=== PATIENT | female | born 1970 | race Hispanic/Latino ===

== ENCOUNTER 2018-04-15 08:50 | Emergency (ER) | payer OTHER ==
--- OUTSIDE RECORDS SUMMARY | 2018-04-15 08:53 | XMS REPORT | Clinical Summary ---
:1970 Author Organization [facility] Address [address] [place] [address] Care Team Providers Name Role Phone Asked, No Pcp Primary Care Provider Unavailable Allergies Not on File Current Medications Not on file Active Problems Not on file Social History Tobacco Use Types Packs/Day Years Used Date Never Assessed Sex Assigned at Date Recorded Not on file Last Filed Vital Signs Not on file Plan of Treatment Not on file Results Not on fileafter 04/14/2017
[2018-04-15] MEDS ORDERED: FENTANYL CITR 100 MCG/2 ML ONE (09:14)
[2018-04-15] MEDS ORDERED: ONDANSETRON 4 MG/2 ML VIAL ONE (09:14)
[2018-04-15 09:15] LABS: Absolute Lymphocytes (CBC) 1.8 K/uL (0.7-4.9); Absolute Monocytes 0.5 K/uL (0.1-1.3); Absolute Neutrophil 5.6 K/uL (1.8-8.0); Basophils % 0.7 % (0-1.3); Eosinophils % 1.4 % (0-4.4); Hematocrit 43.7 % (36.0-45.0); MCH 30.8 pg (27.0-35.0); MCV 88.7 fL (80-100); MPV 9.4 fL (7.6-11.3); RBC Red Blood Cell Count 4.93 M/uL (3.86-4.86)
[2018-04-15 09:19] LABS: Protime INR 0.97
--- NOTE | 2018-04-15 09:20 | RAD REPORT ---
EXAM DESCRIPTION: Ramiro Single View04/15/2018 9:15 am CLINICAL HISTORY: Chest pain COMPARISON: August 2017 FINDINGS: The lungs appear clear of acute infiltrate. The heart is normal size IMPRESSION: No acute abnormalities displayed
[2018-04-15 09:36] LABS: Bilirubin Direct 0.1 mg/dL (0-0.2); Bilirubin Total 0.4 mg/dL (0.2-1.0); Magnesium 2.2 mg/dL (1.8-2.4); Potassium 3.4 mmol/L (3.5-5.1); Protein, Total 8.8 g/dL (6.4-8.2)
--- NOTE | 2018-04-15 10:44 | EKG ---
Test Date: 2018-04-15 Test Time: 08:55:43 Drop Hammer Setter Up: LEONID MEASUREMENT RESULTS: Intervals: Rate: 89 GA: 142 QRSD: 96 QT: 330 QTc: 401 [place]: P: 41 GA: 142 QRS: 42 T: -7 INTERPRETIVE STATEMENTS: Normal sinus rhythm T wave abnormality, consider inferior ischemia Abnormal ECG Compared to ECG 08/31/2017 08:43:02 No significant changes Electronically Signed On 04-15-18 10:43:44 CDT by Denis Camacho
--- NOTE | 2018-04-15 10:49 | EDPHYS ---
Physician Documentation [facility] Name: Neva Maharaj Age: 48 yrs Sex: Female : 1970 Arrival Date: 04/15/2018 Time: 08:53 Bed 6 Private MD: ED Physician Chun Avila HPI: 04/15 09:10 This 48 yrs old Female presents to ER via EMS with complaints of Chest Pain. jr8 09:10 The patient or guardian reports chest pain that is located primarily in the anterior jr8 chest wall, left. Onset: gradually, 1 week(s) ago, and became worse and became persistent. The pain radiates to the left arm. Associated signs and symptoms: The patient has no apparent associated signs or symptoms. The chest pain is described as sharp. Duration: The patient or guardian reports multiple episodes. Modifying factors: The symptoms are alleviated by nothing. the symptoms are aggravated by breathing, cough. Severity of pain: At its worst the pain was moderate in the emergency department the pain is unchanged. The patient has not experienced similar symptoms in the past. The patient has not recently seen a physician. Historical: - Allergies: 09:03 NKDA; sv - Home Meds: 09:03 vitamins [Active]; sv - PMHx: 09:03 Hypertension; "fluid in lungs"; TIA; sv - PSHx: 09:03 None; sv - Immunization history:: Adult Immunizations up to date. - Social history:: Smoking status: Patient/guardian denies using tobacco. - Ebola Screening: : No symptoms or risks identified at this time. ROS: 09:10 Eyes: Negative for injury, pain, redness, and discharge, ENT: Negative for injury, jr8 pain, and discharge, Neck: Negative for injury, pain, and swelling, Respiratory: Negative for shortness of breath, cough, wheezing, and pleuritic chest pain, Abdomen/GI: Negative for abdominal pain, nausea, vomiting, diarrhea, and constipation, Back: Negative for injury and pain, MS/Extremity: Negative for injury and deformity, Skin: Negative for injury, rash, and discoloration, Neuro: Negative for headache, weakness 09:10 Cardiovascular: Positive for chest pain, Negative for edema, orthopnea, palpitations, paroxysmal nocturnal dyspnea. Exam: 09:10 Eyes: Pupils equal round and reactive to light, extra-ocular motions intact. Lids and jr8 lashes normal. Conjunctiva and sclera are non-icteric and not injected. Cornea within normal limits. Periorbital areas with no swelling, redness, or edema. ENT: Nares patent. No nasal discharge, no septal abnormalities noted. Tympanic membranes are normal and external auditory canals are clear. Oropharynx with no redness, swelling, or masses, exudates, or evidence of obstruction, uvula midline. Mucous membranes moist. Neck: Trachea midline, no thyromegaly or masses palpated, and no cervical lymphadenopathy. Supple, full range of motion without nuchal rigidity, or vertebral point tenderness. No Meningismus. Cardiovascular: Regular rate and rhythm with a normal S1 and S2. No gallops, murmurs, or rubs. Normal PMI, no JVD. No pulse deficits. Respiratory: Lungs have equal breath sounds bilaterally, clear to auscultation and percussion. No rales, rhonchi or wheezes noted. No increased work of breathing, no retractions or nasal flaring. Abdomen/GI: Soft, non-tender, with normal bowel sounds. No distension or tympany. No guarding or rebound. No evidence of tenderness throughout. Back: No spinal tenderness. No costovertebral tenderness. Full range of motion. Skin: Warm, dry with normal turgor. Normal color with no rashes, no lesions, and no evidence of cellulitis. MS/ Extremity: Pulses equal, no cyanosis. Neurovascular intact. Full, normal range of motion. Neuro: Awake and alert, GCS 15, oriented to person, place, time, and situation. Cranial nerves II-XII grossly intact. Motor strength 5/5 in all extremities. Sensory grossly intact. Cerebellar exam normal. Normal gait. 09:10 Chest/axilla: Inspection: normal, Palpation: tenderness, that is moderate, of the anterior aspect of left upper chest, that totally reproduces the patient's complaints. Vital Signs: 09:03 BP 141 / 66; Pulse 95 MON; Resp 18; Temp 97.8(O); Pulse Ox 99% on R/A; Weight 113.4 kg; sv Height 5 ft. 3 in. (160.02 cm); Pain 10; 09:36 BP 125 / 77; Pulse 89; Resp 17; Pulse Ox 97% ; sv 10:46 BP 155 / 70; Pulse 81; Resp 18; Pulse Ox 100% on R/A; sv 09:03 Body Mass Index 44.29 (113.40 kg, 160.02 cm) sv 09:03 Sinus Rhythm sv MDM: 08:59 Patient medically screened. jr8 10:46 Differential diagnosis: acute myocardial infarction, acute pericarditis, anxiety, chest jr8 wall pain, congestive heart failure cholecystitis, Cholelithiasis costochondritis, esophagitis, gastritis, gastroesophageal reflux disease (GERD), pancreatitis, pleurisy, pneumonia, pneumothorax, pulmonary embolus, stable angina, thoracic aortic disection, unstable angina. The patient was not given aspirin in the Emergency Department. Administered by EMS. Data reviewed: vital signs, nurses notes, lab test result(s), EKG, radiologic studies, plain films, and as a result, I will discharge patient. Data interpreted: Pulse oximetry: on room air is 100 %. Interpretation: normal. ED course: No acute findings on ECG, labs, or imaging. Patient hemodynamically stable. Pain completely reproducible on palpation. More then likely musculoskeletal in nature. Will put on medications to help. If not better to come back to ED. Needs to f/u with cardiology and FM. 04/15 08:59 Order name: Basic Metabolic Panel; Complete Time: 09:38 04/15 08:59 Order name: CBC with Diff; Complete Time: 09:35 04/15 08:59 Order name: LFT's; Complete Time: 09:38 04/15 08:59 Order name: Magnesium; Complete Time: 09:38 04/15 08:59 Order name: NT PRO-BNP; Complete Time: 09:38 04/15 08:59 Order name: PT-INR; Complete Time: 09:35 04/15 08:59 Order name: Troponin (emerg Dept Use Only); Complete Time: 09:59 04/15 08:59 Order name: XRAY Chest (1 view); Complete Time: 09:35 04/15 08:59 Order name: EKG; Complete Time: 09:00 04/15 08:59 Order name: Cardiac monitoring; Complete Time: 09:07 04/15 08:59 Order name: EKG - Nurse/Tech; Complete Time: 09:07 04/15 08:59 Order name: IV Saline Lock; Complete Time: 09:04/15 08:59 Order name: Labs collected and sent; Complete Time: :04/15 08:59 Order name: O2 Per Protocol; Complete Time: :04/15 08:59 Order name: O2 Sat Monitoring; Complete Time: : EC:12 Rate is 89 beats/min. Rhythm is regular, Normal Sinus Rhythm. QRS [place] is Normal. ND jr8 interval is normal at 142 msec. QRS interval is normal at 96 msec. QT interval is normal at 401 msec. No Q waves. T waves are Inverted in leads III, aVF. No ST changes noted. Clinical impression: NSR w/ Non-specific ST/T Changes. Interpreted by me. Reviewed by me. Administered Medications: 09:13 Drug: Zofran 4 mg Route: IVP; Site: left antecubital; sv 10:55 Follow up: Response: No adverse reaction ss 09:15 Drug: fentaNYL (PF) 50 mcg Route: IVP; Site: left antecubital; sv 10:55 Follow up: Response: No adverse reaction; Pain is decreased ss Disposition: 14:44 Co-signature as Attending Physician, Chun Avila MD I agree with the assessment and kdr plan of care. Disposition: 04/15/18 10:49 Discharged to Home. Impression: Other chest pain - Chest wall pain. - Condition is Stable. - Discharge Instructions: Form - Return To Work, Chest Wall Pain. - Prescriptions for Ibuprofen 800 mg Oral Tablet - take 1 tablet by ORAL route every 12 hours As needed take with food; 20 tablet. Cyclobenzaprine 10 mg Oral Tablet - take 1 tablet by ORAL route every 8 hours As needed; 30 tablet. - Work release form, Medication Reconciliation Form, Thank You Letter, Antibiotic Education, Prescription Opioid Use form. - Follow up: Private Physician; When: 2 - 3 days; Reason: Recheck today's complaints, Continuance of care, Re-evaluation by your physician. - Problem is new. - Symptoms have improved. Signatures: Dispatcher [employer] Susana Phillips RN RN sv Rittger, Kevin, MD MD [facility] Denita Paulson RN RN ss Roszak, Josh, PA PA jr8 Corrections: (The following items were deleted from the chart) 10:55 08:59 Urine Dipstick-Ancillary ordered. jr8 ss 10:59 10:49 04/15/2018 10:49 Discharged to Home. Impression: Other chest pain - Chest wall ss pain. Condition is Stable. Forms are Medication Reconciliation Form, Thank You Letter, Antibiotic Education, Prescription Opioid Use. Follow up: Private Physician; When: 2 - 3 days; Reason: Recheck today's complaints, Continuance of care, Re-evaluation by your physician. Problem is new. Symptoms have improved. jr8
--- NOTE | 2018-04-15 10:49 | ER ---
Nurse's Notes [facility] Name: Neva Maharaj Age: 48 yrs Sex: Female : 1970 Arrival Date: 04/15/2018 Time: 08:53 Bed 6 Private MD: Diagnosis: Other chest pain-Chest wall pain Presentation: 04/15 08:50 Presenting complaint: EMS states: midsternal sharp/stabbing CP with left arm numbness x sv 1 week. BP 170/87 HR-97 100% RA, pain-8. ASA 324 mg PO given. Transition of care: patient was not received from another setting of care. Onset of symptoms was April 08, 2018. Risk Assessment: Do you want to hurt yourself or someone else? Patient reports no desire to harm self or others. Initial Sepsis Screen: Does the patient meet any 2 criteria? No. Patient's initial sepsis screen is negative. Does the patient have a suspected source of infection? No. Patient's initial sepsis screen is negative. Care prior to arrival: Medication(s) given: ASA, 81 mg, x 4. 08:50 Method Of Arrival: EMS: [facility] sv 08:50 Acuity: MAURICIO 3 sv 08:55 Presenting complaint: Patient states: left sided CP that feels like "fire" and worse sv with breathing started about a week ago and the left arm tingling started today. c/o dizziness and mild SOB that is worse with standing up. Triage Assessment: 08:55 General: Appears in no apparent distress. uncomfortable, obese, Behavior is calm, sv cooperative, appropriate for age. Pain: Complains of pain in anterior aspect of left upper chest and left breast Pain radiates to left arm Pain currently is 10 out of 10 on a pain scale. Quality of pain is described as sharp, "on fire" Pain began "a week ago but got worse today when I breathe." Is intermittent, episodic, Alleviated by nothing. Aggravated by breathing or pressure placed on area Also complains of shortness of breath, Current management - is no interventions. EENT: No signs and/or symptoms were reported regarding the EENT system. Neuro: Level of Consciousness is awake, alert, obeys commands, Oriented to person, place, time, situation, Moves all extremities. Full function Speech is normal. Cardiovascular: Patient's skin is warm and dry. Rhythm is sinus rhythm. Respiratory: Reports shortness of breath on exertion "standing" pain with respiration Respiratory effort is even, unlabored, Respiratory pattern is regular, symmetrical. Derm: Skin temperature is warm. Historical: - Allergies: 09:03 NKDA; sv - Home Meds: 09:03 vitamins [Active]; sv - PMHx: 09:03 Hypertension; "fluid in lungs"; TIA; sv - PSHx: 09:03 None; sv - Immunization history:: Adult Immunizations up to date. - Social history:: Smoking status: Patient/guardian denies using tobacco. - Ebola Screening: : No symptoms or risks identified at this time. Screenin:00 Abuse screen: Denies threats or abuse. Denies injuries from another. Nutritional sv screening: No deficits noted. Tuberculosis screening: No symptoms or risk factors identified. Fall Risk None identified. Assessment: 09:07 Reassessment: No changes from previously documented assessment. See triage assessment. sv 10:58 Reassessment: Patient appears in no apparent distress at this time. No changes from ss previously documented assessment. Patient and/or family updated on plan of care and expected duration. Pain level reassessed. Patient states feeling better. Patient states symptoms have improved. Vital Signs: 09:03 BP 141 / 66; Pulse 95 MON; Resp 18; Temp 97.8(O); Pulse Ox 99% on R/A; Weight 113.4 kg; sv Height 5 ft. 3 in. (160.02 cm); Pain 10/10; 09:36 BP 125 / 77; Pulse 89; Resp 17; Pulse Ox 97% ; sv 10:46 BP 155 / 70; Pulse 81; Resp 18; Pulse Ox 100% on R/A; sv 09:03 Body Mass Index 44.29 (113.40 kg, 160.02 cm) sv 09:03 Sinus Rhythm sv ED Course: 08:53 Patient arrived in ED. ss 08:57 Susana Gifford RN is Primary Nurse. sv 08:59 Abelino Munoz PA is PHCP. jr8 08:59 Chun Avila MD is Attending Physician. jr8 09:00 Patient has correct armband on for positive identification. Placed in gown. Bed in low sv position. Call light in reach. Side rails up X2. gambling monitor on. Pulse ox on. NIBP on. Door closed. Warm blanket given. Head of bed elevated. 09:00 Patient maintains SpO2 saturation greater than 95% on room air. sv 09:02 Triage completed. sv 09:04 Arm band placed on right wrist. sv 09:06 Initial lab(s) drawn, by me, sent to lab. Inserted saline lock: 20 gauge in left dh3 antecubital area, using aseptic technique. Blood collected. 09:08 Awaiting lab results. sv 09:13 X-ray completed. Portable x-ray completed in exam room. Patient tolerated procedure jb2 well. 09:15 XRAY Chest (1 view) In Process Unspecified. EDMS 09:42 EKG done, by traffic technician. reviewed by Abelino REDDY. [facility] 10:58 No provider procedures requiring assistance completed. Patient did not have IV access ss during this emergency room visit. Administered Medications: 09:13 Drug: Zofran 4 mg Route: IVP; Site: left antecubital; sv 10:55 Follow up: Response: No adverse reaction ss 09:15 Drug: fentaNYL (PF) 50 mcg Route: IVP; Site: left antecubital; sv 10:55 Follow up: Response: No adverse reaction; Pain is decreased ss Outcome: 10:49 Discharge ordered by . oscar 10:58 Discharged to home ambulatory, with family. ss 10:58 Condition: improved 10:58 Discharge instructions given to patient, family, Instructed on discharge instructions, follow up and referral plans. medication usage, Demonstrated understanding of instructions, follow-up care, medications, Prescriptions given X 2. 10:59 Patient left the ED. ss Signatures: Dispatcher [employer] Susana Phillips, RN JENNIFER Jose M Perry Shelby, RN RN Abelino Munoz PA PA jr8 June han, cell tuber machine EKG [facility] Corrections: (The following items were deleted from the chart) 10:48 10:46 Pulse 81bpm; Resp 18bpm; Pulse Ox 100% RA; sv sv
[2018-04-15 11:04] VITALS: TEMP 97.8
[2018-04-15 11:07] VITALS: BP 155/70; O2SAT 100
== END 2018-04-15 10:59 | disposition home or self-care (01) ==
LOC: ER 08:50
DX: R07.89 Other chest pain (principal); I10 Essential (primary) hypertension; Z86.73 Personal history of transient ischemic attack (TIA), and cerebral infarction without residual deficits
CPT/HCPCS: 36415; 71045; 80048; 80076; 83735; 83880; 84484; 85025; 85610; 93005; 96374; 96375; 99285; J2405; J3010

== ENCOUNTER 2018-10-05 17:43 | Emergency (ER) | payer OTHER ==
--- OUTSIDE RECORDS SUMMARY | 2018-10-05 17:46 | XMS REPORT | Clinical Summary ---
:1970 Author Organization [facility] Address [address] [place] [address] Care Team Providers Name Role Phone Asked, No Pcp Primary Care Provider Unavailable Allergies Not on File Medications Not on file Active Problems Not on file Social History Tobacco Use Types Packs/Day Years Used Date Never Assessed Sex Assigned at Date Recorded Not on file Job Start Date Occupation Industry Not on file Not on file Not on file Travel History Travel Start Travel End No recent travel history available. Last Filed Vital Signs Not on file Plan of Treatment Not on file Results Not on fileafter 10/04/2017 Advance Directives Patient has advance care planning documents on file. For more information, please contact:[id number] [place] [address]
[2018-10-05 18:57] LABS: Urine Bacteria <20 /HPF (<20); Urine Culture Reflex Order NOT NEEDED; Urine RBC <5 /HPF (NONE SEEN)
--- NOTE | 2018-10-05 20:50 | RAD REPORT ---
EXAM DESCRIPTION: CT - Stone Protocol - 10/05/2018 8:35 pm CLINICAL HISTORY: Abdominal pain. Right flank pain COMPARISON: December 2017 TECHNIQUE: Computed axial tomography of the abdomen pelvis was obtained without oral or IV contrast. Lack of IV and oral contrast limits evaluation of solid organs, bowel, and vessels. Coronal reformat nasrin images were obtained and reviewed. All CT scans are performed using dose optimization technique as appropriate and may include automated exposure control or mA/KV adjustment according to patient size. FINDINGS: A renal calculus is not seen. An ureteral calculus is not noted. A bladder calculus is not present. The liver, spleen, pancreas and left adrenal appear grossly normal. A small right adrenal adenoma is present. There is no evidence of diverticulitis. The appendix appears normal IMPRESSION: Negative for a genitourinary calculus
--- NOTE | 2018-10-05 21:12 | ER ---
Nurse's Notes [facility] Name: Neva Maharaj Age: 48 yrs Sex: Female : 1970 Arrival Date: 10/05/2018 Time: 17:45 Bed 10 Private MD: Elijah Flores E Diagnosis: Dysuria;Low back pain Presentation: 10/05 18:20 Presenting complaint: Patient states: Right sided flank pain that has been happening sg for about 1-2 days now, aggravated by walking and standing and deep breathing, reports having burning with urination. Transition of care: patient was not received from another setting of care. Onset of symptoms was October 05, 2018. Risk Assessment: Do you want to hurt yourself or someone else? Patient reports no desire to harm self or others. Initial Sepsis Screen: Does the patient meet any 2 criteria? No. Patient's initial sepsis screen is negative. Care prior to arrival: None. 18:20 Method Of Arrival: Ambulatory sg 18:20 Acuity: MAURICIO 3 sg 19:30 Initial Sepsis Screen: Does the patient have a suspected source of infection? No. rv Patient's initial sepsis screen is negative. Historical: - Allergies: 17:58 NKDA; sg - Home Meds: 19:31 vitamins [Active]; rv - PMHx: 17:58 "fluid in lungs"; Hypertension; TIA; sg - PSHx: 17:58 None; sg - Immunization history:: Adult Immunizations up to date. - Social history:: Smoking status: Patient uses tobacco products. - Ebola Screening: : Patient negative for fever greater than or equal to 101.5 degrees Fahrenheit, and additional compatible Ebola Virus Disease symptoms Patient denies exposure to infectious person Patient denies travel to an Ebola-affected area in the 21 days before illness onset No symptoms or risks identified at this time. Screenin:30 Abuse screen: Denies threats or abuse. Denies injuries from another. Nutritional rv screening: No deficits noted. Tuberculosis screening: No symptoms or risk factors identified. Fall Risk None identified. Assessment: 19:29 General: Appears in no apparent distress. uncomfortable, Behavior is calm, cooperative. rv Pain: Complains of pain in flank pain. Neuro: Level of Consciousness is awake, alert, obeys commands, Oriented to person, place, time, situation. Cardiovascular: Capillary refill < 3 seconds. Respiratory: Airway is patent. GI: No signs and/or symptoms were reported involving the gastrointestinal system. : No signs and/or symptoms were reported regarding the genitourinary system. EENT: No signs and/or symptoms were reported regarding the EENT system. Derm: Skin is intact. Musculoskeletal: No signs and/or symptoms reported regarding the musculoskeletal system. Vital Signs: 18:21 BP 166 / 98; Pulse 78; Resp 19; Temp 98.1; Pulse Ox 99% on R/A; Weight 113.4 kg; Height sg 5 ft. 3 in. (160.02 cm); Pain 6/10; 18:44 Weight 107.5 kg (M); hb 18:44 Body Mass Index 41.98 (107.50 kg, 160.02 cm) hb ED Course: 17:45 Patient arrived in ED. tw3 17:45 Elijah Flores MD is Private Physician. tw3 17:59 Arm band placed on. sg 18:21 Triage completed. sg 19:30 Sandra Rivera FNP-C is [facility]. kb 19:30 Yamil Brown MD is Attending Physician. kb 19:30 Patient has correct armband on for positive identification. Bed in low position. Call rv light in reach. Pulse ox on. NIBP on. 20:35 CT Stone Protocol In Process Unspecified. EDMS 20:36 CT completed. Patient tolerated procedure well. Patient moved to CT via wheelchair. vr Patient moved back from CT. 21:25 No provider procedures requiring assistance completed. Patient did not have IV access rv during this emergency room visit. Administered Medications: No medications were administered Outcome: 21:12 Discharge ordered by . kb 21:26 Discharged to home ambulatory. rv 21:26 Condition: good 21:26 Discharge instructions given to patient, Instructed on discharge instructions, follow up and referral plans. medication usage, Demonstrated understanding of instructions, follow-up care, medications, Prescriptions given X 2. 21:27 Patient left the ED. rv Signatures: Dispatcher [employer] EDMS Sandra Rivera FNP-C FNP-Ckb Gay, Steven, RN RN sg Davis, Victoria vr Mirian Mg RN RN Sonny, Johanne tw3 Se [place] RN RN rv
--- NOTE | 2018-10-05 21:12 | EDPHYS ---
Physician Documentation [facility] Name: Neva Maharaj Age: 48 yrs Sex: Female : 1970 Arrival Date: 10/05/2018 Time: 17:45 Bed 10 Private MD: Elijah Flores E ED Physician Yamil Brown HPI: 10/05 21:20 This 48 yrs old Female presents to ER via Ambulatory with complaints of kb Urinary Problem. 21:20 The patient complains of pain in the right flank. The pain does not radiate. Onset: The kb symptoms/episode began/occurred 1 week(s) ago. Modifying factors: The symptoms are alleviated by nothing. the symptoms are aggravated by palpation/percussion. Associated signs and symptoms: Pertinent positives: dysuria, Pertinent negatives: diarrhea, dizziness, fever, urinary frequency, headache, hematuria, nausea, pain radiating to the lower extremities, vomiting. Severity of pain: At its worst the pain was moderate in the emergency department the pain is unchanged. The patient has not experienced similar symptoms in the past. The patient has not recently seen a physician. Historical: - Allergies: 17:58 NKDA; sg - Home Meds: 19:31 vitamins [Active]; rv - PMHx: 17:58 "fluid in lungs"; Hypertension; TIA; sg - PSHx: 17:58 None; sg - Immunization history:: Adult Immunizations up to date. - Social history:: Smoking status: Patient uses tobacco products. - Ebola Screening: : Patient negative for fever greater than or equal to 101.5 degrees Fahrenheit, and additional compatible Ebola Virus Disease symptoms Patient denies exposure to infectious person Patient denies travel to an Ebola-affected area in the 21 days before illness onset No symptoms or risks identified at this time. ROS: 21:19 Constitutional: Negative for fever, chills, and weight loss, ENT: Negative for injury, kb pain, and discharge, Neck: Negative for injury, pain, and swelling, Cardiovascular: Negative for chest pain, palpitations, and edema, Respiratory: Negative for shortness of breath, cough, wheezing, and pleuritic chest pain, Abdomen/GI: Negative for abdominal pain, nausea, vomiting, diarrhea, and constipation, Back: Negative for injury and pain, MS/Extremity: Negative for injury and deformity, Skin: Negative for injury, rash, and discoloration, Neuro: Negative for headache, weakness, numbness, tingling, and seizure. 21:19 : Positive for flank pain, burning with urination. Exam: 21:20 Constitutional: This is a well developed, well nourished patient who is awake, alert, kb and in no acute distress. Head/Face: Normocephalic, atraumatic. Chest/axilla: Normal chest wall appearance and motion. Nontender with no deformity. No lesions are appreciated. Cardiovascular: Regular rate and rhythm with a normal S1 and S2. No gallops, murmurs, or rubs. Normal PMI, no JVD. No pulse deficits. Respiratory: Lungs have equal breath sounds bilaterally, clear to auscultation and percussion. No rales, rhonchi or wheezes noted. No increased work of breathing, no retractions or nasal flaring. Abdomen/GI: Soft, non-tender, with normal bowel sounds. No distension or tympany. No guarding or rebound. No evidence of tenderness throughout. Skin: Warm, dry with normal turgor. Normal color with no rashes, no lesions, and no evidence of cellulitis. MS/ Extremity: Pulses equal, no cyanosis. Neurovascular intact. Full, normal range of motion. Neuro: Awake and alert, GCS 15, oriented to person, place, time, and situation. Cranial nerves II-XII grossly intact. Motor strength 5/5 in all extremities. Sensory grossly intact. Cerebellar exam normal. Normal gait. 21:20 Back: CVA tenderness, that is moderate, is noted on the right. Vital Signs: 18:21 BP 166 / 98; Pulse 78; Resp 19; Temp 98.1; Pulse Ox 99% on R/A; Weight 113.4 kg; Height sg 5 ft. 3 in. (160.02 cm); Pain 6/10; 18:44 Weight 107.5 kg (M); hb 18:44 Body Mass Index 41.98 (107.50 kg, 160.02 cm) hb MDM: 19:30 Patient medically screened. kb 21:11 Data reviewed: vital signs, nurses notes. Data interpreted: Pulse oximetry: on room air kb is 99 %. Interpretation: normal. Counseling: I had a detailed discussion with the patient and/or guardian regarding: the historical points, exam findings, and any diagnostic results supporting the discharge/admit diagnosis, lab results, radiology results, the need for outpatient follow up, a family practitioner, to return to the emergency department if symptoms worsen or persist or if there are any questions or concerns that arise at home. 10/05 18:27 Order name: Urine Microscopic Only; Complete Time: 19:30 kb 10/05 18:43 Order name: Urine Dipstick--Ancillary (enter results); Complete Time: 21:27 hb 10/05 18:27 Order name: Urine Test (obtain specimen); Complete Time: 18:42 kb 10/05 18:27 Order name: Urine Dipstick-Ancillary (obtain specimen); Complete Time: 18:42 kb 10/05 19:51 Order name: CT Stone Protocol; Complete Time: 20:53 kb Administered Medications: No medications were administered Disposition: 10/05/18 21:12 Discharged to Home. Impression: Dysuria, Low back pain. - Condition is Stable. - Discharge Instructions: Dysuria, Flank Pain, [id number]. - Prescriptions for Cyclobenzaprine 10 mg Oral Tablet - take 1 tablet by ORAL route every 8 hours As needed; 21 tablet. Diclofenac Sodium 75 mg Oral Tablet, Delayed Release (E.C.) - take 1 tablet by ORAL route 2 times per day As needed; 30 tablet. - Medication Reconciliation Form, Thank You Letter, Antibiotic Education, Prescription Opioid Use form. - Follow up: Emergency Department; When: As needed; Reason: Worsening of condition. Follow up: Private Physician; When: 2 - 3 days; Reason: Recheck today's complaints, Continuance of care, Re-evaluation by your physician. Addendum: 10/12/2018 07:21 Co-signature as Attending Physician, Yamil Brown MD. g s Signatures: Dispatcher [employer] EDMS Sandra Rivera, EVENT SPECIALIST FOOD DEMONSTRATOR-C EVENT SPECIALIST FOOD DEMONSTRATOR-Wally Holcomb RN RN sg Starr, Gregory, MD MD gs Vicente, Ronaldo, RN RN rv Corrections: (The following items were deleted from the chart) 10/05 21:27 21:12 10/05/2018 21:12 Discharged to Home. Impression: Dysuria; Low back pain. rv Condition is Stable. Forms are Medication Reconciliation Form, Thank You Letter, Antibiotic Education, Prescription Opioid Use. Follow up: Emergency Department; When: As needed; Reason: Worsening of condition. Follow up: Private Physician; When: 2 - 3 days; Reason: Recheck today's complaints, Continuance of care, Re-evaluation by your physician. kb
[2018-10-05 21:24] LABS: Urine Blood NEGATIVE (NEG); Urine Glucose NEGATIVE (NEG); Urine Protein NEGATIVE (NEG); Urine Specific Gravity 1.005 (1.005-1.030); Urine pH 6.5 (5.0-7.0)
[2018-10-05 21:34] VITALS: BP 166/98; TEMP 98.1; O2SAT 99
== END 2018-10-05 21:27 | disposition home or self-care (01) ==
LOC: ER 17:43
DX: M54.5 Low back pain (principal); R30.0 Dysuria; Z72.0 Tobacco use
CPT/HCPCS: 74176; 76377; 81003; 81015; 99284

== ENCOUNTER 2018-11-24 14:06 | Emergency (ER) | payer OTHER ==
--- OUTSIDE RECORDS SUMMARY | 2018-11-24 14:09 | XMS REPORT | Clinical Summary ---
:1970 Author Organization [facility] Address [address] [place] [address] Care Team Providers Name Role Phone Asked, [...] Not on file Results Not on fileafter 11/23/2017 Advance Directives Patient has advance care planning documents on file. For more information, please contact:[id number] [place] [address]
--- OUTSIDE RECORDS SUMMARY | 2018-11-24 14:09 | XMS REPORT ---
:1970 [facility] Address [address] [place] [address] Care Team Providers Name Role Phone Unavailable Unavailable Unavailable Problems This patient has no known problems. Allergies, Adverse Reactions, Alerts This patient has no known allergies or adverse reactions. Medications This patient has no known medications.
[2018-11-24] MEDS ORDERED: LIDOCAINE 1% 20 ML MDV ONE (14:48)
[2018-11-24] MEDS ORDERED: BUPIVACAINE 0.5% PF 10 ML VIAL ONE (14:48)
--- NOTE | 2018-11-24 14:59 | EDPHYS ---
Physician Documentation [facility] Name: Neva Maharaj Age: 48 yrs Sex: Female : 1970 Arrival Date: 11/24/2018 Time: 14:09 Bed 17 Private MD: ED Physician Elijah Sr HPI: 11/24 15:02 This 48 yrs old Female presents to ER via EMS with complaints of Laceration. snw 15:02 The patient or guardian reports injury. The complaints affect the DIP of right index snw finger. Context: The problem was sustained at home, resulted from knife slipped. Onset: The symptoms/episode began/occurred suddenly. Associated signs and symptoms: The patient has no apparent associated signs or symptoms. Severity of symptoms: At their worst the symptoms were very mild. The patient has not experienced similar symptoms in the past. The patient has not recently seen a physician. Historical: - Allergies: 14:15 NKDA; hb - Home Meds: 14:15 vitamins [Active]; hb - PMHx: 14:15 "fluid in lungs"; Hypertension; TIA; hb - PSHx: 14:15 None; hb - Immunization history:: Adult Immunizations up to date. - Social history:: Smoking status: Patient/guardian denies using tobacco. - Ebola Screening: : No symptoms or risks identified at this time. ROS: 15:00 Constitutional: Negative for fever, chills, and weight loss, Eyes: Negative for injury, snw pain, redness, and discharge, ENT: Negative for injury, pain, and discharge, Neck: Negative for injury, pain, and swelling, Cardiovascular: Negative for chest pain, palpitations, and edema, Respiratory: Negative for shortness of breath, cough, wheezing, and pleuritic chest pain, Abdomen/GI: Negative for abdominal pain, nausea, vomiting, diarrhea, and constipation, Back: Negative for injury and pain, : Negative for injury, bleeding, discharge, and swelling, MS/Extremity: Negative for injury and deformity, Neuro: Negative for headache, weakness, numbness, tingling, and seizure, Psych: Negative for depression, anxiety, suicide ideation, homicidal ideation, and hallucinations. 15:00 Skin: Positive for laceration(s), of the dorsal aspect of right index finger. Exam: 14:59 Constitutional: This is a well developed, well nourished patient who is awake, alert, snw and in no acute distress. Head/Face: Normocephalic, atraumatic. Eyes: Pupils equal round and reactive to light, extra-ocular motions intact. Lids and lashes normal. Conjunctiva and sclera are non-icteric and not injected. Cornea within normal limits. Periorbital areas with no swelling, redness, or edema. ENT: Nares patent. No nasal discharge, no septal abnormalities noted. Tympanic membranes are normal and external auditory canals are clear. Oropharynx with no redness, swelling, or masses, exudates, or evidence of obstruction, uvula midline. Mucous membranes moist. Neck: Trachea midline, no thyromegaly or masses palpated, and no cervical lymphadenopathy. Supple, full range of motion without nuchal rigidity, or vertebral point tenderness. No Meningismus. Chest/axilla: Normal chest wall appearance and motion. Nontender with no deformity. No lesions are appreciated. Cardiovascular: Regular rate and rhythm with a normal S1 and S2. No gallops, murmurs, or rubs. Normal PMI, no JVD. No pulse deficits. Respiratory: Lungs have equal breath sounds bilaterally, clear to auscultation and percussion. No rales, rhonchi or wheezes noted. No increased work of breathing, no retractions or nasal flaring. Abdomen/GI: Soft, non-tender, with normal bowel sounds. No distension or tympany. No guarding or rebound. No evidence of tenderness throughout. Back: No spinal tenderness. No costovertebral tenderness. Full range of motion. MS/ Extremity: Pulses equal, no cyanosis. Neurovascular intact. Full, normal range of motion. Neuro: Awake and alert, GCS 15, oriented to person, place, time, and situation. Cranial nerves II-XII grossly intact. Motor strength 5/5 in all extremities. Sensory grossly intact. Cerebellar exam normal. Normal gait. Psych: Awake, alert, with orientation to person, place and time. Behavior, mood, and affect are within normal limits. 14:59 Skin: Appearance: normal except for affected area, injury, laceration(s), the wound is approximately 3 cm(s), with a depth of .5 cm(s), of the dorsal aspect of dip of right index finger. Vital Signs: 14:15 BP 177 / 109; Pulse 79; Resp 16; Temp 98.1; Pulse Ox 100% on R/A; Pain 10/10; hb MDM: 14:30 Patient medically screened. snw 15:01 Data reviewed: vital signs, nurses notes. Data interpreted: Pulse oximetry: on room air snw is 100 %. Interpretation: normal. Counseling: I had a detailed discussion with the patient and/or guardian regarding: the historical points, exam findings, and any diagnostic results supporting the discharge/admit diagnosis, the need for outpatient follow up, to return to the emergency department if symptoms worsen or persist or if there are any questions or concerns that arise at home. Special discussion: I have referred the patient to see his PCP for further evaluation of high blood pressure. Based on the history and exam findings, there is no indication for further emergent testing or inpatient evaluation. I discussed with the patient/guardian the need to see the primary care provider for further evaluation of the symptoms. 11/24 14:34 Order name: Dressing - Wound; Complete Time: 14:43 snw 11/24 14:34 Order name: Gloves, Sterile; Complete Time: 14:37 snw 11/24 14:34 Order name: Setup Suture Tray; Complete Time: 14:37 snw Administered Medications: 14:20 Drug: Lidocaine (1 %) 1 vials {Note: by JERROD Herron.} Volume: 20 ml; Route: Infiltration; hb 14:54 CANCELLED (not needed): Marcaine (0.25 %) 1 vials Infiltration once snw Disposition: 18:16 Co-signature as Attending Physician, Elijah Sr MD I agree with the assessment and wa plan of care. Disposition: 11/24/18 14:58 Discharged to Home. Impression: Laceration without foreign body of right index finger without damage to nail. - Condition is Stable. - Discharge Instructions: Laceration Care, Adult, Sutured Wound Care, VIS, Tetanus, Diphtheria (Td) - CDC. - Prescriptions for Keflex 500 mg Oral Capsule - take 1 capsule by ORAL route every 8 hours for 10 days; 30 capsule. Mobic 7.5 mg Oral Tablet - take 1 tablet by ORAL route once daily take with food; 20 tablet. - Medication Reconciliation Form, Thank You Letter, Antibiotic Education, Prescription Opioid Use form. - Follow up: Private Physician; When: 2 - 3 days; Reason: Recheck today's complaints, Continuance of care, Re-evaluation by your physician. Follow up: Emergency Department; When: 7 - 10 days; Reason: Staple/Suture removal. Signatures: Germaine Gifford, FOREST MANAGEMENT PROFESSOR-C FOREST MANAGEMENT PROFESSOR-Csnw Mirian Mg, RN RN Elijah Sr MD MD wa Corrections: (The following items were deleted from the chart) 14:54 14:34 Marcaine (0.25 %) 1 vials Infiltration once ordered. snw snw 14:54 14:54 Marcaine (0.25 %) 1 vials Infiltration once ordered. snw snw 15:26 14:58 11/24/2018 14:58 Discharged to Home. Impression: Laceration without foreign body hb of right index finger without damage to nail. Condition is Stable. Forms are Medication Reconciliation Form, Thank You Letter, Antibiotic Education, Prescription Opioid Use. Follow up: Private Physician; When: 2 - 3 days; Reason: Recheck today's complaints, Continuance of care, Re-evaluation by your physician. Follow up: Emergency Department; When: 7 - 10 days; Reason: Staple/Suture removal. snw
--- NOTE | 2018-11-24 14:59 | ER ---
Nurse's Notes [facility] Name: Neva Maharaj Age: 48 yrs Sex: Female : 1970 Arrival Date: 11/24/2018 Time: 14:09 Bed 17 Private MD: Diagnosis: Laceration without foreign body of right index finger without damage to nail Presentation: 11/24 14:10 Presenting complaint: EMS states: Laceration to right index finger with kitchen knife hb 30 mins FOAM CASTER. Saturated kitchen towel noted on scene, finger dressed with gauze and pressure applied, not bleeding at this time. Transition of care: patient was not received from another setting of care. Complicating Factors: There are no complicating factors for this patient. Onset of symptoms was November 24, 2018. Risk Assessment: Do you want to hurt yourself or someone else? Patient reports no desire to harm self or others. Initial Sepsis Screen: Does the patient meet any 2 criteria? No. Patient's initial sepsis screen is negative. Does the patient have a suspected source of infection? No. Patient's initial sepsis screen is negative. Care prior to arrival: Bleeding of injury controlled. Injury dressed. 14:10 Method Of Arrival: EMS: [facility] hb 14:10 Acuity: MAURICIO 4 hb Triage Assessment: 14:15 General: Appears in no apparent distress. uncomfortable, Behavior is cooperative, hb anxious, crying. Pain: Pain currently is 10 out of 10 on a pain scale. EENT: No signs and/or symptoms were reported regarding the EENT system. Neuro: Level of Consciousness is awake, alert, obeys commands, Oriented to person, place, time, situation. Cardiovascular: Capillary refill < 3 seconds Patient's skin is warm and dry. Respiratory: Airway is patent Respiratory effort is even, unlabored, Respiratory pattern is regular, symmetrical. GI: No signs and/or symptoms were reported involving the gastrointestinal system. : No signs and/or symptoms were reported regarding the genitourinary system. Derm: Skin is healthy with good turgor. Musculoskeletal: No signs and/or symptoms reported regarding the musculoskeletal system. Injury Description: Laceration sustained to palmar aspect of distal phalanx of right index finger is 2.6 to 7.5 cm long, not bleeding, was sustained 30-60 minutes ago. Historical: - Allergies: 14:15 NKDA; hb - Home Meds: 14:15 vitamins [Active]; hb - PMHx: 14:15 "fluid in lungs"; Hypertension; TIA; hb - PSHx: 14:15 None; hb - Immunization history:: Adult Immunizations up to date. - Social history:: Smoking status: Patient/guardian denies using tobacco. - Ebola Screening: : No symptoms or risks identified at this time. Screenin:16 Abuse screen: Denies threats or abuse. Denies injuries from another. Nutritional hb screening: No deficits noted. Tuberculosis screening: No symptoms or risk factors identified. Fall Risk None identified. Assessment: 14:15 General: see triage assessment. hb 14:30 Reassessment: JERROD Herron at bedside for laceration repair. hb Vital Signs: 14:15 BP 177 / 109; Pulse 79; Resp 16; Temp 98.1; Pulse Ox 100% on R/A; Pain 10/10; hb ED Course: 14:09 Patient arrived in ED. hb 14:15 Triage completed. hb 14:15 Arm band placed on. hb 14:16 Patient has correct armband on for positive identification. Bed in low position. Call hb light in reach. Side rails up X 1. 14:28 Germaine Gifford FNP-C [facility]. snw 14:28 Elijah Sr MD is Attending Physician. snw 14:35 Mirian Mg, JENNIFER is Primary Nurse. hb 15:15 No provider procedures requiring assistance completed. Patient did not have IV access hb during this emergency room visit. Administered Medications: 14:20 Drug: Lidocaine (1 %) 1 vials {Note: by JERROD Herron.} Volume: 20 ml; Route: Infiltration; hb 14:54 CANCELLED (not needed): Marcaine (0.25 %) 1 vials Infiltration once snw Outcome: 14:58 Discharge ordered by . snw 15:15 Discharged to home ambulatory, with significant other. hb 15:15 Condition: stable 15:15 Discharge instructions given to patient, significant other, Instructed on discharge instructions, follow up and referral plans. medication usage, wound care, Demonstrated understanding of instructions, follow-up care, medications, wound care, Prescriptions given X 2. 15:26 Patient left the ED. hb Signatures: Germaine Gifford FNP-C FNP-Csnw Mirian Mg, RN RN hb Corrections: (The following items were deleted from the chart) 14:19 14:10 Presenting complaint: EMS states: Laceration to right index finger with kitchen hb knife 30 mins FOAM CASTER hb
[2018-11-24 15:33] VITALS: BP 177/109; TEMP 98.1; O2SAT 100
== END 2018-11-24 15:26 | disposition home or self-care (01) ==
LOC: ER 14:06
DX: S61.210A Laceration without foreign body of right index finger without damage to nail, initial encounter (principal); W26.0XXA Contact with knife, initial encounter; I10 Essential (primary) hypertension; Z86.73 Personal history of transient ischemic attack (TIA), and cerebral infarction without residual deficits
CPT/HCPCS: 99283

== ENCOUNTER 2018-12-02 14:53 | Emergency (ER) | payer OTHER ==
--- NOTE | 2018-12-02 15:47 | EDPHYS ---
Physician Documentation [facility] Name: Neva Maharaj Age: 48 yrs Sex: Female : 1970 Arrival Date: 12/02/2018 Time: 14:57 Bed Waiting Private MD: Evgeny Bustillos C ED Physician Mario Simms HPI: 12/02 15:48 This 48 yrs old Female presents to ER via Ambulatory with complaints of Suture snw Removal. 15:48 The patient has sutures on the dorsal aspect of distal phalanx of right index finger. snw Previous treatment: The patient was initially treated 10 day(s) ago, the care was rendered at [facility], Treatment type: The patient's original treatment included sutures, Outpatient prescription(s): The patient was given prescription(s) for Keflex, no complications. Sutures/shashi progress: The patient has no c/o's. The wound is well-healing with no redness, swelling, discharge, or dehiscence reported. The patient has not experienced similar symptoms in the past. It is unknown whether or not the patient has recently seen a physician. 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 - Social history:: Smoking status: Patient/guardian denies using tobacco. - Ebola Screening: : No symptoms or risks identified at this time. ROS: 15:48 Constitutional: Negative for fever, chills, and weight loss, Eyes: Negative for injury, snw pain, redness, and discharge, ENT: Negative for injury, pain, and discharge, Neck: Negative for injury, pain, and swelling, Cardiovascular: Negative for chest pain, palpitations, and edema, Respiratory: Negative for shortness of breath, cough, wheezing, and pleuritic chest pain, Abdomen/GI: Negative for abdominal pain, nausea, vomiting, diarrhea, and constipation, Back: Negative for injury and pain, : Negative for injury, bleeding, discharge, and swelling, MS/Extremity: Negative for injury and deformity, Neuro: Negative for headache, weakness, numbness, tingling, and seizure, Psych: Negative for depression, anxiety, suicide ideation, homicidal ideation, and hallucinations. 15:48 Skin: Positive for need sutures removed. Exam: 15:47 Constitutional: This is a well developed, well nourished patient who is awake, alert, snw and in no acute distress. Head/Face: Normocephalic, atraumatic. Eyes: Pupils equal round and reactive to light, extra-ocular motions intact. Lids and lashes normal. Conjunctiva and sclera are non-icteric and not injected. Cornea within normal limits. Periorbital areas with no swelling, redness, or edema. ENT: Nares patent. No nasal discharge, no septal abnormalities noted. Tympanic membranes are normal and external auditory canals are clear. Oropharynx with no redness, swelling, or masses, exudates, or evidence of obstruction, uvula midline. Mucous membranes moist. Neck: Trachea midline, no thyromegaly or masses palpated, and no cervical lymphadenopathy. Supple, full range of motion without nuchal rigidity, or vertebral point tenderness. No Meningismus. Chest/axilla: Normal chest wall appearance and motion. Nontender with no deformity. No lesions are appreciated. Cardiovascular: Regular rate and rhythm with a normal S1 and S2. No gallops, murmurs, or rubs. Normal PMI, no JVD. No pulse deficits. Respiratory: Lungs have equal breath sounds bilaterally, clear to auscultation and percussion. No rales, rhonchi or wheezes noted. No increased work of breathing, no retractions or nasal flaring. Abdomen/GI: Soft, non-tender, with normal bowel sounds. No distension or tympany. No guarding or rebound. No evidence of tenderness throughout. Back: No spinal tenderness. No costovertebral tenderness. Full range of motion. MS/ Extremity: Pulses equal, no cyanosis. Neurovascular intact. Full, normal range of motion. Neuro: Awake and alert, GCS 15, oriented to person, place, time, and situation. Cranial nerves II-XII grossly intact. Motor strength 5/5 in all extremities. Sensory grossly intact. Cerebellar exam normal. Normal gait. Psych: Awake, alert, with orientation to person, place and time. Behavior, mood, and affect are within normal limits. 15:47 Skin: Appearance: normal except for affected area, injury, recent laceration with skin edges well approximated, no erythema or s/s of infection. Vital Signs: 15:41 BP 177 / 84; Pulse 76; Resp 16 S; Temp 98.6(TE); Pulse Ox 100% on R/A; Pain 0/10; aa5 MDM: 15:47 Patient medically screened. snw Administered Medications: No medications were administered Disposition: 17:19 Co-signature as Attending Physician, Maroi Simms MD. rn Disposition: 12/02/18 15:47 Discharged to Home. Impression: Encounter for removal of sutures. - Condition is Stable. - Discharge Instructions: Suture Removal, Care After, Incision Care, Adult. - Medication Reconciliation Form, Thank You Letter, Antibiotic Education, Prescription Opioid Use form. - Follow up: Evgeny Bustillos MD; When: 1 week; Reason: Recheck today's complaints, Continuance of care, Re-evaluation by your physician. Follow up: Emergency Department; When: As needed. Signatures: Germaine Gifford, BOILER WELDER-C BOILER WELDER-Csnw Mario Simms MD MD rn Calderon, Audri, RN RN aa5 Corrections: (The following items were deleted from the chart) 15:50 15:47 12/02/2018 15:47 Discharged to Home. Impression: Encounter for removal of aa5 sutures. Condition is Stable. Forms are Medication Reconciliation Form, Thank You Letter, Antibiotic Education, Prescription Opioid Use. Follow up: Evgeny Bustillos; When: 1 week; Reason: Recheck today's complaints, Continuance of care, Re-evaluation by your physician. Follow up: Emergency Department; When: As needed. snw
--- NOTE | 2018-12-02 15:47 | ER ---
Nurse's Notes [facility] Name: Neva Maharaj Age: 48 yrs Sex: Female : 1970 Arrival Date: 12/02/2018 Time: 14:57 Bed Waiting Private MD: Evgeny Bustillos C Diagnosis: Encounter for removal of sutures Presentation: 12/02 15:39 Presenting complaint: Patient states: "I just need the sutures out, I got them last aa5 Friday". Sutures noted to right index finger. Transition of care: patient was not received from another setting of care. Onset of symptoms was December 02, 2018. Risk Assessment: Do you want to hurt yourself or someone else? Patient reports no desire to harm self or others. Initial Sepsis Screen: Does the patient meet any 2 criteria? No. Patient's initial sepsis screen is negative. Does the patient have a suspected source of infection? No. Patient's initial sepsis screen is negative. Care prior to arrival: None. 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 - Social history:: Smoking status: Patient/guardian denies using tobacco. - Ebola Screening: : No symptoms or risks identified at this time. Screenin:40 Abuse screen: Denies threats or abuse. Nutritional screening: No deficits noted. aa5 Tuberculosis screening: No symptoms or risk factors identified. Fall Risk None identified. Assessment: 15:39 General: Appears comfortable, Behavior is calm, cooperative. Pain: Denies pain. Neuro: aa5 Level of Consciousness is awake, alert, obeys commands, Oriented to person, place, time, situation. Cardiovascular: Patient's skin is warm and dry. Respiratory: Airway is patent Respiratory effort is even, unlabored, Respiratory pattern is regular, symmetrical. GI: No signs and/or symptoms were reported involving the gastrointestinal system. : No signs and/or symptoms were reported regarding the genitourinary system. EENT: No signs and/or symptoms were reported regarding the EENT system. Derm: Skin is pink, warm \\T\\ dry. 4 sutures noted to right index finger. Musculoskeletal: Range of motion: intact in all extremities. 15:40 Reassessment: 4 sutures removed by Germaine Gifford, PREANALYTICS TEAM LEAD, pt tolerated well. No s/s of aa5 infection noted to site . Vital Signs: 15:41 BP 177 / 84; Pulse 76; Resp 16 S; Temp 98.6(TE); Pulse Ox 100% on R/A; Pain 0/10; aa5 ED Course: 14:57 Patient arrived in ED. mr 14:57 Evgeny Bustillos MD is Private Physician. mr 14:58 Germaine Gifford FNP-C is [facility]. snw 14:58 Mario Simms MD is Attending Physician. snw 15:40 Triage completed. aa5 15:40 Arm band placed on. aa5 15:40 Patient has correct armband on for positive identification. aa5 15:46 Evgeny Bustillos MD is Referral Physician. snw 15:49 No provider procedures requiring assistance completed. Patient did not have IV access aa5 during this emergency room visit. Administered Medications: No medications were administered Outcome: 15:47 Discharge ordered by MD. snw 15:49 Discharged to home ambulatory. aa5 15:49 Condition: good 15:49 Discharge instructions given to patient, Instructed on discharge instructions, follow up and referral plans. wound care, Demonstrated understanding of instructions, follow-up care, wound care. 15:49 No charge visit due to suture removal. 15:50 Patient left the ED. aa5 Signatures: Germaine Gifford FNP-C FNP-Amy Chun mr CamposMariangel, RN RN aa5
[2018-12-02 16:19] VITALS: BP 177/84; TEMP 98.6; O2SAT 100
--- OUTSIDE RECORDS SUMMARY | 2018-12-02 17:03 | XMS REPORT | Clinical Summary ---
:1970 Author Organization [facility] Address [address] [place] [address] Care Team Providers Name Role Phone Asked, [...] Not on file Results Not on fileafter 12/01/2017 Advance Directives Patient has advance care planning documents on file. For more information, please contact:[phone] [place] [address]
--- OUTSIDE RECORDS SUMMARY | 2018-12-02 17:03 | XMS REPORT ---
:1970 [facility] Address [address] [place] [address] [address] [place] [address] Care Team Providers Name Role Phone Unavailable Unavailable Unavailable Problems This patient has no known problems. Allergies, Adverse Reactions, Alerts This patient has no known allergies or adverse reactions. Medications This patient has no known medications.
== END 2018-12-02 15:50 | disposition home or self-care (01) ==
LOC: ER 14:53
DX: Z48.02 Encounter for removal of sutures (principal); I10 Essential (primary) hypertension; Z86.73 Personal history of transient ischemic attack (TIA), and cerebral infarction without residual deficits

== ENCOUNTER 2019-01-19 16:55 | Emergency (ER) | payer OTHER ==
--- OUTSIDE RECORDS SUMMARY | 2019-01-19 17:00 | XMS REPORT | Clinical Summary ---
:1970 Author Organization [facility] Address [address] [place] [address] Care Team Providers Name Role Phone Asked, [...] Not on file Results Not on fileafter 01/18/2018 Advance Directives Patient has advance care planning documents on file. For more information, please contact:[phone] [place] [address]
--- OUTSIDE RECORDS SUMMARY | 2019-01-19 17:00 | XMS REPORT ---
:1970 [facility] Address [address] [place] [address] Care Team Providers Name Role Phone Unavailable Unavailable Unavailable Problems This patient has no known problems. Allergies, Adverse Reactions, Alerts This patient has no known allergies or adverse reactions. Medications This patient has no known medications.
--- NOTE | 2019-01-19 18:56 | EDPHYS ---
Physician Documentation [facility] Name: Neva Maharaj Age: 48 yrs Sex: Female : 1970 Arrival Date: 01/19/2019 Time: 16:57 Bed 12 Private MD: Evgeny Bustillos C ED Physician Mario Simms HPI: 01/19 17:31 This 48 yrs old Female presents to ER via Ambulatory with complaints of Foot jr8 Pain. 17:31 The patient presents with pain. The complaints affect the right foot. Context: resulted jr8 from an unknown cause, the patient can fully bear weight, the patient is able to ambulate. Onset: The symptoms/episode began/occurred gradually, 2 month(s) ago. Modifying factors: The symptoms are alleviated by nothing. the symptoms are aggravated by weight bearing. Associated signs and symptoms: The patient has no apparent associated signs or symptoms. Severity of symptoms: At their worst the symptoms were mild, in the emergency department the symptoms are unchanged. The patient has not experienced similar symptoms in the past. The patient has not recently seen a physician. Stated that she has seen podiatry in the past for foot pain and was given special shoes to wear at work since she is on her feet several hours out of the day. Stated that recently her foot has started to worsen and now having pain to back of heel and bottom heel. Worse in the AM . 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 - Social history:: Smoking status: Patient/guardian denies using tobacco. - Ebola Screening: : Patient denies travel to an Ebola-affected area in the 21 days before illness onset. ROS: 17:31 Eyes: Negative for injury, pain, redness, and discharge, ENT: Negative for injury, jr8 pain, and discharge, Neck: Negative for injury, pain, and swelling, Cardiovascular: Negative for chest pain, palpitations, and edema, Respiratory: Negative for shortness of breath, cough, wheezing, and pleuritic chest pain, Abdomen/GI: Negative for abdominal pain, nausea, vomiting, diarrhea, and constipation, Back: Negative for injury and pain, Skin: Negative for injury, rash, and discoloration, Neuro: Negative for headache, weakness, numbness, tingling, and seizure. 17:31 MS/extremity: Positive for pain, tenderness, of the right foot. Exam: 17:31 Eyes: Pupils equal round and reactive to light, extra-ocular motions intact. Lids and jr8 lashes normal. Conjunctiva and sclera are non-icteric and not injected. Cornea within normal limits. Periorbital areas with no swelling, redness, or edema. ENT: Nares patent. No nasal discharge, no septal abnormalities noted. Tympanic membranes are normal and external auditory canals are clear. Oropharynx with no redness, swelling, or masses, exudates, or evidence of obstruction, uvula midline. Mucous membranes moist. Neck: Trachea midline, no thyromegaly or masses palpated, and no cervical lymphadenopathy. Supple, full range of motion without nuchal rigidity, or vertebral point tenderness. No Meningismus. Cardiovascular: Regular rate and rhythm with a normal S1 and S2. No gallops, murmurs, or rubs. Normal PMI, no JVD. No pulse deficits. Respiratory: Lungs have equal breath sounds bilaterally, clear to auscultation and percussion. No rales, rhonchi or wheezes noted. No increased work of breathing, no retractions or nasal flaring. Abdomen/GI: Soft, non-tender, with normal bowel sounds. No distension or tympany. No guarding or rebound. No evidence of tenderness throughout. Back: No spinal tenderness. No costovertebral tenderness. Full range of motion. Skin: Warm, dry with normal turgor. Normal color with no rashes, no lesions, and no evidence of cellulitis. Neuro: Awake and alert, GCS 15, oriented to person, place, time, and situation. Cranial nerves II-XII grossly intact. Motor strength 5/5 in all extremities. Sensory grossly intact. Cerebellar exam normal. Normal gait. 17:31 Musculoskeletal/extremity: Extremities: grossly normal except: noted in the right foot: pain, tenderness, to back of heel and bottom of heel near mid foot region , ROM: intact in all extremities, Circulation is intact in all extremities. Sensation intact. Vital Signs: 17:16 BP 142 / 78; Pulse 83; Resp 18; Temp 97.6; Pulse Ox 95% on R/A; Weight 115.67 kg (R); aj1 Height 5 ft. 0 in. (152.40 cm) (R); 17:16 Body Mass Index 49.80 (115.67 kg, 152.40 cm) aj1 MDM: 17:20 Patient medically screened. jr8 18:54 Data reviewed: vital signs, nurses notes, radiologic studies, plain films. Data jr8 interpreted: Pulse oximetry: on room air is 95 %. Interpretation: normal. 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 01/19 18:09 Order name: Foot Right 3 View EDNV Administered Medications: No medications were administered Disposition: 01/20 07:04 Co-signature as Attending Physician, Mario Simms MD. rn Disposition: 01/19/19 18:55 Discharged to Home. Impression: Pain in right foot. - Condition is Stable. - Discharge Instructions: Plantar Fasciitis. - Prescriptions for Diclofenac Sodium 75 mg Oral Tablet Sustained Release - take 1 tablet by ORAL route 2 times per day; 30 tablet. - Medication Reconciliation Form, Thank You Letter, Antibiotic Education, Prescription Opioid Use form. - Follow up: Private Physician; When: 5 - 6 days; Reason: Recheck today's complaints, Continuance of care, Re-evaluation by your physician. - Problem is new. - Symptoms have improved. Signatures: Dispatcher [employer] [facility] Nataly Connelly RN RN aj1 Mario Simms MD MD rn Calderon, Audri, RN RN aa5 Abelino Munoz PA PA jr8 Corrections: (The following items were deleted from the chart) 01/19 18:32 18:07 Foot Right 3 View+RAD.RAD.BRZ ordered. [facility] 19:12 18:55 01/19/2019 18:55 Discharged to Home. Impression: Pain in right foot. Condition is aa5 Stable. Forms are Medication Reconciliation Form, Thank You Letter, Antibiotic Education, Prescription Opioid Use. Follow up: Private Physician; When: 5 - 6 days; Reason: Recheck today's complaints, Continuance of care, Re-evaluation by your physician. Problem is new. Symptoms have improved. jr8
--- NOTE | 2019-01-19 18:56 | ER ---
Nurse's Notes [facility] Name: Neva Maharaj Age: 48 yrs Sex: Female : 1970 Arrival Date: 01/19/2019 Time: 16:57 Bed 12 Private MD: Evgeny Bustillos C Diagnosis: Pain in right foot Presentation: 01/19 17:14 Presenting complaint: Patient states: "My foot is hurting me bad, my right foot, last aj1 year my doctor told me that I have a bone spur, its getting worse and everytime I step down on it it hurts". Transition of care: patient was not received from another setting of care. Onset of symptoms was January 19, 2019. Risk Assessment: Do you want to hurt yourself or someone else? Patient reports no desire to harm self or others. Initial Sepsis Screen: Does the patient meet any 2 criteria? No. Patient's initial sepsis screen is negative. Does the patient have a suspected source of infection? No. Patient's initial sepsis screen is negative. Care prior to arrival: None. 17:14 Method Of Arrival: Ambulatory aj 17:14 Acuity: MAURICIO 4 aj1 Triage Assessment: 17:16 General: Appears in no apparent distress. comfortable, Behavior is calm, cooperative, aj1 appropriate for age. Pain: Complains of pain in right foot Pain currently is 7 out of 10 on a pain scale. Neuro: Level of Consciousness is awake, alert, obeys commands. Cardiovascular: Patient's skin is warm and dry. Respiratory: Airway is patent Respiratory effort is even, unlabored, Respiratory pattern is regular, symmetrical. 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 - Social history:: Smoking status: Patient/guardian denies using tobacco. - Ebola Screening: : Patient denies travel to an Ebola-affected area in the 21 days before illness onset. Screenin:20 Abuse screen: Denies threats or abuse. Nutritional screening: No deficits noted. aa5 Tuberculosis screening: No symptoms or risk factors identified. Fall Risk None identified. Assessment: 18:20 Reassessment: Awaiting x-ray results, pt notified of wait time. . General: Appears aa5 comfortable, Behavior is calm, cooperative. Pain: Complains of pain in heel of right foot only with walking and movement of right foot Pain does not radiate. Pain currently is 0 out of 10 on a pain scale. Neuro: Level of Consciousness is awake, alert, obeys commands, Oriented to person, place, time, situation. Cardiovascular: Patient's skin is warm and dry. Respiratory: Airway is patent Respiratory effort is even, unlabored, Respiratory pattern is regular, symmetrical. GI: No signs and/or symptoms were reported involving the gastrointestinal system. : No signs and/or symptoms were reported regarding the genitourinary system. EENT: No signs and/or symptoms were reported regarding the EENT system. Derm: Skin is pink, warm \\T\\ dry. Musculoskeletal: Range of motion: intact in all extremities. 19:10 Reassessment: Patient is alert, oriented x 3, equal unlabored respirations, skin aa5 warm/dry/pink. Vital Signs: 17:16 BP 142 / 78; Pulse 83; Resp 18; Temp 97.6; Pulse Ox 95% on R/A; Weight 115.67 kg (R); aj1 Height 5 ft. 0 in. (152.40 cm) (R); 17:16 Body Mass Index 49.80 (115.67 kg, 152.40 cm) aj1 ED Course: 16:57 Patient arrived in ED. rg4 16:58 Evgeny Bustillos MD is Private Physician. rg4 17:15 Triage completed. aj1 17:16 Arm band placed on Patient placed in an exam room. aj1 17:20 Abelino Munoz PA is PHCP. jr8 17:20 Mario Simms MD is Attending Physician. jr8 18:20 Patient has correct armband on for positive identification. Adult w/ patient. aa5 18:23 Mariangel Campos, RN is Primary Nurse. aa5 18:27 No provider procedures requiring assistance completed. aa5 18:53 Foot Right 3 View In Process Unspecified. EDMS 19:10 Patient did not have IV access during this emergency room visit. aa5 Administered Medications: No medications were administered Outcome: 18:55 Discharge ordered by . jr8 19:10 Discharged to home ambulatory, with significant other. aa5 19:10 Condition: good 19:10 Discharge instructions given to patient, Instructed on discharge instructions, follow up and referral plans. medication usage, Demonstrated understanding of instructions, follow-up care, medications, Prescriptions given X 1. 19:12 Patient left the ED. aa5 Signatures: Dispatcher [employer] EDNataly Fofana RN RN aj1 Mariangel Campos RN RN aa5 Abelino Munoz PA PA jr8 Leora Green rg4
[2019-01-19 19:17] VITALS: BP 142/78; TEMP 97.6; O2SAT 95
--- NOTE | 2019-01-19 19:48 | RAD REPORT ---
EXAM DESCRIPTION: RAD - Foot Right 3 View - 01/19/2019 6:53 pm CLINICAL HISTORY: Right foot pain without trauma history COMPARISON: None. FINDINGS: No fracture, dislocation or periosteal reaction. No acute or destructive bone process seen . Patient has a large plantar spur. There is prominent spurring or bony projection from the posterior aspect of the talus. Prominent degenerative changes are present along the dorsal margin of the talus and navicular bones at the joint. Minimal IP joint degenerative changes are present. There is mild j oint space narrowing at the first MTP joint. No air or foreign body in the soft tissues. IMPRESSION: Large plantar spur. Prominent degenerative spurring along the dorsal margin of the talonavicular joint space.
== END 2019-01-19 19:12 | disposition home or self-care (01) ==
LOC: ER 16:55
DX: M79.671 Pain in right foot (principal); I10 Essential (primary) hypertension
CPT/HCPCS: 99283

== ENCOUNTER 2019-03-17 16:44 | Emergency (ER) | payer OTHER ==
--- OUTSIDE RECORDS SUMMARY | 2019-03-17 16:47 | XMS REPORT ---
:1970 [facility] Address [address] [place] [address] Care Team Providers Name Role Phone Unavailable Unavailable Unavailable Problems This patient has no known problems. Allergies, Adverse Reactions, Alerts This patient has no known allergies or adverse reactions. Medications This patient has no known medications.
--- OUTSIDE RECORDS SUMMARY | 2019-03-17 16:47 | XMS REPORT | Clinical Summary ---
:1970 Author Organization [facility] Address [address] [place] [address] Care Team Providers Name Role Phone Asked, [...] Not on file Results Not on fileafter 03/16/2018 Advance Directives Patient has advance care planning documents on file. For more information, please contact:[phone] [place] [address]
[2019-03-17] MEDS ORDERED: KETOROLAC 30 MG/ML INJ ONE ×2 (17:46→17:47)
--- NOTE | 2019-03-17 17:58 | RAD REPORT ---
EXAM DESCRIPTION: CT - Stone Protocol - 03/17/2019 5:38 pm CLINICAL HISTORY: Flank pain. Abd pain;Kidney stones COMPARISON: <Comparisons> TECHNIQUE: Axial images were obtained without oral or IV contrast. Lack of contrast limits solid org an and vascular assessment. The [id number] spans the entirety of the system partially obscuring uppermost abdomen and lung bases. Coronal reformatted images were obtained and reviewed. All CT scans are performed using dose optimization technique as appropriate and may include automated exposure control or mA/KV adjustment according to patient size. FINDINGS: The lower lung hernandez are clear. Imaged portions of the liver and spleen show no suspicious findings on non-contrast imaging. The panc reas and left adrenal gland are normal.The right adrenal gland contains an 18 mm adenoma. No patholog ic lymphadenopathy in the abdomen or pelvis. No urinary tract stones or obstructive uropathy. No bowel obstruction, free air, free fluid or abscess. Normal appendix noted.Mild sigmoid diverticulo sis without diverticulitis. Moderate multilevel degenerative spondylosis of the lumbar spine with vacuum disc degeneration. IMPRESSION: No urinary tract stones or obstructive uropathy.
[2019-03-17 18:06] LABS: Urine Bacteria 20-50 /HPF (<20); Urine Culture Reflex Order NOT NEEDED; Urine RBC <5 /HPF (NONE SEEN)
--- NOTE | 2019-03-17 18:28 | EDPHYS ---
Physician Documentation [facility] Name: Neva Maharaj Age: 48 yrs Sex: Female : 1970 Arrival Date: 03/17/2019 Time: 16:46 Bed 26 Private MD: ED Physician aMrio Simms HPI: 03/17 17:27 This 48 yrs old Female presents to ER via Ambulatory with complaints of snw Abdominal Pain, Flank Pain, Pain With Urination. 17:27 The patient presents with abdominal pain right lower quadrant. Onset: The snw symptoms/episode began/occurred suddenly, 1 day(s) ago, and became worse today, and became persistent. The symptoms radiate to the right flank. Associated signs and symptoms: none. Pertinent negatives: fever. The symptoms are described as constant. Severity of pain: At its worst the pain was moderate. The patient has not experienced similar symptoms in the past. It is unknown whether or not the patient has recently seen a physician. PCP is Dr. 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 - Social history:: Smoking status: Patient/guardian denies using tobacco. - Ebola Screening: : Patient negative for fever greater than or equal to 101.5 degrees Fahrenheit, and additional compatible Ebola Virus Disease symptoms Patient denies exposure to infectious person Patient denies travel to an Ebola-affected area in the 21 days before illness onset No symptoms or risks identified at this time. ROS: 17:25 Constitutional: Negative for fever, chills, and weight loss, Eyes: Negative for injury, snw pain, redness, and discharge, ENT: Negative for injury, pain, and discharge, Neck: Negative for injury, pain, and swelling, Cardiovascular: Negative for chest pain, palpitations, and edema, Respiratory: Negative for shortness of breath, cough, wheezing, and pleuritic chest pain, : Negative for injury, bleeding, discharge, and swelling, MS/Extremity: Negative for injury and deformity, Skin: Negative for injury, rash, and discoloration, Neuro: Negative for headache, weakness, numbness, tingling, and seizure. 17:25 Abdomen/GI: Positive for abdominal pain, of the right lower quadrant. 17:25 : Positive for urinary symptoms, urinary frequency, small amounts, burning with urination. Exam: 17:23 Constitutional: This is a well developed, well nourished patient who is awake, alert, snw and in no acute distress. Head/Face: Normocephalic, atraumatic. Eyes: Pupils equal round and reactive to light, extra-ocular motions intact. Lids and lashes normal. Conjunctiva and sclera are non-icteric and not injected. Cornea within normal limits. Periorbital areas with no swelling, redness, or edema. ENT: Nares patent. No nasal discharge, no septal abnormalities noted. Tympanic membranes are normal and external auditory canals are clear. Oropharynx with no redness, swelling, or masses, exudates, or evidence of obstruction, uvula midline. Mucous membranes moist. Neck: Trachea midline, no thyromegaly or masses palpated, and no cervical lymphadenopathy. Supple, full range of motion without nuchal rigidity, or vertebral point tenderness. No Meningismus. Chest/axilla: Normal chest wall appearance and motion. Nontender with no deformity. No lesions are appreciated. Cardiovascular: Regular rate and rhythm with a normal S1 and S2. No gallops, murmurs, or rubs. Normal PMI, no JVD. No pulse deficits. Respiratory: Lungs have equal breath sounds bilaterally, clear to auscultation and percussion. No rales, rhonchi or wheezes noted. No increased work of breathing, no retractions or nasal flaring. Skin: Warm, dry with normal turgor. Normal color with no rashes, no lesions, and no evidence of cellulitis. MS/ Extremity: Pulses equal, no cyanosis. Neurovascular intact. Full, normal range of motion. Neuro: Awake and alert, GCS 15, oriented to person, place, time, and situation. Cranial nerves II-XII grossly intact. Motor strength 5/5 in all extremities. Sensory grossly intact. Cerebellar exam normal. Normal gait. Psych: Awake, alert, with orientation to person, place and time. Behavior, mood, and affect are within normal limits. 17:23 Abdomen/GI: Inspection: obese Bowel sounds: hypoactive, Palpation: moderate abdominal tenderness, severe abdominal tenderness, in the right lower quadrant. 17:23 Back: pain, that is moderate, of the right mid back, ROM is normal, normal spinal alignment noted, CVA tenderness, that is mild, is noted on the right. Vital Signs: 16:54 BP 141 / 62; Pulse 82; Resp 16; Temp 98.0(TE); Pulse Ox 100% ; Weight 113.4 kg; Height hj 5 ft. 2 in. (157.48 cm); Pain 10/10; 18:50 BP 139 / 65; Pulse 85; Resp 17 S; Temp 98.1(TE); Pulse Ox 100% on R/A; ca1 16:54 Body Mass Index 45.73 (113.40 kg, 157.48 cm) hj MDM: 17:15 Patient medically screened. snw 18:29 Data reviewed: vital signs, nurses notes. Data interpreted: Pulse oximetry: on room air snw is 100 %. Interpretation: normal. Counseling: I had a detailed discussion with the patient and/or guardian regarding: the historical points, exam findings, and any diagnostic results supporting the discharge/admit diagnosis, lab results, radiology results, the need for outpatient follow up, to return to the emergency department if symptoms worsen or persist or if there are any questions or concerns that arise at home. Special discussion: Based on the patient's Hx, exam, and Dx evaluation, there is no indication for emergent surgery or inpatient Tx. It is understood by the patient/guardian that if the Sx's persist or worsen they need to return immediately for re-evaluation. I discussed with the patient the need to follow-up with the PCP/specialist for the noted incidental finding on X-ray/CT scanning. Based on the history and exam findings, there is no indication for further emergent testing or inpatient evaluation. I discussed with the patient/guardian the need to see the primary care provider for further evaluation of the symptoms. 03/17 17:17 Order name: Urine Culture snw 03/17 17:17 Order name: Urine Microscopic Only; Complete Time: 18:14 snw 03/17 17:17 Order name: Urine Dipstick-Ancillary (obtain specimen); Complete Time: 17:28 snw 03/17 17:24 Order name: CT Stone Protocol; Complete Time: 18:06 snw Administered Medications: 17:34 Drug: TORadol 60 mg Route: IM; Site: right gluteus; ca1 18:55 Follow up: Response: No adverse reaction; Pain is decreased ca1 18:50 Drug: Rocephin (cefTRIAXone) 1 grams Route: IM; Site: left gluteus; ca1 19:10 Follow up: Response: No adverse reaction ca1 Disposition: 03/17/19 18:27 Discharged to Home. Impression: Lower abdominal pain, unspecified, Urinary tract infection, site not specified, Diverticulosis of intestine, part unspecified, without perforation or abscess with bleeding, Disorder of adrenal gland, unspecified - adrenal adenoma 18 mm - incidental. - Condition is Stable. - Discharge Instructions: Abdominal Pain, Adult, Back Pain, Adult, Diverticulosis, Urinary Tract Infection, Adult, Rehydration, Adult, Radicular Pain. - Prescriptions for Mobic 7.5 mg Oral Tablet - take 1 tablet by ORAL route once daily take with food; 20 tablet. Cipro 500 mg Oral Tablet - take 1 tablet by ORAL route every 12 hours for 7 days; 14 tablet. - Medication Reconciliation Form, Thank You Letter, Antibiotic Education, Prescription Opioid Use form. - Follow up: Private Physician; When: 2 - 3 days; Reason: Recheck today's complaints, Continuance of care, Re-evaluation by your physician. Follow up: Emergency Department; When: As needed; Reason: Worsening of condition. Signatures: Dispatcher [employer] EDMS Germaine Gifford, ADALBERTO-C CONTACT CENTER PROFESSIONAL-Kenrick Hernandez RN RN Kenisha Samuels RN RN ca1 Corrections: (The following items were deleted from the chart) 19:10 18:27 03/17/2019 18:27 Discharged to Home. Impression: Lower abdominal pain, ca1 unspecified; Urinary tract infection, site not specified; Diverticulosis of intestine, part unspecified, without perforation or abscess with bleeding; Disorder of adrenal gland, unspecified - adrenal adenoma 18 mm - incidental. Condition is Stable. Forms are Medication Reconciliation Form, Thank You Letter, Antibiotic Education, Prescription Opioid Use. Follow up: Private Physician; When: 2 - 3 days; Reason: Recheck today's complaints, Continuance of care, Re-evaluation by your physician. Follow up: Emergency Department; When: As needed; Reason: Worsening of condition. snw
--- NOTE | 2019-03-17 18:28 | ER ---
Nurse's Notes [facility] Name: Neva Maharaj Age: 48 yrs Sex: Female : 1970 Arrival Date: 03/17/2019 Time: 16:46 Bed 26 Private MD: Diagnosis: Lower abdominal pain, unspecified;Urinary tract infection, site not specified;Diverticulosis of intestine, part unspecified, without perforation or abscess with bleeding;Disorder of adrenal gland, unspecified-adrenal adenoma 18 mm - incidental Presentation: 03/17 16:52 Presenting complaint: Patient states: i have been hurting here (suprapubic area) since hj a week ago and it pollard when i pee and my R lower back hurts; denies fever and chills; reports nausea;. Transition of care: patient was not received from another setting of care. Onset of symptoms was March 17, 2019. Risk Assessment: Do you want to hurt yourself or someone else? Patient reports no desire to harm self or others. Initial Sepsis Screen: Does the patient meet any 2 criteria? No. Patient's initial sepsis screen is negative. Does the patient have a suspected source of infection? No. Patient's initial sepsis screen is negative. Care prior to arrival: None. 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 - Social history:: Smoking status: Patient/guardian denies using tobacco. - Ebola Screening: : Patient negative for fever greater than or equal to 101.5 degrees Fahrenheit, and additional compatible Ebola Virus Disease symptoms Patient denies exposure to infectious person Patient denies travel to an Ebola-affected area in the 21 days before illness onset No symptoms or risks identified at this time. Screenin:00 Abuse screen: Denies threats or abuse. Denies injuries from another. Nutritional ca1 screening: No deficits noted. Tuberculosis screening: No symptoms or risk factors identified. Fall Risk None identified. Assessment: 17:00 General: Appears in no apparent distress. comfortable, Behavior is calm, cooperative, ca1 appropriate for age. Pain: Complains of pain in right lower quadrant and right mid back Pain currently is 8 out of 10 on a pain scale. Quality of pain is described as pressure, Pain began a week ago but worst today Is intermittent. Neuro: Level of Consciousness is awake, alert, obeys commands, Oriented to person, place, time, situation. Cardiovascular: Heart tones S1 S2 present Capillary refill < 3 seconds Patient's skin is warm and dry. Respiratory: Airway is patent Respiratory effort is even, unlabored, Respiratory pattern is regular, symmetrical, Breath sounds are clear bilaterally. GI: Abdomen is round non-distended, obese, Bowel sounds present X 4 quads. Abd is soft X 4 quads Abdomen is tender to palpation in right lower quadrant and right mid back Reports nausea, Patient currently denies vomiting. : Urine is clear, cloudy, Reports burning with urination, urgency, urinary frequency, since today. EENT: No deficits noted. No signs and/or symptoms were reported regarding the EENT system. Derm: Skin is intact, is healthy with good turgor, Skin is pink, warm \\T\\ dry. Musculoskeletal: Circulation, motion, and sensation intact. Capillary refill < 3 seconds, Range of motion: intact in all extremities. 17:46 Reassessment: Patient appears in no apparent distress at this time. Patient and/or ca1 family updated on plan of care and expected duration. Pain level reassessed. Patient is alert, oriented x 3, equal unlabored respirations, skin warm/dry/pink. Back from CT. Pt ambulated to restroom twice while in the ER. 18:50 Reassessment: Patient appears in no apparent distress at this time. Patient is alert, ca1 oriented x 3, equal unlabored respirations, skin warm/dry/pink. 18:57 Reassessment: Instructed to stay for 15 minutes after admin of Rocephin for observation ca1 of any adverse reaction. Vital Signs: 16:54 BP 141 / 62; Pulse 82; Resp 16; Temp 98.0(TE); Pulse Ox 100% ; Weight 113.4 kg; Height hj 5 ft. 2 in. (157.48 cm); Pain 10/10; 18:50 BP 139 / 65; Pulse 85; Resp 17 S; Temp 98.1(TE); Pulse Ox 100% on R/A; ca1 16:54 Body Mass Index 45.73 (113.40 kg, 157.48 cm) ED Course: 16:46 Patient arrived in ED. as 16:53 Triage completed. hj 16:54 Arm band placed on right wrist. hj 16:56 Germaine Gifford FNP-C is [facility]. snw 16:56 Mario Simms MD is Attending Physician. snw 17:00 Patient has correct armband on for positive identification. Bed in low position. Call ca1 light in reach. Side rails up X2. Pulse ox on. NIBP on. Warm blanket given. 17:00 No provider procedures requiring assistance completed. ca1 17:09 Kenisha Samuels, RN is Primary Nurse. ca1 17:41 CT Stone Protocol In Process Unspecified. EDMS 18:57 Patient did not have IV access during this emergency room visit. ca1 Administered Medications: 17:34 Drug: TORadol 60 mg Route: IM; Site: right gluteus; ca1 18:55 Follow up: Response: No adverse reaction; Pain is decreased ca1 18:50 Drug: Rocephin (cefTRIAXone) 1 grams Route: IM; Site: left gluteus; ca1 19:10 Follow up: Response: No adverse reaction ca1 Outcome: 18:27 Discharge ordered by . snw 18:57 Discharged to home ambulatory, with significant other. ca1 18:57 Condition: stable 18:57 Discharge instructions given to patient, Instructed on discharge instructions, follow up and referral plans. medication usage, Demonstrated understanding of instructions, follow-up care, medications, Prescriptions given X 2. 19:10 Patient left the ED. ca1 Signatures: Dispatcher [employer] EDWI Germaine Gifford FNP-C STOREROOM CLERK-Jacqueline Mccurdy Henry RN RN Kenisha Samuels RN RN ca1 Corrections: (The following items were deleted from the chart) 16:56 16:54 Pulse 82bpm; Resp 16bpm; Pulse Ox 100%; Temp 98.0F Temporal; 113.4 kg; Height 5 hj ft. 2 in.; BMI: 45.7; Pain 10/10; hj
[2019-03-17] MEDS ORDERED: LIDOCAINE 1% MPF 2 ML AMPULE ONE (18:49)
[2019-03-17] MEDS ORDERED: CEFTRIAXONE 1000 MG/VIAL ONE (18:49)
[2019-03-17 19:15] VITALS: O2SAT 100
[2019-03-17 19:16] VITALS: BP 139/65; TEMP 98.1
== END 2019-03-17 19:10 | disposition home or self-care (01) ==
LOC: ER 16:44
DX: N39.0 Urinary tract infection, site not specified (principal); K57.30 Diverticulosis of large intestine without perforation or abscess without bleeding; D35.01 Benign neoplasm of right adrenal gland; I10 Essential (primary) hypertension; Z86.73 Personal history of transient ischemic attack (TIA), and cerebral infarction without residual deficits
CPT/HCPCS: 74176; 76377; 81015; 87086; 87088; 96372; 99284; J2001

== ENCOUNTER 2019-03-28 07:26 | Emergency (ER) | payer OTHER ==
--- OUTSIDE RECORDS SUMMARY | 2019-03-28 07:29 | XMS REPORT ---
:1970 [facility] Address [address] [place] [address] [address] [place] [address] Care Team Providers Name Role Phone Unavailable Unavailable Unavailable Problems This patient has no known problems. Allergies, Adverse Reactions, Alerts This patient has no known allergies or adverse reactions. Medications This patient has no known medications.
--- OUTSIDE RECORDS SUMMARY | 2019-03-28 07:29 | XMS REPORT | Clinical Summary ---
:1970 Author Organization [facility] Address [address] [place] [address] Care Team Providers Name Role Phone Asked, [...] Not on file Results Not on fileafter 03/27/2018 Advance Directives Patient has advance care planning documents on file. For more information, please contact:[place] [phone] [place] [address]
[2019-03-28] MEDS ORDERED: HYDROCODONE/APAP 7.5/325 MG TAB ONE (08:20)
[2019-03-28] MEDS ORDERED: IBUPROFEN 400 MG TAB ONE (08:21)
--- NOTE | 2019-03-28 09:49 | RAD REPORT ---
EXAM DESCRIPTION: RAD - Pelvis - 03/28/2019 9:06 am CLINICAL HISTORY: Right-sided pelvis and hip pain COMPARISON: None. TECHNIQUE: AP imaging of the pelvis was obtained. FINDINGS: Degenerative changes are present at the lumbosacral junction only partially imaged on this study. No fracture or acute bony pelvic finding. Right hip joint is separately detailed. Left hip messi int shows minimal degenerative change along the superior acetabular rim. No acute finding. IMPRESSION: Negative pelvis for acute finding. Nonacute findings detailed in the body of the report.
--- NOTE | 2019-03-28 09:50 | RAD REPORT ---
EXAM DESCRIPTION: RAD - Hip Right 2 View - 03/28/2019 9:07 am CLINICAL HISTORY: Nontraumatic right hip pain COMPARISON: None. FINDINGS: AP and frog-leg views of the right hip were obtained. There is no fracture or dislocation . No AVN or focal femoral head abnormality. Minimal degenerative change along the superior acetabula r rim and there are mild degenerative changes along the articular margins of the femoral head. No suspicious soft tissue finding. IMPRESSION: Negative right hip examination for acute findings.
--- NOTE | 2019-03-28 10:08 | EDPHYS ---
Physician Documentation [facility] Name: Neva Maharaj Age: 48 yrs Sex: Female : 1970 Arrival Date: 03/28/2019 Time: 07:31 Bed 15 Private MD: ED Physician Lawrence Simmons HPI: 03/28 08:05 This 48 yrs old Female presents to ER via Ambulatory with complaints of Hip cp Pain. 08:05 The patient or guardian reports pain. cp 08:05 sustained from possible injection of meds about 1 week ago done in [facility] emergency cp department. 08:05 The complaints affect the right buttock and right hip. Associated signs and symptoms: cp Pertinent negatives: abdominal pain, fever, incontinence, weakness, leg pain, numbness/tingling. 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 - Social history:: Smoking status: Patient/guardian denies using tobacco. - Ebola Screening: : Patient denies exposure to infectious person Patient denies travel to an Ebola-affected area in the 21 days before illness onset. ROS: 08:15 MS/extremity: Positive for pain, tenderness, of the right buttock and right hip, cp Negative for injury or acute deformity, decreased range of motion, paresthesias. 08:15 Constitutional: Negative for body aches, fever, poor PO intake. cp 08:15 Cardiovascular: Negative for chest pain. 08:15 Respiratory: Negative for cough, shortness of breath, wheezing. 08:15 Abdomen/GI: Negative for abdominal pain, nausea, vomiting, and diarrhea. 08:15 Back: Negative for pain at rest, pain with movement. 08:15 : Negative for urinary symptoms. 08:15 Skin: Negative for cellulitis, rash. 08:15 Neuro: Negative for numbness, tingling, weakness. 08:15 All other systems are negative. Exam: 08:35 Constitutional: The patient appears in no acute distress, alert, awake, cp non-diaphoretic, non-toxic, well developed, well nourished, obese. 08:35 Head/Face: Normocephalic, atraumatic. cp 08:35 Eyes: Periorbital structures: appear normal, Conjunctiva: normal, no exudate, no cp injection, Sclera: no appreciated abnormality, Lids and lashes: appear normal, bilaterally. 08:35 ENT: External ear(s): Nose: is normal, Mouth: Lips: moist, Oral mucosa: pink and intact, moist, Posterior pharynx: is normal, airway is patent, no erythema, no exudate. 08:35 Chest/axilla: Inspection: normal, Palpation: crepitus, is not appreciated, tenderness, is not appreciated. 08:35 Cardiovascular: Rate: normal, Rhythm: regular. 08:35 Respiratory: the patient does not display signs of respiratory distress, Respirations: normal, no use of accessory muscles, no splinting, no tachypnea, Breath sounds: are clear throughout, no decreased breath sounds, no stridor, no wheezing. 08:35 Abdomen/GI: Inspection: obese Bowel sounds: normal, in all quadrants, Palpation: abdomen is soft and non-tender, in all quadrants, rebound tenderness, is not appreciated, voluntary guarding, is not appreciated, involuntary guarding, is not appreciated. 08:35 Back: pain, is absent, ROM is normal. 08:35 Musculoskeletal/extremity: Joints: All joints are normal except the right hip displays painful range of motion, tenderness. Vital Signs: 07:35 Pulse 73; Resp 16; Temp 97.9(TE); Pulse Ox 100% on R/A; Height 5 ft. 2 in. (157.48 cm); ss Pain 10/10; 08:32 BP 130 / 87; Pulse 76; Resp 19; Temp 98.0(TE); Pulse Ox 99% on R/A; Pain 8/10; rb1 09:26 BP 141 / 79; Pulse 70; Resp 17; Temp 17; Pulse Ox 98% on R/A; Pain 6/10; rb1 10:14 BP 142 / 68; Pulse 69; Resp 17; Temp 98.1(O); Pulse Ox 100% on R/A; Pain 4/10; rb1 MDM: 07:31 Patient medically screened. maria de jesus 10:00 Differential diagnosis: intertrochanteric fracture, femoral neck fracture, femoral cp shaft fracture, bursitis, strain. 10:08 Data reviewed: vital signs, nurses notes, radiologic studies, plain films, and as a cp result, I will discharge patient. 10:08 Test interpretation: by ED physician or midlevel provider: xrays of pelvis and right cp hip negative for fracture. Counseling: I had a detailed discussion with the patient and/or guardian regarding: the historical points, exam findings, and any diagnostic results supporting the discharge/admit diagnosis, radiology results, the need for outpatient follow up, a family practitioner, to return to the emergency department if symptoms worsen or persist or if there are any questions or concerns that arise at home. 03/28 07:54 Order name: XRAY Pelvis; Complete Time: 09:52 cp 03/28 09:50 Interpretation: Report reviewed. cp 03/28 07:54 Order name: XRAY Hip RIGHT 2 view; Complete Time: 09:56 cp 03/28 09:55 Interpretation: Report reviewed. cp Administered Medications: 08:07 Drug: Ibuprofen 800 mg Route: PO; rb1 08:45 Follow up: Response: No adverse reaction; Pain is decreased rb1 08:07 Drug: Hydrocodone-Acetaminophen (7.5 mg-325 mg) 1 tabs Route: PO; rb1 08:45 Follow up: Response: No adverse reaction; Pain is decreased rb1 Disposition: 10:30 Chart complete. cp 11:13 Co-signature as Attending Physician, Lawrence Simmons MD I agree with the assessment and maria de jesus plan of care. Disposition: 03/28/19 10:08 Discharged to Home. Impression: Pain in right hip. - Condition is Stable. - Discharge Instructions: Hip Pain. - Prescriptions for ketoprofen 75 mg Oral capsule - take 1 capsule by ORAL route every 8 hours As needed as needed; 20 capsule. Cyclobenzaprine 10 mg Oral Tablet - take 1 tablet by ORAL route every 8 hours As needed; 20 tablet. Tramadol 50 mg Oral Tablet - take 1 tablet by ORAL route every 8 hours as needed; 12 tablet. - Medication Reconciliation Form, Thank You Letter, Antibiotic Education, Prescription Opioid Use form. - Follow up: Private Physician; When: 2 - 3 days; Reason: Recheck today's complaints. - Problem is new. - Symptoms have improved. Signatures: Dispatcher [employer] Lawrence Bruno MD MD cha Smirch, Shelby, RN RN ss Lawrence Perera PA PA cp Yessi Alvares, RN RN rb1 Corrections: (The following items were deleted from the chart) 10:15 10:08 03/28/2019 10:08 Discharged to Home. Impression: Pain in right hip. Condition is rb1 Stable. Forms are Medication Reconciliation Form, Thank You Letter, Antibiotic Education, Prescription Opioid Use. Follow up: Private Physician; When: 2 - 3 days; Reason: Recheck today's complaints. Problem is new. Symptoms have improved. cp
--- NOTE | 2019-03-28 10:08 | ER ---
Nurse's Notes [facility] Name: Neva Maharaj Age: 48 yrs Sex: Female : 1970 Arrival Date: 03/28/2019 Time: 07:31 Bed 15 Private MD: Diagnosis: Pain in right hip Presentation: 03/28 07:34 Presenting complaint: Patient states: "I was here a week ago for a UTI and they gave me ss two shots. The one on my R side, I don't know if they did it right, because I'm having pain." Pt c/o pain to R hip area that radiates to R thigh. Transition of care: patient was not received from another setting of care. Onset of symptoms is unknown. Risk Assessment: Do you want to hurt yourself or someone else? Patient reports no desire to harm self or others. Initial Sepsis Screen: Does the patient meet any 2 criteria? No. Patient's initial sepsis screen is negative. Does the patient have a suspected source of infection? No. Patient's initial sepsis screen is negative. Care prior to arrival: None. 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 - Social history:: Smoking status: Patient/guardian denies using tobacco. - Ebola Screening: : Patient denies exposure to infectious person Patient denies travel to an Ebola-affected area in the 21 days before illness onset. Screenin:33 Abuse screen: Denies threats or abuse. Nutritional screening: No deficits noted. rb1 Tuberculosis screening: No symptoms or risk factors identified. Fall Risk None identified. Assessment: 07:33 General: Appears uncomfortable, obese, Behavior is calm, cooperative, Denies fever. rb1 Pain: Complains of pain in right gluteus alma Pain radiates to right thigh Pain currently is 8 out of 10 on a pain scale. Neuro: Level of Consciousness is awake, alert, obeys commands, Oriented to person, place, time, situation. Cardiovascular: Capillary refill < 3 seconds is brisk in bilateral fingers. Respiratory: Airway is patent Respiratory effort is even, unlabored, Respiratory pattern is regular, symmetrical. GI: No signs and/or symptoms were reported involving the gastrointestinal system. : No signs and/or symptoms were reported regarding the genitourinary system. Derm: Skin is pink, warm \\T\\ dry. Musculoskeletal: Range of motion: intact in all extremities. 08:30 Reassessment: Patient appears in no apparent distress at this time. No changes from rb1 previously documented assessment. X-ray at bedside. at bedside. 09:25 Reassessment: Patient appears in no apparent distress at this time. Patient and/or rb1 family updated on plan of care and expected duration. Pain level reassessed. Patient is alert, oriented x 3, equal unlabored respirations, skin warm/dry/pink. 10:13 Reassessment: Patient appears in no apparent distress at this time. Patient states rb1 feeling better. Patient states symptoms have improved. Vital Signs: 07:35 Pulse 73; Resp 16; Temp 97.9(TE); Pulse Ox 100% on R/A; Height 5 ft. 2 in. (157.48 cm); ss Pain 10/10; 08:32 BP 130 / 87; Pulse 76; Resp 19; Temp 98.0(TE); Pulse Ox 99% on R/A; Pain 8/10; rb1 09:26 BP 141 / 79; Pulse 70; Resp 17; Temp 17; Pulse Ox 98% on R/A; Pain 6/10; rb1 10:14 BP 142 / 68; Pulse 69; Resp 17; Temp 98.1(O); Pulse Ox 100% on R/A; Pain 4/10; rb1 ED Course: 07:30 Lawrence Perera PA is [facility]. cp 07:30 Lawrence Simmons MD is Attending Physician. cp 07:31 Patient arrived in ED. as 07:31 Yessi Alvares, RN is Primary Nurse. rb1 07:33 Patient has correct armband on for positive identification. Placed in gown. Bed in low rb1 position. Call light in reach. Side rails up X 1. Pulse ox on. NIBP on. Warm blanket given. 07:35 Triage completed. ss 07:35 Arm band placed on right wrist. ss 09:07 XRAY Pelvis In Process Unspecified. EDMS 09:07 XRAY Hip RIGHT 2 view In Process Unspecified. EDMS 10:15 No provider procedures requiring assistance completed. Patient did not have IV access rb1 during this emergency room visit. Administered Medications: 08:07 Drug: Ibuprofen 800 mg Route: PO; rb1 08:45 Follow up: Response: No adverse reaction; Pain is decreased rb1 08:07 Drug: Hydrocodone-Acetaminophen (7.5 mg-325 mg) 1 tabs Route: PO; rb1 08:45 Follow up: Response: No adverse reaction; Pain is decreased rb1 Outcome: 10:08 Discharge ordered by MD. cp 10:15 Discharged to home ambulatory, with family. rb1 10:15 Condition: stable 10:15 Discharge instructions given to patient, Instructed on discharge instructions, follow up and referral plans. medication usage, Demonstrated understanding of instructions, follow-up care, medications, Prescriptions given X 3. 10:15 Patient left the ED. rb1 Signatures: Dispatcher [employer] Jacqueline Juarez Shelby, RN RN ss Lawrence Perera, PA PA Yessi Ellis, RN RN rb1
[2019-03-28 10:36] VITALS: BP 142/68; TEMP 98.1; O2SAT 100
== END 2019-03-28 10:15 | disposition home or self-care (01) ==
LOC: ER 07:26
DX: M25.551 Pain in right hip (principal); I10 Essential (primary) hypertension
CPT/HCPCS: 72170; 99284

== ENCOUNTER 2019-06-25 10:10 | Emergency (ER) | payer OTHER ==
--- NOTE | 2019-06-25 11:28 | RAD REPORT ---
EXAM DESCRIPTION: RAD - Knee Right 3 View - 06/25/2019 11:18 am CLINICAL HISTORY: Right knee pain status post injury FINDINGS: No fracture or dislocation is seen. Marked osteoarthritis medial compartment consisting joint space narrowing and osteophytes. Lateral subluxation of tibia on the femur. Osteoarthritis also involves the patellofemoral and lateral compartments
--- NOTE | 2019-06-25 12:27 | ER ---
Nurse's Notes [facility] Name: Neva Maharaj Age: 49 yrs Sex: Female : 1970 Arrival Date: 06/25/2019 Time: 10:21 Bed 6 Private MD: Diagnosis: Pain in right knee;Medial subluxation of proximal end of tibia, right knee Presentation: 06/25 10:11 Presenting complaint: EMS states: right knee injury while at work, heard a "pop" when sv she fell back and her right knee twisted. Care prior to arrival: None. Mechanism of Injury: Fall from standing position. Trauma event details: Injury occurred in the [facility], Injury occurred: in a public building. Injury occurred: June 25, 2019 Injury occurred at: 09:45. 10:11 Acuity: MAURICIO 4 sv 10:11 Method Of Arrival: EMS: [facility] sv 10:22 Transition of care: patient was not received from another setting of care. Onset of sv symptoms was June 25, 2019. Risk Assessment: Do you want to hurt yourself or someone else? Patient reports no desire to harm self or others. Initial Sepsis Screen: Does the patient meet any 2 criteria? No. Patient's initial sepsis screen is negative. Does the patient have a suspected source of infection? No. Patient's initial sepsis screen is negative. Trauma Activation: Not Applicable Physician: ED Physician; Name: ; Notified At: ; Arrived At: Physician: General Surgeon; Name: ; Notified At: ; Arrived At: Physician: Radiology; Name: ; Notified At: ; Arrived At: Physician: Respiratory; Name: ; Notified At: ; Arrived At: Physician: Lab; Name: ; Notified At: ; Arrived At: Historical: - Allergies: 10:23 NKDA; sv - Home Meds: 10:23 lisinopril Oral [Active]; atorvastatin oral oral [Active]; Naproxen Oral [Active]; sv - PMHx: 10:23 "fluid in lungs"; Hypertension; TIA; High Cholesterol; Arthritis; sv - PSHx: 10:23 uterine ablation; sv - Immunization history:: Adult Immunizations up to date. - Social history:: Smoking status: Patient/guardian denies using tobacco. - Ebola Screening: : No symptoms or risks identified at this time. Screenin:26 Abuse screen: Denies threats or abuse. Denies injuries from another. Nutritional sv screening: No deficits noted. Tuberculosis screening: No symptoms or risk factors identified. Fall Risk None identified. Primary Survey: 10:24 NO uncontrolled hemorrhage observed. A: The patient is alert. Airway: patent, No sv supplemental oxygen in use on arrival. Oral cavity: clear, Trachea midline. Breathing/Chest: Respiratory pattern: regular, Respiratory effort: spontaneous, unlabored, Chest inspection: symmetrical rise and fall of the chest. Circulation: Pulses: palpable right posterior tibial artery and left posterior tibial artery. Skin color: pink, Skin temperature: warm, dry. Disability Alert. Exposure/Environment: All clothing and personal items were removed. Forensic evidence collection is not deemed to be indicated at this time. Items placed in patient belonging bag. There is no evidence of uncontrolled external bleeding. No obvious injuries are noted at this time. A warming method has been applied: A warm blanket has been provided to the patient. Secondary Survey: 10:24 HEENT: No deficits noted. Gastrointestinal: No deficits noted. : No deficits noted. sv No signs and/or symptoms were reported regarding the genitourinary system. Musculoskeletal: Range of motion: limited in right knee. Assessment: 11:00 Reassessment: Xray at the bedside. sv Vital Signs: 10:11 BP 140 / 88; Pulse 82; Resp 18; Temp 98; Pulse Ox 96% ; Weight 120.2 kg; Height 5 ft. 3 sv in. (160.02 cm); Pain 10/10; 11:00 BP 141 / 53; Pulse 80; Resp 18; Temp 98; Pulse Ox 98% ; sv 10:11 Body Mass Index 46.94 (120.20 kg, 160.02 cm) sv Langhorne Coma Score: 10:11 Eye Response: spontaneous(4). Verbal Response: oriented(5). Motor Response: obeys sv commands(6). Total: 15. 11:00 Eye Response: spontaneous(4). Verbal Response: oriented(5). Motor Response: obeys sv commands(6). Total: 15. Trauma Score (Adult): 10:11 Eye Response: spontaneous(1); Verbal Response: oriented(1); Motor Response: obeys sv commands(2); Systolic BP: > 89 mm Hg(4); Respiratory Rate: 10 to 29 per min(4); Magdalene Score: 15; Trauma Score: 12 11:00 Eye Response: spontaneous(1); Verbal Response: oriented(1); Motor Response: obeys sv commands(2); Systolic BP: > 89 mm Hg(4); Respiratory Rate: 10 to 29 per min(4); Langhorne Score: 15; Trauma Score: 12 ED Course: 10:15 Door closed. Head of bed elevated. sv 10:21 Patient arrived in ED. sv 10:22 Triage completed. sv 10:24 Chun Avila MD is Attending Physician. kdr 10:24 Arm band placed on. sv 10:26 Susana Gifford RN is Primary Nurse. sv 10:26 Patient has correct armband on for positive identification. Bed in low position. Call sv light in reach. Side rails up X2. Pulse ox on. NIBP on. 10:26 Thermoregulation: warm blanket given to patient. sv 10:26 Patient maintains SpO2 saturation greater than 95% on room air. sv 11:16 X-ray(s) taken. sv 11:18 Knee Right 3 View XRAY In Process Unspecified. EDMS 12:03 Crutch training done. Knee immobilizer applied on right knee. jb1 12:14 Chacorta Wong MD is Referral Physician. kdr Administered Medications: No medications were administered Intake: 10:11 PO: 0ml; Total: 0ml. sv 11:00 PO: 0ml; Total: 0ml. sv Output: 10:11 Urine: 0ml; Total: 0ml. sv 11:00 Urine: 0ml; Total: 0ml. sv Outcome: 12:26 Discharge ordered by . kdr 12:46 Patient left the ED. eb Signatures: Dispatcher [employer] EDOK Adonay Celis jb1 Susana Gifford RN RN sv Chun Avila MD MD kdr Botello, Elizabeth eb
--- NOTE | 2019-06-25 12:27 | EDPHYS ---
Physician Documentation [facility] Name: Neva Maharaj Age: 49 yrs Sex: Female : 1970 Arrival Date: 06/25/2019 Time: 10:21 Bed 6 Private MD: ED Physician Chun Avila HPI: 06/25 14:19 This 49 yrs old Female presents to ER via EMS with complaints of Fall Injury. kdr 14:19 Details of fall: The patient fell from an upright position, while walking. Onset: The kdr symptoms/episode began/occurred suddenly, just prior to arrival. Associated injuries: The patient sustained Medial Right knee. Severity of symptoms: At their worst the symptoms were moderate, in the emergency department the symptoms have improved, mildly. The patient has not experienced similar symptoms in the past. The patient has not recently seen a physician. 14:19 The patient states that she tripped and fell landing on her buttock but felt a pop in kdr her right knee. Historical: - Allergies: 10:23 NKDA; sv - Home Meds: 10:23 lisinopril Oral [Active]; atorvastatin oral oral [Active]; Naproxen Oral [Active]; sv - PMHx: 10:23 "fluid in lungs"; Hypertension; TIA; High Cholesterol; Arthritis; sv - PSHx: 10:23 uterine ablation; sv - Immunization history:: Adult Immunizations up to date. - Social history:: Smoking status: Patient/guardian denies using tobacco. - Ebola Screening: : No symptoms or risks identified at this time. ROS: 14:19 Constitutional: Negative for fever, chills, and weight loss, Eyes: Negative for injury, kdr pain, redness, and discharge, Neck: Negative for injury, pain, and swelling, Cardiovascular: Negative for chest pain, palpitations, and edema, Respiratory: Negative for shortness of breath, cough, wheezing, and pleuritic chest pain, Abdomen/GI: Negative for abdominal pain, nausea, vomiting, diarrhea, and constipation, Back: Negative for injury and pain, : Negative for injury, bleeding, discharge, and swelling, Skin: Negative for injury, rash, and discoloration, Neuro: Negative for headache, weakness, numbness, tingling, and seizure activity. Psych: Negative for depression, anxiety, suicide ideation, homicidal ideation, and hallucinations, Allergy/Immunology: Negative for hives, rash, and allergies, Endocrine: Negative for neck swelling, polydipsia, polyuria, polyphagia, and marked weight changes, Hematologic/Lymphatic: Negative for swollen nodes, abnormal bleeding, and unusual bruising. 14:19 MS/extremity: Positive for injury or acute deformity, decreased range of motion, pain, swelling, tenderness. Exam: 14:19 Constitutional: This is a well developed, well nourished patient who is awake, alert, kdr and in no acute distress. Head/Face: Normocephalic, atraumatic. Eyes: Pupils equal round and reactive to light, extra-ocular motions intact. Lids and lashes normal. Conjunctiva and sclera are non-icteric and not injected. Cornea within normal limits. Periorbital areas with no swelling, redness, or edema. Neck: Trachea midline, no thyromegaly or masses palpated, and no cervical lymphadenopathy. Supple, full range of motion without nuchal rigidity, or vertebral point tenderness. No Meningismus. Chest/axilla: Normal chest wall appearance and motion. Nontender with no deformity. No lesions are appreciated. Cardiovascular: Regular rate and rhythm with a normal S1 and S2. No gallops, murmurs, or rubs. Normal PMI, no JVD. No pulse deficits. Respiratory: Lungs have equal breath sounds bilaterally, clear to auscultation and percussion. No rales, rhonchi or wheezes noted. No increased work of breathing, no retractions or nasal flaring. Abdomen/GI: Soft, non-tender, with normal bowel sounds. No distension or tympany. No guarding or rebound. No evidence of tenderness throughout. Back: No spinal tenderness. No costovertebral tenderness. Full range of motion. Skin: Warm, dry with normal turgor. Normal color with no rashes, no lesions, and no evidence of cellulitis. Neuro: Awake and alert, GCS 15, oriented to person, place, time, and situation. Cranial nerves II-XII grossly intact. Motor strength 5/5 in all extremities. Sensory grossly intact. Cerebellar exam normal. Normal gait. Psych: Awake, alert, with orientation to person, place and time. Behavior, mood, and affect are within normal limits. 14:19 Musculoskeletal/extremity: Extremities: grossly normal except: noted in the medial aspect of right knee and right knee: ROM: limited active range of motion, limited passive range of motion. Vital Signs: 10:11 BP 140 / 88; Pulse 82; Resp 18; Temp 98; Pulse Ox 96% ; Weight 120.2 kg; Height 5 ft. 3 sv in. (160.02 cm); Pain 06/10; 11:00 BP 141 / 53; Pulse 80; Resp 18; Temp 98; Pulse Ox 98% ; sv 10:11 Body Mass Index 46.94 (120.20 kg, 160.02 cm) sv Magdalene Coma Score: 10:11 Eye Response: spontaneous(4). Verbal Response: oriented(5). Motor Response: obeys sv commands(6). Total: 15. 11:00 Eye Response: spontaneous(4). Verbal Response: oriented(5). Motor Response: obeys sv commands(6). Total: 15. Trauma Score (Adult): 10:11 Eye Response: spontaneous(1); Verbal Response: oriented(1); Motor Response: obeys sv commands(2); Systolic BP: > 89 mm Hg(4); Respiratory Rate: 10 to 29 per min(4); Magdalene Score: 15; Trauma Score: 12 11:00 Eye Response: spontaneous(1); Verbal Response: oriented(1); Motor Response: obeys sv commands(2); Systolic BP: > 89 mm Hg(4); Respiratory Rate: 10 to 29 per min(4); Garwood Score: 15; Trauma Score: 12 MDM: 12:26 Patient medically screened. kdr 14:19 Data reviewed: vital signs, old medical records. kdr 06/25 10:45 Order name: Knee Right 3 View XRAY; Complete Time: 11:47 kdr 06/25 10:45 Order name: Knee Immobilizer; Complete Time: 12:04 kdr 06/25 10:45 Order name: Crutches; Complete Time: 12:04 kdr Administered Medications: No medications were administered Disposition: 06/25/19 12:26 Discharged to Home. Impression: Pain in right knee, Medial subluxation of proximal end of tibia, right knee. - Condition is Stable. - Discharge Instructions: How to Use a Knee Brace, Knee Sprain, [id number], Knee Immobilizer, [id number], Knee Pain, Bjuh-[id number]-Onds, Joint Pain, [id number]. - Prescriptions for Tylenol- Codeine #3 300-30 mg Oral Tablet - take 2 tablets by ORAL route every 6 hours As needed; 16 tablet. - Medication Reconciliation Form, Thank You Letter, Antibiotic Education, Prescription Opioid Use, School release form, Work release form form. - Follow up: Private Physician; When: 2 - 3 days; Reason: If symptoms return, Further diagnostic work-up, Recheck today's complaints, Continuance of care, Re-evaluation by your physician. Follow up: Chacorta Wong MD; When: 2 - 3 days; Reason: Further diagnostic work-up, Recheck today's complaints, Continuance of care, Re-evaluation by your physician. - Problem is new. - Symptoms have improved. Signatures: Dispatcher [employer] Susana Phillips, JENNIFER RN Chun Gotti MD MD kdr Botello, Elizabeth eb Corrections: (The following items were deleted from the chart) 12:46 12:26 06/25/2019 12:26 Discharged to Home. Impression: Pain in right knee; Medial eb subluxation of proximal end of tibia, right knee. Condition is Stable. Forms are Medication Reconciliation Form, Thank You Letter, Antibiotic Education, Prescription Opioid Use. Follow up: Private Physician; When: 2 - 3 days; Reason: If symptoms return, Further diagnostic work-up, Recheck today's complaints, Continuance of care, Re-evaluation by your physician. Follow up: Dr. Chacorta Wong; When: 2 - 3 days; Reason: Further diagnostic work-up, Recheck today's complaints, Continuance of care, Re-evaluation by your physician. Problem is new. Symptoms have improved. kdr
[2019-06-25 12:51] VITALS: TEMP 98
[2019-06-25 12:52] VITALS: BP 141/53; O2SAT 98
== END 2019-06-25 12:46 | disposition home or self-care (01) ==
LOC: ER 10:10
DX: S83.131A Medial subluxation of proximal end of tibia, right knee, initial encounter (principal); W18.09XA Striking against other object with subsequent fall, initial encounter; Y93.01 Activity, walking, marching and hiking; Y92.9 Unspecified place or not applicable; I10 Essential (primary) hypertension; E78.00 Pure hypercholesterolemia, unspecified
CPT/HCPCS: 99284

== ENCOUNTER 2019-08-02 14:56 | Emergency (ER) | payer OTHER ==
--- OUTSIDE RECORDS SUMMARY | 2019-08-02 14:59 | XMS REPORT ---
:1970 [facility] Address [address] [place] [address] Care Team Providers Name Role Phone Unavailable Unavailable Unavailable Problems This patient has no known problems. Allergies, Adverse Reactions, Alerts This patient has no known allergies or adverse reactions. Medications This patient has no known medications.
[2019-08-02] MEDS ORDERED: ALBUTEROL 2.5 MG/3 ML NEB SOL ONE (15:42)
[2019-08-02] MEDS ORDERED: HYDROCODONE/CHLORPHEN 5 ML/OSYR ONE (15:43)
--- NOTE | 2019-08-02 15:54 | RAD REPORT ---
EXAM DESCRIPTION: RAD - Chest Pa And Lat (2 Views) - 08/02/2019 3:48 pm CLINICAL HISTORY: COUGH Chest pain. COMPARISON: <Comparisons> FINDINGS: The lungs are clear. The heart is normal in size. No displaced fractures. Thoracic spondyl osis. IMPRESSION: No acute or concerning finding suspected.
--- NOTE | 2019-08-02 16:37 | EDPHYS ---
Physician Documentation [facility] Name: Neva Maharaj Age: 49 yrs Sex: Female : 1970 Arrival Date: 08/02/2019 Time: 15:00 Bed 6 Private MD: ED Physician Mario Simms HPI: 08/02 16:15 This 49 yrs old Female presents to ER via Ambulatory with complaints of Flu pm1 Symptoms. 16:15 The patient or guardian reports cough, flu symptoms, myalgias. Onset: The pm1 symptoms/episode began/occurred 2 day(s) ago. Severity of symptoms: in the emergency department the symptoms are actually worse. Modifying factors: The symptoms are alleviated by nothing, the symptoms are aggravated by nothing. Associated signs and symptoms: Pertinent positives: chest pain, with cough, sore throat, Pertinent negatives: diarrhea, fever, rhinorrhea, vomiting. It is unknown whether or not the patient has recently seen a physician. symptoms not improving with OTC cough medications. 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 - Social history:: Smoking status: Patient/guardian denies using tobacco. - Ebola Screening: : No symptoms or risks identified at this time. ROS: 16:15 Eyes: Negative for injury, pain, redness, and discharge. pm1 16:15 Neck: Negative for injury, pain, and swelling. 16:15 Abdomen/GI: Negative for abdominal pain, nausea, vomiting, diarrhea, and constipation, MS/Extremity: Negative for injury and deformity, Skin: Negative for injury, rash, and discoloration. 16:15 : Negative for injury, bleeding, discharge, and swelling, Neuro: Negative for headache, weakness, numbness, tingling, and seizure. 16:15 Constitutional: Positive for body aches, Negative for fever, poor PO intake. 16:15 ENT: Positive for sore throat, Negative for ear pain. 16:15 Cardiovascular: Positive for chest pain, with cough, Negative for edema, orthopnea, palpitations. 16:15 Respiratory: Positive for cough, Negative for shortness of breath, sputum production, wheezing. 16:15 Back: Positive for of the left mid back and right mid back pain with coughing. Exam: 16:15 Constitutional: This is a well developed, well nourished patient who is awake, alert, pm1 and in no acute distress. Head/Face: Normocephalic, atraumatic. Eyes: Pupils equal round and reactive to light, extra-ocular motions intact. Lids and lashes normal. Conjunctiva and sclera are non-icteric and not injected. Cornea within normal limits. Periorbital areas with no swelling, redness, or edema. 16:15 Neck: Trachea midline, no thyromegaly or masses palpated, and no cervical lymphadenopathy. Supple, full range of motion without nuchal rigidity, or vertebral point tenderness. No Meningismus. Chest/axilla: Normal chest wall appearance and motion. Nontender with no deformity. No lesions are appreciated. Cardiovascular: Regular rate and rhythm with a normal S1 and S2. No gallops, murmurs, or rubs. Normal PMI, no JVD. No pulse deficits. 16:15 Abdomen/GI: Soft, non-tender, with normal bowel sounds. No distension or tympany. No guarding or rebound. No evidence of tenderness throughout. Back: No spinal tenderness. No costovertebral tenderness. Full range of motion. Skin: Warm, dry with normal turgor. Normal color with no rashes, no lesions, and no evidence of cellulitis. MS/ Extremity: Pulses equal, no cyanosis. Neurovascular intact. Full, normal range of motion. 16:15 ENT: External ear(s): are unremarkable, Ear canal(s): are normal, TM's: are normal, Nose: is normal, Mouth: is normal, Posterior pharynx: Airway: normal, no evidence of obstruction, patent, Tonsils: bilaterally enlarged, with erythema, no exudate, no ulcerations, peritonsillar mass, is not appreciated, pooling of secretions, is not appreciated. 16:15 Respiratory: the patient does not display signs of respiratory distress, Respirations: normal, Breath sounds: bronchial sounds, that are mild. 16:15 Neuro: Orientation: is normal, Motor: is normal, moves all fours, Sensation: is normal, no obvious gross deficits, Gait: is steady, at a normal pace, without difficulty. Vital Signs: 15:09 BP 118 / 68; Pulse 84; Resp 18 S; Temp 98.1(O); Pulse Ox 100% on R/A; Weight 120.2 kg aa5 (R); Height 5 ft. 3 in. (160.02 cm) (R); Pain 8/10; 15:09 Body Mass Index 46.94 (120.20 kg, 160.02 cm) aa5 MDM: 15:13 Patient medically screened. pm1 16:20 Data reviewed: vital signs. Data interpreted: Pulse oximetry: on room air is 100 %. pm1 Interpretation: normal. 16:32 Counseling: I had a detailed discussion with the patient and/or guardian regarding: the pm1 historical points, exam findings, and any diagnostic results supporting the discharge/admit diagnosis, lab results, radiology results, the need for outpatient follow up, to return to the emergency department if symptoms worsen or persist or if there are any questions or concerns that arise at home. 08/02 15:26 Order name: Flu; Complete Time: 16:29 pm1 08/02 15:32 Order name: Strep; Complete Time: 16:14 pm1 08/02 15:32 Order name: Chest Pa And Lat (2 Views) XRAY; Complete Time: 15:59 pm1 08/02 16:15 Order name: Throat Culture EDMS Administered Medications: 16:05 Drug: Tussionex Pennkinetic ER 5 ml Route: PO; sg 16:10 Drug: Albuterol 2.5 mg Route: Inhalation; sg 16:40 Drug: predniSONE 60 mg Route: PO; sg Disposition: 17:12 Co-signature as Attending Physician, Mario Simms MD. rn Disposition: 08/02/19 16:36 Discharged to Home. Impression: Acute upper respiratory infection, unspecified. - Condition is Stable. - Discharge Instructions: Acute Bronchitis, Adult, Antibiotic Resistance, Upper Respiratory Infection, Adult. - Prescriptions for Medrol (Slava) 4 mg Oral Tablets, Dose Pack - take 1 tablet by ORAL route as directed - follow package instructions; 1 packet. Albuterol Sulfate 90 mcg/actuation - inhale 1-2 puff by INHALATION route every 4-6 hours; 1 Inhaler. Guaifenesin AC 10- 100 mg/5 mL Oral Liquid - take 10 milliliter by ORAL route every 4 hours As needed; 240 milliliter. - Medication Reconciliation Form, Thank You Letter, Antibiotic Education, Prescription Opioid Use form. - Follow up: Emergency Department; When: As needed; Reason: Worsening of condition. Follow up: Private Physician; When: 2 - 3 days; Reason: Recheck today's complaints, Continuance of care, Re-evaluation by your physician. - Problem is new. - Symptoms have improved. Signatures: Dispatcher [employer] EDMS JaiIra Wally Gloria RN RN sg Mario Simms MD MD rn Calderon, Audri, RN RN aa5 Steven Brooks, JERROD WHEEL FILLER pm1 Corrections: (The following items were deleted from the chart) 16:48 16:36 08/02/2019 16:36 Discharged to Home. Impression: Acute upper respiratory bd infection, unspecified. Condition is Stable. Forms are Medication Reconciliation Form, Thank You Letter, Antibiotic Education, Prescription Opioid Use. Follow up: Emergency Department; When: As needed; Reason: Worsening of condition. Follow up: Private Physician; When: 2 - 3 days; Reason: Recheck today's complaints, Continuance of care, Re-evaluation by your physician. Problem is new. Symptoms have improved. pm1
--- NOTE | 2019-08-02 16:37 | ER ---
Nurse's Notes [facility] Name: Neva Maharaj Age: 49 yrs Sex: Female : 1970 Arrival Date: 08/02/2019 Time: 15:00 Bed 6 Private MD: Diagnosis: Acute upper respiratory infection, unspecified Presentation: 08/02 15:08 Presenting complaint: Patient states: cough and sore throat since Friday. Pt states aa5 "My lungs hurt". Transition of care: patient was not received from another setting of care. Onset of symptoms was July 2019. Risk Assessment: Do you want to hurt yourself or someone else? Patient reports no desire to harm self or others. Care prior to arrival: None. 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 - Social history:: Smoking status: Patient/guardian denies using tobacco. - Ebola Screening: : No symptoms or risks identified at this time. Screenin:40 Abuse screen: Denies threats or abuse. Denies injuries from another. Nutritional sg screening: No deficits noted. Tuberculosis screening: No symptoms or risk factors identified. Never had TB. Fall Risk None identified. Assessment: 15:30 General: Appears in no apparent distress. well groomed, well developed, well nourished, sg Behavior is calm, cooperative, appropriate for age. Pain: Complains of pain in bodyaches Quality of pain is described as aching. Neuro: Level of Consciousness is awake, alert, obeys commands, Oriented to person, place, time, Weld Technician are equal bilaterally Moves all extremities. Speech is normal, Facial symmetry appears normal. Cardiovascular: Patient's skin is warm and dry. Chest pain is denied. Respiratory: Airway is patent Respiratory effort is even, unlabored, Respiratory pattern is regular, symmetrical. Respiratory: Reports cough that is dry. GI: No deficits noted. : No deficits noted. EENT: No deficits noted. Derm: Skin is pink, warm \\T\\ dry. Musculoskeletal: Circulation, motion, and sensation intact. Range of motion: intact in all extremities. Vital Signs: 15:09 BP 118 / 68; Pulse 84; Resp 18 S; Temp 98.1(O); Pulse Ox 100% on R/A; Weight 120.2 kg aa5 (R); Height 5 ft. 3 in. (160.02 cm) (R); Pain 8/10; 15:09 Body Mass Index 46.94 (120.20 kg, 160.02 cm) aa5 ED Course: 15:00 Patient arrived in ED. mr 15:07 Arm band placed on. aa5 15:09 Triage completed. aa5 15:12 Steven Brooks NP is PHCP. pm1 15:12 Mario Simms MD is Attending Physician. pm1 15:45 Patient has correct armband on for positive identification. Bed in low position. Call sg light in reach. Side rails up X2. manager monitoring on. Pulse ox on. NIBP on. Warm blanket given. Head of bed elevated. 15:46 Chest Pa And Lat (2 Views) XRAY In Process Unspecified. EDMS 16:22 Wally Mott, RN is Primary Nurse. sg 16:45 No provider procedures requiring assistance completed. Patient did not have IV access sg during this emergency room visit. Administered Medications: 16:05 Drug: Tussionex Pennkinetic ER 5 ml Route: PO; sg 16:10 Drug: Albuterol 2.5 mg Route: Inhalation; sg 16:40 Drug: predniSONE 60 mg Route: PO; sg Outcome: 16:36 Discharge ordered by MD. pm1 16:45 Discharged to home ambulatory, with family. sg 16:45 Condition: good 16:45 Discharge instructions given to patient, family, Instructed on discharge instructions, follow up and referral plans. medication usage, safety practices, Demonstrated understanding of instructions, follow-up care, medications, Prescriptions given X 2. 16:48 Patient left the ED. bd Signatures: Dispatcher [employer] EDMS Ira Vergara Steven, RN RN sg RiveraAmy mr CamposMariangel RN RN aa Steven Brooks NP PROPOSAL REP pm1 Corrections: (The following items were deleted from the chart) 15:10 15:09 Resp 18bpm; Spontaneous; Temp 98.1F Oral; aa5 aa5 15:11 15:09 Pulse 67bpm; Resp 18bpm; Spontaneous; Pulse Ox 97% RA; Temp 98.1F Oral; 120.2 kg aa5 Reported; Height 5 ft. 3 in. Reported; BMI: 46.9; Pain 8/10; aa5
[2019-08-02] MEDS ORDERED: predniSONE 20 MG TAB ONE (16:43)
[2019-08-02 22:34] VITALS: BP 118/68; TEMP 98.1; O2SAT 100
== END 2019-08-02 16:48 | disposition home or self-care (01) ==
LOC: ER 14:56
DX: J06.9 Acute upper respiratory infection, unspecified (principal); I10 Essential (primary) hypertension
CPT/HCPCS: 87070; 87081; 87804 ×2; 71046; 99285; J7512

== ENCOUNTER 2019-08-30 14:56 | Emergency (ER) | payer OTHER ==
--- OUTSIDE RECORDS SUMMARY | 2019-08-30 14:59 | XMS REPORT ---
:1970 [facility] Address [address] [place] [address] [address] [place] [address] Care Team Providers Name Role Phone Unavailable Unavailable Unavailable Problems This patient has no known problems. Allergies, Adverse Reactions, Alerts This patient has no known allergies or adverse reactions. Medications This patient has no known medications.
[2019-08-30 16:07] LABS: Urine Blood TRACE (NEG); Urine Glucose NEGATIVE (NEG); Urine Protein NEGATIVE (NEG); Urine Specific Gravity <1.005 (1.005-1.030)
--- NOTE | 2019-08-30 16:08 | RAD REPORT ---
EXAM DESCRIPTION: CT - Stone Protocol - 08/30/2019 3:48 pm CLINICAL HISTORY: Abdominal pain. COMPARISON: 03/2019 TECHNIQUE: Computed axial tomography of the abdomen pelvis was obtained without oral or IV contrast. Lack of IV and oral contrast limits evaluation of solid organs, bowel, and vessels. Coronal reformat nasrin images were obtained and reviewed. All CT scans are performed using dose optimization technique as appropriate and may include automated exposure control or mA/KV adjustment according to patient size. FINDINGS: A renal calculus is not seen. An ureteral calculus is not noted. A bladder calculus is not present. The liver, spleen, pancreas and left adrenals appear grossly normal 19 mm right adrenal adenoma is unchanged There is no evidence of diverticulitis. The appendix appears normal IMPRESSION: Negative for a genitourinary calculus
[2019-08-30 16:40] LABS: Urine Bacteria <20 /HPF (<20); Urine Culture Reflex Order NOT NEEDED; Urine RBC <5 /HPF (NONE SEEN)
--- NOTE | 2019-08-30 16:48 | ER ---
Nurse's Notes [facility] Name: Neva Maharaj Age: 49 yrs Sex: Female : 1970 Arrival Date: 08/30/2019 Time: 14:58 Bed 18 Private MD: Diagnosis: Dysuria Presentation: 08/30 15:04 Presenting complaint: Patient states: Right flank pain and pain with urination for 1 sg month now, reports unable to see her pcp at this time. Transition of care: patient was not received from another setting of care. Onset of symptoms was August 30, 2019. Risk Assessment: Do you want to hurt yourself or someone else? Patient reports no desire to harm self or others. Initial Sepsis Screen: Does the patient meet any 2 criteria? No. Patient's initial sepsis screen is negative. Does the patient have a suspected source of infection? Yes: Dysuria/Frequency/Urgency/UTI. Care prior to arrival: None. 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 - Social history:: Smoking status: Patient/guardian denies using tobacco. - Ebola Screening: : Patient negative for fever greater than or equal to 101.5 degrees Fahrenheit, and additional compatible Ebola Virus Disease symptoms Patient denies exposure to infectious person Patient denies travel to an Ebola-affected area in the 21 days before illness onset No symptoms or risks identified at this time. Screenin:24 Abuse screen: Denies threats or abuse. Nutritional screening: No deficits noted. tw2 Tuberculosis screening: No symptoms or risk factors identified. Fall Risk None identified. Assessment: 15:15 General: Appears in no apparent distress. obese, well groomed, Behavior is calm, tw2 cooperative, appropriate for age. Pain: Complains of pain in right mid back and right low back. Neuro: Level of Consciousness is awake, alert, obeys commands, Oriented to person, place, time, situation. Cardiovascular: Heart tones S1 S2 Capillary refill < 3 seconds Patient's skin is warm and dry. Respiratory: Airway is patent Respiratory effort is even, unlabored, Respiratory pattern is regular, symmetrical, Breath sounds are clear bilaterally. GI: Abdomen is round non-distended, obese, Bowel sounds present X 4 quads. : Reports burning with urination, since 1 month. EENT: No signs and/or symptoms were reported regarding the EENT system. Derm: No signs and/or symptoms reported regarding the dermatologic system. Musculoskeletal: Range of motion: intact in all extremities. 16:25 Reassessment: Patient appears in no apparent distress at this time. No changes from tw2 previously documented assessment. Patient and/or family updated on plan of care and expected duration. Pain level reassessed. Patient is alert, oriented x 3, equal unlabored respirations, skin warm/dry/pink. 17:08 Reassessment: Patient appears in no apparent distress at this time. No changes from tw2 previously documented assessment. Patient and/or family updated on plan of care and expected duration. Pain level reassessed. Patient is alert, oriented x 3, equal unlabored respirations, skin warm/dry/pink. Vital Signs: 15:01 BP 170 / 81; Pulse 87; Resp 20; Temp 97.7; Pulse Ox 100% on R/A; Weight 117.93 kg; sg Height 5 ft. 2 in. (157.48 cm); Pain 8/10; 16:25 BP 125 / 66; Pulse 85; Resp 17; Pulse Ox 99% on R/A; tw2 17:07 BP 138 / 82; Pulse 84; Resp 17; Pulse Ox 99% on R/A; tw2 15:01 Body Mass Index 47.55 (117.93 kg, 157.48 cm) sg ED Course: 14:58 Patient arrived in ED. mr 15:03 [facility]C [facility]. kb 15:03 Lawrence Simmons MD is Attending Physician. kb 15:05 Triage completed. sg 15:11 Arm band placed on. sg 15:11 Urine collected: clean catch specimen, clear. sg 15:12 Bed in low position. Call light in reach. Adult w/ patient. tw2 15:13 Leigh Cao, RN is Primary Nurse. tw2 15:48 CT Stone Protocol In Process Unspecified. EDMS 16:10 Urine collected: and sent to lab as ordered. sg 17:08 No provider procedures requiring assistance completed. Patient did not have IV access tw2 during this emergency room visit. Administered Medications: No medications were administered Outcome: 16:47 Discharge ordered by . milady 17:08 Discharged to home ambulatory, with significant other. tw2 17:08 Condition: stable 17:08 Discharge instructions given to patient, family, Instructed on discharge instructions, follow up and referral plans. medication usage, Demonstrated understanding of instructions, follow-up care, medications, Prescriptions given X 1. 17:08 Patient left the ED. tw2 Signatures: Dispatcher [employer] EDMS Sandra Rivera, LABOR SUPERVISOR-C LABOR SUPERVISOR-Wally Holcomb, RN RN Amy Maharaj mr Leigh Cao, RN RN tw2
--- NOTE | 2019-08-30 16:49 | EDPHYS ---
Physician Documentation [facility] Name: Neva Maharaj Age: 49 yrs Sex: Female : 1970 Arrival Date: 08/30/2019 Time: 14:58 Bed 18 Private MD: ED Physician Lawrence Simmons HPI: 08/30 15:29 This 49 yrs old Female presents to ER via Ambulatory with complaints of kb Urinary Problem. 15:30 The patient complains of pain in the right flank. The pain does not radiate. Onset: The kb symptoms/episode began/occurred 1 week(s) ago. Modifying factors: The symptoms are alleviated by nothing. the symptoms are aggravated by nothing. Associated signs and symptoms: Pertinent positives: dysuria. Severity of pain: At its worst the pain was moderate in the emergency department the pain is unchanged. The patient has not experienced similar symptoms in the past. The patient has not recently seen a physician. 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 - Social history:: Smoking status: Patient/guardian denies using tobacco. - Ebola Screening: : Patient negative for fever greater than or equal to 101.5 degrees Fahrenheit, and additional compatible Ebola Virus Disease symptoms Patient denies exposure to infectious person Patient denies travel to an Ebola-affected area in the 21 days before illness onset No symptoms or risks identified at this time. ROS: 15:28 Constitutional: Negative for fever, chills, and weight loss, Neck: Negative for injury, kb pain, and swelling, Cardiovascular: Negative for chest pain, palpitations, and edema, Respiratory: Negative for shortness of breath, cough, wheezing, and pleuritic chest pain, Abdomen/GI: Negative for abdominal pain, nausea, vomiting, diarrhea, and constipation, MS/Extremity: Negative for injury and deformity, Skin: Negative for injury, rash, and discoloration, Neuro: Negative for headache, weakness, numbness, tingling, and seizure. 15:28 Back: Positive for flank pain, on the right. 15:28 : Positive for flank pain, burning with urination. Exam: 15:29 Constitutional: This is a well developed, well nourished patient who is awake, alert, kb and in no acute distress. Head/Face: Normocephalic, atraumatic. ENT: Nares patent. No nasal discharge, no septal abnormalities noted. Tympanic membranes are normal and external auditory canals are clear. Oropharynx with no redness, swelling, or masses, exudates, or evidence of obstruction, uvula midline. Mucous membranes moist. Neck: Trachea midline, no thyromegaly or masses palpated, and no cervical lymphadenopathy. Supple, full range of motion without nuchal rigidity, or vertebral point tenderness. No Meningismus. Chest/axilla: Normal chest wall appearance and motion. Nontender with no deformity. No lesions are appreciated. Cardiovascular: Regular rate and rhythm with a normal S1 and S2. No gallops, murmurs, or rubs. Normal PMI, no JVD. No pulse deficits. Respiratory: Lungs have equal breath sounds bilaterally, clear to auscultation and percussion. No rales, rhonchi or wheezes noted. No increased work of breathing, no retractions or nasal flaring. Abdomen/GI: Soft, non-tender, with normal bowel sounds. No distension or tympany. No guarding or rebound. No evidence of tenderness throughout. Skin: Warm, dry with normal turgor. Normal color with no rashes, no lesions, and no evidence of cellulitis. MS/ Extremity: Pulses equal, no cyanosis. Neurovascular intact. Full, normal range of motion. Neuro: Awake and alert, GCS 15, oriented to person, place, time, and situation. Cranial nerves II-XII grossly intact. Motor strength 5/5 in all extremities. Sensory grossly intact. Cerebellar exam normal. Normal gait. 15:29 Back: CVA tenderness, that is mild, is noted on the right. Vital Signs: 15:01 BP 170 / 81; Pulse 87; Resp 20; Temp 97.7; Pulse Ox 100% on R/A; Weight 117.93 kg; sg Height 5 ft. 2 in. (157.48 cm); Pain 8/10; 16:25 BP 125 / 66; Pulse 85; Resp 17; Pulse Ox 99% on R/A; tw2 17:07 BP 138 / 82; Pulse 84; Resp 17; Pulse Ox 99% on R/A; tw2 15:01 Body Mass Index 47.55 (117.93 kg, 157.48 cm) MDM: 15:12 Patient medically screened. kb 15:29 Data reviewed: vital signs, nurses notes. Data interpreted: Pulse oximetry: on room air kb is 100 %. Interpretation: normal. 16:46 Counseling: I had a detailed discussion with the patient and/or guardian regarding: the kb historical points, exam findings, and any diagnostic results supporting the discharge/admit diagnosis, lab results, radiology results, the need for outpatient follow up, a family practitioner, to return to the emergency department if symptoms worsen or persist or if there are any questions or concerns that arise at home. 08/30 15:04 Order name: Urine Microscopic Only; Complete Time: 16:46 kb 08/30 15:12 Order name: Urine Dipstick--Ancillary (enter results); Complete Time: 16:09 bd 08/30 15:04 Order name: Urine Dipstick-Ancillary (obtain specimen); Complete Time: 15:13 kb 08/30 15:18 Order name: CT Stone Protocol; Complete Time: 16:16 kb Administered Medications: No medications were administered Disposition: 08/30/19 16:47 Discharged to Home. Impression: Dysuria. - Condition is Stable. - Discharge Instructions: Dysuria. - Prescriptions for Pyridium 200 mg Oral Tablet - take 1 tablet by ORAL route every 8 hours for 3 days; 9 tablet. - Medication Reconciliation Form, Thank You Letter, Antibiotic Education, Prescription Opioid Use, Work release form, Family Work Release form. - Follow up: Emergency Department; When: As needed; Reason: Worsening of condition. Follow up: Private Physician; When: 2 - 3 days; Reason: Recheck today's complaints, Continuance of care, Re-evaluation by your physician. Addendum: 09/06/2019 07:24 Co-signature as Attending Physician, Lawrence Simmons MD I agree with the assessment and c tompkins plan of care. Signatures: Dispatcher [employer] Sandra Lake, ADALBERTO-Shannen GLOVER-Wally Holcomb RN Lawrence Bird MD MD cha Wise, Tara, RN RN tw2 Corrections: (The following items were deleted from the chart) 08/30 17:08 16:47 08/30/2019 16:47 Discharged to Home. Impression: Dysuria. Condition is Stable. tw2 Forms are Medication Reconciliation Form, Thank You Letter, Antibiotic Education, Prescription Opioid Use. Follow up: Emergency Department; When: As needed; Reason: Worsening of condition. Follow up: Private Physician; When: 2 - 3 days; Reason: Recheck today's complaints, Continuance of care, Re-evaluation by your physician. kb
[2019-08-30 17:37] VITALS: TEMP 97.7
[2019-08-30 17:38] VITALS: O2SAT 99
[2019-08-30 17:39] VITALS: BP 138/82
== END 2019-08-30 17:08 | disposition home or self-care (01) ==
LOC: ER 14:56
DX: R30.0 Dysuria (principal); I10 Essential (primary) hypertension; E78.00 Pure hypercholesterolemia, unspecified
CPT/HCPCS: 74176; 76377; 81003; 81015; 99283

== ENCOUNTER 2019-09-17 14:38 | Emergency (ER) | payer OTHER ==
--- OUTSIDE RECORDS SUMMARY | 2019-09-17 14:41 | XMS REPORT ---
:1970 [facility] [address] [place] [address] [address] [place] [address] Care Team Providers Name Role Phone Unavailable Unavailable Unavailable Problems This patient has no known problems. Allergies, Adverse Reactions, Alerts This patient has no known allergies or adverse reactions. Medications This patient has no known medications.
--- NOTE | 2019-09-17 16:50 | ER ---
Nurse's Notes [facility] Name: Neva Maharaj Age: 49 yrs Sex: Female : 1970 Arrival Date: 09/17/2019 Time: 14:40 Bed 12 Private MD: Evgeny Bustillos C Diagnosis: Conjunctivitis Presentation: 09/17 14:50 Presenting complaint: Patient states: woke up with redness and discharge, no trauma dm5 noted or reported. 14:50 Acuity: MAURICIO 5 dm5 14:58 Transition of care: patient was not received from another setting of care. Onset of aj1 symptoms was September 17, 2019. Risk Assessment: Do you want to hurt yourself or someone else? Patient reports no desire to harm self or others. Initial Sepsis Screen: Does the patient meet any 2 criteria? No. Patient's initial sepsis screen is negative. Does the patient have a suspected source of infection? No. Patient's initial sepsis screen is negative. Care prior to arrival: None. 14:58 Method Of Arrival: Ambulatory aj1 Triage Assessment: 14:48 General: Appears in no apparent distress. Behavior is calm, cooperative. dm5 14:49 EENT: Sclera/Cornea are reddened in inner aspect of conjuctiva of right eye woke up dm5 with redness pain and green discharge, no trauma noted or reported. 14:59 General: Appears in no apparent distress. comfortable, Behavior is calm, cooperative, aj1 appropriate for age. Pain: Complains of pain in right eye. Neuro: Level of Consciousness is awake, alert, obeys commands. Cardiovascular: Patient's skin is warm and dry. Respiratory: Airway is patent Respiratory effort is even, unlabored, Respiratory pattern is regular, agonal. 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 - Social history:: Smoking status: Patient/guardian denies using tobacco. - Ebola Screening: : Patient denies travel to an Ebola-affected area in the 21 days before illness onset. Screenin:45 Abuse screen: Denies threats or abuse. Denies injuries from another. Nutritional hb screening: No deficits noted. Tuberculosis screening: No symptoms or risk factors identified. Fall Risk None identified. Assessment: 16:45 General: Appears in no apparent distress. Behavior is calm, cooperative. Pain: Pain hb currently is 5 out of 10 on a pain scale. Neuro: Level of Consciousness is awake, alert, obeys commands, Oriented to person, place, time, situation. Cardiovascular: Capillary refill < 3 seconds Patient's skin is warm and dry. Respiratory: Airway is patent Respiratory effort is even, unlabored, Respiratory pattern is regular, symmetrical. GI: No signs and/or symptoms were reported involving the gastrointestinal system. : No signs and/or symptoms were reported regarding the genitourinary system. EENT: Reports right eye pain and redness. Derm: Skin is pink, warm \\T\\ dry. Musculoskeletal: No signs and/or symptoms reported regarding the musculoskeletal system. Vital Signs: 14:59 BP 151 / 85; Pulse 78; Resp 18; Temp 97.1; Pulse Ox 100% on R/A; Weight 119.75 kg (R); aj1 Height 5 ft. 2 in. (157.48 cm) (R); Pain 7/10; 14:59 Body Mass Index 48.29 (119.75 kg, 157.48 cm) aj1 ED Course: 14:40 Patient arrived in ED. rg4 14:40 Evgeny Bustillos MD is Private Physician. rg4 14:51 Triage completed. dm5 14:59 Arm band placed on Patient placed in waiting room, Patient notified of wait time. aj1 16:28 Lawrence Simmons MD is Attending Physician. snw 16:28 Germaine Gifford FNP-C is [facility]. snw 16:40 Mirian Mg, JENNIFER is Primary Nurse. hb 16:45 Patient has correct armband on for positive identification. Call light in reach. hb 16:49 Evgeny Bustillos MD is Referral Physician. snw 16:59 No provider procedures requiring assistance completed. Patient did not have IV access hb during this emergency room visit. Administered Medications: No medications were administered Outcome: 16:49 Discharge ordered by . snw 16:59 Discharged to home ambulatory, with significant other. hb 16:59 Condition: stable 16:59 Discharge instructions given to patient, significant other, Instructed on discharge instructions, follow up and referral plans. medication usage, Demonstrated understanding of instructions, follow-up care, medications, Prescriptions given X 1. 17:03 Patient left the ED. Signatures: Nataly Connelly RN RN aj1 Josette Galvan RN RN dm5 Germaine Gifford, BRADDER-C BRADDER-Csnw Mirian Mg RN RN Leora Bauer 4
--- NOTE | 2019-09-17 16:50 | EDPHYS ---
Physician Documentation [facility] Name: Neva Maharaj Age: 49 yrs Sex: Female : 1970 Arrival Date: 09/17/2019 Time: 14:40 Bed 12 Private MD: Evgeny Bustillos C ED Physician Lawrence Simmons HPI: 09/17 16:53 This 49 yrs old Female presents to ER via Ambulatory with complaints of Eye snw Problem. 16:53 The patient is experiencing burning, matting or discharge, redness, to the right eye, snw caused by an unknown mechanism. Onset: The symptoms/episode began/occurred suddenly, this morning. Duration: the symptoms are continuous. Associated signs and symptoms: Pertinent positives: None. Patient wears glasses. Severity of symptoms: At their worst the symptoms were very mild. It is unknown whether or not the patient has had similar symptoms in the past. It is unknown whether or not the patient has recently seen a physician. 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 - Social history:: Smoking status: Patient/guardian denies using tobacco. - Ebola Screening: : Patient denies travel to an Ebola-affected area in the 21 days before illness onset. ROS: 16:52 Constitutional: Negative for fever, chills, and weight loss, ENT: Negative for injury, snw pain, and discharge, Neck: Negative for injury, pain, and swelling, Cardiovascular: Negative for chest pain, palpitations, and edema, Respiratory: Negative for shortness of breath, cough, wheezing, and pleuritic chest pain, Abdomen/GI: Negative for abdominal pain, nausea, vomiting, diarrhea, and constipation, Back: Negative for injury and pain, : Negative for injury, bleeding, discharge, and swelling, MS/Extremity: Negative for injury and deformity, Skin: Negative for injury, rash, and discoloration, Neuro: Negative for headache, weakness, numbness, tingling, and seizure, Psych: Negative for depression, anxiety, suicide ideation, homicidal ideation, and hallucinations. 16:52 Eyes: Positive for discharge, itching, matting, redness, of the inner aspect of conjuctiva of right eye. Exam: 16:51 Constitutional: This is a well developed, well nourished patient who is awake, alert, snw and in no acute distress. Head/Face: Normocephalic, atraumatic. ENT: Nares patent. No nasal discharge, no septal abnormalities noted. Tympanic membranes are normal and external auditory canals are clear. Oropharynx with no redness, swelling, or masses, exudates, or evidence of obstruction, uvula midline. Mucous membranes moist. Neck: Trachea midline, no thyromegaly or masses palpated, and no cervical lymphadenopathy. Supple, full range of motion without nuchal rigidity, or vertebral point tenderness. No Meningismus. Chest/axilla: Normal chest wall appearance and motion. Nontender with no deformity. No lesions are appreciated. Cardiovascular: Regular rate and rhythm with a normal S1 and S2. No gallops, murmurs, or rubs. Normal PMI, no JVD. No pulse deficits. Respiratory: Lungs have equal breath sounds bilaterally, clear to auscultation and percussion. No rales, rhonchi or wheezes noted. No increased work of breathing, no retractions or nasal flaring. Abdomen/GI: Soft, non-tender, with normal bowel sounds. No distension or tympany. No guarding or rebound. No evidence of tenderness throughout. Back: No spinal tenderness. No costovertebral tenderness. Full range of motion. Skin: Warm, dry with normal turgor. Normal color with no rashes, no lesions, and no evidence of cellulitis. MS/ Extremity: Pulses equal, no cyanosis. Neurovascular intact. Full, normal range of motion. Neuro: Awake and alert, GCS 15, oriented to person, place, time, and situation. Cranial nerves II-XII grossly intact. Motor strength 5/5 in all extremities. Sensory grossly intact. Cerebellar exam normal. Normal gait. Psych: Awake, alert, with orientation to person, place and time. Behavior, mood, and affect are within normal limits. 16:51 Eyes: Conjunctiva: injected, in the right eye, at3 o'clock position, EOMI. Vital Signs: 14:59 BP 151 / 85; Pulse 78; Resp 18; Temp 97.1; Pulse Ox 100% on R/A; Weight 119.75 kg (R); aj1 Height 5 ft. 2 in. (157.48 cm) (R); Pain 7/10; 14:59 Body Mass Index 48.29 (119.75 kg, 157.48 cm) aj1 MDM: 16:45 Patient medically screened. snw 16:50 Data reviewed: vital signs, nurses notes. Data interpreted: Pulse oximetry: on room air snw is 100 %. Interpretation: normal. Counseling: I had a detailed discussion with the patient and/or guardian regarding: the historical points, exam findings, and any diagnostic results supporting the discharge/admit diagnosis, the presence of at least one elevated blood pressure reading (>120/80) during this emergency department visit, the need for outpatient follow up, to return to the emergency department if symptoms worsen or persist or if there are any questions or concerns that arise at home. Special discussion: I have referred the patient to see his PCP for further evaluation of high blood pressure. Based on the history and exam findings, there is no indication for further emergent testing or inpatient evaluation. I discussed with the patient/guardian the need to see the primary care provider for further evaluation of the symptoms. 16:53 ED course: denies injury. snw Administered Medications: No medications were administered Disposition: 20:41 Co-signature as Attending Physician, Lawrence Simmons MD I agree with the assessment and maria de jesus plan of care. Disposition: 09/17/19 16:49 Discharged to Home. Impression: Conjunctivitis. - Condition is Stable. - Discharge Instructions: Bacterial Conjunctivitis, Hypertension, Hand Washing. - Prescriptions for Polytrim 10,000 unit- 1 mg/mL Ophthalmic drops - instill 2 drop by OPHTHALMIC route every 6 hours for 7 days; 1 Container. - Medication Reconciliation Form, Thank You Letter, Antibiotic Education, Prescription Opioid Use form. - Follow up: Emergency Department; When: As needed; Reason: Worsening of condition. Follow up: Evgeny Bustillos MD; When: 1 week; Reason: Recheck today's complaints, Continuance of care, Re-evaluation by your physician. Signatures: Nataly Connelly RN RN aj1 Lawrence Simmons MD MD cha Therrien, Shelly, GAS METER PROVER-C GAS METER PROVER-Csnw Mg, Mirian, RN RN hb Corrections: (The following items were deleted from the chart) 17:03 16:49 09/17/2019 16:49 Discharged to Home. Impression: Conjunctivitis. Condition is hb Stable. Forms are Medication Reconciliation Form, Thank You Letter, Antibiotic Education, Prescription Opioid Use. Follow up: Emergency Department; When: As needed; Reason: Worsening of condition. Follow up: A Bustillos; When: 1 week; Reason: Recheck today's complaints, Continuance of care, Re-evaluation by your physician. snw
[2019-09-17 18:26] VITALS: BP 151/85; TEMP 97.1; O2SAT 100
== END 2019-09-17 17:03 | disposition home or self-care (01) ==
LOC: ER 14:38
DX: H10.9 Unspecified conjunctivitis (principal); I10 Essential (primary) hypertension
CPT/HCPCS: 99282

== ENCOUNTER 2019-10-17 11:57 | Emergency (ER) | payer OTHER ==
--- OUTSIDE RECORDS SUMMARY | 2019-10-17 11:59 | XMS REPORT ---
:1970 [facility] Address [address] [place] [address] Care Team Providers Name Role Phone Unavailable Unavailable Unavailable Problems This patient has no known problems. Allergies, Adverse Reactions, Alerts This patient has no known allergies or adverse reactions. Medications This patient has no known medications.
[2019-10-17] MEDS ORDERED: HYDROCODONE/APAP 10/325 TAB ONE (13:13)
--- NOTE | 2019-10-17 13:39 | RAD REPORT ---
EXAM DESCRIPTION: CT - C Spine Wo Con - 10/17/2019 1:23 pm CLINICAL HISTORY: Left arm radiculopathy COMPARISON: None. TECHNIQUE: Computed axial tomography of the cervical spine were obtained with sagittal and coronal r econstruction images generated and reviewed. All CT scans are performed using dose optimization technique as appropriate and may include automated exposure control or mA/KV adjustment according to patient size. FINDINGS: A cervical fracture is not seen. No dislocation High-grade stenosis central/foraminal is not seen. IMPRESSION: A cervical fracture is not seen. If the patient continues have symptoms to suggest spinal cord/spinal canal pathology then MRI would b e recommended.
--- NOTE | 2019-10-17 13:41 | RAD REPORT ---
EXAM DESCRIPTION: RAD - Elbow Left 3 View - 10/17/2019 1:35 pm CLINICAL HISTORY: Left elbow pain FINDINGS: No fracture or dislocation is seen. No bone or joint abnormality
--- NOTE | 2019-10-17 14:07 | ER ---
Nurse's Notes [facility] Name: Neva Maharaj Age: 49 yrs Sex: Female : 1970 Arrival Date: 10/17/2019 Time: 11:59 Bed 23 Private MD: Evgeny Bustillos C Diagnosis: Radiculopathy, cervical region;Pain in left arm Presentation: 10/17 12:12 Presenting complaint: Patient states: Left arm pain for the past month. Denies any aj1 recent injury. States "I sleep on that side". Transition of care: patient was not received from another setting of care. Onset of symptoms was September 2019. Risk Assessment: Do you want to hurt yourself or someone else? Patient reports no desire to harm self or others. Initial Sepsis Screen: Does the patient meet any 2 criteria? No. Patient's initial sepsis screen is negative. Does the patient have a suspected source of infection? No. Patient's initial sepsis screen is negative. Care prior to arrival: None. 12:12 Method Of Arrival: Ambulatory aj 12:12 Acuity: MAURICIO 5 aj1 Triage Assessment: 12:14 General: Appears in no apparent distress. comfortable, Behavior is calm, cooperative, aj1 appropriate for age. Pain: Complains of pain in left arm Pain currently is 8 out of 10 on a pain scale. Neuro: Level of Consciousness is awake, alert, obeys commands. Cardiovascular: Patient's skin is warm and dry. Respiratory: Airway is patent Respiratory effort is even, unlabored, Respiratory pattern is regular, symmetrical. 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 - Coronavirus screen:: The patient has NOT traveled to [place] in the past 14 days. - Social history:: Smoking status: Patient/guardian denies using tobacco. - Ebola Screening: : Patient denies travel to an Ebola-affected area in the 21 days before illness onset. Screenin:15 Abuse screen: Denies threats or abuse. Denies injuries from another. Nutritional aj1 screening: No deficits noted. Tuberculosis screening: No symptoms or risk factors identified. Fall Risk None identified. Assessment: 12:15 General: Appears in no apparent distress. comfortable, Behavior is calm, cooperative, aj1 appropriate for age. Pain: Complains of pain in left arm Pain does not radiate. Pain currently is 8 out of 10 on a pain scale. Pain began one month ago Is continuous. Neuro: Level of Consciousness is awake, alert, obeys commands, Oriented to person, place, time, situation. Cardiovascular: Patient's skin is warm and dry. Respiratory: Airway is patent Respiratory effort is even, unlabored, Respiratory pattern is regular, symmetrical. GI: No signs and/or symptoms were reported involving the gastrointestinal system. : No signs and/or symptoms were reported regarding the genitourinary system. EENT: No signs and/or symptoms were reported regarding the EENT system. Derm: No signs and/or symptoms reported regarding the dermatologic system. Skin is pink, warm \\T\\ dry. normal. Musculoskeletal: Range of motion: intact in all extremities. 13:11 Reassessment: Pt to CT now VIA wheelchair. ss 14:15 Reassessment: Patient appears in no apparent distress at this time. Patient and/or ss family updated on plan of care and expected duration. Pain level reassessed. Vital Signs: 12:14 BP 132 / 63; Pulse 80; Resp 18; Temp 97.2; Pulse Ox 98% on R/A; Weight 120.2 kg (R); aj1 Height 5 ft. 2 in. (157.48 cm) (R); Pain 8/10; 12:14 Body Mass Index 48.47 (120.20 kg, 157.48 cm) aj1 ED Course: 11:59 Patient arrived in ED. rg4 12:00 Evgeny Bustillos MD is Private Physician. rg4 12:13 Triage completed. aj1 12:14 Arm band placed on Patient placed in an exam room. aj1 12:15 Patient has correct armband on for positive identification. aj1 12:15 No provider procedures requiring assistance completed. aj1 12:32 Steven Brooks NP is PHCP. pm1 12:32 Lawrence Simmons MD is Attending Physician. pm1 12:55 Smirch, Denita, RN is Primary Nurse. ss 13:23 Patient moved to radiology Patient moved back from CT. bq 14:15 Patient did not have IV access during this emergency room visit. ss Administered Medications: 13:11 Drug: [place] 10 mg-325 mg 1 tabs Route: PO; ss 14:16 Follow up: Response: No adverse reaction; Pain is decreased ss Outcome: 14:05 Discharge ordered by MD. pm1 14:15 Discharged to home ambulatory, with family. ss 14:15 Condition: good 14:15 Discharge instructions given to patient, family, Instructed on discharge instructions, follow up and referral plans. medication usage, Demonstrated understanding of instructions, follow-up care, medications, Prescriptions given X 1. 14:16 Patient left the ED. Signatures: Nataly Connelly RN RN aj1 Paz Macias Shelby, RN RN ss Steven Brooks, PSYCH COORDINATOR PSYCH COORDINATOR pm1 Leora Green rg4
--- NOTE | 2019-10-17 14:07 | EDPHYS ---
Physician Documentation [facility] Name: Neva Maharaj Age: 49 yrs Sex: Female : 1970 Arrival Date: 10/17/2019 Time: 11:59 Bed 23 Private MD: Evgeny Bustillos C ED Physician Lawrence Simmons HPI: 10/17 13:19 This 49 yrs old Female presents to ER via Ambulatory with complaints of Left pm1 Arm Pain. 13:19 The patient or guardian complains of Pain from her left elbow to left forearm. Context: pm1 resulted from unknown cause. Onset: The symptoms/episode began/occurred 1 month(s) ago. Treatment prior to arrival includes: no previous treatment. 13:19 Modifying factors: The symptoms are alleviated by remaining still, the symptoms are pm1 aggravated by movement, bending arm, at left elbow. Associated signs and symptoms: Pertinent negatives: deformity, numbness, swelling, tingling, injury. Severity of symptoms: in the emergency department the symptoms are unchanged. The patient has not experienced similar symptoms in the past. The patient has not recently seen a physician. CARPENTER: 12:14 LMP N/A - Post-menopause aj1 Historical: - Allergies: 12:14 NKDA; aj1 - Home Meds: 12:14 lisinopril Oral [Active]; atorvastatin oral oral [Active]; aj1 - PMHx: 12:14 "fluid in lungs"; Arthritis; High Cholesterol; Hypertension; TIA; aj1 - Immunization history:: Flu vaccine is not up to date. - Coronavirus screen:: The patient has NOT traveled to [place] in the past 14 days. - Social history:: Smoking status: Patient/guardian denies using tobacco. - Ebola Screening: : Patient denies travel to an Ebola-affected area in the 21 days before illness onset. ROS: 13:19 Constitutional: Negative for fever, chills, and weight loss. pm1 13:19 Cardiovascular: Negative for chest pain, palpitations, and edema, Respiratory: Negative for shortness of breath, cough, wheezing, and pleuritic chest pain, Back: Negative for injury and pain. 13:19 Skin: Negative for injury, rash, and discoloration, Neuro: Negative for headache, weakness, numbness, tingling, and seizure. 13:19 Neck: Positive for pain, Negative for 13:19 MS/extremity: Positive for pain, of the dorsal aspect of left forearm, left elbow and palmar aspect of left forearm, Negative for decreased range of motion, deformity, paresthesias, swelling, tingling. Exam: 13:19 Constitutional: This is a well developed, well nourished patient who is awake, alert, pm1 and in no acute distress. Head/Face: Normocephalic, atraumatic. 13:19 Chest/axilla: Normal chest wall appearance and motion. Nontender with no deformity. No lesions are appreciated. Cardiovascular: Regular rate and rhythm with a normal S1 and S2. No gallops, murmurs, or rubs. Normal PMI, no JVD. No pulse deficits. Respiratory: Lungs have equal breath sounds bilaterally, clear to auscultation and percussion. No rales, rhonchi or wheezes noted. No increased work of breathing, no retractions or nasal flaring. Back: No spinal tenderness. No costovertebral tenderness. Full range of motion. Skin: Warm, dry with normal turgor. Normal color with no rashes, no lesions, and no evidence of cellulitis. 13:19 Neck: External neck: tenderness, of the left mid cervical area and left trapezius, C-spine: vertebral tenderness, is not appreciated. 13:19 Musculoskeletal/extremity: Extremities: grossly normal except: noted in the left elbow and dorsal aspect of left forearm and palmar aspect of left forearm: tenderness, There is no evidence of decreased ROM, deformity, swelling, ROM: intact in all extremities, Pulses: noted to be 2+ in the left radial artery, the left hand Sensation intact. 13:19 Neuro: Orientation: is normal, Motor: is normal, moves all fours. Vital Signs: 12:14 BP 132 / 63; Pulse 80; Resp 18; Temp 97.2; Pulse Ox 98% on R/A; Weight 120.2 kg (R); aj1 Height 5 ft. 2 in. (157.48 cm) (R); Pain 8/10; 12:14 Body Mass Index 48.47 (120.20 kg, 157.48 cm) aj MDM: 12:32 Patient medically screened. pm1 14:03 Data reviewed: vital signs. Data interpreted: Pulse oximetry: on room air is 98 %. pm1 Interpretation: normal. Counseling: I had a detailed discussion with the patient and/or guardian regarding: the historical points, exam findings, and any diagnostic results supporting the discharge/admit diagnosis, radiology results, the need for outpatient follow up, to return to the emergency department if symptoms worsen or persist or if there are any questions or concerns that arise at home. 10/17 13:08 Order name: Elbow Left 3 View XRAY pm1 10/17 13:08 Order name: CT C Spine pm1 10/17 13:48 Order name: CT; Complete Time: 14:02 EDMS 10/17 13:48 Order name: RAD; Complete Time: 14:02 EDMS Administered Medications: 13:11 Drug: [place] 10 mg-325 mg 1 tabs Route: PO; ss 14:16 Follow up: Response: No adverse reaction; Pain is decreased ss Disposition: 10/18 08:31 Co-signature as Attending Physician, Lawrence Simmons MD I agree with the assessment and maria de jesus plan of care. Disposition: 10/17/19 14:05 Discharged to Home. Impression: Radiculopathy, cervical region, Pain in left arm. - Condition is Stable. - Discharge Instructions: Cervical Radiculopathy, Musculoskeletal Pain. - Prescriptions for Tylenol- Codeine #3 300-30 mg Oral Tablet - take 2 tablets by ORAL route every 6 hours As needed; 20 tablet. - Medication Reconciliation Form, Thank You Letter, Antibiotic Education, Prescription Opioid Use form. - Follow up: Emergency Department; When: As needed; Reason: Worsening of condition. Follow up: Private Physician; When: 2 - 3 days; Reason: Recheck today's complaints, Continuance of care, Re-evaluation by your physician. - Problem is new. - Symptoms have improved. Signatures: Dispatcher [employer] EDMS Nataly Connelly RN RN aj1 Lawrence Simmons MD MD cha Smirch, Shelby, RN RN Steven Barros, COURIER DRIVER COURIER DRIVER pm1 Corrections: (The following items were deleted from the chart) 10/17 14:16 14:05 10/17/2019 14:05 Discharged to Home. Impression: Radiculopathy, cervical region; ss Pain in left arm. Condition is Stable. Forms are Medication Reconciliation Form, Thank You Letter, Antibiotic Education, Prescription Opioid Use. Follow up: Emergency Department; When: As needed; Reason: Worsening of condition. Follow up: Private Physician; When: 2 - 3 days; Reason: Recheck today's complaints, Continuance of care, Re-evaluation by your physician. Problem is new. Symptoms have improved. pm1
[2019-10-17 14:49] VITALS: BP 132/63; TEMP 97.2; O2SAT 98
== END 2019-10-17 14:16 | disposition home or self-care (01) ==
LOC: ER 11:57
DX: M54.12 Radiculopathy, cervical region (principal); I10 Essential (primary) hypertension; E78.00 Pure hypercholesterolemia, unspecified
CPT/HCPCS: 72125; 99284

== ENCOUNTER 2020-06-04 15:52 | Emergency (ER) | payer OTHER ==
[2020-06-04] MEDS ORDERED: NA CHLORIDE 0.9% 1,000 ML ONE (17:00)
[2020-06-04] MEDS ORDERED: KETOROLAC 30 MG/ML INJ ONE (17:00)
[2020-06-04] MEDS ORDERED: MORPHINE 4 MG/ML SYR ONE (17:00)
[2020-06-04] MEDS ORDERED: ONDANSETRON 4 MG/2 ML VIAL ONE (17:00)
[2020-06-04 17:04] LABS: Absolute Lymphocytes (CBC) 3.1 K/uL (0.7-4.9); Basophils % 0.8 % (0-1.3); Lymphocytes % 28.9 % (15.3-44.8); MPV 9.6 fL (7.6-11.3); RBC Red Blood Cell Count 4.34 M/uL (3.86-4.86)
[2020-06-04 17:17] LABS: ALT/SGPT 38 U/L (12-78); AST/SGOT 23 U/L (15-37); Alkaline Phosphatase 133 U/L (45-117); BUN Blood Urea Nitrogen 17 mg/dL (7-18); Bicarbonate 28 mmol/L (21-32); Bilirubin Direct < 0.1 mg/dL (0-0.2); Bilirubin Total 0.4 mg/dL (0.2-1.0); Glucose Level 103 mg/dL (74-106); Lipase 89 U/L (73-393); Potassium 3.7 mmol/L (3.5-5.1); Protein, Total 8.9 g/dL (6.4-8.2); Sodium Level 139 mmol/L (136-145)
[2020-06-04 17:25] LABS: Urine Blood NEGATIVE (NEG); Urine Glucose NEGATIVE (NEG); Urine Protein NEGATIVE (NEG)
--- NOTE | 2020-06-04 18:06 | RAD REPORT ---
EXAM DESCRIPTION: CT - Stone Protocol - 06/04/2020 5:55 pm CLINICAL HISTORY: Abdominal pain. COMPARISON: 2018 TECHNIQUE: Computed axial tomography of the abdomen pelvis was obtained without oral or IV contrast. Lack of IV and oral contrast limits evaluation of solid organs, bowel, and vessels. Coronal reformat nasrin images were obtained and reviewed. All CT scans are performed using dose optimization technique as appropriate and may include automated exposure control or mA/KV adjustment according to patient size. FINDINGS: A renal calculus is not seen. An ureteral calculus is not noted. A bladder calculus is not present. The liver, spleen, pancreas and left adrenal appear grossly normal. A small right adrenal adenoma unc hanged There is no evidence of diverticulitis. The appendix appears normal. Cystocele IMPRESSION: Negative for a genitourinary calculus
--- NOTE | 2020-06-04 18:12 | ER ---
Nurse's Notes [facility] Name: Neva Maharaj Age: 50 yrs Sex: Female : 1970 Arrival Date: 06/04/2020 Time: 15:54 Bed 15 Private MD: Evgeny Bustillos C Diagnosis: Abdominal tenderness-right flank pain;Low back pain Presentation: 06/04 16:02 Chief complaint: Patient states: "I am having bad flank pain on my right side. It feels jd3 similar to the past kidney stone.". Coronavirus screen: At this time, the client does not indicate any symptoms associated with coronavirus-19. Ebola Screen: Patient negative for fever greater than or equal to 101.5 degrees Fahrenheit, and additional compatible Ebola Virus Disease symptoms. Initial Sepsis Screen: Does the patient meet any 2 criteria? No. Patient's initial sepsis screen is negative. Does the patient have a suspected source of infection? No. Patient's initial sepsis screen is negative. Risk Assessment: Do you want to hurt yourself or someone else? Patient reports no desire to harm self or others. Onset of symptoms was June 04, 2020. 16:02 Method Of Arrival: Wheelchair jd3 16:02 Acuity: MAURICIO 3 jd3 ARC TRIMMER: 16:03 LMP N/A - oblasion jd3 Historical: - Allergies: 16:03 NKDA; jd3 - Home Meds: 16:03 atorvastatin Oral [Active]; lisinopril Oral [Active]; jd3 - PMHx: 16:03 "fluid in lungs"; Arthritis; High Cholesterol; Hypertension; TIA; jd3 - Immunization history:: Adult Immunizations up to date. - Social history:: Smoking status: Patient denies any tobacco usage or history of. - Family history:: not pertinent. Screenin:15 Abuse screen: Denies threats or abuse. Denies injuries from another. Nutritional ca1 screening: No deficits noted. Tuberculosis screening: No symptoms or risk factors identified. Fall Risk IV access (20 points). Assessment: 16:15 General: Appears in no apparent distress. uncomfortable, Behavior is cooperative, ca1 appropriate for age. Pain: Complains of pain in right low back Pain currently is 10 out of 10 on a pain scale. Pain began 4 hours ago. Is intermittent. Neuro: Level of Consciousness is awake, alert, obeys commands, Oriented to person, place, time, situation. Cardiovascular: Heart tones S1 S2 present Capillary refill < 3 seconds Patient's skin is warm and dry. Respiratory: Airway is patent Respiratory effort is even, unlabored, Respiratory pattern is regular, symmetrical, Breath sounds are clear bilaterally. GI: Abdomen is round non-distended, Bowel sounds present X 4 quads. Abd is soft and non tender X 4 quads. : No signs and/or symptoms were reported regarding the genitourinary system. EENT: No signs and/or symptoms were reported regarding the EENT system. Derm: Skin is intact, is healthy with good turgor, Skin is pink, warm \\T\\ dry. Musculoskeletal: Circulation, motion, and sensation intact. Capillary refill < 3 seconds. 17:04 Reassessment: Patient appears in no apparent distress at this time. No changes from ca1 previously documented assessment. Patient is alert, oriented x 3, equal unlabored respirations, skin warm/dry/pink. 17:45 Reassessment: Patient appears in no apparent distress at this time. Patient and/or ca1 family updated on plan of care and expected duration. Pain level reassessed. Patient is alert, oriented x 3, equal unlabored respirations, skin warm/dry/pink. 17:51 Reassessment: PT in CT. ca1 18:32 Reassessment: Patient appears in no apparent distress at this time. Patient and/or ca1 family updated on plan of care and expected duration. Pain level reassessed. Patient is alert, oriented x 3, equal unlabored respirations, skin warm/dry/pink. Vital Signs: 16:03 BP 124 / 74; Pulse 78; Resp 20 S; Temp 97.3(TE); Pulse Ox 99% on R/A; Weight 117.03 kg jd3 (R); Height 5 ft. 3 in. (160.02 cm) (R); Pain 10/10; 17:47 BP 133 / 72; Pulse 77; Resp 18; Temp 97.5(TE); Pulse Ox 100% on R/A; mh5 18:30 BP 129 / 74; Pulse 77; Resp 18; Temp 97.2(TE); Pulse Ox 100% on R/A; mh5 16:03 Body Mass Index 45.70 (117.03 kg, 160.02 cm) jd3 ED Course: 15:54 Patient arrived in ED. ag5 15:54 Evgeny Bustillos MD is Private Physician. ag5 16:03 Triage completed. jd3 16:03 Arm band placed on. jd3 16:10 Lawrence Simmons MD is Attending Physician. maria de jesus 16:15 Patient has correct armband on for positive identification. Bed in low position. Call ca1 light in reach. Side rails up X2. Pulse ox on. NIBP on. Warm blanket given. 16:20 Missed attempt(s): 20 gauge in left antecubital area. Bleeding controlled, band aid ca1 applied, catheter tip intact. 16:30 Missed attempt(s): 22 gauge in left forearm. Bleeding controlled, band aid applied, ca1 catheter tip intact. 16:33 Kenisha Samuels, JENNIFER is Primary Nurse. ca1 16:34 Radiology exam delayed due to PT IN RESTROOM, ALSO NEEDS PAIN MEDS BEFORE GOING TO CT. bq OSWALD TO CALL CT WHEN PTS READY. 16:40 Missed attempt(s): 22 gauge in right forearm. Bleeding controlled, band aid applied, aa5 catheter tip intact. 16:43 Missed attempt(s): 22 gauge in left forearm. Bleeding controlled, band aid applied, aa5 catheter tip intact. 16:47 Missed attempt(s): 22 gauge in left forearm. Bleeding controlled, band aid applied, aa5 catheter tip intact. 17:18 Missed attempt(s): 24 gauge in right wrist. Bleeding controlled, band aid applied, ca1 catheter tip intact. 17:30 Inserted saline lock: 18 gauge in left EJ, using aseptic technique. ,using aseptic ca1 technique. by Dr. Simmons. 17:56 CT Stone Protocol In Process Unspecified. EDMS 18:11 Evgeny Bustillos MD is Referral Physician. maria de jesus 18:53 No provider procedures requiring assistance completed. IV discontinued, intact, ca1 bleeding controlled, No redness/swelling at site. Pressure dressing applied. Administered Medications: 17:33 Drug: NS 0.9% 1000 ml Route: IV; Rate: 1 bolus; Site: left jugular; ca1 18:31 Follow up: Response: No adverse reaction; IV Status: Completed infusion; IV Intake: ca1 1000ml 17:34 Drug: TORadol 30 mg Route: IVP; Site: left jugular; ca1 18:32 Follow up: Response: No adverse reaction; Pain is decreased ca1 17:36 Drug: Zofran (Ondansetron) 4 mg Route: IVP; Site: left jugular; ca1 18:32 Follow up: Response: No adverse reaction; Nausea is decreased ca1 17:40 Drug: morphine 4 mg {Note: rass 0.} Route: IVP; Site: left jugular; ca1 18:32 Follow up: Response: No adverse reaction; Pain is decreased ca1 Intake: 18:31 IV: 1000ml; Total: 1000ml. ca1 Outcome: 18:11 Discharge ordered by . maria de jesus 18:53 Discharged to home ambulatory, with significant other. ca1 18:53 Condition: stable 18:53 Discharge instructions given to patient, Instructed on discharge instructions, follow up and referral plans. no drinking with medication, no driving heavy equipment, medication usage, Demonstrated understanding of instructions, follow-up care, medications, Prescriptions given X 3. 18:54 Patient left the ED. ca1 Signatures: Dispatcher [employer] EDMS Lawrence Simmons MD MD cha Quilty, Betty bq Calderon, Audri, RN RN [email or web address] Anat Pineda Nacho Santos RN RN jd3 Acob, Cheryl, RN RN ca1 Ten, Cindy 5
--- NOTE | 2020-06-04 18:13 | EDPHYS ---
Physician Documentation [facility] Name: Neva Maharaj Age: 50 yrs Sex: Female : 1970 Arrival Date: 06/04/2020 Time: 15:54 Bed 15 Private MD: Evgeny Bustillos C ED Physician Lawrence Simmons HPI: 06/04 16:22 This 50 yrs old Female presents to ER via Wheelchair with complaints of Side maria de jesus Pain. 16:22 The patient presents with abdominal pain right lower quadrant, abdominal distention in maria de jesus the upper abdomen, in the lower abdomen. Onset: The symptoms/episode began/occurred just prior to arrival. The patient complains of pain in the right mid back and right low back. The pain radiates to the right mid back and right low back. Onset: The symptoms/episode began/occurred just prior to arrival. Modifying factors: The symptoms are alleviated by nothing. the symptoms are aggravated by nothing. Associated signs and symptoms: The patient has no apparent associated signs or symptoms. Associated signs and symptoms: none. 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 - Social history:: Smoking status: Patient denies any tobacco usage or history of. - Family history:: not pertinent. ROS: 16:22 Constitutional: Negative for fever, chills, and weight loss, Eyes: Negative for injury, maria de jesus pain, redness, and discharge, ENT: Negative for injury, pain, and discharge, Neck: Negative for injury, pain, and swelling, Cardiovascular: Negative for chest pain, palpitations, and edema, Respiratory: Negative for shortness of breath, cough, wheezing, and pleuritic chest pain, : Negative for injury, bleeding, discharge, and swelling, MS/Extremity: Negative for injury and deformity, Skin: Negative for injury, rash, and discoloration, Neuro: Negative for headache, weakness, numbness, tingling, and seizure, Psych: Negative for depression, anxiety, suicide ideation, homicidal ideation, and hallucinations, Allergy/Immunology: Negative for hives, rash, and allergies, Endocrine: Negative for neck swelling, polydipsia, polyuria, polyphagia, and marked weight changes, Hematologic/Lymphatic: Negative for swollen nodes, abnormal bleeding, and unusual bruising. 16:22 Abdomen/GI: Positive for abdominal pain, of the posterior aspect of right lateral abdomen, anterior aspect of right lateral abdomen, right upper quadrant and right lower quadrant. Exam: 16:22 Constitutional: This is a well developed, well nourished patient who is awake, alert, maria de jesus and in no acute distress. Head/Face: Normocephalic, atraumatic. Eyes: Pupils equal round and reactive to light, extra-ocular motions intact. Lids and lashes normal. Conjunctiva and sclera are non-icteric and not injected. Cornea within normal limits. Periorbital areas with no swelling, redness, or edema. ENT: Nares patent. No nasal discharge, no septal abnormalities noted. Tympanic membranes are normal and external auditory canals are clear. Oropharynx with no redness, swelling, or masses, exudates, or evidence of obstruction, uvula midline. Mucous membranes moist. Neck: Trachea midline, no thyromegaly or masses palpated, and no cervical lymphadenopathy. Supple, full range of motion without nuchal rigidity, or vertebral point tenderness. No Meningismus. Chest/axilla: Normal chest wall appearance and motion. Nontender with no deformity. No lesions are appreciated. Cardiovascular: Regular rate and rhythm with a normal S1 and S2. No gallops, murmurs, or rubs. Normal PMI, no JVD. No pulse deficits. Respiratory: Lungs have equal breath sounds bilaterally, clear to auscultation and percussion. No rales, rhonchi or wheezes noted. No increased work of breathing, no retractions or nasal flaring. Abdomen/GI: Soft, non-tender, with normal bowel sounds. No distension or tympany. No guarding or rebound. No evidence of tenderness throughout. Back: No spinal tenderness. No costovertebral tenderness. Full range of motion. Skin: Warm, dry with normal turgor. Normal color with no rashes, no lesions, and no evidence of cellulitis. MS/ Extremity: Pulses equal, no cyanosis. Neurovascular intact. Full, normal range of motion. Neuro: Awake and alert, GCS 15, oriented to person, place, time, and situation. Cranial nerves II-XII grossly intact. Motor strength 5/5 in all extremities. Sensory grossly intact. Cerebellar exam normal. Normal gait. Psych: Awake, alert, with orientation to person, place and time. Behavior, mood, and affect are within normal limits. 18:11 Skin: no rash present. [facility] Vital Signs: 16:03 BP 124 / 74; Pulse 78; Resp 20 S; Temp 97.3(TE); Pulse Ox 99% on R/A; Weight 117.03 kg jd3 (R); Height 5 ft. 3 in. (160.02 cm) (R); Pain 10/10; 17:47 BP 133 / 72; Pulse 77; Resp 18; Temp 97.5(TE); Pulse Ox 100% on R/A; mh5 18:30 BP 129 / 74; Pulse 77; Resp 18; Temp 97.2(TE); Pulse Ox 100% on R/A; mh5 16:03 Body Mass Index 45.70 (117.03 kg, 160.02 cm) jd3 Procedures: 17:38 Peripheral line: by aseptic technique a peripheral line was placed in the left external [facility] jugular vein. MDM: 16:10 Patient medically screened. [facility] 16:25 Differential diagnosis: nephrolithiasis, pyelonephritis, pancreatitis, diverticulitis, maria de jesus myocardia ischemia or infarction, non-specific abd pain, urinary tract infection. Data reviewed: vital signs, nurses notes, lab test result(s), radiologic studies, CT scan. Data interpreted: shelter monitor: rate is 78 beats/min, rhythm is regular, Pulse oximetry: on room air is 99 %. Counseling: I had a detailed discussion with the patient and/or guardian regarding: the historical points, exam findings, and any diagnostic results supporting the discharge/admit diagnosis, lab results, radiology results. Medication response: Zofran markedly relieved the patient's nausea. 06/04 16:21 Order name: Basic Metabolic Panel; Complete Time: 17:54 [facility] 06/04 16:21 Order name: CBC with Diff [facility] 06/04 16:21 Order name: Hepatic Function; Complete Time: 17:54 [facility] 06/04 16:21 Order name: Lipase; Complete Time: 17:54 [facility] 06/04 16:21 Order name: Urine Culture [facility] 06/04 17:01 Order name: Urine Dipstick--Ancillary (enter results); Complete Time: 17:54 06/04 16:21 Order name: IV Saline Lock; Complete Time: 16:54 [facility] 06/04 16:21 Order name: Labs collected and sent; Complete Time: 16:54 [facility] 06/04 16:21 Order name: CT Stone Protocol; Complete Time: 18:09 [facility] 06/04 17:01 Order name: Urine --Ancillary (enter results); Complete Time: 17:54 06/04 16:21 Order name: Urine Dipstick-Ancillary (obtain specimen); Complete Time: 17:01 [facility] 06/04 16:21 Order name: Urine Test (obtain specimen); Complete Time: 17:01 [facility] Administered Medications: 17:33 Drug: NS 0.9% 1000 ml Route: IV; Rate: 1 bolus; Site: left jugular; ca1 18:31 Follow up: Response: No adverse reaction; IV Status: Completed infusion; IV Intake: ca1 1000ml 17:34 Drug: TORadol 30 mg Route: IVP; Site: left jugular; ca1 18:32 Follow up: Response: No adverse reaction; Pain is decreased ca1 17:36 Drug: Zofran (Ondansetron) 4 mg Route: IVP; Site: left jugular; ca1 18:32 Follow up: Response: No adverse reaction; Nausea is decreased ca1 17:40 Drug: morphine 4 mg {Note: rass 0.} Route: IVP; Site: left jugular; ca1 18:32 Follow up: Response: No adverse reaction; Pain is decreased ca1 Disposition: 06/04/20 18:11 Discharged to Home. Impression: Abdominal tenderness - right flank pain, Low back pain. - Condition is Stable. - Discharge Instructions: Abdominal Pain, Adult, Obesity, Adult, Abdominal Pain, Adult, [id number], Obesity, Adult, Ntit-li-Fsup. - Prescriptions for Tylenol- Codeine #3 300-30 mg Oral Tablet - take 2 tablet by ORAL route every 6 hours As needed; 30 tablet. Ibuprofen 600 mg Oral Tablet - take 1 tablet by ORAL route every 8 hours As needed take with food; 21 tablet. Cyclobenzaprine 5 mg Oral Tablet - take 1 tablet by ORAL route 3 times per day As needed; 15 tablet. - Medication Reconciliation Form, Thank You Letter, Antibiotic Education, Prescription Opioid Use form. - Follow up: A Bustillos; When: 2 - 3 days; Reason: Recheck today's complaints, Continuance of care, Re-evaluation by your physician. - Problem is new. - Symptoms have improved. Signatures: Dispatcher [employer] Lawrence Bruno MD MD cha Mickail, Joel, PA PA jmm Davies, Jonathon, RN RN jd3 Kenisha Samuels RN RN ca1 Corrections: (The following items were deleted from the chart) 18:54 18:11 06/04/2020 18:11 Discharged to Home. Impression: Abdominal tenderness - right ca1 flank pain; Low back pain. Condition is Stable. Discharge Instructions: Abdominal Pain, Adult, Obesity, Adult, Abdominal Pain, Adult, [id number]-jl-[id number], Obesity, Adult, Kgdk-hw-Hajw. Prescriptions for Tylenol-Codeine #3 300-30 mg Oral Tablet - take 2 tablet by ORAL route every 6 hours As needed; 30 tablet, Cipro 500 mg Oral Tablet - take 1 tablet by ORAL route every 12 hours for 7 days; 14 tablet. and Forms are Medication Reconciliation Form, Thank You Letter, Antibiotic Education, Prescription Opioid Use. Follow up: A Bustillos; When: 2 - 3 days; Reason: Recheck today's complaints, Continuance of care, Re-evaluation by your physician. Problem is new. Symptoms have improved. maria de jesus
[2020-06-04 19:38] VITALS: O2SAT 100
[2020-06-04 19:39] VITALS: BP 129/74; TEMP 97.2
[2020-06-04 20:35] LABS: Blood Morphology Comment NOT SEEN (NOT SEEN); Platelet Estimate ADEQ; White Blood Cell Scan OK (OK)
--- OUTSIDE RECORDS SUMMARY | 2020-06-08 01:23 | XMS REPORT | Continuity of Care Document ---
:1970 Author Organization [facility] t Address [address] [place] [address] Care Team Providers Name Role Phone Asked, Pcp Primary Care Physician Unavailable Seun KINGSTON, Caden Attending Clinician Problems This patient has no known problems. Allergies, Adverse Reactions, Alerts This patient has no known allergies or adverse reactions. Social History Social Habit Start Date Stop Date Quantity Comments Source Sex Assigned At Anthony Morgan Medications This patient has no known medications. Procedures This patient has no known procedures. Encounters Start End Encounter Admission Attending Care Care Encounter Source Date/Time Date/Time Type Type Clinicians Facility Department ID 2020-02-29 2020-02-29 [facility] Seun Francy [facility] [id number] 08:13:00 23:59:00 Encounter Caden Hernandez [id number] [place] [id number] [place] [id number] 2020-01-04 2020-01-04 Office Francy Kohli [facility] [id number] 14:54:30 15:46:34 Visit Caden Hernandez [id number] [place] [id number] [facility] [phone] [place] [address] [facility] Results This patient has no known results.
--- OUTSIDE RECORDS SUMMARY | 2020-06-08 01:23 | XMS REPORT | Clinical Summary ---
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
== END 2020-06-04 18:54 | disposition home or self-care (01) ==
LOC: ER 15:52
PROC: 05HQ33Z Insertion of Infusion Device into Left External Jugular Vein, Percutaneous Approach (ICD-10-PCS; principal; 2020-06-04)
DX: M54.5 Low back pain (principal); I10 Essential (primary) hypertension; E78.00 Pure hypercholesterolemia, unspecified; Z86.73 Personal history of transient ischemic attack (TIA), and cerebral infarction without residual deficits
CPT/HCPCS: 96361; 87088; 85025; 87086; 80048; 36415; 81025; 80076; 81003; 83690; 76377; 74176; 96375; 96374; 99284; 36569; J7030; J2405

== ENCOUNTER 2020-09-19 08:53 | Emergency (ER) | payer OTHER ==
--- OUTSIDE RECORDS SUMMARY | 2020-09-19 09:02 | XMS REPORT | Clinical Summary ---
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
--- OUTSIDE RECORDS SUMMARY | 2020-09-19 09:02 | XMS REPORT | Continuity of Care Document ---
:1970 Author Organization [facility] t Address [address] [place] [address] Care Team Providers Name Role Phone Asked, Pcp Primary Care Physician Unavailable Seun KINGSTON, Cdaen Attending Clinician Problems This patient has no [...] Type Clinicians Facility Department ID 2020-02-29 2020-02-29 [facility] Francy Kohli [facility] [id number] 08:13:00 23:59:00 Encounter Caden Hernandez [id number] [place] [id number] [place] [id number] [id number] 2020-01-04 2020-01-04 Office Francy Kohli [facility] [id number] 14:54:30 15:46:34 Visit Caden Hernandez [id number] [place] [id number] [facility] [phone] [address] Results This patient has no known results.
[2020-09-19 09:37] LABS: Urine Blood 2+ (NEG); Urine Glucose NEGATIVE (NEG); Urine Protein NEGATIVE (NEG); Urine Specific Gravity 1.025 (1.005-1.030); Urine pH 5.5 (5.0-7.0)
--- NOTE | 2020-09-19 10:05 | ER ---
Nurse's Notes [facility] Name: Neva Maharaj Age: 50 yrs Sex: Female : 1970 Arrival Date: 09/19/2020 Time: 09:00 Bed 14 Private MD: Evgeny Bustillos C Diagnosis: Low back pain;Obesity, unspecified;Sciatica, right side;Urinary tract infection, site not specified Presentation: 09/19 09:01 Chief complaint: Patient states: low back pain x 2 days ago but worse today. Pt c/o aa5 worse pain to right low back radiating to right gluteus alma. 09:01 Coronavirus screen: Client denies travel out of the [place] in the last 14 days. At this aa5 time, the client does not indicate any symptoms associated with coronavirus-19. Ebola Screen: Patient negative for fever greater than or equal to 101.5 degrees Fahrenheit, and additional compatible Ebola Virus Disease symptoms. Initial Sepsis Screen: Does the patient meet any 2 criteria? No. Patient's initial sepsis screen is negative. Does the patient have a suspected source of infection? No. Patient's initial sepsis screen is negative. Risk Assessment: Do you want to hurt yourself or someone else? Patient reports no desire to harm self or others. Onset of symptoms was September 2020. 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 - Social history:: Smoking status: Patient denies any tobacco usage or history of. - Family history:: not pertinent. Screenin:05 Abuse screen: Denies threats or abuse. Nutritional screening: No deficits noted. jd3 Tuberculosis screening: No symptoms or risk factors identified. Fall Risk Ambulatory Aid- None/Bed Rest/Nurse Assist (0 pts). Gait- Normal/Bed Rest/Wheelchair (0 pts) Mental Status- Oriented to own ability (0 pts). Total Marcum Fall Scale indicates No Risk (0-24 pts). Assessment: 09:30 General: Appears in no apparent distress. uncomfortable, Behavior is calm, cooperative, jd3 appropriate for age. Pain: Complains of pain in right low back Pain radiates to right leg Quality of pain is described as shooting. Neuro: Level of Consciousness is awake, alert, obeys commands, Oriented to person, place, time, situation. Cardiovascular: Denies chest pain, Capillary refill < 3 seconds Patient's skin is warm and dry. Respiratory: Airway is patent Respiratory effort is even, unlabored, Respiratory pattern is regular, symmetrical, Denies cough, shortness of breath. GI: No signs and/or symptoms were reported involving the gastrointestinal system. : No signs and/or symptoms were reported regarding the genitourinary system. EENT: No signs and/or symptoms were reported regarding the EENT system. Derm: Skin is intact, Skin is dry, Skin is normal, Skin temperature is warm. Musculoskeletal: Circulation, motion, and sensation intact. Range of motion: intact in all extremities. 11:05 Reassessment: Patient appears in no apparent distress at this time. Patient and/or jd3 family updated on plan of care and expected duration. Pain level reassessed. Patient is alert, oriented x 3, equal unlabored respirations, skin warm/dry/pink. even and steady gait upon discharge. Vital Signs: 09:02 BP 134 / 56; Pulse 84; Resp 16 S; Temp 98.3(O); Pulse Ox 100% on R/A; Weight 119.75 kg aa5 (R); Height 5 ft. 3 in. (160.02 cm) (R); Pain 8/10; 11:06 BP 143 / 62; Pulse 88; Resp 17 S; Pulse Ox 100% on R/A; jd3 09:02 Body Mass Index 46.77 (119.75 kg, 160.02 cm) aa5 ED Course: 09:00 Patient arrived in ED. am4 09:01 Evgeny Bustillos MD is Private Physician. am4 09:01 Arm band placed on. aa5 09:09 Lawrence Simmons MD is Attending Physician. [facility] 09:19 Triage completed. aa5 09:28 Patient has correct armband on for positive identification. Bed in low position. Call [facility] light in reach. Side rails up X 1. Pulse ox on. NIBP on. 09:28 Urine collected: clean catch specimen, cloudy. 5 09:31 Nacho Euceda, RN is Primary Nurse. jd3 09:49 Lumbar Spine (3 Views) XRAY In Process Unspecified. EDWI 10:04 Evgeny Bustillos MD is Referral Physician. [facility] 11:05 No provider procedures requiring assistance completed. Patient did not have IV access jd3 during this emergency room visit. Administered Medications: 10:29 Drug: Motrin 600 mg Route: PO; jd3 11:07 Follow up: Response: No adverse reaction jd3 10:29 Drug: predniSONE 60 mg Route: PO; jd3 11:07 Follow up: Response: No adverse reaction jd3 10:29 Drug: Cipro 500 mg Route: PO; jd3 11:07 Follow up: Response: No adverse reaction jd3 Outcome: 10:04 Discharge ordered by . [facility] 11:05 Discharged to home ambulatory. jd3 11:05 Condition: stable 11:05 Discharge instructions given to patient, Instructed on discharge instructions, follow up and referral plans. medication usage, Demonstrated understanding of instructions, follow-up care, medications, Prescriptions given X 4. 11:07 Patient left the ED. jd3 Signatures: Dispatcher [employer] EDWI Lawrence Simmons MD MD cha Calderon, Audri, RN RN Anat Guzmán Nacho Santos, RN RN Renee Louie [facility]
--- NOTE | 2020-09-19 10:05 | EDPHYS ---
Physician Documentation [facility] Name: Neva Maharaj Age: 50 yrs Sex: Female : 1970 Arrival Date: 09/19/2020 Time: 09:00 Bed 14 Private MD: Evgeny Bustillos C ED Physician Lawrence Simmons HPI: 09/19 09:25 This 50 yrs old Female presents to ER via Ambulatory with complaints of Back maria de jesus Pain. 09:25 The patient presents with pain that is acute, with no known mechanism of injury. The maria de jesus symptoms are located in the low back, right low back. Onset: The symptoms/episode began/occurred this morning, today. The pain radiates to the right low back. Associated signs and symptoms: Pertinent positives: none. The problem was sustained from unknown cause. Modifying factors: The patient symptoms are alleviated by remaining still, the patient symptoms are aggravated by any movement, bending. Severity of symptoms: At their worst the symptoms were mild, in the emergency department the symptoms are unchanged. ACCOUNTS PAYABLE LEAD: 11:06 LMP N/A - Irregular menses jd3 Historical: - Allergies: 09:02 NKDA; aa5 - PMHx: 09:02 "fluid in lungs"; Arthritis; High Cholesterol; Hypertension; TIA; aa5 - PSHx: 09:02 Tubal ligation; Uterine Ablation; aa5 - Immunization history:: Adult Immunizations unknown. - Social history:: Smoking status: Patient denies any tobacco usage or history of. - Family history:: not pertinent. ROS: 09:25 Constitutional: Negative for fever, chills, and weight loss, Eyes: Negative for injury, maria de jesus pain, redness, and discharge, ENT: Negative for injury, pain, and discharge, Neck: Negative for injury, pain, and swelling, Cardiovascular: Negative for chest pain, palpitations, and edema, Respiratory: Negative for shortness of breath, cough, wheezing, and pleuritic chest pain, Abdomen/GI: Negative for abdominal pain, nausea, vomiting, diarrhea, and constipation, : Negative for injury, bleeding, discharge, and swelling, MS/Extremity: Negative for injury and deformity, Skin: Negative for injury, rash, and discoloration, Neuro: Negative for headache, weakness, numbness, tingling, and seizure, Psych: Negative for depression, anxiety, suicide ideation, homicidal ideation, and hallucinations, Allergy/Immunology: Negative for hives, rash, and allergies, Endocrine: Negative for neck swelling, polydipsia, polyuria, polyphagia, and marked weight changes, Hematologic/Lymphatic: Negative for swollen nodes, abnormal bleeding, and unusual bruising. 09:25 Back: Positive for decreased range of motion, pain at rest, of the right low back. Exam: 09:25 Constitutional: This is a well developed, well nourished patient who is awake, alert, maria de jesus and in no acute distress. Head/Face: Normocephalic, atraumatic. Eyes: Pupils equal round and reactive to light, extra-ocular motions intact. Lids and lashes normal. Conjunctiva and sclera are non-icteric and not injected. Cornea within normal limits. Periorbital areas with no swelling, redness, or edema. ENT: Nares patent. No nasal discharge, no septal abnormalities noted. Tympanic membranes are normal and external auditory canals are clear. Oropharynx with no redness, swelling, or masses, exudates, or evidence of obstruction, uvula midline. Mucous membranes moist. Neck: Trachea midline, no thyromegaly or masses palpated, and no cervical lymphadenopathy. Supple, full range of motion without nuchal rigidity, or vertebral point tenderness. No Meningismus. Chest/axilla: Normal chest wall appearance and motion. Nontender with no deformity. No lesions are appreciated. Cardiovascular: Regular rate and rhythm with a normal S1 and S2. No gallops, murmurs, or rubs. Normal PMI, no JVD. No pulse deficits. Respiratory: Lungs have equal breath sounds bilaterally, clear to auscultation and percussion. No rales, rhonchi or wheezes noted. No increased work of breathing, no retractions or nasal flaring. Abdomen/GI: Soft, non-tender, with normal bowel sounds. No distension or tympany. No guarding or rebound. No evidence of tenderness throughout. Skin: Warm, dry with normal turgor. Normal color with no rashes, no lesions, and no evidence of cellulitis. MS/ Extremity: Pulses equal, no cyanosis. Neurovascular intact. Full, normal range of motion. Neuro: Awake and alert, GCS 15, oriented to person, place, time, and situation. Cranial nerves II-XII grossly intact. Motor strength 5/5 in all extremities. Sensory grossly intact. Cerebellar exam normal. Normal gait. Psych: Awake, alert, with orientation to person, place and time. Behavior, mood, and affect are within normal limits. 09:25 Back: pain, that is mild, that is moderate, ROM is painful, normal spinal alignment noted, CVA tenderness, is absent, vertebral tenderness, is not appreciated, muscle spasm, is not present. Vital Signs: 09:02 BP 134 / 56; Pulse 84; Resp 16 S; Temp 98.3(O); Pulse Ox 100% on R/A; Weight 119.75 kg aa5 (R); Height 5 ft. 3 in. (160.02 cm) (R); Pain 8/10; 11:06 BP 143 / 62; Pulse 88; Resp 17 S; Pulse Ox 100% on R/A; jd3 09:02 Body Mass Index 46.77 (119.75 kg, 160.02 cm) aa5 MDM: 09:09 Patient medically screened. [facility] 09:30 Differential diagnosis: chronic back pain, Fracture Obesity Scoliosis Ureterolithiasis. [facility] Data reviewed: vital signs, nurses notes, lab test result(s), radiologic studies, plain films. Data interpreted: hall monitor: rate is 84 beats/min, rhythm is regular, Pulse oximetry: on room air is 100 %. Test interpretation: by ED physician or midlevel provider: plain radiologic studies. Counseling: I had a detailed discussion with the patient and/or guardian regarding: the historical points, exam findings, and any diagnostic results supporting the discharge/admit diagnosis, lab results, radiology results, the need for outpatient follow up. 09/19 09:33 Order name: Urine Dipstick--Ancillary (enter results); Complete Time: 10: 09/19 09:33 Order name: Urine --Ancillary (enter results); Complete Time: 10: 09/19 09:25 Order name: Lumbar Spine (3 Views) XRAY [facility] 09/19 09:25 Order name: Urine Dipstick-Ancillary (obtain specimen); Complete Time: 09:28 [facility] Administered Medications: 10:29 Drug: Motrin 600 mg Route: PO; jd3 11:07 Follow up: Response: No adverse reaction jd3 10:29 Drug: predniSONE 60 mg Route: PO; jd3 11:07 Follow up: Response: No adverse reaction jd3 10:29 Drug: Cipro 500 mg Route: PO; jd3 11:07 Follow up: Response: No adverse reaction jd3 Disposition: 09/19/20 10:04 Discharged to Home. Impression: Low back pain, Obesity, unspecified, Sciatica, right side, Urinary tract infection, site not specified. - Condition is Stable. - Discharge Instructions: Back Pain, Adult, Chronic Back Pain, Dysuria, Musculoskeletal Pain, Obesity, Adult, Sciatica, Urinary Tract Infection, Adult, [id number], Back Pain, Adult, [id number]. - Prescriptions for Medrol (Slava) 4 mg Oral Tablets, Dose Pack - take 1 tablet by ORAL route as directed - follow package instructions; 1 packet. Motrin IB 200 mg Oral Tablet - take 2 tablet by ORAL route every 6 hours As needed as needed with food; 30 tablet. Cyclobenzaprine 5 mg Oral Tablet - take 1 tablet by ORAL route 3 times per day As needed; 15 tablet. Cipro 500 mg Oral Tablet - take 1 tablet by ORAL route every 12 hours for 7 days; 14 tablet. - Medication Reconciliation Form, Thank You Letter, Antibiotic Education, Prescription Opioid Use, Work release form form. - Follow up: A Bustillos; When: 48 Hours; Reason: Recheck today's complaints, Continuance of care, Re-evaluation by your physician. - Problem is new. - Symptoms have improved. Signatures: Dispatcher [employer] EDLawrence Whitlock MD MD cha Calderon, Audri, RN RN aa5 Nacho Euceda RN RN jd3 Corrections: (The following items were deleted from the chart) 11:07 10:04 09/19/2020 10:04 Discharged to Home. Impression: Low back pain; Obesity, jd3 unspecified; Sciatica, right side; Urinary tract infection, site not specified. Condition is Stable. Discharge Instructions: Back Pain, Adult, Chronic Back Pain, Musculoskeletal Pain, Obesity, Adult, Sciatica, Back Pain, Adult, [id number]. Prescriptions for Medrol (Slava) 4 mg Oral Tablets, Dose Pack - take 1 tablet by ORAL route as directed - follow package instructions; 1 packet, Motrin IB 200 mg Oral Tablet - take 2 tablet by ORAL route every 6 hours As needed as needed with food; 30 tablet, Cyclobenzaprine 5 mg Oral Tablet - take 1 tablet by ORAL route 3 times per day As needed; 15 tablet. and Forms are Medication Reconciliation Form, Thank You Letter, Antibiotic Education, Prescription Opioid Use. Follow up: Evgeny Bustillos; When: 48 Hours; Reason: Recheck today's complaints, Continuance of care, Re-evaluation by your physician. Problem is new. Symptoms have improved. maria de jesus
--- NOTE | 2020-09-19 10:09 | RAD REPORT ---
EXAM DESCRIPTION: RAD - Lumbar Spine 3 Views - 09/19/2020 9:49 am CLINICAL HISTORY: Back pain FINDINGS: Moderate to marked spondylosis involves the spine consisting disc space narrowing and oste ophytes. Osteoarthritis involves the facet joints of the lower lumbar spine. No fracture or dislocation
[2020-09-19] MEDS ORDERED: CIPROFLOXACIN HCL 500 MG TAB ONE (10:40)
[2020-09-19] MEDS ORDERED: IBUPROFEN 200 MG TAB PO ONE (10:41)
[2020-09-19] MEDS ORDERED: IBUPROFEN 400 MG TAB ONE (10:41)
[2020-09-19] MEDS ORDERED: predniSONE 20 MG TAB ONE (10:41)
[2020-09-19 11:12] VITALS: TEMP 98.3; O2SAT 100
[2020-09-19 11:13] VITALS: BP 143/62
== END 2020-09-19 11:07 | disposition home or self-care (01) ==
LOC: ER 08:53
DX: M54.31 Sciatica, right side (principal); N39.0 Urinary tract infection, site not specified; E66.9 Obesity, unspecified; I10 Essential (primary) hypertension
CPT/HCPCS: 81025; 81003; 72100; J7512; 99284

== ENCOUNTER 2020-11-26 16:40 | Emergency (ER) | payer OTHER ==
--- OUTSIDE RECORDS SUMMARY | 2020-11-26 16:44 | XMS REPORT | Continuity of Care Document ---
:1970 Author Organization [facility] t Address [address] [place] [address] Care Team Providers Name Role Phone Asked, Pcp Primary Care Physician Unavailable Seun KINGSTON, Caden Attending Clinician Problems This patient has no known problems. Allergies, Adverse Reactions, Alerts This patient has no known allergies or adverse reactions. Social History Social Habit Start Date Stop Date Quantity Comments Source Sex Assigned At [birth year] [facility] ethodist 00:00:00 00:00:00 Medications This patient has no known medications. Procedures This patient has no known procedures. Encounters Start End Encounter Admission Attending Care Care Encounter Source Date/Time Date/Time Type Type Clinicians Facility Department ID 2020-02-29 2020-02-29 [facility] Francy Kohli [facility] [id number] 08:13:00 23:59:00 Encounter Caden Hernandez [id number] [place] [id number] [place] [id number] 2020-01-04 2020-01-04 Office Francy Kohli [facility] [id number] 14:54:30 15:46:34 Visit Caden Hernandez [id number] [place] [id number] [place] [id number] [address] Results This patient has no known results.
[2020-11-26 18:56] LABS: BUN Blood Urea Nitrogen 23 mg/dL (7-18); Bicarbonate 29 mmol/L (21-32); Glucose Level 104 mg/dL (74-106); Potassium 3.8 mmol/L (3.5-5.1); Sodium Level 140 mmol/L (136-145); Troponin (Emerg Dept Use Only) < 0.02 ng/mL (0.0-0.045)
[2020-11-26 19:03] LABS: Absolute Lymphocytes (CBC) 2.2 K/uL (0.7-4.9); Basophils % 0.3 % (0-1.3); Hematocrit 40.3 % (36.0-45.0); Lymphocytes % 26.4 % (15.3-44.8); MPV 9.8 fL (7.6-11.3); RBC Red Blood Cell Count 4.51 M/uL (3.86-4.86)
--- NOTE | 2020-11-26 19:08 | RAD REPORT ---
EXAM DESCRIPTION: Ramiro Single View11/26/2020 6:24 pm CLINICAL HISTORY: Chest pain COMPARISON: 2018 FINDINGS: The lungs appear clear of acute infiltrate. The heart is normal size IMPRESSION: No acute abnormalities displayed
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
[2020-11-26 20:08] VITALS: TEMP 98.6
[2020-11-26 20:09] VITALS: O2SAT 100
[2020-11-26 20:11] VITALS: BP 146/89
== END 2020-11-26 19:54 | disposition home or self-care (01) ==
LOC: ER 16:40
DX: R07.9 Chest pain, unspecified (principal); I10 Essential (primary) hypertension
CPT/HCPCS: 36415; 71045; 80048; 84484; 85025; 93005; 99285

== ENCOUNTER 2021-07-08 02:03 | Emergency (ER) | payer OTHER ==
[2021-07-08] MEDS ORDERED: MORPHINE 4 MG/ML SYR ONE (02:43)
[2021-07-08] MEDS ORDERED: ONDANSETRON 4 MG/2 ML VIAL ONE (02:43)
--- NOTE | 2021-07-08 04:49 | ER ---
Nurse's Notes [facility] Name: Neva Maharaj Age: 51 yrs Sex: Female : 1970 Arrival Date: 07/08/2021 Time: 02:04 Bed 6 Private MD: Diagnosis: Acute low back pain. Lumbar radiculopathy Presentation: 07/08 02:11 Chief complaint: Patient states: left lumbar pain radiates down left leg. Pt slipped on df1 Friday, no fall. Pain increasing over the weekend. MSP's intact. Coronavirus screen: Vaccine status: Client denies travel out of the [place] in the last 14 days. At this time, the client does not indicate any symptoms associated with coronavirus-19. Ebola Screen: Patient negative for fever greater than or equal to 101.5 degrees Fahrenheit, and additional compatible Ebola Virus Disease symptoms Patient denies exposure to infectious person. Patient denies travel to an Ebola-affected area in the 21 days before illness onset. Initial Sepsis Screen: Does the patient meet any 2 criteria? No. Patient's initial sepsis screen is negative. Does the patient have a suspected source of infection? No. Patient's initial sepsis screen is negative. Risk Assessment: Do you want to hurt yourself or someone else? Patient reports no desire to harm self or others. Onset of symptoms was July 06, 2021 at 14:00. 02:11 Method Of Arrival: EMS: [facility] df1 02:11 Acuity: MAURICIO 4 df1 Triage Assessment: 02:18 General: Appears in no apparent distress. uncomfortable, Behavior is calm, cooperative. df1 Pain: Complains of pain in left subscapular area and left flank. 02:19 Pain: Complains of pain in left leg. 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 - Social history:: Smoking status: Patient denies any tobacco usage or history of. Screenin:18 Abuse screen: Denies threats or abuse. Nutritional screening: No deficits noted. df1 Tuberculosis screening: No symptoms or risk factors identified. Fall Risk None identified. Assessment: 02:22 General: Appears in no apparent distress. uncomfortable, Behavior is calm, cooperative. df1 Pain: Complains of pain in left subscapular area and left flank Pain radiates to left leg Pain currently is 10 out of 10 on a pain scale. Neuro: No deficits noted. Cardiovascular: No deficits noted. Respiratory: No deficits noted. GI: No deficits noted. : No deficits noted. EENT: No deficits noted. Vital Signs: 02:11 BP 137 / 91; Pulse 78; Resp 18; Temp 97.7; Pulse Ox 98% on R/A; Weight 113.4 kg; Height df1 5 ft. 2 in. (157.48 cm); Pain 10/10; 04:56 BP 125 / 72; Pulse 75; Resp 18; Pulse Ox 100% on R/A; Pain 3/10; tw5 04:59 Pain 3/10; tw5 02:11 Body Mass Index 45.73 (113.40 kg, 157.48 cm) df1 ED Course: 02:04 Patient arrived in ED. tt3 02:11 Alysia Montana is Primary Nurse. df1 02:14 Triage completed. df1 02:20 Waqas Kohli MD is Attending Physician. pkl 02:20 Arm band placed on right wrist. df1 02:20 No provider procedures requiring assistance completed. df1 02:21 Patient has correct armband on for positive identification. Placed in gown. Bed in low df1 position. Call light in reach. Side rails up X 1. Adult w/ patient. Pulse ox on. NIBP on. 03:01 Inserted saline lock: 20 gauge in right antecubital area, using aseptic technique. df1 03:18 CT Lumbar Spine Wo Con In Process Unspecified. EDMS 04:47 Navid Bustillos MD is Referral Physician. pkl 04:56 IV discontinued, intact, bleeding controlled, No redness/swelling at site. Pressure tw5 dressing applied. Administered Medications: 03:02 Drug: morphine 4 mg Route: IVP; Site: right antecubital; df1 04:59 Follow up: Pain 3/10 Adult; Response: No adverse reaction; RASS: Alert and Calm (0) tw 03:02 Drug: Zofran (Ondansetron) 4 mg Route: IVP; Site: right antecubital; df1 04:59 Follow up: Response: No adverse reaction Outcome: 04:49 Discharge ordered by . catherine 04:56 Discharged to home ambulatory, with family. tw 04:56 Condition: good 04:56 Discharge instructions given to patient, Instructed on discharge instructions, follow up and referral plans. no drinking with medication, no driving heavy equipment, medication usage, Demonstrated understanding of instructions, follow-up care, medications, Prescriptions given X 2. 04:58 Patient left the ED. Signatures: Dispatcher [employer] EDWaqas Way MD MD pkl Trim, Tyler tt3 Alysia Montana df1 Naima Pérez tw5
--- NOTE | 2021-07-08 04:50 | EDPHYS ---
Physician Documentation [facility] Name: Neva Maharaj Age: 51 yrs Sex: Female : 1970 Arrival Date: 07/08/2021 Time: 02:04 Bed 6 Private MD: ED Physician Waqas Kohli HPI: 07/08 02:33 This 51 yrs old Female presents to ER via EMS with unknown complaint. pkl 02:33 The patient presents with pain that is acute. The symptoms are located in the low back. pkl Onset: The symptoms/episode began/occurred 2 day(s) ago. The pain radiates to the left leg. The problem was sustained during a fall, twisted her back. 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 - Social history:: Smoking status: Patient denies any tobacco usage or history of. ROS: 02:33 Eyes: Negative for injury, pain, redness, and discharge, ENT: Negative for injury, pkl pain, and discharge, Neck: Negative for injury, pain, and swelling, Cardiovascular: Negative for chest pain, palpitations, and edema, Respiratory: Negative for shortness of breath, cough, wheezing, and pleuritic chest pain, Abdomen/GI: Negative for abdominal pain, nausea, vomiting, diarrhea, and constipation. 02:33 Back: Positive for pain at rest, of the lower back. 02:33 : Negative for urinary symptoms. 02:33 MS/extremity: Negative for acute changes. 02:33 Skin: Negative for rash. 02:33 Neuro: Negative for altered mental status, loss of consciousness. Exam: 02:33 Head/Face: Normocephalic, atraumatic. Eyes: Pupils equal round and reactive to light, pkl extra-ocular motions intact. Lids and lashes normal. Conjunctiva and sclera are non-icteric and not injected. Cornea within normal limits. Periorbital areas with no swelling, redness, or edema. ENT: Nares patent. No nasal discharge, no septal abnormalities noted. Tympanic membranes are normal and external auditory canals are clear. Oropharynx with no redness, swelling, or masses, exudates, or evidence of obstruction, uvula midline. Mucous membranes moist. Neck: Trachea midline, no thyromegaly or masses palpated, and no cervical lymphadenopathy. Supple, full range of motion without nuchal rigidity, or vertebral point tenderness. No Meningismus. Chest/axilla: Normal chest wall appearance and motion. Nontender with no deformity. No lesions are appreciated. Cardiovascular: Regular rate and rhythm with a normal S1 and S2. No gallops, murmurs, or rubs. Normal PMI, no JVD. No pulse deficits. Respiratory: Lungs have equal breath sounds bilaterally, clear to auscultation and percussion. No rales, rhonchi or wheezes noted. No increased work of breathing, no retractions or nasal flaring. Abdomen/GI: Soft, non-tender, with normal bowel sounds. No distension or tympany. No guarding or rebound. No evidence of tenderness throughout. 02:33 Back: pain, that is moderate, of the lower back, Straight leg raises: left lower extremity illicits pain, at 30 degrees. 02:33 : Exam negative for acute changes. 02:33 Musculoskeletal/extremity: Exam is negative for acute changes. 02:33 Skin: Exam negative for rash. 02:33 Neuro: Orientation: is normal, Mentation: is normal, Cranial nerves: grossly normal, Motor: is normal. Vital Signs: 02:11 BP 137 / 91; Pulse 78; Resp 18; Temp 97.7; Pulse Ox 98% on R/A; Weight 113.4 kg; Height df1 5 ft. 2 in. (157.48 cm); Pain 10/10; 04:56 BP 125 / 72; Pulse 75; Resp 18; Pulse Ox 100% on R/A; Pain 3/10; tw5 04:59 Pain 3/10; tw5 02:11 Body Mass Index 45.73 (113.40 kg, 157.48 cm) df1 MDM: 02:20 Patient medically screened. pkl 04:43 Data reviewed: vital signs, nurses notes, radiologic studies, CT scan. ED course: pkl Patient feeling better. Discussed CT Scan results with patient. Advised to follow up with Dr. Bustillos on Friday and schedule MRI lumbar as outpatient. Patient understood instruction.. 07/08 02:31 Order name: CT Lumbar Spine Wo Con pkl 07/08 02:31 Order name: Saline Lock; Complete Time: 03:02 pkl Administered Medications: 03:02 Drug: morphine 4 mg Route: IVP; Site: right antecubital; df1 04:59 Follow up: Pain 11/08 Adult; Response: No adverse reaction; RASS: Alert and Calm (0) tw5 03:02 Drug: Zofran (Ondansetron) 4 mg Route: IVP; Site: right antecubital; df1 04:59 Follow up: Response: No adverse reaction tw5 Disposition Summary: 07/08/21 04:49 Discharge Ordered Location: Home pkl Problem: new pkl Symptoms: have improved pkl Condition: Stable pkl Diagnosis - Acute low back pain. Lumbar radiculopathy pkl Followup: pkl - With: Navid Bustillos MD - When: Tomorrow - Reason: Re-evaluation by your physician Discharge Instructions: - Discharge Summary Sheet pkl Forms: - Medication Reconciliation Form pkl - Thank You Letter pkl - Work release form pkl - Antibiotic Education pkl - Prescription Opioid Use pkl Prescriptions: - ketorolac 10 mg Oral tablet - take 1 tablet by ORAL route 2 times per day not to exceed 40 mg in 24hrs; 20 pkl tablet; Refills: 0, Product Selection Permitted - Cyclobenzaprine 10 mg Oral Tablet - take 1 tablet by ORAL route 2 times per day As needed; 20 tablet; Refills: 0, pkl Product Selection Permitted Signatures: Dispatcher [employer] Waaqs Carrasco MD MD pkl Alysia Montana df1 Naima Pérez tw5
[2021-07-08 05:37] VITALS: TEMP 97.7
[2021-07-08 06:00] VITALS: BP 125/72; O2SAT 100
--- NOTE | 2021-07-09 07:47 | RAD REPORT ---
EXAM DESCRIPTION: CTSpine Lumbar Wo Con07/08/2021 6:46 am CLINICAL HISTORY: 51 years Female, PAIN COMPARISON: CT abdomen pelvis June 04, 2020. TECHNIQUE: Multiple, helical axial tomographic images were obtained of the lumbar spine without intr avenous contrast. Coronal and sagittal reformatted images were obtained. This exam was performed acco rding to our departmental dose-optimization program, which includes automated exposure control, adjus tment of the mA and/or kV according to patient size and/or use of iterative reconstruction technique. FINDINGS: No evidence of an acute fracture of the lumbar spine. Vertebral body heights appear mainta ined. No subluxation. Multilevel disc space narrowing, osteophyte formation, and vacuum disc phenomen on demonstrated. There are multilevel facet joint degenerative changes with osteophyte formation. Mul tilevel neural foraminal narrowing is demonstrated. There is suggestion of mild central canal narrowi ng at multiple levels. A 2.2 cm right adrenal adenoma is again noted. IMPRESSION: 1. No evidence of an acute fracture of the lumbar spine. 2. Degenerative changes. 3. Right adrenal adenoma. Electronically signed by: Mark Yepez MD 07/08/2021 4:23 AM [facility] Due to temporary technical issues with the PACS/Fluency reporting system, reports are being signed by the in house radiologists without review as a courtesy to insure prompt reporting. The interpreting radiologist is fully responsible for the content of the report.
--- OUTSIDE RECORDS SUMMARY | 2021-07-14 15:00 | XMS REPORT | Continuity of Care Document ---
:1970 Author Organization [facility] t Address [address] [place] [address] Care Team Providers Name Role Phone JOSÉ LUIS Attending Clinician Unavailable DR MARIA DE JESUS Attending Clinician Unavailable Doctor Unassigned, Name Attending Clinician Unavailable José Luis TELLEZ Attending Clinician Diane HUANG Attending Clinician Unavailable Rod Kendall MD Attending Clinician ROD KENDALL Attending Clinician Unavailable Angelica Vasquez Attending Clinician Davin KINGSTON S Attending Clinician DR MARIA DE JESUS Admitting Clinician Unavailable Payers Payer Name Policy Type Policy Number Effective Date Expiration Date S ource Problems Condition Condition Condition Status Onset Resolution Last Treating Co mments Source Name Details Category Date Date Treatment Clinician Date Breast Breast Disease Active [facility] cancer cancer 5-05 ity of screening screening 00:00: [employer] [place] 00 [facility] Morbid Morbid Disease Active 2015-09 [facility] obesity obesity 1-18 ity of with body with body 00:00: [employer] mass index mass index 00 Me dical of Branch 40.0-49.9 40.0-49.9 Allergies, Adverse Reactions, Alerts Allergy Allergy Status Severity Reaction(s) Onset Inactive Treating Comm ents Source Name Type Date Date Clinician NO KNOWN Drug Active Univers ALLERGIE Class ity of S [facility] Social History Social Habit Start Date Stop Date Quantity Comments Source History SDMD University o f Alcohol Std [place] [facility] Dr[facility] Branch History [facility] o f Alcohol Binge [place] [facility] Exposure to Not sure University SARS-CoV-2 [place] [facility] (event) Branch Tobacco use and 2021-01-08 2021-01-08 Never used Universit y of exposure 00:00:00 00:00:00 [place] [facility] Alcohol intake 2021-01-08 2021-01-08 Ex-drinker [facility] 00:00:00 00:00:00 (finding) [place] [facility] History SDOH 2020-01-04 2020-01-04 2 University o f Alcohol Frequency 00:00:00 00:00:00 [facility] edical Branch Sex Ass[birth year] At [birth year] Universit y of 00:00:00 00:00:00 [facility] Branch Smoking Status Start Date Stop Date Source Never smoker [facility] Branch Medications Ordered Filled Start Stop Current Ordering Indication Dosage Frequency Signature Comments Components Source Medication Medication Date Date Medication? Clinician (SIG) Name Name gabapentin 2020- Yes 300mg Take 300 Un [place] 300 mg 4-01 mg by ity of capsule 00:00: mouth [place] ([facility]) Medical times Branch daily. gabapentin 2020-0 Yes 300mg Take 300 Un [place] 300 mg 4-01 mg by ity of capsule 00:00: mouth [place] ([facility]) Medical times Branch daily. gabapentin 2021-0 Yes 300mg Take 300 Un [place] 300 mg 4-01 mg by ity of capsule 00:00: mouth [place] ([facility]) Medical times Branch daily. gabapentin 2020-0 Yes 300mg Take 300 Un [place] 300 mg 4-01 mg by ity of capsule 00:00: mouth [address] [place] [address] ([facility]) Medical times Branch daily. gabapentin 2021-0 Yes 300mg Take 300 Un [place] 300 mg 4-01 mg by ity of capsule 00:00: mouth 2 [place] (two) Medical times Branch daily. gabapentin 2021-0 Yes 300mg Take 300 Un [place] 300 mg 4-01 mg by ity of capsule 00:00: mouth 2 [place] (two) Medical times Branch daily. gabapentin 2021-0 Yes 300mg Take 300 Un [place] 300 mg 4-01 mg by ity of capsule 00:00: mouth [place] ([facility]) Medical times Branch daily. gabapentin 2021-0 Yes 300mg Take 300 Un [place] 300 mg 4-01 mg by ity of capsule 00:00: mouth 2 [place] 00 (two) Medical times Branch daily. gabapentin Yes 300mg Take 300 Un [place] 300 mg 4-01 mg by ity of capsule 00:00: mouth 2 [place] 00 (two) Medical times Branch daily. Nitrofurant 2020- No [id number] 100mg Take 1 Univers oin&Nit. 5-05 05-13 capsule by ity of [place] 00:00: 04:59 mouth 2 Sd as (MACROBID) 00 :00 (two) Medical 100 mg times Branch capsule daily for 7 days. Nitrofurant 2019- 2020- No [id number] 100mg Take 1 Univers oin&Nit. 5-05 05-13 capsule by ity of [place] 00:00: 04:59 mouth 2 Sd as (MACROBID) 00 :00 (two) Medical 100 mg times Branch capsule daily for 7 days. iohexol 2019- No 120mL 120 mL, Unive rs (OMNIPAQUE 808 08-08 Intravenou it y of 350 04:15: 04:15 s, ONCE, 1 [place] BULK-150 00 :00 dose, Wed Medica l mL) 04/07/19 at Branch injection 2315, 120 mL Routine traMADol Yes [id number] 50mg Take 1 Un [place] (ULTRAM) 50 8-07 tablet by ity of mg tablet 00:00: mouth [place] 00 every 6 Medical (six) Branch hours as needed for Pain (scale 7-10). ondansetron 2018- Yes [id number] 4mg Take 1 Univers (ZOFRAN) 4 8-07 tablet by ity of mg tablet 00:00: mouth [place] 00 every 8 Medical (eight) Branch hours as needed for Nausea and Vomiting (N/V). phenazopyri 2018- Yes [id number] 200mg Take 1 Univers dine 200 mg 8-07 tablet by ity of tablet 00:00: mouth 3 [place] 00 (three) Medical times Branch daily. traMADol 2018- Yes [id number] 50mg Take 1 Un [place] (ULTRAM) 50 8-07 tablet by ity of mg tablet 00:00: mouth [place] 00 every 6 Medical (six) Branch hours as needed for Pain (scale 7-10). ondansetron 2019-0 Yes [id number] 4mg Take 1 Univers (ZOFRAN) 4 8-07 tablet by ity of mg tablet 00:00: mouth [place] 00 every 8 Medical (eight) Branch hours as needed for Nausea and Vomiting (N/V). phenazopyri 2019-0 Yes [id number] 200mg Take 1 Univers dine 200 mg 8-07 tablet by ity of tablet 00:00: mouth 3 [place] 00 (three) Medical times Branch daily. traMADol 2019-0 Yes [id number] 50mg Take 1 Un [place] (ULTRAM) 50 8-07 tablet by ity of mg tablet 00:00: mouth [place] 00 every 6 Medical (six) Branch hours as needed for Pain (scale 7-10). ondansetron 2019-0 Yes [id number] 4mg Take 1 Univers (ZOFRAN) 4 8-07 tablet by ity of mg tablet 00:00: mouth [place] 00 every 8 Medical (eight) Branch hours as needed for Nausea and Vomiting (N/V). phenazopyri 2019-0 Yes [id number] 200mg Take 1 Univers dine 200 mg 8-07 tablet by ity of tablet 00:00: mouth 3 [place] 00 (three) Medical times Branch daily. traMADol 2019-0 Yes [id number] 50mg Take 1 Un [place] (ULTRAM) 50 8-07 tablet by ity of mg tablet 00:00: mouth [place] 00 every 6 Medical (six) Branch hours as needed for Pain (scale 7-10). ondansetron 2019-0 Yes [id number] 4mg Take 1 Univers (ZOFRAN) 4 8-07 tablet by ity of mg tablet 00:00: mouth [place] 00 every 8 Medical (eight) Branch hours as needed for Nausea and Vomiting (N/V). phenazopyri 2019-0 Yes [id number] 200mg Take 1 Univers dine 200 mg 8-07 tablet by ity of tablet 00:00: mouth 3 [place] 00 (three) Medical times Branch daily. traMADol 2019-0 Yes [id number] 50mg Take 1 Un [place] (ULTRAM) 50 8-07 tablet by ity of mg tablet 00:00: mouth [place] 00 every 6 Medical (six) Branch hours as needed for Pain (scale 7-10). ondansetron 2019-0 Yes [id number] 4mg Take 1 Univers (ZOFRAN) 4 8-07 tablet by ity of mg tablet 00:00: mouth [place] 00 every 8 Medical (eight) Branch hours as needed for Nausea and Vomiting (N/V). phenazopyri 2019-0 Yes [id number] 200mg Take 1 Univers dine 200 mg 8-07 tablet by ity of tablet 00:00: mouth 3 [place] 00 (three) Medical times Branch daily. traMADol 2019-0 Yes [id number] 50mg Take 1 Un [place] (ULTRAM) 50 8-07 tablet by ity of mg tablet 00:00: mouth [place] 00 every 6 Medical (six) Branch hours as needed for Pain (scale 7-10). ondansetron 2019-0 Yes [id number] 4mg Take 1 Univers (ZOFRAN) 4 8-07 tablet by ity of mg tablet 00:00: mouth [place] 00 every 8 Medical (eight) Branch hours as needed for Nausea and Vomiting (N/V). phenazopyri 2019-0 Yes [id number] 200mg Take 1 Univers dine 200 mg 8-07 tablet by ity of tablet 00:00: mouth 3 [place] 00 (three) Medical times Branch daily. traMADol 2019-0 Yes [id number] 50mg Take 1 Un [place] (ULTRAM) 50 8-07 tablet by ity of mg tablet 00:00: mouth [place] 00 every 6 Medical (six) Branch hours as needed for Pain (scale 7-10). ondansetron 2019-0 Yes [id number] 4mg Take 1 Univers (ZOFRAN) 4 8-07 tablet by ity of mg tablet 00:00: mouth [place] 00 every 8 Medical (eight) Branch hours as needed for Nausea and Vomiting (N/V). phenazopyri 2019-0 Yes [id number] 200mg Take 1 Univers dine 200 mg 8-07 tablet by ity of tablet 00:00: mouth 3 [place] 00 (three) Medical times Branch daily. traMADol 2019-0 Yes [id number] 50mg Take 1 Un [place] (ULTRAM) 50 8-07 tablet by ity of mg tablet 00:00: mouth [place] 00 every 6 Medical (six) Branch hours as needed for Pain (scale 7-10). ondansetron 2019-0 Yes [id number] 4mg Take 1 Univers (ZOFRAN) 4 8-07 tablet by ity of mg tablet 00:00: mouth [place] 00 every 8 Medical (eight) Branch hours as needed for Nausea and Vomiting (N/V). phenazopyri 2019-0 Yes [id number] 200mg Take 1 Univers dine 200 mg 8-07 tablet by ity of tablet 00:00: mouth 3 [place] 00 (three) Medical times Branch daily. traMADol 2019-0 Yes [id number] 50mg Take 1 Un [place] (ULTRAM) 50 8-07 tablet by ity of mg tablet 00:00: mouth [place] 00 every 6 Medical (six) Branch hours as needed for Pain (scale 7-10). ondansetron 2019-0 Yes [id number] 4mg Take 1 Univers (ZOFRAN) 4 8-07 tablet by ity of mg tablet 00:00: mouth [place] 00 every 8 Medical (eight) Branch hours as needed for Nausea and Vomiting (N/V). phenazopyri 2019-0 Yes [id number] 200mg Take 1 Univers dine 200 mg 8-07 tablet by ity of tablet 00:00: mouth 3 [place] 00 (three) Medical times Branch daily. traMADol 2019-0 Yes [id number] 50mg Take 1 Un [place] (ULTRAM) 50 8-07 tablet by ity of mg tablet 00:00: mouth [place] 00 every 6 Medical (six) Branch hours as needed for Pain (scale 7-10). ondansetron 2019-0 Yes [id number] 4mg Take 1 Univers (ZOFRAN) 4 8-07 tablet by ity of mg tablet 00:00: mouth [place] 00 every 8 Medical (eight) Branch hours as needed for Nausea and Vomiting (N/V). phenazopyri 2019-0 Yes [id number] 200mg Take 1 Univers dine 200 mg 8-07 tablet by ity of tablet 00:00: mouth 3 [place] 00 (three) Medical times Branch daily. traMADol 2019-0 Yes [id number] 50mg Take 1 Un [place] (ULTRAM) 50 8-07 tablet by ity of mg tablet 00:00: mouth [place] 00 every 6 Medical (six) Branch hours as needed for Pain (scale 7-10). ondansetron 2019-0 Yes [id number] 4mg Take 1 Univers (ZOFRAN) 4 8-07 tablet by ity of mg tablet 00:00: mouth [place] 00 every 8 Medical (eight) Branch hours as needed for Nausea and Vomiting (N/V). phenazopyri 2019-0 Yes [id number] 200mg Take 1 Univers dine 200 mg 8-07 tablet by ity of tablet 00:00: mouth 3 [place] 00 (three) Medical times Branch daily. traMADol 2019-0 Yes [id number] 50mg Take 1 Un [place] (ULTRAM) 50 8-07 tablet by ity of mg tablet 00:00: mouth [place] 00 every 6 Medical (six) Branch hours as needed for Pain (scale 7-10). ondansetron 2019-0 Yes [id number] 4mg Take 1 Univers (ZOFRAN) 4 8-07 tablet by ity of mg tablet 00:00: mouth [place] 00 every 8 Medical (eight) Branch hours as needed for Nausea and Vomiting (N/V). phenazopyri 2019-0 Yes [id number] 200mg Take 1 Univers dine 200 mg 8-07 tablet by ity of tablet 00:00: mouth 3 [place] 00 (three) Medical times Branch daily. traMADol 2019-0 Yes [id number] 50mg Take 1 Un [place] (ULTRAM) 50 8-07 tablet by ity of mg tablet 00:00: mouth [place] 00 every 6 Medical (six) Branch hours as needed for Pain (scale 7-10). ondansetron 2019-0 Yes [id number] 4mg Take 1 Univers (ZOFRAN) 4 8-07 tablet by ity of mg tablet 00:00: mouth [place] 00 every 8 Medical (eight) Branch hours as needed for Nausea and Vomiting (N/V). phenazopyri 2019-0 Yes [id number] 200mg Take 1 Univers dine 200 mg 8-07 tablet by ity of tablet 00:00: mouth 3 [place] 00 (three) Medical times Branch daily. traMADol 2019-0 Yes [id number] 50mg Take 1 Un [place] (ULTRAM) 50 8-07 tablet by ity of mg tablet 00:00: mouth [place] 00 every 6 Medical (six) Branch hours as needed for Pain (scale 7-10). ondansetron 2019-0 Yes [id number] 4mg Take 1 Univers (ZOFRAN) 4 8-07 tablet by ity of mg tablet 00:00: mouth [place] 00 every 8 Medical (eight) Branch hours as needed for Nausea and Vomiting (N/V). phenazopyri 2019-0 Yes [id number] 200mg Take 1 Univers dine 200 mg 807 tablet by ity of tablet 00:00: mouth 3 [place] 00 (three) Medical times Branch daily. 2019-0 Yes Take by Unive rs no122/iron/ 7-08 mouth. ity of folic acid 19:52: [place] ( 49 Medical MULTI ORAL) Branch 2019-0 Yes Take by Unive rs no122/iron/ 7-08 mouth. ity of folic acid 19:52: [place] ( 49 Medical MULTI ORAL) Branch 2019-0 Yes Take by Unive rs no122/iron/ 7-08 mouth. ity of folic acid 19:52: [place] ( 49 Medical MULTI ORAL) Branch 2019-0 Yes Take by Unive rs no122/iron/ 7-08 mouth. ity of folic acid 19:52: [place] ( 49 Medical MULTI ORAL) Branch 2019-0 Yes Take by Unive rs no122/iron/ 7-08 mouth. ity of folic acid 19:52: [place] ( 49 Medical MULTI ORAL) Branch 2019-0 Yes Take by Unive rs no122/iron/ 7-08 mouth. ity of folic acid 19:52: [place] ( 49 Medical MULTI ORAL) Branch 2019-0 Yes Take by Unive rs no122/iron/ 7-08 mouth. ity of folic acid 19:52: [place] ( 49 Medical MULTI ORAL) Branch 2019-0 Yes Take by Unive rs no122/iron/ 7-08 mouth. ity of folic acid 19:52: [place] ( 49 Medical MULTI ORAL) Branch 2019-0 Yes Take by Unive rs no122/iron/ 7-08 mouth. ity of folic acid 19:52: [place] ( 49 Medical MULTI ORAL) Branch 2019-0 Yes Take by Unive rs no122/iron/ 7-08 mouth. ity of folic acid 19:52: [place] ( 49 Medical MULTI ORAL) Branch 2019-0 Yes Take by Unive rs no122/iron/ 7-08 mouth. ity of folic acid 19:52: [place] ( 49 Medical MULTI ORAL) Branch 2019-0 Yes Take by Unive rs no122/iron/ 7-08 mouth. ity of folic acid 19:52: [place] ( 49 Medical MULTI ORAL) Branch 2019-0 Yes Take by Unive rs no122/iron/ 7-08 mouth. ity of folic acid 19:52: [place] ( 49 Medical MULTI ORAL) Branch Yes Take by Unive rs no122/iron/ 7-08 mouth. ity of folic acid 19:52: [place] ( 49 Medical MULTI ORAL) Branch Yes Take by Unive rs no122/iron/ 7-08 mouth. ity of folic acid 19:52: [place] ( 49 Medical MULTI ORAL) Branch atorvastati Yes TAKE 1 Univ ers n 10 mg 7-02 TABLET BY ity of tablet 00:00: MOUTH [place] 00 AFTER Medical EVENING Branch MEAL atorvastati Yes TAKE 1 Univ ers n 10 mg 7-02 TABLET BY ity of tablet 00:00: MOUTH [place] 00 AFTER Medical EVENING Branch MEAL atorvastati Yes TAKE 1 Univ ers n 10 mg 7-02 TABLET BY ity of tablet 00:00: MOUTH [place] 00 AFTER Medical EVENING Branch MEAL atorvastati Yes TAKE 1 Univ ers n 10 mg 7-02 TABLET BY ity of tablet 00:00: MOUTH [place] 00 AFTER Medical EVENING Branch MEAL atorvastati Yes TAKE 1 Univ ers n 10 mg 7-02 TABLET BY ity of tablet 00:00: MOUTH [place] 00 AFTER Medical EVENING Branch MEAL atorvastati 2018- Yes TAKE 1 Univ ers n 10 mg 7-02 TABLET BY ity of tablet 00:00: MOUTH [place] 00 AFTER Medical EVENING Branch MEAL atorvastati Yes TAKE 1 Univ ers n 10 mg 7-02 TABLET BY ity of tablet 00:00: MOUTH [place] 00 AFTER Medical EVENING Branch MEAL atorvastati Yes TAKE 1 Univ ers n 10 mg 7-02 TABLET BY ity of tablet 00:00: MOUTH [place] 00 AFTER Medical EVENING Branch MEAL atorvastati Yes TAKE 1 Univ ers n 10 mg 7-02 TABLET BY ity of tablet 00:00: MOUTH [place] 00 AFTER Medical EVENING Branch MEAL atorvastati Yes TAKE 1 Univ ers n 10 mg 7-02 TABLET BY ity of tablet 00:00: MOUTH [place] 00 AFTER Medical EVENING Branch MEAL atorvastati 2019 Yes TAKE 1 Univ ers n 10 mg 7-02 TABLET BY ity of tablet 00:00: MOUTH [place] 00 AFTER Medical EVENING Branch MEAL atorvastati 20190 Yes TAKE 1 Univ ers n 10 mg 7-02 TABLET BY ity of tablet 00:00: MOUTH AFTER Medical EVENING Branch MEAL atorvastati 2019 Yes TAKE 1 Univ ers n 10 mg 7-02 TABLET BY ity of tablet 00:00: MOUTH AFTER Medical EVENING Branch MEAL atorvastati Yes TAKE 1 Univ ers n 10 mg 7-02 TABLET BY ity of tablet 00:00: MOUTH AFTER Medical EVENING Branch MEAL atorvastati Yes TAKE 1 Univ ers n 10 mg 7-02 TABLET BY ity of tablet 00:00: MOUTH AFTER Medical EVENING Branch MEAL lisinopril Yes TAKE 1 Unive rs 10 mg 6-26 TABLET BY ity of tablet 00:00: TWICE A Medical DAY Branch lisinopril 0 Yes TAKE 1 Unive rs 10 mg 6-26 TABLET BY ity of tablet 00:00: TWICE A Medical DAY Branch lisinopril [id number] Yes TAKE 1 Unive rs 10 mg 6-26 TABLET BY ity of tablet 00:00: MOUTH TWICE A Medical DAY Branch lisinopril 0 Yes TAKE 1 Unive rs 10 mg 6-26 TABLET BY ity of tablet 00:00: TWICE A Medical DAY Branch lisinopril 2019-0 Yes TAKE 1 Unive rs 10 mg 6-26 TABLET BY ity of tablet 00:00: TWICE A Medical DAY Branch lisinopril 2019-0 Yes TAKE 1 Unive rs 10 mg 6-26 TABLET BY ity of tablet 00:00: MOUTH TWICE A Medical DAY Branch lisinopril 2018-0 Yes TAKE 1 Unive rs 10 mg 6-26 TABLET BY ity of tablet 00:00: MOUTH TWICE A Medical DAY Branch lisinopril 20190 Yes TAKE 1 Unive rs 10 mg 6-26 TABLET BY ity of tablet 00:00: MOUTH TWICE A Medical DAY Branch lisinopril 2019-0 Yes TAKE 1 Unive rs 10 mg 6-26 TABLET BY ity of tablet 00:00: MOUTH TWICE A Medical DAY Branch lisinopril 2019-0 Yes TAKE 1 Unive rs 10 mg 6-26 TABLET BY ity of tablet 00:00: MOUTH [place] 00 TWICE A Medical DAY Branch lisinopril 2019-0 Yes TAKE 1 Unive rs 10 mg 6-26 TABLET BY ity of tablet 00:00: MOUTH TWICE A Medical DAY Branch lisinopril 2019-0 Yes TAKE 1 Unive rs 10 mg 6-26 TABLET BY ity of tablet 00:00: MOUTH TWICE A Medical DAY Branch lisinopril 2019-0 Yes TAKE 1 Unive rs 10 mg 6-26 TABLET BY ity of tablet 00:00: MOUTH TWICE A Medical DAY Branch lisinopril 2019-0 Yes TAKE 1 Unive rs 10 mg 6-26 TABLET BY ity of tablet 00:00: MOUTH TWICE A Medical DAY Branch lisinopril 20190 Yes TAKE 1 Unive rs 10 mg 6-26 TABLET BY ity of tablet 00:00: MOUTH TWICE A Medical DAY Branch Immunizations Ordered Filled Immunization Date Status Comments [facility] e Immunization Name Name SARS-COV-2 COVID-19 2020-12-14 Completed Unive rsity of PFIZER VACCINE 00:00:00 [facility] [place] SARS-COV-2 COVID-19 2020-12-14 Completed Unive rsity of PFIZER VACCINE 00:00:00 [facility] [place] SARS-COV-2 COVID-19 2020-12-14 Completed Unive rsity of PFIZER VACCINE 00:00:00 [facility] [place] SARS-COV-2 COVID-19 2020-12-14 Completed Unive rsity of PFIZER VACCINE 00:00:00 [facility] [place] SARS-COV-2 COVID-19 2020-12-14 Completed Unive rsity of PFIZER VACCINE 00:00:00 [facility] [place] SARS-COV-2 COVID-19 2020-12-14 Completed Unive rsity of PFIZER VACCINE 00:00:00 [facility] [place] SARS-COV-2 COVID-19 2020-12-14 Completed Unive rsity of PFIZER VACCINE 00:00:00 [facility] [place] SARS-COV-2 COVID-19 2020-12-14 Completed Unive rsity of PFIZER VACCINE 00:00:00 [facility] [place] SARS-COV-2 COVID-19 2020-12-14 Completed Unive rsity of PFIZER VACCINE 00:00:00 [facility] [place] SARS-COV-2 COVID-19 2020-11-23 Completed Unive rsity of PFIZER VACCINE 00:00:00 [facility] [place] SARS-COV-2 COVID-19 2020-11-23 Completed Unive rsity of PFIZER VACCINE 00:00:00 [facility] [place] SARS-COV-2 COVID-19 2020-11-23 Completed Unive rsity of PFIZER VACCINE 00:00:00 [facility] [place] SARS-COV-2 COVID-19 2020-11-23 Completed Unive rsity of PFIZER VACCINE 00:00:00 [facility] [place] SARS-COV-2 COVID-19 2020-11-23 Completed Unive rsity of PFIZER VACCINE 00:00:00 [facility] [place] SARS-COV-2 COVID-19 2020-11-23 Completed Unive rsity of PFIZER VACCINE 00:00:00 [facility] [place] SARS-COV-2 COVID-19 2020-11-23 Completed Unive rsity of PFIZER VACCINE 00:00:00 [facility] [place] SARS-COV-2 COVID-19 2020-11-23 Completed Unive rsity of PFIZER VACCINE 00:00:00 [facility] [place] SARS-COV-2 COVID-19 2020-11-23 Completed Unive rsity of PFIZER VACCINE 00:00:00 [facility] [place] Tdap 2017-12-03 Completed University of 00:00:00 [facility] TDAP 2017-12-03 Completed University of 00:00:00 [facility] TDAP 2017-12-03 Completed University of 00:00:00 [facility] TDAP 2017-12-03 Completed University of 00:00:00 [facility] TDAP 2017-12-03 Completed University of 00:00:00 [facility] TDAP 2017-12-03 Completed University of 00:00:00 [facility] TDAP 2017-12-03 Completed University of 00:00:00 [facility] TDAP 2017-12-03 Completed University of 00:00:00 [facility] TDAP 2017-12-03 Completed University of 00:00:00 [facility] TDAP 2017-12-03 Completed University of 00:00:00 [facility] TDAP 2017-12-03 Completed University of 00:00:00 [facility] Tdap 2017-12-03 Completed University of 00:00:00 [facility] Tdap 2017-12-03 Completed University of 00:00:00 [place] [facility] Tdap 2017-12-03 Completed University of 00:00:00 [place] [facility] Tdap 2017-12-03 Completed University 00:00:00 [facility] Vital Signs Vital Name Observation Time Observation Value Comments Source Systolic blood 2021-01-08 20:45:00 132 mm[Hg] Univer sity of pressure [facility] Branch Diastolic blood 2021-01-08 20:45:00 60 mm[Hg] Unive rsity of pressure [place] [facility] Heart rate 2021-01-08 20:41:00 92 /min Universi ty of [place] [facility] [place] Body temperature 2021-01-08 20:41:00 36.78 Fariba Univ ersity of [facility] Branch Respiratory rate 2021-01-08 20:41:00 18 /min Univ ersity of [facility] Branch Body height 2021-01-08 20:41:00 162.6 cm Universi ty of [facility] Body weight 2021-01-08 20:41:00 119.296 kg Universi ty of [place] [facility] BMI 2021-01-08 20:41:00 45.14 kg/m2 Universi ty of [place] [facility] Body temperature 2020-01-04 20:18:00 37 [place] Univ ersity of [facility] Branch Respiratory rate 2020-01-04 20:18:00 18 /min Univ ersity of [facility] Body height 2020-01-04 20:18:00 157.5 cm Universi ty of [place] [facility] Body weight 2020-01-04 20:18:00 119.75 kg Universi ty of [place] [facility] BMI 2020-01-04 20:18:00 48.29 kg/m2 Universi ty of [place] [facility] Systolic blood 2020-01-04 20:18:00 122 mm[Hg] Univer sity of pressure [place] [facility] Diastolic blood 2020-01-04 20:18:00 72 mm[Hg] Unive rsity of pressure [place] [facility] Heart rate 2020-01-04 20:18:00 90 /min Universi ty of [place] [facility] Body temperature 2020-01-04 20:18:00 37 [place] Univ ersity of [place] [facility] Respiratory rate 2020-01-04 20:18:00 18 /min Univ ersity of [place] [facility] Body height 2020-01-04 20:18:00 157.5 cm Universi ty of [place] [facility] Body weight 2020-01-04 20:18:00 119.75 kg Universi ty [facility] BMI 2020-01-04 20:18:00 48.29 kg/m2 Universi ty [facility] Systolic blood 2020-01-04 20:18:00 122 mm[Hg] Univer sity of pressure [facility] Diastolic blood 2020-01-04 20:18:00 72 mm[Hg] Unive rsity of [facility] Heart rate 2020-01-04 20:18:00 90 /min Universi ty [facility] Systolic blood 2019-04-08 04:00:00 163 mm[Hg] Univer sity of pressure [facility] Diastolic blood 2019-04-08 04:00:00 97 mm[facility]Hg[facility] Heart rate 2019-04-08 04:00:00 87 /min [facility] Respiratory rate 2019-04-08 04:00:00 18 /min [facility] Oxygen saturation in 2019-04-08 04:00:00 97 /min [facility] Arterial blood by [facility] Pulse oximetry Branch Body temperature 2019-04-08 01:55:00 36.33 [place] [facility] 2019-04-08 01:55:00 115.667 kg [facility] BMI 2019-04-08 01:55:00 45.17 kg/m2 [facility] Procedures Procedure Date / Time Performing Clinician Source Performed EXTERNAL PROVIDER 2021-03-07 05:01:00 Doctor Unassigned, No [facility] of [place] RECORDS Name Medical Branch REFERRAL- 2021-02-12 05:01:00 Doctor Unassigned, No [facility] REQUEST/RESPONSE Name Medical Branch POCT URINALYSIS W/O 2021-01-08 00:00:00 Moriah Ordonez [facility] SPECIFIC GRAVITY [facility] BI SCREENING MAMMOGRAM 2020-02-29 14:15:00 Thierry Kendall [facility] [place] [facility] BILATERAL [facility] ASSIGNMENT OF BENEFITS 2020-01-04 19:51:07 Doctor Unassigned, No [facility] Name Medical Branch POCT URINALYSIS W/O 2020-01-04 00:00:00 Thierry Kendall [facility] SPECIFIC GRAVITY [facility] CT ABDOMEN PELVIS W 2019-04-08 04:12:31 Kavon Jin [facility] CONTRAST [facility] Branch LIPASE 2019-04-08 03:07:00 Charlette Daniel [place] [facility] COMP. METABOLIC PANEL 2019-04-08 03:07:[address] [facility] ([id number]) [facility] CBC WITH DIFFERENTIAL 2019-04-08 03:07:00 Charlette Daniel [facility] POCT TEST 2019-04-08 03:03:00 Charlette Daniel [facility] URINALYSIS 2019-04-08 02:10:00 Kavon Jin [facility] CONSENT/REFUSAL FOR 2019-04-08 01:49:17 Doctor Unassigned, No Un [facility] DIAGNOSIS AND TREATMENT Name Medical [place] Encounters Start End Encounter Admission Attending Care Care Encounter Source Date/Time Date/Time Type Type Clinicians Facility Department ID 2022-02-13 2022-02-13 Outpatient [facility] [id number] Univers 10:30:00 10:30:00 MORIAH [id number] ity of [facility] 2021-04-13 2021-04-13 Outpatient Shannen PRETTY [facility] [id number] [facility] 06:00:00 06:00:00 ARELI Alonso [facility] 2021-03-07 2021-03-07 Orders Doctor GARNICA [id number] Univers 00:00:00 00:00:00 Only Unassigned, MEGHA [id number] ity of [place] [facility] 4.2.7.2.686 [place] [phone] [place] [address] Branch 2021-02-28 2021-02-28 [facility] [id number] Univers 00:00:00 00:00:00 Moriah Hernandez [id number] i [place] [phone] [place] [address] Branch [facility] 2021-02-12 2021-02-12 Orders Doctor DNAIKA 1.2.840.114 [id number] Univers 00:00:00 00:00:00 Only Unassigned, MEGHA [id number] ity [facility] 4.2.7.2.686 [place] [phone] [address] 2021-02-09 2021-02-09 [facility] 1.2.840.114 [id number] Univers 00:00:00 00:00:00 Moriah Hernandez [id number] i [place] [phone] Co dical nal [address] [place] [address] 2021-01-17 2021-01-17 Outpatient Enrike ORDONEZ [facility] [id number] Univers 00:00:00 00:00:00 MORIAH [id number] [facility] 2021-01-17 2021-01-17 Outpatient Enrike ORDONEZ [facility] [id number] Univers 00:00:00 00:00:00 MORIAH [facility] 2021-01-12 2021-01-12 Outpatient Enrike ORDONEZ [facility] [id number] Univers 00:00:00 00:00:00 MORIAH [id number] [facility] 2021-01-12 2021-01-12 Outpatient Enrike ORDONEZ [facility] [id number] Univers 00:00:00 00:00:00 MORIAH [facility] 2021-01-08 2021-01-08 Office [facility] [id number] Univers 14:50:11 16:24:09 Visit Moriah Hernandez [id number] i [place] [phone] Co dic[address] 2021-01-08 2021-01-08 Outpatient Enrike ORDONEZ [facility] [id number] [id number] Univers 15:30:00 15:30:00 MORIAH [id number] [facility] 2021-01-08 2021-01-08 Outpatient R JOSÉ LUIS [facility] [id number] Univers 15:30:00 15:30:00 MORIAH [facility] 2021-01-03 2021-01-03 Outpatient R JOSÉ LUIS [facility] [id number] Univers 09:00:00 09:00:00 MORIAH [facility] 2021-01-03 2021-01-03 Outpatient Enrike ORDONEZ [facility] [id number] Univers 08:00:00 08:00:00 MORIAH [id number] [facility] 2020-12-14 2020-12-14 Outpatient Enrike HUANG [facility] [id number] Univers 15:00:00 15:00:00 [facility] 2020-11-23 2020-11-23 Outpatient Enrike HUANG [facility] [id number] Univers 15:00:00 15:00:00 [facility] 2020-02-29 2020-02-29 [facility] Faiza [facility] 1.2.840.114 [id number] Univers 08:13:00 23:59:00 Encounter [place] 350.1.13.10 ity [place] 4.2.7.2.686 [facility] [phone] [address] 2020-02-29 2020-02-29 [facility] 1.2.840.114 [id number] 08:13:00 23:59:00 Encounter Cam [place] [id number] [place] 4.2.7.2.686 [place] [id number] [facility] 2020-02-29 2020-02-29 Outpatient R FAIZA [facility] [id number] Univers 00:00:00 00:00:00 [id number] [facility] 2020-02-29 2020-02-29 Outpatient R FAIZA [facility] [id number] Univers 00:00:00 00:00:00 [facility] 2020-01-04 2020-01-04 Office Faiza [facility] [id number] Univers 14:54:30 15:46:34 Visit [place] 350.1.13.10 i [place] [phone] Me dical [address] 2020-01-04 2020-01-04 Office Thierry Kendall [facility] [id number] 14:54:30 15:46:34 Visit Rod Hernandez 350.1.13.10 [place] 4.2.7.2.686 Professio [phone] [address] 2020-01-04 2020-01-04 Outpatient R THIERRY KENDALL [facility] [id number] Univers 15:00:00 15:00:00 ity of [facility] 2020-01-04 2020-01-04 Orders Doctor DANIKA 1.2.840.114 [id number] Univers 00:00:00 00:00:00 Only Unassigned, MEGHA 350.1.13.10 ity of [place] [facility] 4.2.7.2.686 [place] [phone] [address] 2019-04-07 2019-04-07 Emergency MaríaCharlette carlson [facility] 1.2.840. [id number] Univers 20:58:55 23:47:00 Kavon Jin Bogdan [place] 350.1.13.10 [place] [phone] [address] 2019-04-07 2019-04-07 Orders Doctor DANIKA 1.2.840.114 [id number] Univers 00:00:00 00:00:00 Only Unassigned, MEGHA 350.1.13.10 ity of [place] [facility] 4.2.7.2.686 [place] [phone] [address] Results Test Description Test Time Test Comments Results Result Comments Source POCT URINALYSIS W/O SPECIFIC GRAVITY 2021-01-08 20:51:00 Test Item Value Reference Range Interpretation Comme nts POCT PH U (test code = 3254) 5 mg/dl 5-8 POCT U LEUK EST (test code = 3263) Trace Negative - Negative POCT U NIT (test code = 3262) Negative Negative - Negative POCT U PROT (test code = 3259) Negative Negative - Negative POCT U GLU (test code = 3256) Negative Negative - Negative POCT U KETONE (test code = 3258) Negative Negative - Negative POCT U BLD (test code = 3257) Negative Negative - Negative [facility] URINALYSIS W/O SPECIFIC [id number] 20:51:00 Test Item Value Reference Range Interpretation Comments POCT PH U (test code = 3254) 5 mg/dl 5-8 POCT U LEUK EST (test code = Trace Negative - Negative 3263) POCT U NIT (test code = 3262) Negative Negative - Negative POCT U PROT (test code = 3259) Negative Negative - Negative POCT U GLU (test code = 3256) Negative Negative - Negative POCT U KETONE (test code = 3258) Negative Negative - Negative POCT U BLD (test code = 3257) Negative Negative - Negative [facility] SCREENING MAMMOGRAM [id number] 16:07:30Examination:BI SCREENING MAMMOGRAM BILATERAL History:Patient is 49 year old and is seen for: ?Screening. Computer-aided detection (CAD) utilized. Comparisons: 12/21/2018 BI SCREENING MAMMOGRAM BILATERAL (No Change), 12/18/2017 BI SCREENING MAMMOGRAM BILATERAL (No Change), and 12/17/2016 DIGITAL MAMMOGRAM, SCREENING Findings:The breasts are almost entirely fatty. There is no evidence of suspicious masses, calcifications, or other abnormal findings. Impression:No signs of malignancy. Recommendation:Annual mammographic follow-up - Bilateral BI-RADS Category: [facility]/O SPECIFIC [id number] 20:17:00 Test Item Value Reference Range Interpretation Comments POCT PH U (test code = 3254) 5 mg/dl 5-8 POCT U LEUK EST (test code = Trace Negative - Negative 3263) POCT U NIT (test code = 3262) Negative Negative - Negative POCT U PROT (test code = 3259) Trace Negative - Negative POCT U GLU (test code = 3256) Negative Negative - Negative POCT U KETONE (test code = 3258) Negative Negative - Negative POCT U BLD (test code = 3257) 1+ Negative - Negative [facility] URINALYSIS W/O SPECIFIC [id number] 20:17:00 Test Item Value Reference Range Interpretation Comments POCT PH U (test code = 3254) 5 mg/dl 5-8 POCT U LEUK EST (test code = Trace Negative - Negative 3263) POCT U NIT (test code = 3262) Negative Negative - Negative POCT U PROT (test code = 3259) Trace Negative - Negative POCT U GLU (test code = 3256) Negative Negative - Negative POCT U KETONE (test code = 3258) Negative Negative - Negative POCT U BLD (test code = 3257) 1+ Negative - Negative [facility] [id number] 04:28:[address] findings to explain patient's symptoms. Colonic diverticulosis without diverticulitis. Simran Schulz MD., have reviewed this study and agree with theabove report.EXAM: CT ABDOMENAND PELVIS WITH CONTRAST HISTORY: 48-year-old female with right lower quadrant abdominal pain. COMPARISON: CT abdomen and pelvis with contrast 10/31/2017. DOSE: 789mGycm TECHNIQUE AND FINDINGS: Contiguous axial imaging from the level of the lungbases through the pubic symphysis was performed after the uncomplicatedadministration of 120 cc of intravenous Omnipaque contrast. Coronal andsagittal reconstruc tions were obtained.?Auto mA and/or iterativereconstruction were used to reduce radiation dose. FINDINGS: LOWER THORAX: The lungs bases are clear. No cardiomegaly. LIVER: No focal liver lesions are identified. Normal contour. GALLBLADDER AND BILIARY TREE: No biliary ductal dilation.?No gallbladderwall thickening. SPLEEN: No splenomegaly. PANCREAS: No ductal dilation or masses. ADRENAL GLANDS: 2 cm right and 1 cm left adrenal adenomas are seen,unchanged from 2017. KIDNEYS: Symmetric enhancement. No hydronephrosis, stones, or masses. PERITONEUM AND RETROPERITONEUM: No free air or fluid. LYMPH NODES: No lymphadenopathy. GI TRACT: No dilation or wall thickening. Normal appendix (6:43). Diffusecolonic diverticulosis without diverticulitis. PELVIS/BLADDER: The urinary bladder is distended without wall thickening.The uterus and ovaries are normal. Scattered pelvic phleboliths are seen. VESSELS: Unremarkable. BONES AND SOFT TISSUES: No suspicious lytic or sclerotic bony lesions.Moderate multilevel spondylosis of the thoracolumbar spine. 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 [facility], Radiant Results Inft User - 04/07/2019 11:30 PM CDTEXAM: CT ABDOMEN AND PELVIS WITH CONTRASTHISTORY: 48-year-old female with right lower quadrant abdominal pain.COMPARISON: CT abdomen and pelvis with contrast 10/31/2017.DOSE: 789mGycmTECHNIQUE AND FINDINGS: Contiguous axial imaging from the level of the lungbases through the pubic symphysis was performed after the uncomplicatedadministration of 120 cc of intravenous Omnipaque contrast. Coronal andsagittal reconstructions were obtained. Auto mA and/or iterativere construction were used to reduce radiation dose.FINDINGS:LOWER THORAX: The lungs bases are clear. Nocardiomegaly.LIVER: No focal liver lesions are identified. Normal contour.GALLBLADDER AND BILIARY TREE: No biliary ductal dilation. No gallbladderwall thickening.SPLEEN: No splenomegaly.PANCREAS: No ductal dilation or masses.ADRENAL GLANDS: 2 cm right and 1 cm left adrenal adenomas are seen,unchangedfrom 2016.KIDNEYS: Symmetric enhancement. No hydronephrosis, stones, or masses.PERITONEUM AND RETROPERITONEUM: No free air or fluid.LYMPH NODES: No lymphadenopathy.GI TRACT: No dilation or wall thickening. Normal appendix (6:43). Diffusecolonic diverticulosis without diverticulitis.PELVIS/BLADDER: Theurinary bladder is distended without wall thickening.The uterus and ovaries are normal. Scattered pelvic phleboliths are seen.VESSELS: Unremarkable.BONES AND SOFT TISSUES: No suspicious lytic or sclerotic bony lesions.Moderate multilevel spondylosis of the thoracolumbar spine. 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 METABOLIC PANEL ([id number])2019-04-08 03:36:00 Test Item Value Reference Range Interpretation Comments NA (test code = 141 mmol/L 135-145 5691252811) K (test code = 3.7 mmol/L 3.5-5 0451641996) CL (test code = 105 mmol/L 98-108 1489371973) CO2 TOTAL (test code = 25 mmol/L 23-31 7934085113) AGAP (test code = 2-16 9914490862) BUN (test code = 20 mg/dL 7-23 1199372753) GLUCOSE (test code = 143 mg/dL 70-110 H 3619538132) CREATININE (test code = 0.53 mg/dL 0.5-1.04 5197173418) TOTAL BILI (test code = 0.5 mg/dL 0.1-1.2 5772889273) CALCIUM (test code = 9.8 mg/dL 8.6-10.6 4053814598) T PROTEIN (test code = 8.5 g/dL 6.3-8.2 H 5944555948) ALBUMIN (test code = 4.7 g/dL 3.5-5 6530470680) ALK PHOS (test code = 111 U/L 34-122 4161513378) ALT(SGPT) (test code = 40 U/L 9-51 8436539314) AST(SGOT) (test code = 43 U/L 13-40 H 8231909230) eGFR Calculation mL/min/1.73m2 (Non-) (test code = 5667193510) eGFR Calculation mL/min/1.73m2 () (test code = 8519552258) ROSAMARIA (test code = ROSAMARIA) Association of Glomerular Filtration Rate (GFR) and Staging of Kidney Disease*+ + + +| GFR (mL/min/1.73 m2)?| With Kidney Damage?|?Without Kidney Damage+ --------+ --------+ +|?>90?|?S tage one?|? Normal??+ + + +|?60-89 ?|?Stage two?|? Decreased GFR? + --+ --+ ------+|?30-59?|?Stage three?|? Stage three? + --+ --+ ------+|?15-29?|?Stage four? |? Stage four?+ -------+ -------+ +|?<15 (or dialysis)?|?Stage five? |? Stage five?+ -------+ -------+ +*Each stage assumes the associated GFR level has been in effect for at least three months.?Stages 1 to 5, with or without kidney disease, indicate chronic kidney disease.Notes: Determination of stages one and two (with eGFR >59mL/min/1.73 m2) requires estimation of kidney damage for at least three months as defined by structural or functional abnormalities of the kidney, manifested by either:Pathological abnormalities or Markers of kidney damage (including abnormalities in the composition of the blood or urine or abnormalities in imaging tests). Lab Interpretation Abnormal (test code = 59301-5) [facility]36[facility]00 Test Item Value Reference Range Interpretation Comments LIPASE (test code = 9961099204) 58 U/L 0-220 Lab Interpretation (test code = Normal 23823-3) [facility] WITH [id number] 03:15:00 Test Item Value Reference Range Interpretation Comments WBC (test code = See_Comment [Automated message] 6690-2) The system [employer] generated this result transmitted ref erence range: 4.30 - 1 1.10 10*3/?L. The re ference range was not u sed to interpret this result as normal/abnor mal. RBC (test code = See_Comment [Automated message] 789-8) The system [employer] generated this result transmitted ref erence range: 3.93 - 5 .25 10*6/?L. The re ference range was not u sed to interpret this result as normal/abnor mal. HGB (test code = 13.3 g/dL 11.6-15 718-7) HCT (test code = 38.5 % 35.7-45.2 4544-3) MCV (test code = 88.3 fL 80.6-95.5 787-2) MCH (test code = 30.5 pg 25.9-32.8 785-6) MCHC (test code = 34.5 g/dL 31.6-35.1 786-4) RDW-SD (test code 41.8 fL 39-49.9 = 39069-5) RDW-CV (test code 12.9 % 12-15.5 = 788-0) PLT (test code = See_Comment [Automated message] 777-3) The system [employer] generated this result transmitted ref erence range: 166 - 35 8 10*3/?L. The re ference range was not u sed to interpret this result as normal/abnor mal. MPV (test code = 10.8 fL 9.5-12.9 21933-6) NRBC/100 WBC (test See_Comment [Automat ed message] code = 5122028915) The syste m which generated this result transmitted ref erence range: 0.0 - 10 .0 /100 WBCs. The refer ence range was not u sed to interpret this result as normal/abnor mal. NRBC x10^3 (test <0.01 See_Comment [Automated message] code = 9964578795) The syste m which generated this result transmitted ref erence range: 10*3/?L. The reference range was not used to interpr et this result as normal/abnormal . GRAN MAT (NEUT) % 61.6 % (test code = 770-8) IMM GRAN % (test 0.20 % code = 8636161861) LYMPH % (test code 26.4 % = 736-9) MONO % (test code 8.9 % = 5905-5) EOS % (test code = 2.1 % 713-8) BASO % (test code 0.8 % = 706-2) GRAN MAT 5.66 10*3/uL 1.88-7.09 x10^3(ANC) (test code = 9879066105) IMM GRAN x10^3 <0.03 0-0.06 (test code = 4060956181) LYMPH x10^3 (test 2.43 10*3/uL 1.32-3.29 code = 731-0) MONO x10^3 (test 0.82 10*3/uL 0.33-0.92 code = 742-7) EOS x10^3 (test 0.19 10*3/uL 0.03-0.39 code = 711-2) BASO x10^3 (test 0.07 10*3/uL 0.01-0.07 code = 704-7) [facility] [id number] 03:03:00 Test Item Value Reference Range Interpretation Comments POCT PREG (test code = 1605) negative On board controls acceptable with yes C Line (test code = 3574) POCT PREG LOT # (test code = 3575) [id number] POCT PREG TEST DATE (test 08/31/2020 code = 3576) Lab Interpretation (test code = Normal 35274-5) [facility] 02:37:00 Test Item Value Reference Range Interpretation Comments APPEARANCE (test code = Clear Clear 2459141544) COLOR (test code = Yellow Yellow 6564616837) PH (test code = 4.8-8.0 8237307489) SP GRAVITY (test code = 1.003-1.030 1480806490) GLU U QUAL (test code = 100 mg/dL Negative A 4626698802) BLOOD (test code = Negative Negative 2953083275) KETONES (test code = Negative Negative 5914387694) PROTEIN (test code = Negative Negative 2887-8) UROBILIN (test code = 0.2 mg/dL See_Comment [Auto mated message] 2110193389) The system [employer] generated this result transmit nasrin reference range : 0-1.0 mg/dL. Th e reference range was not used to interpret this result as normal/abnormal . BILIRUBIN (test code = Negative Negative 6082776388) NITRITE (test code = Negative Negative 0592653340) LEUK KENRICK (test code = Negative Negative 2828592114) RBC/HPF (test code = See_Comment [Autom ated message] 1355509727) The system [employer] generated this result transmit nasrin reference range : 0 - 3 HPF. The refe rence range was not u sed to interpret th is result as normal/abnormal . WBC/HPF (test code = See_Comment [Autom ated message] 4354467759) The system [employer] generated this result transmit nasrin reference range : 0 - 5 HPF. The refe rence range was not u sed to interpret th is result as normal/abnormal . BACTERIA (test code = Negative Negative 0091377986) SQ EPITH (test code = HPF 3778835615) Lab Interpretation (test Abnormal code = 38638-5) [facility]"
== END 2021-07-08 04:58 | disposition home or self-care (01) ==
LOC: ER 02:03
DX: M54.50 Low back pain, unspecified (principal); M54.16 Radiculopathy, lumbar region; I10 Essential (primary) hypertension; Z86.73 Personal history of transient ischemic attack (TIA), and cerebral infarction without residual deficits
CPT/HCPCS: 72131; 96375; 96374; 99284; J2405

== ENCOUNTER 2021-11-05 15:52 | Emergency (ER) | payer OTHER ==
--- OUTSIDE RECORDS SUMMARY | 2021-11-05 16:12 | XMS REPORT | Continuity of Care Document ---
:1970 Author Organization [facility] t Address [address] [place] [address] Care Team Providers Name Role Phone Shannen DELUCA Primary Care Physician Unavailable JOSÉ LUIS Attending Clinician Unavailable CAST Attending Clinician Unavailable Singer LEE Attending Clinician SHORTY HERNANDEZ Attending Clinician Unavailable Nurse, Pob Immunization Attending Clinician Unavailable Shorty Hernandez DO Attending Clinician DR MARIA DE JESUS Attending Clinician Unavailable Doctor Unassigned, Name Attending Clinician Unavailable José Luis TELLEZ Attending Clinician Diane HUANG Attending Clinician Unavailable Rod Kendall MD Attending Clinician ROD KENDALL Attending Clinician Unavailable Angelica Vasquez Attending Clinician Bogdan Jin MD Attending Clinician DR MARIA DE JESUS Admitting Clinician Unavailable Payers Payer Name Policy Type Policy Number Effective Date Expiration Date Bogdan scott [facility] [id number] 2019 PREFERRED GENERIC 00:00:00 Problems Condition Condition Condition Status Onset Resolution Last Treating Co mments Source Name Details Category Date Date Treatment Clinician Date Breast Breast Disease Active 2019- Univers cancer cancer 5-05 ity of screening screening 00:00: Gerardo ford 00 Medical Branch Morbid Morbid Disease Active 2015-09 Univers obesity obesity 1-18 ity of with body with body 00:00: Gerardo ford mass index mass index 00 Me dical of of Branch 40.0-49.9 40.0-49.9 Morbid Morbid Disease Active 2015-09 Univers obesity obesity 1-18 ity of with body with body 00:00: Gerardo ford mass index mass index 00 Me dical of of Branch 40.0-49.9 40.0-49.9 Allergies, Adverse Reactions, Alerts Allergy Allergy Status Severity Reaction(s) Onset Inactive Treating Comm ents Source Name Type Date Date Clinician NO KNOWN Drug Active Univers ALLERGIE Class ity of S [place] [facility] Social History Social Habit Start Date Stop Date Quantity Comments Source History SDOH University o f Alcohol Comment [place] [facility] History SDOH University o f Alcohol Std [place] [facility] Drinks [facility] History SDME University o f Alcohol Binge [place] [facility] Exposure to Not sure [facility] SARS-CoV-2 [place] [facility] (event) Branch Tobacco use and 2021-01-08 2021-01-08 Never used Universit y of exposure 00:00:00 00:00:00 [facility] Alcohol intake 2021-01-08 2021-01-08 Ex-drinker University 00:00:00 00:00:00 (finding) [place] [facility] History SDOH 2020-01-04 2020-01-04 2 University o f Alcohol Frequency 00:00:00 00:00:00 [facility]igned At [birth year] Universit y of 00:00:00 00:00:00 [facility] Smoking Status Start Date Stop Date Source Never smoker [facility] Medications Ordered Filled Start Stop Current Ordering Indication Dosage Frequency Signature Comments Components Source Medication Medication Date Date Medication? Clinician (SIG) Name Name cephALEXin 2020-09- Yes [id number] 500mg Take 1 Univers (KEFLEX) 2- 12-31 capsule by ity of 500 mg 00:00: 05:59 mouth 3 [place] capsule 00 :00 (three) Medical times Branch daily for 7 days. gabapentin Yes 300mg Take 300 Un kylee 300 mg 4-01 mg by ity of capsule 00:00: mouth 2 [place] 00 (two) Medical times Branch daily. gabapentin 2020- Yes 300mg Take 300 Un [place] 300 mg 4-01 mg by ity of capsule 00:00: mouth 2 [place] 00 (two) Medical times Branch daily. gabapentin 1-0 Yes 300mg Take 300 Un [place] 300 mg 4-01 mg by ity of capsule 00:00: mouth (two) Medical times Branch daily. gabapentin 2021-0 Yes 300mg Take 300 Un [place] 300 mg 4-01 mg by ity of capsule 00:00: mouth 2 (two) Medical times Branch daily. gabapentin 2021-0 Yes 300mg Take 300 Un [place] 300 mg 4-01 mg by ity of capsule 00:00: mouth (two) Medical times Branch daily. gabapentin 2021-0 Yes 300mg Take 300 Un [place] 300 mg 4-01 mg by ity of capsule 00:00: mouth (two) Medical times Branch daily. gabapentin 2021-0 Yes 300mg Take 300 Un [place] 300 mg 4-01 mg by ity of capsule 00:00: mouth (two) Medical times Branch daily. gabapentin 2021-0 Yes 300mg Take 300 Un yklee 300 mg 4-01 mg by ity of capsule 00:00: mouth [place] (two) Medical times Branch daily. gabapentin 2021-0 Yes 300mg Take 300 Un k[place] 300 mg 4-01 mg by ity of capsule 00:00: mouth [place] (two) Medical times Branch daily. gabapentin 2021-0 Yes 300mg Take 300 Un [place] 300 mg 4-01 mg by ity of capsule 00:00: mouth [place] (two) Medical times Branch daily. gabapentin 2021-0 Yes 300mg Take 300 Un k[place] 300 mg 4-01 mg by ity of capsule 00:00: mouth [place] (two) Medical times Branch daily. Nitrofurant 2020-0 2020- No [id number] 100mg Take 1 Univers oin&Nit. 5- 05-13 capsule by ity of Macrocryst 00:00: 04:59 mouth 2 Sd as (MACROBID) 00 :00 (two) Medical 100 mg times Branch capsule daily for 7 days. Nitrofurant 2020-0 2020- No [id number] 100mg Take 1 Univers oin&Nit. 5-05 05-13 capsule by ity of Macrocryst 00:00: 04:59 mouth 2 Sd as (MACROBID) 00 :00 (two) Medical 100 mg times Branch capsule daily for 7 days. iohexol 2019-0 2019- No 120mL 120 mL, Unive rs (OMNIPAQUE 8 08-08 Intravenou it y of 350 04:15: 04:15 s, ONCE, 1 [place] BULK-150 00 :00 dose, Wed Medica l mL) 04/07/19 at Branch injection 2315, 120 mL Routine traMADol 2019-0 Yes [id number] 50mg Take 1 Un kylee (ULTRAM) 50 8-07 tablet by ity of mg tablet 00:00: mouth [place] 00 every 6 Medical (six) Branch hours as needed for Pain (scale 7-10). ondansetron 2019-0 Yes [id number] 4mg Take 1 Univers (ZOFRAN) 4 8-07 tablet by ity of mg tablet 00:00: mouth [place] 00 every 8 Medical (eight) Branch hours as needed for Nausea and Vomiting (N/V). phenazopyri 2019-0 Yes [id number] 200mg Take 1 Univers dine 200 mg 8-07 tablet by ity of tablet 00:00: mouth 3 [place] 00 (three) Medical times Branch daily. traMADol 2019-0 Yes [id number] 50mg Take 1 Un kylee (ULTRAM) 50 8-07 tablet by ity of mg tablet 00:00: mouth [place] 00 every 6 Medical (six) Branch hours as needed for Pain (scale 7-10). ondansetron 2019-0 Yes [id number] 4mg Take 1 Univers (ZOFRAN) 4 8-07 tablet by ity of mg tablet 00:00: mouth [place] 00 every 8 Medical (eight) Branch hours as needed for Nausea and Vomiting (N/V). phenazopyri 2019-0 Yes [id number] 200mg Take 1 Univers dine 200 mg 8-07 tablet by ity of tablet 00:00: mouth 3 [place] 00 (three) Medical times Branch daily. traMADol 2019-0 Yes [id number] 50mg Take 1 Un kylee (ULTRAM) 50 8-07 tablet by ity of mg tablet 00:00: mouth [place] 00 every 6 Medical (six) Branch hours as needed for Pain (scale 7-10). ondansetron 2019-0 Yes [id number] 4mg Take 1 Univers (ZOFRAN) 4 8-07 tablet by ity of mg tablet 00:00: mouth [place] 00 every 8 Medical (eight) Branch hours as needed for Nausea and Vomiting (N/V). phenazopyri 2019-0 Yes [id number] 200mg Take 1 Univers dine 200 mg 8-07 tablet by ity of tablet 00:00: mouth 3 [place] 00 (three) Medical times Branch daily. traMADol 2019-0 Yes [id number] 50mg Take 1 Un k[place]e (ULTRAM) 50 8-07 tablet by ity of mg tablet 00:00: mouth [place] 00 every 6 Medical (six) Branch hours as needed for Pain (scale 7-10). ondansetron 2019-0 Yes [id number] 4mg Take 1 Univers (ZOFRAN) 4 8-07 tablet by ity of mg tablet 00:00: mouth [place] 00 every 8 Medical (eight) Branch hours as needed for Nausea and Vomiting (N/V). phenazopyri 2019-0 Yes [id number] 200mg Take 1 Univers dine 200 mg 8-07 tablet by ity of tablet 00:00: mouth 3 [place] 00 (three) Medical times Branch daily. traMADol 2019-0 Yes [id number] 50mg Take 1 Un k[place] (ULTRAM) 50 8-07 tablet by ity of mg tablet 00:00: mouth [place] 00 every 6 Medical (six) Branch hours as needed for Pain (scale 7-10). ondansetron 2019-0 Yes [id number] 4mg Take 1 Univers (ZOFRAN) 4 8-07 tablet by ity of mg tablet 00:00: mouth [place] 00 every 8 Medical (eight) Branch hours as needed for Nausea and Vomiting (N/V). phenazopyri 2019-0 Yes [id number] 200mg Take 1 Univers dine 200 mg 8-07 tablet by ity of tablet 00:00: mouth 3 [place] 00 (three) Medical times Branch daily. traMADol 2019-0 Yes [id number] 50mg Take 1 Un k[place]e (ULTRAM) 50 8-07 tablet by ity of mg tablet 00:00: mouth [place] 00 every 6 Medical (six) Branch hours as needed for Pain (scale 7-10). ondansetron 2019-0 Yes [id number] 4mg Take 1 Univers (ZOFRAN) 4 8-07 tablet by ity of mg tablet 00:00: mouth [place] 00 every 8 Medical (eight) Branch hours as needed for Nausea and Vomiting (N/V). phenazopyri 2019-0 Yes [id number] 200mg Take 1 Univers dine 200 mg 8-07 tablet by ity of tablet 00:00: mouth 3 [place] 00 (three) Medical times Branch daily. traMADol 2019-0 Yes [id number] 50mg Take 1 Un k[place] (ULTRAM) 50 8-07 tablet by ity of mg tablet 00:00: mouth [place] 00 every 6 Medical (six) Branch hours as needed for Pain (scale 7-10). ondansetron 2019-0 Yes [id number] 4mg Take 1 Univers (ZOFRAN) 4 8-07 tablet by ity of mg tablet 00:00: mouth [place] 00 every 8 Medical (eight) Branch hours as needed for Nausea and Vomiting (N/V). phenazopyri 2019-0 Yes [id number] 200mg Take 1 Univers dine 200 mg 8-07 tablet by ity of tablet 00:00: mouth 3 [place] 00 (three) Medical times Branch daily. traMADol 2019-0 Yes [id number] 50mg Take 1 Un k[place] (ULTRAM) 50 8-07 tablet by ity of mg tablet 00:00: mouth [place] 00 every 6 Medical (six) Branch hours as needed for Pain (scale 7-10). ondansetron 2019-0 Yes [id number] 4mg Take 1 Univers (ZOFRAN) 4 8-07 tablet by ity of mg tablet 00:00: mouth [place] 00 every 8 Medical (eight) Branch hours as needed for Nausea and Vomiting (N/V). phenazopyri 2019-0 Yes [id number] 200mg Take 1 Univers dine 200 mg 8-07 tablet by ity of tablet 00:00: mouth 3 [place] 00 (three) Medical times Branch daily. traMADol 2019-0 Yes [id number] 50mg Take 1 Un k[place] (ULTRAM) 50 8-07 tablet by ity of mg tablet 00:00: mouth [place] 00 every 6 Medical (six) Branch hours as needed for Pain (scale 7-10). ondansetron 2019-0 Yes [id number] 4mg Take 1 Univers (ZOFRAN) 4 8-07 tablet by ity of mg tablet 00:00: mouth [place] 00 every 8 Medical (eight) Branch hours as needed for Nausea and Vomiting (N/V). phenazopyri 2019-0 Yes [id number] 200mg Take 1 Univers dine 200 mg 8-07 tablet by ity of tablet 00:00: mouth 3 [place] 00 (three) Medical times Branch daily. traMADol 2019-0 Yes [id number] 50mg Take 1 Un k[place]e (ULTRAM) 50 8-07 tablet by ity of mg tablet 00:00: mouth [place] 00 every 6 Medical (six) Branch hours as needed for Pain (scale 7-10). ondansetron 2019-0 Yes [id number] 4mg Take 1 Univers (ZOFRAN) 4 8-07 tablet by ity of mg tablet 00:00: mouth [place] 00 every 8 Medical (eight) Branch hours as needed for Nausea and Vomiting (N/V). phenazopyri 2019-0 Yes [id number] 200mg Take 1 Univers dine 200 mg 8-07 tablet by ity of tablet 00:00: mouth 3 [place] 00 (three) Medical times Branch daily. traMADol 2019-0 Yes [id number] 50mg Take 1 Un k[place]e (ULTRAM) 50 8-07 tablet by ity of mg tablet 00:00: mouth [place] 00 every 6 Medical (six) Branch hours as needed for Pain (scale 7-10). ondansetron 2019-0 Yes [id number] 4mg Take 1 Univers (ZOFRAN) 4 8-07 tablet by ity of mg tablet 00:00: mouth [place] 00 every 8 Medical (eight) Branch hours as needed for Nausea and Vomiting (N/V). phenazopyri 2019-0 Yes [id number] 200mg Take 1 Univers dine 200 mg 8-07 tablet by ity of tablet 00:00: mouth 3 [place] 00 (three) Medical times Branch daily. traMADol 2019-0 Yes [id number] 50mg Take 1 Un k[place]e (ULTRAM) 50 8-07 tablet by ity of mg tablet 00:00: mouth [place] 00 every 6 Medical (six) Branch hours as needed for Pain (scale 7-10). ondansetron 2019-0 Yes [id number] 4mg Take 1 Univers (ZOFRAN) 4 8-07 tablet by ity of mg tablet 00:00: mouth [place] 00 every 8 Medical (eight) Branch hours as needed for Nausea and Vomiting (N/V). phenazopyri 2019-0 Yes [id number] 200mg Take 1 Univers dine 200 mg 8-07 tablet by ity of tablet 00:00: mouth 3 [place] 00 (three) Medical times Branch daily. traMADol 2019-0 Yes [id number] 50mg Take 1 Un k[place]e (ULTRAM) 50 8-07 tablet by ity of mg tablet 00:00: mouth [place] 00 every 6 Medical (six) Branch hours as needed for Pain (scale 7-10). ondansetron 2019-0 Yes [id number] 4mg Take 1 Univers (ZOFRAN) 4 8-07 tablet by ity of mg tablet 00:00: mouth [place] 00 every 8 Medical (eight) Branch hours as needed for Nausea and Vomiting (N/V). phenazopyri 2019-0 Yes [id number] 200mg Take 1 Univers dine 200 mg 8-07 tablet by ity of tablet 00:00: mouth 3 (three) Medical times Branch daily. traMADol 2019-0 Yes [id number] 50mg Take 1 Un k[place]e (ULTRAM) 50 8-07 tablet by ity of mg tablet 00:00: mouth [place] 00 every 6 Medical (six) Branch hours as needed for Pain (scale 7-10). ondansetron 2019-0 Yes [id number] 4mg Take 1 Univers (ZOFRAN) 4 8-07 tablet by ity of mg tablet 00:00: mouth [place] 00 every 8 Medical (eight) Branch hours as needed for Nausea and Vomiting (N/V). phenazopyri 2019-0 Yes [id number] 200mg Take 1 Univers dine 200 mg 8-07 tablet by ity of tablet 00:00: mouth 3 (three) Medical times Branch daily. traMADol 2019-0 Yes [id number] 50mg Take 1 Un k[place]e (ULTRAM) 50 8-07 tablet by ity of mg tablet 00:00: mouth [place] 00 every 6 Medical (six) Branch hours as needed for Pain (scale 7-10). ondansetron 2019-0 Yes [id number] 4mg Take 1 Univers (ZOFRAN) 4 8-07 tablet by ity of mg tablet 00:00: mouth [place] 00 every 8 Medical (eight) Branch hours as needed for Nausea and Vomiting (N/V). phenazopyri 2019-0 Yes [id number] 200mg Take 1 Univers dine 200 mg 8-07 tablet by ity of tablet 00:00: mouth 3 (three) Medical times Branch daily. traMADol 2019-0 Yes [id number] 50mg Take 1 Un k[place]e (ULTRAM) 50 8-07 tablet by ity of mg tablet 00:00: mouth [place] 00 every 6 Medical (six) Branch hours as needed for Pain (scale 7-10). ondansetron Yes [id number] 4mg Take 1 Univers (ZOFRAN) 4 8-07 tablet by ity of mg tablet 00:00: mouth [place] 00 every 8 Medical (eight) Branch hours as needed for Nausea and Vomiting (N/V). phenazopyri Yes [id number] 200mg Take 1 Univers dine 200 mg 8-07 tablet by ity of tablet 00:00: mouth 3 [place] 00 (three) Medical times Branch daily. Yes Take by [facility] no122/iron/ 7-08 mouth. ity of folic acid 19:52: [place] ( 49 Medical MULTI ORAL) Branch Yes Take by Unive rs no122/iron/ 7-08 mouth. ity of folic acid 19:52: [place] ( 49 Medical MULTI ORAL) Branch Yes Take by Unive rs no122/iron/ 7-08 mouth. ity of folic acid 19:52: [place] ( 49 Medical MULTI ORAL) Branch 0 Yes Take by [facility] no122/iron/ 7-08 mouth. ity of folic acid 19:52: [place] ( 49 Medical MULTI ORAL) Branch 0 Yes Take by Unive rs no122/iron/ 7-08 mouth. ity of folic acid 19:52: [place] ( 49 Medical MULTI ORAL) Branch [id number] Yes Take by Unive rs no122/iron/ 7-08 mouth. ity of folic acid 19:52: [place] ( 49 Medical MULTI ORAL) Branch 2019-0 Yes Take by Unive rs no122/iron/ 7-08 mouth. ity of folic acid 19:52: [place] ( 49 Medical MULTI ORAL) Branch 2019-0 Yes Take by Unive rs no122/iron/ 7-08 mouth. ity of folic acid 19:52: [place] ( 49 Medical MULTI ORAL) Branch [id number] Yes Take by Unive rs no122/iron/ 7-08 mouth. ity of folic acid 19:52: [place] ( 49 Medical MULTI ORAL) Branch 2019-0 Yes Take by Unive rs no122/iron/ 7-08 mouth. ity of folic acid 19:52: [place] ( 49 Medical MULTI ORAL) Branch 2019- Yes Take by Unive rs no122/iron/ 7-08 mouth. ity of folic acid 19:52: [place] ( 49 Medical MULTI ORAL) Branch 2019- Yes Take by Unive rs no122/iron/ 7-08 mouth. ity of folic acid 19:52: [place] ( 49 Medical MULTI ORAL) Branch 2019- Yes Take by Unive rs no122/iron/ 7-08 mouth. ity of folic acid 19:52: [place] ( 49 Medical MULTI ORAL) Branch 2019- Yes Take by Unive rs no122/iron/ 7-08 mouth. ity of folic acid 19:52: [place] ( 49 Medical MULTI ORAL) Branch Yes Take by Unive rs no122/iron/ 7-08 mouth. ity of folic acid 19:52: [place] ( 49 Medical MULTI ORAL) Branch Yes Take by Unive rs no122/iron/ 7-08 mouth. ity of folic acid 14:52: [place] ( 49 Medical MULTI ORAL) Branch Yes Take by Unive rs no122/iron/ 7-08 mouth. ity of folic acid 14:52: [place] ( 49 Medical MULTI ORAL) Branch atorvastati [...] 00 AFTER Medical EVENING Branch MEAL atorvastati 2019- Yes TAKE 1 Univ ers n 10 [...] 00 AFTER Medical EVENING Branch MEAL atorvastati 2019- Yes TAKE 1 Univ ers n 10 mg 7-02 TABLET BY ity of tablet 00:00: MOUTH [place] 00 AFTER Medical EVENING Branch MEAL atorvastati 2019- Yes TAKE 1 Univ ers n 10 mg 7-02 TABLET BY ity of tablet 00:00: MOUTH [place] 00 AFTER Medical EVENING Branch MEAL atorvastati 2019- Yes TAKE 1 Univ ers n 10 mg 7-02 TABLET BY ity of tablet 00:00: MOUTH [place] 00 AFTER Medical EVENING Branch MEAL atorvastati 2019- Yes TAKE 1 Univ ers n 10 mg 7-02 TABLET BY ity of tablet 00:00: MOUTH [place] 00 AFTER Medical EVENING Branch MEAL lisinopril 2019- Yes TAKE 1 Unive rs 10 mg 6-26 TABLET BY ity of tablet 00:00: MOUTH [place] 00 TWICE A Medical DAY Branch lisinopril 2019 Yes TAKE 1 Unive rs 10 mg 6-26 TABLET BY ity of tablet 00:00: MOUTH [place] 00 TWICE A Medical DAY Branch lisinopril Yes TAKE 1 Unive rs 10 [...] TABLET BY ity of tablet 00:00: MOUTH [place] [address] TWICE A Medical DAY Branch Immunizations Ordered Filled Immunization Date Status Comments Sour e Immunization Name Name SARS-COV-2 COVID-19 2021-07-19 Completed Unive rsity of PFIZER VACCINE 00:00:00 [facility] SARS-COV-2 COVID-19 2021-07-19 Completed Unive rsity of PFIZER VACCINE 00:00:00 [facility] SARS-COV-2 COVID-19 2020-12-14 Completed Unive rsity of PFIZER VACCINE 00:00:00 [facility] SARS-COV-2 COVID-19 2020-12-14 Completed Unive rsity of PFIZER VACCINE 00:00:00 [facility] SARS-COV-2 COVID-19 2020-12-14 Completed Unive rsity of PFIZER VACCINE 00:00:00 [facility] SARS-COV-2 COVID-19 2020-12-14 Completed Unive rsity of PFIZER VACCINE 00:00:00 [facility] SARS-COV-2 COVID-19 2020-12-14 Completed Unive rsity of PFIZER VACCINE 00:00:00 [facility] SARS-COV-2 COVID-19 2020-12-14 Completed Unive rsity of PFIZER VACCINE 00:00:00 [facility] SARS-COV-2 COVID-19 2020-12-14 Completed Unive rsity of PFIZER VACCINE 00:00:00 [facility] SARS-COV-2 COVID-19 2020-12-14 Completed Unive rsity of PFIZER VACCINE 00:00:00 [facility] SARS-COV-2 COVID-19 2020-12-14 Completed Unive rsity of PFIZER VACCINE 00:00:00 [facility] SARS-COV-2 COVID-19 2020-12-14 Completed Unive rsity of PFIZER VACCINE 00:00:00 [facility] SARS-COV-2 COVID-19 2020-12-14 Completed Unive rsity of PFIZER VACCINE 00:00:00 [facility] SARS-COV-2 COVID-19 2020-11-23 Completed Unive rsity of PFIZER VACCINE 00:00:00 [facility] SARS-COV-2 COVID-19 2020-11-23 Completed Unive rsity of PFIZER VACCINE 00:00:00 [facility] SARS-COV-2 COVID-19 2020-11-23 Completed Unive rsity of PFIZER VACCINE 00:00:00 [facility] SARS-COV-2 COVID-19 2020-11-23 Completed Unive rsity of PFIZER VACCINE 00:00:00 [facility] SARS-COV-2 COVID-19 2020-11-23 Completed Unive rsity of PFIZER VACCINE 00:00:00 [facility] SARS-COV-2 COVID-19 2020-11-23 Completed Unive rsity of PFIZER VACCINE 00:00:00 [facility] SARS-COV-2 COVID-19 2020-11-23 Completed Unive rsity of PFIZER VACCINE 00:00:00 [facility] SARS-COV-2 COVID-19 2020-11-23 Completed Unive rsity of PFIZER VACCINE 00:00:00 [facility] SARS-COV-2 COVID-19 2020-11-23 Completed Unive rsity of PFIZER VACCINE 00:00:00 [facility] SARS-COV-2 COVID-19 2020-11-23 Completed Unive rsity of PFIZER VACCINE 00:00:00 [facility] SARS-COV-2 COVID-19 2020-11-23 Completed Unive rsity of PFIZER VACCINE 00:00:00 [facility] Tdap 2017-12-03 Completed University of 00:00:00 [facility] TDAP 2017-12-03 Completed University of 00:00:00 [facility] TDAP 2017-12-03 Completed University of 00:00:00 [facility] TDAP 2017-12-03 Completed University of 00:00:00 [facility] TDAP 2017-12-03 Completed University of 00:00:00 [facility] TDAP 2017-12-03 Completed University of 00:00:00 [facility] TDAP 2017-12-03 Completed University of 00:00:00 [facility] TDAP 2017-12-03 Completed University of 00:00:00 [facility] TDAP 2017-12-03 Completed University of 00:00:00 [facility] TDAP 2017-12-03 Completed University of 00:00:00 [facility] TDAP 2017-12-03 Completed University of 00:00:00 [facility] TDAP 2017-12-03 Completed University of 00:00:00 [place] [facility] TDAP 2017-12-03 Completed University of 00:00:00 [place] [facility] Tdap 2017-12-03 Completed University of 00:00:00 [place] [facility] Tdap 2017-12-03 Completed University of 00:00:00 [place] [facility] Tdap 2017-12-03 Completed University of 00:00:00 [place] [facility] Tdap 2017-12-03 Completed University of 00:00:00 [facility] Vital Signs Vital Name Observation Time Observation Value Comments Source Systolic blood 2021-08-23 20:25:00 144 mm[Hg] Univer sity of pressure [facility] Diastolic blood 2021-08-23 20:25:00 73 mm[Hg] Unive rsity of [facility] Heart rate 2021-08-23 20:25:00 91 /min Universi ty [facility] Body temperature 2021-08-23 20:25:00 36.89 [facility] 2021-08-23 20:25:00 18 /min Univ ersity [facility] Body height 2021-08-23 20:25:00 160 cm Universi ty [facility] Body weight 2021-08-23 20:25:00 117.935 kg Universi ty [facility] BMI 2021-08-23 20:25:00 [facility]06 [facility] in 2021-08-23 20:25:00 100 /min University Arterial blood by [facility] Pulse oximetry Branch Systolic blood 2021-01-08 20:45:00 132 mm[Hg] Univer sity of pressure [facility] Diastolic blood 2021-01-08 20:45:00 60 mm[Hg] Unive rsity of pressure [facility] Heart rate 2021-01-08 20:41:00 92 /min Universi ty of [facility] Body temperature 2021-01-08 20:41:00 36.78 [facility] 2021-01-08 20:41:00 18 /[facility] Body height 2021-01-08 20:41:00 162.6 cm Universi ty of [facility] Body weight 2021-01-08 20:41:00 119.296 kg Universi ty of [place] [facility] BMI 2021-01-08 20:41:00 45.14 kg/m2 Universi ty of [place] [facility] Body temperature 2020-01-04 20:18:00 37 Fariba Univ ersity of [facility] Respiratory rate 2020-01-04 20:18:00 18 /min Univ ersity of [facility] Body height 2020-01-04 20:18:00 157.5 cm Universi ty of [place] [facility] Body weight 2020-01-04 20:18:00 119.75 kg Universi ty of [place] [facility] BMI 2020-01-04 20:18:00 48.29 kg/m2 Universi ty of [place] [facility] Systolic blood 2020-01-04 20:18:00 122 mm[Hg] Univer sity of pressure [place] [facility] Diastolic blood 2020-01-04 20:18:00 72 mm[Hg] Unive rsity of pressure [facility] Heart rate 2020-01-04 20:18:00 90 /min Universi ty of [facility] Body temperature 2020-01-04 20:18:00 37 [place] Univ ersity of [facility] Respiratory rate 2020-01-04 20:18:00 18 /min Univ ersity of [facility] Body height 2020-01-04 20:18:00 157.5 cm Universi ty of [place] [facility] Body weight 2020-01-04 20:18:00 119.75 kg Universi ty of [place] [facility] BMI 2020-01-04 20:18:00 48.29 kg/m2 Universi ty of [place] [facility] Systolic blood 2020-01-04 20:18:00 122 mm[Hg] Univer sity of pressure [place] [facility] Diastolic blood 2020-01-04 20:18:00 72 mm[Hg] Unive rsity of pressure [place] [facility] Heart rate 2020-01-04 20:18:00 90 /min [facility] Systolic blood 2019-04-08 04:00:00 163 mm[Hg] [facility] Diastolic blood 2019-04-08 04:00:00 97 mm[Hg] Unive rsity of pressure [facility] Heart rate 2019-04-08 04:00:00 87 /min [facility] Respiratory rate 2019-04-08 04:00:00 18 /min [facility] Oxygen saturation in 2019-04-08 04:00:00 97 /min [facility] Arterial blood by [facility] Pulse oximetry Branch Body temperature 2019-04-08 01:55:00 36.33 [facility] Body weight 2019-04-08 01:55:00 115.667 kg [facility] BMI 2019-04-08 01:55:00 45.17 kg/m2 [facility] Procedures Procedure Date / Time Performing Clinician Source Performed URINALYSIS 2021-08-23 20:01:00 Martha Cast [place] [facility] NOTICE OF PRIVACY 2021-08-23 19:52:57 Doctor Unassigned, No [facility] PRACTICES Name Medical Eldred CONSENT/REFUSAL FOR 2021-08-23 19:52:42 Doctor Unassigned, No [facility] SARS-COV-2 COVID-19 2021-07-19 22:37:50 Doctor Unassigned, No [facility],0.[facility],IM Name [facility] (PFIZER) EXTERNAL PROVIDER 2021-03-07 05:01:00 Doctor Unassigned, No [facility] RECORDS Name Medical Branch REFERRAL- 2021-02-12 05:01:00 Doctor Unassigned, No [facility] REQUEST/RESPONSE [facility] POCT URINALYSIS W/O 2021-01-08 00:00:00 Moriah Ordonez [facility] SPECIFIC GRAVITY [facility] BI SCREENING MAMMOGRAM 2020-02-29 14:15:00 Thierry Kendall [facility] BILATERAL [facility] ASSIGNMENT OF BENEFITS 2020-01-04 19:51:07 Doctor Unassigned, No [facility] Name [facility] POCT URINALYSIS W/O 2020-01-04 00:00:00 Thierry Kendall [facility] SPECIFIC GRAVITY [facility] CT ABDOMEN PELVIS W 2019-04-08 04:12:31 Kavon Jin [facility] CONTRAST Medical Branch LIPASE 2019-04-08 03:07:00 Charlette Daniel [place] o f [facility] COMP. METABOLIC PANEL 2019-04-08 03:07:[address] [facility] ([id number]) [facility] CBC WITH DIFFERENTIAL 2019-04-08 03:07:00 Charlette Daniel [facility] POCT TEST 2019-04-08 03:03:00 Charlette Daniel [facility] ty [facility] URINALYSIS 2019-04-08 02:10:00 Kavon Jin [facility] CONSENT/REFUSAL FOR 2019-04-08 01:49:17 Doctor Unassigned, No Un [facility] DIAGNOSIS AND TREATMENT Name Medical Eldred Encounters Start End Encounter Admission Attending Care Care Encounter Source Date/Time Date/Time Type Type Clinicians Facility Department ID 2022-02-13 2022-02-13 Outpatient JOSÉ LUIS [facility] [id number] Univers 10:30:00 10:30:00 MORIAH [id number] [facility] 2021-08-23 2021-08-23 Emergency X SINGER [facility] ERT [id number] Univers 14:27:00 15:48:00 MARTHA [facility] 2021-08-23 2021-08-23 Emergency [facility] [id number] Univers 14:27:00 15:48:00 Martha MOORE [id number] i [facility] [id number] [facility] [phone] [facility] 084 [place] 2021-07-19 2021-07-19 Outpatient Enrike HERNANDEZ [facility] [id number] Univers 16:20:00 16:14:22 WILY jerrica [facility] 2021-07-19 2021-07-19 Imm/Inj Nurse, Adc Pob Immunization [facility] [id number] Univers 16:13:43 16:14:22 Visit Wily Hernandez 350.1.13 .10 [facility] [id number] [facility] [phone] Mt dical NAL 421 [facility] 2021-04-13 2021-04-13 Outpatient Shannen PRETTY [facility] [id number] [place] 06:00:00 06:00:00 [facility] 2021-03-07 2021-03-07 Orders Doctor DANIKA [id number] Univers 00:00:00 00:00:00 Only Unassigned, MEGHA [id number] ity of [place] [facility] [id number] [place] as [phone] [address] 2021-02-28 2021-02-28 [facility] 1.2.840.114 [id number] Univers 00:00:00 00:00:00 Moriah Moore [id number] i ty [id number] [phone] Mt dicri nal [address] [place] [address] 2021-02-12 2021-02-12 Orders Doctor DANIKA 1.2.840.114 [id number] Univers 00:00:00 00:00:00 Only Unassigned, MEGHA [id number] ity of [place] [facility] [id number] [place] [phone] [address] 2021-02-09 2021-02-09 [facility] 1.2.840.114 [id number] Univers 00:00:00 00:00:00 Moriah Moore [id number] i [place] [phone] Mt dic[address] 2021-01-17 2021-01-17 Outpatient Enrike ORDONEZ [facility] [id number] Univers 00:00:00 00:00:00 MORIAH [id number] ity [facility] 2021-01-17 2021-01-17 Outpatient Enrike ORDONEZ [facility] [id number] Univers 00:00:00 00:00:00 MORIAH itjerrica [facility] 2021-01-12 2021-01-12 Outpatient Enrike ORDONEZ [facility] [id number] Univers 00:00:00 00:00:00 MORIAH [id number] ity [facility] 2021-01-12 2021-01-12 Outpatient R JOSÉ LUIS [facility] [id number] Univers 00:00:00 00:00:00 MORIAH [facility] 2021-01-08 2021-01-08 Office José Luis [facility] [id number] Univers 14:50:11 16:24:09 Visit Moriah Mary 350.1.13.10 i ty [place] [facility] [phone] Mt dical [address] 2021-01-08 2021-01-08 Outpatient Enrike ORDONEZ [facility] [id number] Univers 15:30:00 15:30:00 MORIAH [id number] [facility] 2021-01-08 2021-01-08 Outpatient Enrike ORDONEZ [facility] [id number] Univers 15:30:00 15:30:00 MORIAH [facility] 2021-01-03 2021-01-03 Outpatient R JOSÉ LUIS [facility] [id number] Univers 09:00:00 09:00:00 MORIAH [facility] 2021-01-03 2021-01-03 Outpatient R JOSÉ LUIS [facility] [id number] Univers 08:00:00 08:00:00 MORIAH [id number] [facility] 2020-12-14 2020-12-14 Outpatient Enrike HUANG [facility] [id number] Univers 15:00:00 15:00:00 NISSA [facility] 2020-11-23 2020-11-23 Outpatient Enrike HUANG [facility] [id number] Univers 15:00:00 15:00:00 NISSA [facility] 2020-02-29 2020-02-29 [facility] 1.2.840.114 [id number] Univers 08:13:00 23:59:00 Encounter Rod Moore 350.1.13.10 ity [place] [phone] [address] 2020-02-29 2020-02-29 [facility] Thierry Kendall [facility] 1.2.840.114 [id number] 08:13:00 23:59:00 Encounter Cam Clendenin 350.1.13.10 [place] 4.2.7.2.686 [place] [phone] 800 2020-02-29 2020-02-29 Outpatient R THIERRY KENDALL [facility] [id number] Univers 00:00:00 00:00:00 [id number] ity [facility] 2020-02-29 2020-02-29 Outpatient R FAIZA THIERRY [facility] [id number] Univers 00:00:00 00:00:00 ity [facility] 2020-01-04 2020-01-04 [facility] [id number] Univers 14:54:30 15:46:34 Visit Rod Moore 350.1.13.10 i ty [place] [phone] Mt dical [address] 2020-01-04 2020-01-04 Office Thierry Kendall [facility] [id number] 14:54:30 15:46:34 Visit Cam Clendenin 350.1.13.10 [place] 4.2.7.2.686 Professio [phone] [address] 2020-01-04 2020-01-04 Outpatient THIERRY NORIEGA [facility] [id number] Univers 15:00:00 15:00:00 ity [facility] 2020-01-04 2020-01-04 Orders Doctor DANIKA 1.2.840.114 [id number] Univers 00:00:00 00:00:00 Only Unassigned, MEGHA 350.1.13.10 ity of [place] [facility] 4.2.7.2.686 [place] [phone] [facility] 009 Branch 2019-04-07 2019-04-07 Emergency Charlette Daniel [facility] 1.2.840. 114 [id number] Univers 20:58:55 23:47:00 Kavon Jin S [place] 350.1.13.10 it[place] [phone] [facility] 084 Branch 2019-04-07 2019-04-07 Orders Doctor DANIKA 1.2.840.114 [id number] Univers 00:00:00 00:00:00 Only Unassigned, MEGHA 350.1.13.10 ity of [place] [facility] 4.2.7.2.686 [place] [phone] [address] Results Test Description Test Time Test [...] code = 3257) Negative Negative - Negative [facility] SPECIFIC [id number] 20:51:00 Test Item Value Reference Range Interpretation [...] code = 3257) Negative Negative - Negative [facility] [id number] 16:07:30Examination:BI SCREENING MAMMOGRAM BILATERAL History:Patient is 49 [...] - Bilateral BI-RADS Category: Both [facility] W/O SPECIFIC [id number] 20:17:00 Test Item Value Reference Range Interpretation [...] code = 3257) 1+ Negative - Negative [facility] URINALYSIS W/O SPECIFIC [id number] 20:17:00 Test Item Value Reference Range Interpretation [...] code = 3257) 1+ Negative - Negative [facility] ABDOMEN PELVIS W [id number] 04:28:[address] findings to explain [...] 1 cm left adrenal adenomas are seen,unchangedfrom 2017.KIDNEYS: Symmetric enhancement. No hydronephrosis, stones, or masses.PERITONEUM [...] findings to explain patient's symptoms.Colonic diverticulosis without diverticulitis.Fermin Schulz MD., have reviewed this study and agree with theabove report.[facility]. METABOLIC PANEL ([id number])2019-04-08 03:36:00 Test Item Value Reference Range Interpretation Comments NA (test code = 141 mmol/L 135-145 7436258207) K (test code = 3.7 mmol/L 3.5-5 2346891405) CL (test code = 105 mmol/L 98-108 8913743581) CO2 TOTAL (test code = 25 mmol/L 23-31 4873660150) AGAP (test code = 2-16 3611247925) BUN (test code = 20 mg/dL 7-23 5756287580) GLUCOSE (test code = 143 mg/dL 70-110 H 4540418729) CREATININE (test code = 0.53 mg/dL 0.5-1.04 3248411313) TOTAL BILI (test code = 0.5 mg/dL 0.1-1.4 1635804766) CALCIUM (test code = 9.8 mg/dL 8.6-10.6 9920647512) T PROTEIN (test code = 8.5 g/dL 6.3-8.2 H 7949110049) ALBUMIN (test code = 4.7 g/dL 3.5-5 3554512182) ALK PHOS (test code = 111 U/L 34-122 4359048947) ALT(SGPT) (test code = 40 U/L 9-51 9310395187) AST(SGOT) (test code = 43 U/L 13-40 H 3351067825) eGFR Calculation mL/min/1.73m2 (Non-) (test code = 7166634752) eGFR Calculation mL/min/1.73m2 () (test code = 5662734155) ROSAMARIA (test code = ROSAMARIA) Association of [...] tests). Lab Interpretation Abnormal (test code = 50596-1) [facility] 03:36[facility]00 Test Item Value Reference Range Interpretation Comments LIPASE (test code = 3928489873) 58 U/L 0-220 Lab Interpretation (test code = Normal 03596-2) [facility] WITH [id number] 03:15:00 Test Item Value Reference Range Interpretation Comments WBC (test code = See_Comment [Automated message] 6690-2) The system [employer] generated this result transmitted ref erence range: 4.30 - 1 1.10 10*3/?L. The re ference range was not u sed to interpret this result as normal/abnor mal. RBC (test code = See_Comment [Automated message] 789-8) The system [employer] generated this result transmitted ref erence range: [...] RDW-SD (test code 41.8 fL 39-49.9 = 82788-4) RDW-CV (test code 12.9 % 12-15.5 = 788-0) PLT (test code = See_Comment [Automated message] 777-3) The system whic h generated this result transmitted ref erence range: 166 - 35 8 10*3/?L. The re ference range was not u sed to interpret this result as normal/abnor mal. MPV (test code = 10.8 fL 9.5-12.9 47182-6) NRBC/100 WBC (test See_Comment [Automat ed message] code = 9276370030) The syste m which generated this result transmitted ref erence range: 0.0 - 10 .0 /100 WBCs. The refer ence range was not u sed to interpret this result as normal/abnor mal. NRBC x10^3 (test <0.01 See_Comment [Automated message] code = 6881814917) The syste m which generated this result transmitted ref erence range: 10*3/?L. The reference range was not used to interpr et this result as normal/abnormal . GRAN MAT (NEUT) % 61.6 % (test code = 770-8) IMM GRAN % (test 0.20 % code = 9471345670) LYMPH % (test code 26.4 % = 736-9) MONO % (test code 8.9 % = 5905-5) EOS % (test code = 2.1 % 713-8) BASO % (test code 0.8 % = 706-2) GRAN MAT 5.66 10*3/uL 1.88-7.09 x10^3(ANC) (test code = 8925440467) IMM GRAN x10^3 <0.03 0-0.06 (test code = 1321648382) LYMPH x10^3 (test 2.43 10*3/uL 1.32-3.29 code = 731-0) MONO x10^3 (test 0.82 10*3/uL 0.33-0.92 code = 742-7) EOS x10^3 (test 0.19 10*3/uL 0.03-0.39 code = 711-2) BASO x10^3 (test 0.07 10*3/uL 0.01-0.07 code = 704-7) [id number] 03:03:00 Test Item Value Reference Range Interpretation Comments POCT PREG (test code = 1605) negative On board controls acceptable with yes C Line (test code = 3574) POCT PREG LOT # (test code = 3575) [id number] POCT PREG TEST DATE (test 08/31/2020 code = 3576) Lab Interpretation (test code = Normal 39334-1) [facility] 02:37:00 Test Item Value Reference Range Interpretation Comments APPEARANCE (test code = Clear Clear 2131327163) COLOR (test code = Yellow Yellow 7551663471) PH (test code = 4.8-8.0 0040971180) SP GRAVITY (test code = 1.003-1.030 8283130031) GLU U QUAL (test code = 100 mg/dL Negative A 4961260173) BLOOD (test code = Negative Negative 9043100629) KETONES (test code = Negative Negative 5617943380) PROTEIN (test code = Negative Negative 2887-8) UROBILIN (test code = 0.2 mg/dL See_Comment [Auto mated message] 7368393220) The system [employer] generated this result transmit nasrin reference range : 0-1.0 mg/dL. Th e reference range was not used to interpret this result as normal/abnormal . BILIRUBIN (test code = Negative Negative 9528787012) NITRITE (test code = Negative Negative 7313202999) LEUK KENRICK (test code = Negative Negative 8643582330) RBC/HPF (test code = See_Comment [Autom ated message] 1378646095) The system [employer] generated this result transmit nasrin reference range : 0 - 3 HPF. The refe rence range was not u sed to interpret th is result as normal/abnormal . WBC/HPF (test code = See_Comment [Autom ated message] 8241147011) The system [employer] generated this result transmit nasrin reference range : 0 - 5 HPF. The refe rence range was not u sed to interpret th is result as normal/abnormal . BACTERIA (test code = Negative Negative 8904853550) SQ EPITH (test code = HPF 8520492405) Lab Interpretation (test Abnormal code = 42298-5) [facility]"
[2021-11-05] MEDS ORDERED: LIDOCAINE 1% W/EPI 1:100,000 MDV 50 ML VIAL ONE (17:53)
[2021-11-05] MEDS ORDERED: DIAZEPAM 5 MG TABLET ONE (19:18)
[2021-11-05] MEDS ORDERED: HYDROCODONE/APAP 10/325 TAB ONE (19:21)
--- NOTE | 2021-11-05 20:04 | EDPHYS ---
Physician Documentation [facility] Name: Neva Maharaj Age: 51 yrs Sex: Female : 1970 Arrival Date: 11/05/2021 Time: 15:54 Bed 9 Private MD: ED Physician Sallie Jacobson HPI: 11/05 17:12 This 51 yrs old Female presents to ER via Ambulatory with complaints of jmm Abscess. 17:12 The patient presents with an abscess of the left lateral aspect of neck. Description: jmm erythematous. Onset: The symptoms/episode began/occurred gradually, 3 day(s) ago. Possible cause(s): unknown. Associated signs and symptoms: Pertinent positives: erythema, swelling. Modifying factors: the symptoms are alleviated by nothing, the symptoms are aggravated by nothing. 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 - Social history:: Smoking status: Patient denies any tobacco usage or history of. ROS: 17:12 Constitutional: Negative for fever, chills, and weight loss, Cardiovascular: Negative jmm for chest pain, palpitations, and edema, Respiratory: Negative for shortness of breath, cough, wheezing, and pleuritic chest pain. 17:12 Skin: Positive for abscess. 17:12 All other systems are negative. Exam: 17:12 Constitutional: This is a well developed, well nourished patient who is awake, alert, jmm and in no acute distress. Head/Face: atraumatic. Eyes: EOMI, no conjunctival erythema appreciated ENT: Moist Mucus Membranes 17:12 Respiratory: Normal respirations, no respiratory distress appreciated Abdomen/GI: Non distended, soft Back: Normal ROM Skin: General appearance color normal MS/ Extremity: Moves all extremities, no obvious deformities appreciated, no edema noted to the lower extremities Neuro: Awake and alert Psych: Behavior is normal, Mood is normal, Patient is cooperative and pleasant 17:12 Neck: Abscess noted to the left lateral side of the neck. 17:12 Cardiovascular: Rate: normal, Rhythm: regular. 17:12 Respiratory: the patient does not display signs of respiratory distress, Respirations: normal, Breath sounds: are clear throughout. Vital Signs: 16:08 BP 141 / 86; Pulse 72; Resp 18; Temp 98.4(TE); Pulse Ox 100% ; Weight 117.93 kg; Height ab2 5 ft. 2 in. (157.48 cm); Pain 7/10; 20:10 BP 137 / 79; Pulse 68; Resp 17; Pulse Ox 99% on R/A; sm5 16:08 Body Mass Index 47.55 (117.93 kg, 157.48 cm) ab2 Procedures: 20:01 I \\T\\ D: Incision and drainage was performed for an abscess of the left left lateral jmm aspect of neck Prepped with Betadine, Anesthetized with 5 ml's 1% Lidocaine. Incised with #11 blade. Drained moderate amount Packed with iodoform gauze, Dressing: sterile 4x4 gauze, the patient tolerated the procedure well. MDM: 17:12 Patient medically screened. [facility] 20:01 Data reviewed: vital signs, nurses notes. Counseling: I had a detailed discussion with nakia the patient and/or guardian regarding: the historical points, exam findings, and any diagnostic results supporting the discharge/admit diagnosis, the need for outpatient follow up, to return to the emergency department if symptoms worsen or persist or if there are any questions or concerns that arise at home. Administered Medications: 17:47 Not Given (unavailable per pharmacy. BARRY Spence notified.): LET 3 ml - (Lidocaine ss Solution (4%) 1 application, EPINEPHrine Solution (0.1 %) 1 application, Tetracaine Solution (0.5 %) 1 application, Methylcellulose Powder 1 application) Topical once 19:20 Drug: [place] (HYDROcodone-acetaminophen) 10 mg-325 mg 1 tabs Route: PO; sm5 19:20 Drug: Valium (diazepam) 5 mg Route: PO; sm5 19:21 Drug: Lidocaine-Epinephrine -1%: (1:100,000) 20 ml {Note: administered by PA. Jordy} sm5 Volume: 20 ml; Route: Infiltration; Disposition Summary: 11/05/21 20:03 Discharge Ordered Location: Home [facility] Condition: Stable [facility] Diagnosis - Cutaneous abscess of neck [facility] Followup: [facility] - With: Clemente Craft MD - When: 2 - 3 days - Reason: Recheck today's complaints, Continuance of care, Re-evaluation by your physician Discharge Instructions: - Discharge Summary Sheet [facility] - Skin Abscess [facility] - Incision and Drainage, Care After jmm Forms: - Medication Reconciliation Form [facility] - Thank You Letter [facility] - Antibiotic Education [facility] - Prescription Opioid Use [facility] Prescriptions: - Doxycycline Hyclate 100 mg Oral Tablet - take 1 tablet by ORAL route every 12 hours; 20 tablet; Refills: 0, Product [facility] Selection Permitted - Ultracet 37.5-325 mg Oral Tablet - take 1 tablet by ORAL route every 6 hours - for up to 5 days; do not exceed 8 jmm tablets per day.; 12 tablet; Refills: 0, Product Selection Permitted Signatures: Jordy Larsen PA PA jmm Mazur, Sarah, RN RN sm5 Ander Pope Shelby RN ss
--- NOTE | 2021-11-05 20:04 | ER ---
Nurse's Notes [facility] Name: Neva Maharaj Age: 51 yrs Sex: Female : 1970 Arrival Date: 11/05/2021 Time: 15:54 Bed 9 Private MD: Diagnosis: Cutaneous abscess of neck Presentation: 11/05 16:08 Chief complaint: Patient states: "I have this lump on the back on my neck and it hurts. ab2 Its really hard and tender.". Coronavirus screen: Vaccine status: Patient reports receiving the 2nd dose of the covid vaccine. Client denies travel out of the [place] in the last 14 days. At this time, the client does not indicate any symptoms associated with coronavirus-19. Ebola Screen: Patient negative for fever greater than or equal to 101.5 degrees Fahrenheit, and additional compatible Ebola Virus Disease symptoms Patient denies exposure to infectious person. Patient denies travel to an Ebola-affected area in the 21 days before illness onset. No symptoms or risks identified at this time. Initial Sepsis Screen: Does the patient meet any 2 criteria? No. Patient's initial sepsis screen is negative. Does the patient have a suspected source of infection? No. Patient's initial sepsis screen is negative. Risk Assessment: Do you want to hurt yourself or someone else? Patient reports no desire to harm self or others. Onset of symptoms is unknown. 16:08 Method Of Arrival: Ambulatory ab2 16:08 Acuity: MAURICIO 4 ab2 Triage Assessment: 16:10 General: Appears in no apparent distress. comfortable, Behavior is calm, cooperative, ab2 appropriate for age. Pain: Complains of pain in left lateral aspect of neck Pain currently is 8 out of 10 on a pain scale. 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 - Social history:: Smoking status: Patient denies any tobacco usage or history of. Screenin:46 Abuse screen: Denies threats or abuse. Denies injuries from another. Nutritional ab2 screening: No deficits noted. Tuberculosis screening: No symptoms or risk factors identified. Fall Risk None identified. Assessment: 16:45 Pain: Complains of pain in neck and left lateral aspect of neck Pain currently is 8 out ab2 of 10 on a pain scale. Neuro: Level of Consciousness is awake, alert, obeys commands, Oriented to person, place, time, situation, Appropriate for age Guest History Clerk are equal bilaterally Moves all extremities. Gait is steady, Speech is normal, Facial symmetry appears normal. Cardiovascular: No deficits noted. Denies chest pain, shortness of breath, Heart tones S1 S2 present Patient's skin is warm and dry. Respiratory: Airway is patent Respiratory effort is even, unlabored, Respiratory pattern is regular, symmetrical, Breath sounds are clear bilaterally. GI: No deficits noted. No signs and/or symptoms were reported involving the gastrointestinal system. : No deficits noted. No signs and/or symptoms were reported regarding the genitourinary system. EENT: No deficits noted. No signs and/or symptoms were reported regarding the EENT system. Derm: Abscess located on neck and left lateral aspect of neck. Musculoskeletal: No deficits noted. No signs and/or symptoms reported regarding the musculoskeletal system. Vital Signs: 16:08 BP 141 / 86; Pulse 72; Resp 18; Temp 98.4(TE); Pulse Ox 100% ; Weight 117.93 kg; Height ab2 5 ft. 2 in. (157.48 cm); Pain 7/10; 20:10 BP 137 / 79; Pulse 68; Resp 17; Pulse Ox 99% on R/A; sm5 16:08 Body Mass Index 47.55 (117.93 kg, 157.48 cm) ab2 ED Course: 15:54 Patient arrived in ED. rg4 16:10 Triage completed. ab2 16:11 Arm band placed on left wrist. ab2 16:43 Jordy Larsen PA is PHCP. [facility] 16:43 Sallie Jacobson MD is Attending Physician. [facility] 16:46 Patient has correct armband on for positive identification. Bed in low position. Call ab2 light in reach. Side rails up X2. Adult w/ patient. 16:46 No provider procedures requiring assistance completed. ab2 17:40 Denita Paulson, JENNIFER is Primary Nurse. 20:02 Clemente Craft MD is Referral Physician. [facility] 20:09 Patient did not have IV access during this emergency room visit. 5 Administered Medications: 17:47 Not Given (unavailable per pharmacy. BARRY Spence notified.): LET 3 ml - (Lidocaine ss Solution (4%) 1 application, EPINEPHrine Solution (0.1 %) 1 application, Tetracaine Solution (0.5 %) 1 application, Methylcellulose Powder 1 application) Topical once 19:20 Drug: [place] (HYDROcodone-acetaminophen) 10 mg-325 mg 1 tabs Route: PO; sm5 19:20 Drug: Valium (diazepam) 5 mg Route: PO; sm5 19:21 Drug: Lidocaine-Epinephrine -1%: (1:100,000) 20 ml {Note: administered by BARRY Spence.} [facility] Volume: 20 ml; Route: Infiltration; Outcome: 20:03 Discharge ordered by . [facility] 20:09 Discharged to home ambulatory. [facility] 20:09 Condition: good 20:09 Discharge instructions given to patient, Instructed on discharge instructions, follow up and referral plans. medication usage, Demonstrated understanding of instructions, follow-up care, medications, Prescriptions given X 2. 20:10 Patient left the ED. [facility] Signatures: Jordy Larsen PA PA jmm Smirch, Shelby, Leora Mccloud RN 4 Radha Lobato RN RN 5 Ander Pope ab2
[2021-11-05 20:15] VITALS: TEMP 98.4
[2021-11-05 20:16] VITALS: BP 137/79; O2SAT 99
== END 2021-11-05 20:10 | disposition home or self-care (01) ==
LOC: ER 15:52
PROC: 0W960ZZ Drainage of Neck, Open Approach (ICD-10-PCS; principal; 2021-11-05)
DX: L02.11 Cutaneous abscess of neck (principal); I10 Essential (primary) hypertension; E78.00 Pure hypercholesterolemia, unspecified
CPT/HCPCS: 99283

== ENCOUNTER 2022-08-28 18:29 | Emergency (ER) | payer OTHER ==
--- OUTSIDE RECORDS SUMMARY | 2022-08-28 18:33 | XMS REPORT | Continuity of Care Document ---
:1970 Author Organization [facility] t Address [address] [place] [address] Care Team Providers Name Role Phone Asked, No Pcp Primary Care Physician Unavailable MORIAH ORDONEZ Attending Clinician Unavailable Jaki Rivera MD Attending Clinician Doctor Unassigned, [place] Attending Clinician Unavailable Charlette JONES Attending Clinician Unavailable Charlette Vasquez Attending Clinician Moriah Ordonez PA-C Attending Clinician Carole Gaspar MA Attending Clinician Unavailable MARTHA CAST Attending Clinician Unavailable Martha Cast DO Attending Clinician WIYL HERNANDEZ Attending Clinician Unavailable Nurse, Adc Pob Immunization Attending Clinician Unavailable Wily Hernandez DO Attending Clinician DR ARELI PRETTY Attending Clinician Unavailable NISSA HUANG Attending Clinician Unavailable Thierry Kendall MD Attending Clinician THIERRY KENDALL Attending Clinician Unavailable Kavon Jin MD Attending Clinician Charlette JONES Admitting Clinician Unavailable DR ARELI PRETTY Admitting Clinician Unavailable Payers Payer Name Policy Type Policy Number Effective Date Expiration Date [facility] [id number] 2019 PREFERRED GENERIC 00:00:00 Problems Condition Condition Condition Status Onset Resolution Last Treating Co mments Source Name Details Category Date Date Treatment Clinician Date Breast Breast Disease Active [facility] cancer cancer 5-05 [place] Morbid Morbid Disease Active 2015-09 Univers obesity obesity 1-18 [place] mass index 00 Me dical of of Branch 40.0-49.9 40.0-49.9 Allergies, Adverse Reactions, Alerts Allergy Allergy Status Severity Reaction(s) Onset Inactive Treating Comm ents Source Name Type Date Date Clinician NO KNOWN Drug Active Univers ALLERGIE Class ity of S [facility] Social History Social Habit Start Date Stop Date Quantity Comments Source History SDOH University o f Alcohol Comment [place] [facility] History SDOH University o f Alcohol Std [place] [facility] Drinks [facility] History SDVA University o f Alcohol Binge [place] [facility] Exposure to 2022-06-04 2022-06-14 Not sure University SARS-CoV-2 00:00:00 15:46:00 [facility] (event) Branch Alcohol intake 2022-06-14 2022-06-14 Ex-drinker University 00:00:00 00:00:00 (finding) [facility] Tobacco use and 2022-04-09 2022-04-09 Smokeless tobacco Un iversity of exposure 00:00:00 00:00:00 non-user [facility] History SDOH 2020-01-04 2020-01-04 2 University o f Alcohol Frequency 00:00:00 00:00:00 [facility] Sex Ass[birth year] At [birth year] Sabianism 00:00:00 00:00:00 Hospital Smoking Status Start Date Stop Date Source Tobacco smoking consumption Meth [facility] unknown Never smoked tobacco [facility] Medications Ordered Filled Start Stop Current Ordering Indication Dosage Frequency Signature Comments Components Source Medication Medication Date Date Medication? Clinician (SIG) Name Name polyethylen 2021-09 Yes [id number] 17g Take 17 g Univers e glycol 0-14 by mouth ity of 3350 00:00: in the [place] ([place]) 00 morning. Medica l 17 Branch gram/dose powder polyethylen 2021-09 Yes [id number] 17g Take 17 g Univers e glycol 0-14 by mouth ity of 3350 00:00: [place] the [place] ([place] 00 morning. Medica l 17 Branch gram/dose powder polyethylen 2021-1 Yes [id number] 17g Take 17 g Univers e glycol 0-14 by mouth ity of 3350 00:00: [place] the [place] ([place] 00 morning. Medica l 17 Branch gram/dose powder polyethylen 2-0 Yes [id number] 17g Take 17 g Univers e glycol 9-30 by mouth ity of 3350 00:00: [place] the [place] ([place]) 00 morning. Medica l 17 Branch gram/dose powder polyethylen 2-0 Yes [id number] 17g Take 17 g Univers e glycol 9-30 by mouth ity of 3350 00:00: [place] the [place] ([place]) 00 morning. Medica l 17 Branch gram/dose powder polyethylen 2-0 Yes [id number] 17g Take 17 g Univers e glycol 9-30 by mouth ity of 3350 00:00: [facility] [place] [facility] morning. Medica l 17 Branch gram/dose powder polyethylen 2-0 Yes [id number] 17g Take 17 g Univers e glycol 9-30 by mouth ity of 3350 00:00: in the [place] ([place]) 00 morning. Medica l 17 Branch gram/dose powder Yes Take by Univer s no122/iron/ 8-09 mouth. ity of folic acid 15:22: [place] ( 20 Medical MULTI ORAL) Branch Yes Take by Univer s no122/iron/ 8-09 mouth. ity of folic acid 15:22: [place] ( 20 Medical MULTI ORAL) Branch 0 Yes Take by Univer s no122/iron/ 8-09 mouth. ity of folic acid 15:22: [place] ( 20 Medical MULTI ORAL) Branch 0 Yes Take by Univer s no122/iron/ 8-09 mouth. ity of folic acid 15:22: [place] ( 20 Medical MULTI ORAL) Branch Yes Take by Univer s no122/iron/ 8-09 mouth. ity of folic acid 15:22: [place] ( 20 Medical MULTI ORAL) Branch 2022-0 Yes Take by Univer s no122/iron/ 8 mouth. ity of folic acid 15:22: [place] ( 20 Medical MULTI ORAL) Branch 0 Yes Take by Univer s no122/iron/ 8 mouth. ity of folic acid 15:22: [place] ( 20 Medical MULTI ORAL) Branch 0 Yes Take by Univer s no122/iron/ 8 mouth. ity of folic acid 15:22: [place] ( 20 Medical MULTI ORAL) Branch 0 Yes Take by Univer s no122/iron/ 8 mouth. ity of folic acid 15:22: [place] ( 20 Medical MULTI ORAL) Branch gabapentin 2020-0 Yes 300mg Take 300 Un [...] [place] 00 (two) Medical times Branch daily. traMADol 2019-0 Yes [id number] 50mg Take 1 Un kylee (ULTRAM) 50 8-07 tablet by ity of mg tablet 00:00: mouth [place] 00 every 6 Medical (six) Branch hours as needed for Pain (scale 7-10). ondansetron 2019-0 Yes [id number] 4mg Take 1 Univers (ZOFRAN) 4 8-07 tablet by ity of mg tablet 00:00: mouth [place] 00 every 8 Medical (eight) Branch hours as needed for Nausea and Vomiting (N/V). phenazopyri 2019-0 Yes [id number] 200mg Take 1 Univers dine 200 mg 8-07 tablet by ity of tablet 00:00: mouth 3 00 (three) Medical times Branch daily. traMADol 2019-0 Yes [id number] 50mg Take 1 Un kylee (ULTRAM) 50 8-07 tablet by ity of mg tablet 00:00: mouth [place] 00 every 6 Medical (six) Branch hours as needed for Pain (scale 7-10). ondansetron 2019-0 Yes [id number] 4mg Take 1 Univers (ZOFRAN) 4 8-07 tablet by ity of mg tablet 00:00: mouth [place] 00 every 8 Medical (eight) Branch hours as needed for Nausea and Vomiting (N/V). phenazopyri 2019-0 Yes [id number] 200mg Take 1 Univers dine 200 mg 8-07 tablet by ity of tablet 00:00: mouth 3 00 (three) Medical times Branch daily. traMADol 2019-0 Yes [id number] 50mg Take 1 Un kylee (ULTRAM) 50 8-07 tablet by ity of mg tablet 00:00: mouth [place] 00 every 6 Medical (six) Branch hours as needed for Pain (scale 7-10). ondansetron 2019-0 Yes [id number] 4mg Take 1 Univers (ZOFRAN) 4 8-07 tablet by ity of mg tablet 00:00: mouth [place] 00 every 8 Medical (eight) Branch hours as needed for Nausea and Vomiting (N/V). phenazopyri 2019-0 Yes [id number] 200mg Take 1 Univers dine 200 mg 8-07 tablet by ity of tablet 00:00: mouth 3 00 (three) Medical times Branch daily. traMADol 2019-0 Yes [id number] 50mg Take 1 Un kylee (ULTRAM) 50 8-07 tablet by ity of mg tablet 00:00: mouth [place] 00 every 6 Medical (six) Branch hours as needed for Pain (scale 7-10). ondansetron 2019-0 Yes [id number] 4mg Take 1 Univers (ZOFRAN) 4 8-07 tablet by ity of mg tablet 00:00: mouth [place] 00 every 8 Medical (eight) Branch hours as needed for Nausea and Vomiting (N/V). phenazopyri 2019-0 Yes [id number] 200mg Take 1 Univers dine 200 mg 8-07 tablet by ity of tablet 00:00: mouth 3 [place] 00 (three) Medical times Branch daily. traMADol 2019-0 Yes [id number] 50mg Take 1 Un kylee (ULTRAM) 50 8-07 tablet by ity of mg tablet 00:00: mouth [place] 00 every 6 Medical (six) Branch hours as needed for Pain (scale 7-10). ondansetron 2019-0 Yes [id number] 4mg Take 1 Univers (ZOFRAN) 4 8-07 tablet by ity of mg tablet 00:00: mouth [place] 00 every 8 Medical (eight) Branch hours as needed for Nausea and Vomiting (N/V). phenazopyri 2019-0 Yes [id number] 200mg Take 1 Univers dine 200 mg 8-07 tablet by ity of tablet 00:00: mouth 3 [place] 00 (three) Medical times Branch daily. traMADol 2019-0 Yes [id number] 50mg Take 1 Un kylee (ULTRAM) 50 8-07 tablet by ity of mg tablet 00:00: mouth [place] 00 every 6 Medical (six) Branch hours as needed for Pain (scale 7-10). ondansetron 2019-0 Yes [id number] 4mg Take 1 Univers (ZOFRAN) 4 8-07 tablet by ity of mg tablet 00:00: mouth [place] 00 every 8 Medical (eight) Branch hours as needed for Nausea and Vomiting (N/V). phenazopyri 2019-0 Yes [id number] 200mg Take 1 Univers dine 200 mg 8-07 tablet by ity of tablet 00:00: mouth 3 [place] 00 (three) Medical times Branch daily. traMADol 2019-0 Yes [id number] 50mg Take 1 Un kylee (ULTRAM) 50 8-07 tablet by ity of mg tablet 00:00: mouth [place] 00 every 6 Medical (six) Branch hours as needed for Pain (scale 7-10). ondansetron 2019-0 Yes [id number] 4mg Take 1 Univers (ZOFRAN) 4 8-07 tablet by ity of mg tablet 00:00: mouth [place] 00 every 8 Medical (eight) Branch hours as needed for Nausea and Vomiting (N/V). phenazopyri 2019-0 Yes [id number] 200mg Take 1 Univers dine 200 mg 8-07 tablet by ity of tablet 00:00: mouth 3 [place] 00 (three) Medical times Branch daily. traMADol 2019-0 Yes [id number] 50mg Take 1 Un kylee (ULTRAM) 50 8-07 tablet by ity of mg tablet 00:00: mouth [place] 00 every 6 Medical (six) Branch hours as needed for Pain (scale 7-10). ondansetron 2019-0 Yes [id number] 4mg Take 1 Univers (ZOFRAN) 4 8-07 tablet by ity of mg tablet 00:00: mouth [place] 00 every 8 Medical (eight) Branch hours as needed for Nausea and Vomiting (N/V). phenazopyri 2019-0 Yes [id number] 200mg Take 1 Univers dine 200 mg 8-07 tablet by ity of tablet 00:00: mouth 3 [place] 00 (three) Medical times Branch daily. traMADol 2019-0 Yes [id number] 50mg Take 1 Un kylee (ULTRAM) 50 8-07 tablet by ity of mg tablet 00:00: mouth [place] 00 every 6 Medical (six) Branch hours as needed for Pain (scale 7-10). ondansetron 2019-0 Yes [id number] 4mg Take 1 Univers (ZOFRAN) 4 8-07 tablet by ity of mg tablet 00:00: mouth [place] 00 every 8 Medical (eight) Branch hours as needed for Nausea and Vomiting (N/V). phenazopyri 2019-0 Yes [id number] 200mg Take 1 Univers dine 200 mg 8-07 tablet by ity of tablet 00:00: mouth 3 [place] 00 (three) Medical times Branch daily. atorvastati 2019-0 Yes TAKE 1 Univ ers n 10 mg 7-02 TABLET BY ity of tablet 00:00: MOUTH [place] 00 AFTER Medical EVENING Branch MEAL atorvastati 2019-0 Yes TAKE 1 Univ ers n 10 [...] 00 AFTER Medical EVENING Branch MEAL lisinopril 2019 Yes TAKE 1 Unive rs [...] MOUTH TWICE A Medical DAY Branch lisinopril Yes TAKE 1 Unive rs 10 mg 6-26 TABLET BY ity of tablet 00:00: MOUTH TWICE A Medical DAY Branch lisinopril Yes TAKE 1 Unive rs 10 mg 6-26 TABLET BY ity of tablet 00:00: MOUTH TWICE A Medical DAY Branch Immunizations Ordered Filled Immunization Date Status Comments [facility] e Immunization Name Name SARS-COV-2 COVID-19 2021-07-19 Completed Unive rsity of PFIZER VACCINE 00:00:00 [facility] SARS-COV-2 COVID-19 2021-07-19 Completed Unive rsity of PFIZER VACCINE 00:00:00 [facility] SARS-COV-2 COVID-19 2021-07-19 Completed Unive rsity of PFIZER VACCINE 00:00:00 [facility] SARS-COV-2 COVID-19 2021-07-19 Completed Unive rsity of PFIZER VACCINE 00:00:00 [facility] SARS-COV-2 COVID-19 2021-07-19 Completed Unive rsity of PFIZER VACCINE 00:00:00 [facility] SARS-COV-2 COVID-19 2021-07-19 Completed Unive rsity of PFIZER VACCINE 00:00:00 [facility] SARS-COV-2 COVID-19 2021-07-19 Completed Unive rsity of PFIZER VACCINE 00:00:00 [facility] SARS-COV-2 COVID-19 2021-07-19 Completed Unive rsity of PFIZER VACCINE 00:00:00 [facility] SARS-COV-2 COVID-19 2021-07-19 Completed Unive rsity of PFIZER VACCINE 00:00:00 [facility] SARS-COV-2 COVID-19 2020-12-14 Completed Unive rsity of PFIZER VACCINE 00:00:00 [facility] SARS-COV-2 COVID-19 2020-12-14 Completed Unive rsity of PFIZER VACCINE 00:00:00 [facility] SARS-COV-2 COVID-19 2020-12-14 Completed Unive rsity of PFIZER VACCINE 00:00:00 [facility] SARS-COV-2 COVID-19 2020-12-14 Completed Unive rsity of PFIZER VACCINE 00:00:00 [facility] SARS-COV-2 COVID-19 2020-12-14 Completed Unive rsity of PFIZER VACCINE 00:00:00 [facility] SARS-COV-2 COVID-19 2020-12-14 Completed Unive rsity of PFIZER VACCINE 00:00:00 [facility] SARS-COV-2 COVID-19 2020-12-14 Completed Unive rsity of PFIZER VACCINE 00:00:00 [facility] SARS-COV-2 COVID-19 2020-12-14 Completed Unive rsity of PFIZER VACCINE 00:00:00 [facility] SARS-COV-2 COVID-19 2020-12-14 Completed Unive rsity of PFIZER VACCINE 00:00:00 [facility] SARS-COV-2 COVID-19 2020-11-23 Completed Unive rsity of PFIZER VACCINE 00:00:00 [facility] SARS-COV-2 COVID-19 2020-11-23 Completed Unive rsity of PFIZER VACCINE 00:00:00 [facility] SARS-COV-2 COVID-19 2020-11-23 Completed Unive rsity of PFIZER VACCINE 00:00:00 [facility] SARS-COV-2 COVID-19 2020-11-23 Completed Unive rsity of PFIZER VACCINE 00:00:00 [facility] SARS-COV-2 COVID-19 2020-11-23 Completed Unive rsity of PFIZER VACCINE 00:00:00 [facility] SARS-COV-2 COVID-19 2020-11-23 Completed Unive rsity of PFIZER VACCINE 00:00:00 [facility] SARS-COV-2 COVID-19 2020-11-23 Completed Unive rsity of PFIZER VACCINE 00:00:00 [facility] SARS-COV-2 COVID-19 2020-11-23 Completed Unive rsity of PFIZER VACCINE 00:00:00 [facility] SARS-COV-2 COVID-19 2020-11-23 Completed Unive rsity of PFIZER VACCINE 00:00:00 [facility] TDAP 2017-12-03 Completed University of 00:00:00 [facility] TDAP 2017-12-03 Completed University of 00:00:00 [place] [facility] TDAP 2017-12-03 Completed University of 00:00:00 [place] [facility] TDAP 2017-12-03 Completed University of 00:00:00 [place] [facility] TDAP 2017-12-03 Completed University of 00:00:00 [place] [facility] TDAP 2017-12-03 Completed University of 00:00:00 [place] [facility] TDAP 2017-12-03 Completed University of 00:00:00 [place] [facility] TDAP 2017-12-03 Completed University of 00:00:00 [place] [facility] TDAP 2017-12-03 Completed University of 00:00:00 [place] [facility] Vital Signs Vital Name Observation Time Observation Value Comments Source Systolic blood 2022-06-14 21:14:00 135 mm[Hg] Univer sity of pressure [place] [facility] [place] Diastolic blood 2022-06-14 21:14:00 83 mm[Hg] Unive rsity of pressure [facility] Body temperature 2022-06-14 21:14:00 36.44 Fariba Univ ersity of [facility] Branch Respiratory rate 2022-06-14 21:14:00 18 /min Univ ersity of [facility] Branch Body height 2022-06-14 21:14:00 160 cm Universi ty of [place] [facility] Body weight 2022-06-14 21:14:00 121.11 kg Universi ty [facility] Medical [place] BMI 2022-06-14 21:14:00 47.30 kg/m2 Universi ty [facility] Medical Branch Systolic blood 2022-04-29 20:00:00 147 mm[Hg] Univer sity of pressure [place] [facility] Diastolic blood 2022-04-29 20:00:00 74 mm[Hg] Unive rsity of pressure [place] [facility] Heart rate 2022-04-29 20:00:00 86 /min Universi ty [facility] Medical Branch Body temperature 2022-04-29 20:00:00 36.61 Fariba Univ ersity of [place] [facility] Respiratory rate 2022-04-29 20:00:00 18 /min Univ ersity of [place] [facility] Body height 2022-04-29 20:00:00 160 cm Universi ty of [place] [facility] Body weight 2022-04-29 20:00:00 123.832 kg Universi ty [facility] BMI 2022-04-29 20:00:00 48.36 kg/m2 Universi ty [facility] Procedures Procedure Date / Time Performed Performing Clinician Sourc e EXTERNAL PROVIDER 2022-05-14 05:01:00 Doctor Unassigned, No Univ [facility] RECORDS Name Medical Branch POCT URINALYSIS W/O 2022-04-29 20:12:00 Jaki Rivera [facility] SPECIFIC GRAVITY [facility] Encounters Start End Encounter Admission Attending Care Care Encounter Source Date/Time Date/Time Type Type Clinicians Facility Department ID 2022-08-09 2022-08-09 Telemedici [facility] 1.2.840.114 [id number] Univers 16:45:00 17:00:00 ne Visit Jaki MOORE [id number] ity of [facility] [place] [phone] [address] 2022-08-09 2022-08-09 Outpatient R [facility] [id number] Univers 16:45:00 16:45:[facility] 2022-06-14 2022-06-14 Outpatient R [facility] [id number] Univers 16:00:00 16:44:30 JAKI [facility] 2022-06-14 2022-06-14 Office [facility] [id number] Univers 16:00:00 16:44:30 Visit Jaki MOORE [id number] i ty [place] [id number] [address] 2022-05-31 2022-05-31 Office [facility] [id number] Univers 16:30:00 17:00:00 Visit Jaki MOORE [id number] i ty of [facility] [id number] [id number] [address] 2022-05-31 2022-05-31 Outpatient R [facility] [id number] Univers 16:30:00 16:30:00 JAKI wiggins [facility] 2022-05-14 2022-05-14 Orders Doctor DANIKA 1.2.840.114 [id number] Univers 00:00:00 00:00:00 Only Unassigned, MEGHA 350.1.13.10 ity of [place] [facility] 4.2.7.2.[id number] [facility] [address] [place] 2022-04-29 2022-04-29 Out[facility] [id number] Univers 15:00:00 15:41:03 JAKI wiggins [facility] 2022-04-29 2022-04-29 [facility] 1.2.840.114 [id number] Univers 15:00:00 15:41:03 Visit Jaki MOORE [id number] i [place] [id number] Ny dicmd NAL 098 [facility] 2022-04-25 2022-04-25 Emergency X Charlette JONES [facility] ERT [id number] Univers 14:06:00 18:20:00 ity of [facility] 2022-04-25 2022-04-25 Emergency Charlette Jones [facility] 1.2.840.114 [id number] Univers 14:06:00 18:20:00 Angelica MOORE [id number] i [place] [address] [id number] [facility] [address] [place] 2022-04-10 2022-04-10 Telephone [facility] 1.2.840.114 [id number] Univers 00:00:00 00:00:00 Moriah MOORE [id number] i [place] [id number] Ny dical NAL 134 [facility] 2022-04-10 2022-04-10 Telephone [facility] 1.2.840.114 [id number] Univers 00:00:00 00:00:00 Moriah MOORE [id number] i ty of [facility] [place] [id number] [address] 2022-04-09 2022-04-09 Office José Luis [facility] [id number] Univers 15:00:00 16:06:35 Visit Moriah MOORE [id number] i [place] [id number] [address] 2022-04-09 2022-04-09 Outpatient R JOSÉ LUIS [facility] [id number] Univers 15:00:00 16:06:35 MORIAH wiggins [facility] 2022-04-09 2022-04-09 Outpatient R JOSÉ LUIS [facility] [id number] Univers 15:00:00 15:00:00 [facility] 2022-04-09 2022-04-09 Orders Doctor DANIKA 1.2.840.114 [id number] Univers 00:00:00 00:00:00 Only Unassigned, MEGHA 350.1.13.10 ity of [place] [facility] 4.2.7.2.[id number] [facility] [address] [place] 2022-04-02 2022-04-02 Pre Visit MAURA Gaspar [id number] Univers 00:00:00 00:00:00 Outreach Carole IQBALY 350.1.13.10 ity of [place] 4[place].2.[address] [place] [id number] [facility] [address] [place] 2022-02-13 2022-02-13 Outpatient [facility] [id number] Univers 10:30:00 10:30:00 MORIAH feliciano [facility] 2021-08-23 2021-08-23 Emergency X [facility] ERT [id number] Univers 14:27:00 15:48:00 MARTHA feliciano [facility] 2021-08-23 2021-08-23 Emergency [facility] [id number] Univers 14:27:00 15:48:00 Martha MOORE 350.1.13.10 [place] [id number] [facility] [address] [place] 2021-07-19 2021-07-19 Outpatient Enrike HERNANDEZ [facility] [id number] Univers 16:20:00 16:14:22 WILY itjerrica of [facility] 2021-07-19 2021-07-19 Imm/Inj Nurse, Adc Pob Immunization [facility] 1.2.840.114 [id number] Univers 16:13:43 16:14:22 Visit Wily Hernandez 350.1.13 .10 [place] [id number] Ny dical NAL 421 [facility] 2021-04-13 2021-04-13 Outpatient Shannen PRETTY [facility] [id number] [place] 06:00:00 06:00:00 [facility] 2021-03-07 2021-03-07 Orders Doctor DANIKA 1.2.840.114 [id number] Univers 00:00:00 00:00:00 Only Unassigned, MEGHA 350.1.13.10 ity of [place] [facility] 4.2.7.2.[id number] [facility] [address] [place] 2021-02-28 2021-02-28 Telephone [facility] 1.2.840.114 [id number] Univers 00:00:00 00:00:00 Moriah Moore 350.1.13.10 i ty [place] [phone] Ny dical nal 134 [facility] 2021-02-12 2021-02-12 Orders Doctor DANIKA 1.2.840.114 [id number] Univers 00:00:00 00:00:00 Only Unassigned, MEGHA 350.1.13.10 ity of [place] [facility] 4.2.7.2.[id number] [facility] [address] [place] 2021-02-09 2021-02-09 Telephone [facility] 1.2.840.114 [id number] Univers 00:00:00 00:00:00 Moriah Moore 350.1.13.10 i ty of [place] [phone] Ny dical nal [address] [place] [address] 2021-01-17 2021-01-17 Outpatient R JOSÉ LUIS [facility] [id number] Univers 00:00:00 00:00:00 MORIAH jerrica [facility] 2021-01-12 2021-01-12 Outpatient R JOSÉ LUIS [facility] [id number] Univers 00:00:00 00:00:00 MORIAH [facility] 2021-01-08 2021-01-08 Office [facility] [id number] Univers 14:50:11 16:24:09 Visit Moriah Moore 350.1.13.10 i ty [place] [id number] [address] 2021-01-08 2021-01-08 Outpatient R JOSÉ LUIS [facility] [id number] Univers 15:30:00 15:30:00 [facility] 2021-01-03 Outpatient Enrike ORDONEZ [facility] [id number] Univers 09:00:00 09:00:00 [facility] 2020-12-14 2020-12-14 Outpatient Enrike HUANG [facility] [id number] Univers 15:00:00 15:00:00 NISSA [facility] 2020-11-23 2020-11-23 Outpatient Enrike HUANG [facility] [id number] Univers 15:00:00 15:00:00 NISSA [facility] 2020-02-29 2020-02-29 [facility] Faiza [facility] 1.2.840.114 [id number] Univers 08:13:00 23:59:00 Encounter Caden [place] 350.1.13.10 it[place] of [place] [id number] [address] 2020-02-29 2020-02-29 [facility] Thierry Kendall [facility] 1.2.840.114 [id number] 08:13:00 23:59:00 Encounter Cam [place] 350.1.13.10 [place] 4.2.7.2.686 [place] [id number] [facility] 2020-02-29 2020-02-29 Outpatient R THIERRY KENDALL [facility] [id number] Univers 00:00:00 00:00:00 ity of [facility] 2020-01-04 2020-01-04 Office Thierry Kendall [facility] [id number] Univers 14:54:30 15:46:34 Visit [place] [id number] i [id number] [facility] [phone] [place] [address] 2020-01-04 2020-01-04 Office Thierry Kendall [facility] [id number] 14:54:30 15:46:34 Visit Caden Moore [id number] [place] [id number] [facility] [phone] [address] 2020-01-04 2020-01-04 Outpatient R FAIZA [facility] [id number] Univers 15:00:00 15:00:00 ity of [facility] 2020-01-04 2020-01-04 Orders Doctor DANIKA [id number] Univers 00:00:00 00:00:00 Only Unassigned, MEGHA [id number] ity of [place] [facility] [phone] [facility] [address] 2019-04-07 2019-04-07 Emergency Charlette Jones [facility] [id number] Univers 20:58:55 23:47:00 Kavon Jin S [place] [id number] [id number] [phone] [facility] [address] [place] 2019-04-07 2019-04-07 Orders Doctor GARNICA [id number] Univers 00:00:00 00:00:00 Only Unassigned, MEGHA [id number] ity of [place] [facility] [id number] [place] [phone] [address] Results Test Description Test Time Test Comments Results Result Comments Source POCT URINALYSIS W/O SPECIFIC GRAVITY 2022-04-29 20:12:00 Test Item Value Reference Range Interpretation Comme nts POCT PH U (test code = 3254) 6 mg/dl 5-8 POCT U LEUK EST (test code = negative Negative - Negative 3263) POCT U NIT (test code = 3262) negative Negative - Negative POCT U PROT (test code = 3259) negative Negative - Negative POCT U GLU (test code = 3256) negative Negative - Negative POCT U KETONE (test code = negative Negative - Negative 3258) POCT U BLD (test code = 3257) negative Negative - Negative ROSAMARIA (test code = ROSAMARIA) Per order PVR by bladder scan = 7 ml. Results reported to provider. ? [facility] [id number] 20:12:00 Test Item Value Reference Range Interpretation Comments POCT PH U (test code 6 mg/dl 5-8 = 3254) POCT U LEUK EST negative Negative - Negative (test code = 3263) POCT U NIT (test negative Negative - Negative code = 3262) POCT U PROT (test negative Negative - Negative code = 3259) POCT U GLU (test negative Negative - Negative code = 3256) POCT U KETONE (test negative Negative - Negative code = 3258) POCT U BLD (test negative Negative - Negative code = 3257) ROSAMARIA (test code = Per order PVR by ROSAMARIA) bladder scan = 7 ml. Results reported to provider. ? [facility]
[2022-08-28 20:00] LABS: Urine Blood 3+ (Negative); Urine Glucose Negative (Negative); Urine Protein 1+ (Negative); Urine pH 5.5 (5.0-7.0)
--- NOTE | 2022-08-28 20:10 | EDPHYS ---
Physician Documentation [facility] Name: Neva Maharaj Age: 52 yrs Sex: Female : 1970 Arrival Date: 08/28/2022 Time: 18:31 Bed IW2 Private MD: Evgeny Bustillos C ED Physician Denis Sherwood HPI: 08/28 20:11 This 52 yrs old Female presents to ER via Unassigned with complaints of Pain snw With Urination. 20:11 The patient presents with urinary symptoms, dysuria, frequency, urgency. Onset: The snw symptoms/episode began/occurred suddenly, today. Associated signs and symptoms: The patient has no apparent associated signs or symptoms. Severity of symptoms: At their worst the symptoms were moderate. The patient has experienced similar episodes in the past. It is unknown whether or not the patient has recently seen a physician. 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 - Social history:: Smoking status: unknown. ROS: 20:10 Constitutional: Negative for fever, chills, and weight loss, Eyes: Negative for injury, snw pain, redness, and discharge, ENT: Negative for injury, pain, and discharge, Neck: Negative for injury, pain, and swelling, Cardiovascular: Negative for chest pain, palpitations, and edema, Respiratory: Negative for shortness of breath, cough, wheezing, and pleuritic chest pain, Abdomen/GI: Negative for abdominal pain, nausea, vomiting, diarrhea, and constipation, Back: Negative for injury and pain, MS/Extremity: Negative for injury and deformity, Skin: Negative for injury, rash, and discoloration, Neuro: Negative for headache, weakness, numbness, tingling, and seizure, Psych: Negative for depression, anxiety, suicide ideation, homicidal ideation, and hallucinations. 20:10 : Positive for urinary symptoms, urinary frequency, burning with urination. Exam: 20:09 Constitutional: This is a well developed, well nourished patient who is awake, alert, snw and in no acute distress. Head/Face: Normocephalic, atraumatic. Eyes: Pupils equal round and reactive to light, extra-ocular motions intact. Lids and lashes normal. Conjunctiva and sclera are non-icteric and not injected. Cornea within normal limits. Periorbital areas with no swelling, redness, or edema. ENT: Nares patent. No nasal discharge, no septal abnormalities noted. Tympanic membranes are normal and external auditory canals are clear. Oropharynx with no redness, swelling, or masses, exudates, or evidence of obstruction, uvula midline. Mucous membranes moist. Neck: Trachea midline, no thyromegaly or masses palpated, and no cervical lymphadenopathy. Supple, full range of motion without nuchal rigidity, or vertebral point tenderness. No Meningismus. Chest/axilla: Normal chest wall appearance and motion. Nontender with no deformity. No lesions are appreciated. 20:09 Respiratory: Lungs have equal breath sounds bilaterally, clear to auscultation and percussion. No rales, rhonchi or wheezes noted. No increased work of breathing, no retractions or nasal flaring. Abdomen/GI: Soft, non-tender, with normal bowel sounds. No distension or tympany. No guarding or rebound. No evidence of tenderness throughout. Back: No spinal tenderness. No costovertebral tenderness. Full range of motion. Skin: Warm, dry with normal turgor. Normal color with no rashes, no lesions, and no evidence of cellulitis. MS/ Extremity: Pulses equal, no cyanosis. Neurovascular intact. Full, normal range of motion. Neuro: Awake and alert, GCS 15, oriented to person, place, time, and situation. Cranial nerves II-XII grossly intact. Motor strength 5/5 in all extremities. Sensory grossly intact. Cerebellar exam normal. Normal gait. Psych: Awake, alert, with orientation to person, place and time. Behavior, mood, and affect are within normal limits. 20:09 Cardiovascular: Rate: tachycardic, Rhythm: regular. Vital Signs: 19:39 BP 136 / 65; Pulse 90; Resp 16 S; Temp 98.2(O); Pulse Ox 99% on R/A; Weight 120.2 kg bb (R); Height 5 ft. 3 in. (160.02 cm) (R); Pain 7/10; 19:39 Body Mass Index 46.94 (120.20 kg, 160.02 cm) bb MDM: 20:04 Patient medically screened. snw 20:10 Data reviewed: vital signs, nurses notes. Data interpreted: Pulse oximetry: on room air snw is 99 %. Interpretation: normal. Counseling: I had a detailed discussion with the patient and/or guardian regarding: the historical points, exam findings, and any diagnostic results supporting the discharge/admit diagnosis, lab results. Special discussion: Based on the history and exam findings, there is no indication for further emergent testing or inpatient evaluation. I discussed with the patient/guardian the need to see the primary care provider for further evaluation of the symptoms. 08/28 18:58 Order name: Urine Culture snw 08/28 18:58 Order name: Urine Microscopic Only snw 08/28 18:58 Order name: Urine Dipstick-Ancillary (obtain specimen); Complete Time: 20:04 snw 08/28 20:00 Order name: Urine Dipstick-Ancillary; Complete Time: 20:02 EDMS Administered Medications: 20:23 Drug: Rocephin (cefTRIAXone) 1 grams Route: IM; Site: right gluteus; cg 20:23 Drug: Pyridium (phenazopyridine) 200 mg Route: PO; cg Disposition Summary: 08/28/22 20:09 Discharge Ordered Location: Home snw Condition: Stable snw Diagnosis - UTI/ Urinary tract infection, site not specified snw - Dysuria snw Followup: snw - With: Emergency Department - When: As needed - Reason: Worsening of condition Followup: snw - With: - When: 2 - 3 days - Reason: Recheck today's complaints, Continuance of care, Re-evaluation by your physician Discharge Instructions: - Discharge Summary Sheet snw - Dysuria snw - Urinary Tract Infection, Adult snw - Rehydration, Adult snw Forms: - Work release form snw - Medication Reconciliation Form snw - Thank You Letter snw - Antibiotic Education snw - Prescription Opioid Use snw Prescriptions: - Augmentin 875-125 mg Oral Tablet - take 1 tablet by ORAL route every 12 hours for 10 days; 20 tablet; Refills: 0, snw Product Selection Permitted Signatures: Dispatcher [employer] Germaine Anton, ADALBERTO-C FIELDWORK COORDINATOR-Zair[place] Lauren Wilhelm, RN RN Camilla Mike RN RN cg
--- NOTE | 2022-08-28 20:10 | ER ---
Nurse's Notes [facility] Name: Neva Maharaj Age: 52 yrs Sex: Female : 1970 Arrival Date: 08/28/2022 Time: 18:31 Bed IW2 Private MD: Evgeny Bustillos C Diagnosis: UTI/ Urinary tract infection, site not specified;Dysuria Presentation: 08/28 19:39 Chief complaint: Patient states: she started having burning with urination today the bb pain got too bad to see her PCP. Coronavirus screen: At this time, the client does not indicate any symptoms associated with coronavirus-19. Ebola Screen: No symptoms or risks identified at this time. Initial Sepsis Screen: Does the patient meet any 2 criteria? No. Patient's initial sepsis screen is negative. Does the patient have a suspected source of infection? No. Patient's initial sepsis screen is negative. Risk Assessment: Do you want to hurt yourself or someone else? Patient reports no desire to harm self or others. Onset of symptoms was August 28, 2022. 19:39 Acuity: MAURICIO 4 bb Triage Assessment: 19:42 General: Appears in no apparent distress. Behavior is calm, cooperative. Pain: bb Complains of pain in pelvis Pain currently is 7 out of 10 on a pain scale. Neuro: Level of Consciousness is awake, alert, obeys commands, Oriented to person, place, time, situation. Cardiovascular: No deficits noted. Respiratory: Respiratory effort is even, unlabored. GI: No signs and/or symptoms were reported involving the gastrointestinal system. : Reports burning with urination. Derm: Skin is pink, warm \\T\\ dry. Musculoskeletal: Circulation, motion, and sensation intact. 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 - Social history:: Smoking status: unknown. Screenin:29 [facility] ED Fall Risk Assessment (Adult) History of falling in the last 3 months, cg including since admission No falls in past 3 months (0 pts) Confusion or Disorientation No (0 pts) Intoxicated or Sedated No (0 pts) Impaired Gait No (0 pts) Mobility Assist Device Used No (0 pt) Altered Elimination No (0 pt) Score/Fall Risk Level 0 - 2 = Low Risk Oriented to surroundings, Maintained a safe environment. Abuse screen: Denies threats or abuse. Denies injuries from another. Nutritional screening: No deficits noted. Tuberculosis screening: No symptoms or risk factors identified. Vital Signs: 19:39 BP 136 / 65; Pulse 90; Resp 16 S; Temp 98.2(O); Pulse Ox 99% on R/A; Weight 120.2 kg bb (R); Height 5 ft. 3 in. (160.02 cm) (R); Pain 7/10; 19:39 Body Mass Index 46.94 (120.20 kg, 160.02 cm) bb ED Course: 18:31 Patient arrived in ED. am2 18:32 Evgeny Bustillos MD is Private Physician. am2 18:56 [facility] Kraus [facility]-C [facility]. snw 18:56 Denis Sherwood MD is Attending Physician. snw 19:42 Triage completed. bb 19:42 Arm band placed on Patient placed in waiting room, Patient notified of wait time. Urine bb obtained. lab ordered. 20:09 Evgeny Bustillos MD is Referral Physician. snw 20:22 Urine Culture Sent. wm 20:22 Urine Microscopic Only Sent. wm 20:29 Patient has correct armband on for positive identification. Placed in gown. Bed in low cg position. 20:29 No provider procedures requiring assistance completed. Patient did not have IV access cg during this emergency room visit. Administered Medications: 20:23 Drug: Rocephin (cefTRIAXone) 1 grams Route: IM; Site: right gluteus; cg 20:23 Drug: Pyridium (phenazopyridine) 200 mg Route: PO; cg Medication: 20:28 VIS not applicable for this client. cg Outcome: 20:09 Discharge ordered by . snw 20:29 Discharged to home ambulatory, with family. cg 20:29 Condition: stable 20:29 Discharge instructions given to patient, family, Instructed on discharge instructions, follow up and referral plans. medication usage, Demonstrated understanding of instructions, follow-up care, medications, Prescriptions given X 1. 20:30 Patient left the ED. cg Signatures: Germaine Kraus FNP-C FNP-Lauren Pedraza, RN RN bb Camilla Green RN RN cg June Hanks Wendy
[2022-08-28] MEDS ORDERED: CEFTRIAXONE 1000 MG/VIAL ONE (20:12)
[2022-08-28] MEDS ORDERED: PHENAZOPYRIDINE 100MG TAB PO ONE (20:12)
[2022-08-28] MEDS ORDERED: WATER FOR INJ,STERILE 10 ML ONE (20:14)
[2022-08-28 20:35] VITALS: BP 136/65; TEMP 98.2; O2SAT 99
[2022-08-28 20:43] LABS: Urine Bacteria <20 /HPF (<20); Urine Mucus Slight /HPF (None Seen); Urine RBC >50 /HPF (None Seen)
== END 2022-08-28 20:30 | disposition home or self-care (01) ==
LOC: ER 18:29
DX: N39.0 Urinary tract infection, site not specified (principal)
CPT/HCPCS: 81003; 81015; 87086; 87088

== ENCOUNTER 2022-10-12 10:06 | Emergency (ER) | payer OTHER ==
--- OUTSIDE RECORDS SUMMARY | 2022-10-12 10:11 | XMS REPORT | Continuity of Care Document ---
:1970 Author Organization [facility] t Address [address] [place] [address] Care Team Providers Name Role Phone Asked, No Pcp Primary Care Physician Unavailable MORIAH ORDONEZ Attending Clinician Unavailable Jaki Rivera MD Attending Clinician Doctor Unassigned, [place] Attending Clinician Unavailable Charlette JONES Attending Clinician Unavailable Charlette Vasquez Attending Clinician Moriah Ordonez PA-C Attending Clinician Carole Gaspar MA Attending Clinician Unavailable MARTHA CAST Attending Clinician Unavailable Martha Cast DO Attending Clinician WILY HERNANDEZ Attending Clinician Unavailable Nurse, Adc Pob [...] Type Policy Number Effective Date Expiration Date [facility] [id number] 2019 PREFERRED GENERIC 00:00:00 Problems Condition Condition Condition Status Onset Resolution Last Treating Co mments Source Name Details Category Date Date Treatment Clinician Date Breast Breast Disease Active [facility] cancer cancer 5-05 ity of [...] Active Univers ALLERGIE Class ity of S [facility] Social History Social Habit Start Date Stop Date Quantity Comments Source History SDOH University o f Alcohol Comment [place] [facility] History SDOH University o f Alcohol Std [place] [facility] Drinks [facility] History SDTN University o f Alcohol Binge [place] [facility] Exposure to 2022-06-04 2022-06-14 Not sure University SARS-CoV-2 00:00:00 15:46:00 [facility] (event) Branch Alcohol intake 2022-06-14 2022-06-14 Ex-drinker University 00:00:00 00:00:00 (finding) [facility] Tobacco use and 2022-04-09 2022-04-09 Smokeless tobacco Un iversity of exposure 00:00:00 00:00:00 non-user [facility] History SDOH 2020-01-04 2020-01-04 2 University o f Alcohol Frequency 00:00:00 00:00:00 [facility] Sex Assigned At [birth year] [facility] 00:00:00 00:00:00 Hospital Smoking Status Start Date Stop Date Source Tobacco smoking consumption Meth [facility] unknown Never smoked tobacco [facility] Medications Ordered Filled Start Stop Current Ordering Indication Dosage Frequency Signature Comments Components Source Medication Medication Date Date Medication? Clinician (SIG) Name Name polyethylen 2021-09 Yes [id number] 17g Take 17 g Univers e glycol 0-14 by mouth ity of 3350 00:00: in the [place] (MIRALAX) 00 morning. Medica l 17 Branch gram/dose powder polyethylen 2021-09 Yes [id number] 17g Take 17 g Univers e glycol 0-14 by mouth ity of 3350 00:00: in the [place] (MIRALAX) 00 morning. Medica l 17 Branch gram/dose powder polyethylen 2021-1 Yes [id number] 17g Take 17 g Univers e glycol 0-14 by mouth ity of 3350 00:00: in the [place] (MIRALAX) 00 morning. Medica l 17 Branch gram/dose powder polyethylen 2-0 Yes [id number] 17g Take 17 g Univers e glycol 9-30 by mouth ity of 3350 00:00: in the [place] (MIRALAX) 00 morning. Medica l 17 Branch gram/dose powder polyethylen 2-0 Yes [id number] 17g Take 17 g Univers e glycol 9-30 by mouth ity of 3350 00:00: in the [place] (MIRALAX) 00 morning. Medica l 17 Branch gram/dose powder polyethylen 2-0 Yes [id number] 17g Take 17 g Univers e glycol 9-30 by mouth ity of 3350 00:00: in the [place] [facility] morning. Medica l 17 Branch gram/dose powder polyethylen 2-0 Yes [id number] 17g Take 17 g Univers e glycol 9-30 by mouth ity of 3350 00:00: in the [place] (MIRALAX) 00 morning. Medica l 17 Branch gram/dose powder Yes Take by Univer s no122/iron/ 8-09 mouth. ity of folic acid 15:22: [place] ( 20 Medical MULTI ORAL) Branch Yes Take by Univer s no122/iron/ 8-09 mouth. ity of folic acid 15:22: [place] ( 20 Medical MULTI ORAL) Branch 0 Yes Take by Univer s no122/iron/ 8-09 mouth. ity of folic acid 15:22: [place] ( 20 Medical MULTI ORAL) Branch 0 Yes Take by Univer s no122/iron/ 8-09 mouth. ity of folic acid 15:22: [place] ( 20 Medical MULTI ORAL) Branch Yes Take by Univer s no122/iron/ 8-09 mouth. ity of folic acid 15:22: [place] ( 20 Medical MULTI ORAL) Branch 2022-0 Yes Take by Univer s no122/iron/ 8 mouth. ity of folic acid 15:22: [place] ( 20 Medical MULTI ORAL) Branch 0 Yes Take by Univer s no122/iron/ 8 mouth. ity of folic acid 15:22: [place] ( 20 Medical MULTI ORAL) Branch 0 Yes Take by Univer s no122/iron/ 8 mouth. ity of folic acid 15:22: [place] ( 20 Medical MULTI ORAL) Branch 0 Yes Take by Univer s no122/iron/ 8 mouth. ity of folic acid 15:22: [place] ( 20 Medical MULTI ORAL) Branch gabapentin [...] Medical times Branch daily. traMADol 2019-0 Yes [id number] 50mg Take 1 Un kylee (ULTRAM) 50 8-07 tablet by ity of mg tablet 00:00: mouth [place] 00 every 6 Medical (six) Branch hours as needed for Pain (scale 7-10). ondansetron 2019-0 Yes [id number] 4mg Take 1 Univers (ZOFRAN) 4 8-07 tablet by ity of mg tablet 00:00: mouth [place] 00 every 8 Medical (eight) Branch hours as needed for Nausea and Vomiting (N/V). phenazopyri 2019-0 Yes [id number] 200mg Take 1 Univers dine 200 mg 8-07 tablet by ity of tablet 00:00: mouth 3 00 (three) Medical times Branch daily. traMADol 2019-0 Yes [id number] 50mg Take 1 Un kylee (ULTRAM) 50 8-07 tablet by ity of mg tablet 00:00: mouth [place] 00 every 6 Medical (six) Branch hours as needed for Pain (scale 7-10). ondansetron 2019-0 Yes [id number] 4mg Take 1 Univers (ZOFRAN) 4 8-07 tablet by ity of mg tablet 00:00: mouth [place] 00 every 8 Medical (eight) Branch hours as needed for Nausea and Vomiting (N/V). phenazopyri 2019-0 Yes [id number] 200mg Take 1 Univers dine 200 mg 8-07 tablet by ity of tablet 00:00: mouth 3 00 (three) Medical times Branch daily. traMADol 2019-0 Yes [id number] 50mg Take 1 Un kylee (ULTRAM) 50 8-07 tablet by ity of mg tablet 00:00: mouth [place] 00 every 6 Medical (six) Branch hours as needed for Pain (scale 7-10). ondansetron 2019-0 Yes [id number] 4mg Take 1 Univers (ZOFRAN) 4 8-07 tablet by ity of mg tablet 00:00: mouth [place] 00 every 8 Medical (eight) Branch hours as needed for Nausea and Vomiting (N/V). phenazopyri 2019-0 Yes [id number] 200mg Take 1 Univers dine 200 mg 8-07 tablet by ity of tablet 00:00: mouth 3 00 (three) Medical times Branch daily. traMADol 2019-0 Yes [id number] 50mg Take 1 Un kylee (ULTRAM) 50 8-07 tablet by ity of mg tablet 00:00: mouth [place] 00 every 6 Medical (six) Branch hours as needed for Pain (scale 7-10). ondansetron 2019-0 Yes [id number] 4mg Take 1 Univers (ZOFRAN) 4 8-07 tablet by ity of mg tablet 00:00: mouth [place] 00 every 8 Medical (eight) Branch hours as needed for Nausea and Vomiting (N/V). phenazopyri 2019-0 Yes [id number] 200mg Take 1 Univers dine 200 mg 8-07 tablet by ity of tablet 00:00: mouth 3 [place] 00 (three) Medical times Branch daily. traMADol 2019-0 Yes [id number] 50mg Take 1 Un kylee (ULTRAM) 50 8-07 tablet by ity of mg tablet 00:00: mouth [place] 00 every 6 Medical (six) Branch hours as needed for Pain (scale 7-10). ondansetron 2019-0 Yes [id number] 4mg Take 1 Univers (ZOFRAN) 4 8-07 tablet by ity of mg tablet 00:00: mouth [place] 00 every 8 Medical (eight) Branch hours as needed for Nausea and Vomiting (N/V). phenazopyri 2019-0 Yes [id number] 200mg Take 1 Univers dine 200 mg 8-07 tablet by ity of tablet 00:00: mouth 3 [place] 00 (three) Medical times Branch daily. traMADol 2019-0 Yes [id number] 50mg Take 1 Un kylee (ULTRAM) 50 8-07 tablet by ity of mg tablet 00:00: mouth [place] 00 every 6 Medical (six) Branch hours as needed for Pain (scale 7-10). ondansetron 2019-0 Yes [id number] 4mg Take 1 Univers (ZOFRAN) 4 8-07 tablet by ity of mg tablet 00:00: mouth [place] 00 every 8 Medical (eight) Branch hours as needed for Nausea and Vomiting (N/V). phenazopyri 2019-0 Yes [id number] 200mg Take 1 Univers dine 200 mg 8-07 tablet by ity of tablet 00:00: mouth 3 [place] 00 (three) Medical times Branch daily. traMADol 2019-0 Yes [id number] 50mg Take 1 Un kylee (ULTRAM) 50 8-07 tablet by ity of mg tablet 00:00: mouth [place] 00 every 6 Medical (six) Branch hours as needed for Pain (scale 7-10). ondansetron 2019-0 Yes [id number] 4mg Take 1 Univers (ZOFRAN) 4 8-07 tablet by ity of mg tablet 00:00: mouth [place] 00 every 8 Medical (eight) Branch hours as needed for Nausea and Vomiting (N/V). phenazopyri 2019-0 Yes [id number] 200mg Take 1 Univers dine 200 mg 8-07 tablet by ity of tablet 00:00: mouth 3 [place] 00 (three) Medical times Branch daily. traMADol 2019-0 Yes [id number] 50mg Take 1 Un kylee (ULTRAM) 50 8-07 tablet by ity of mg tablet 00:00: mouth [place] 00 every 6 Medical (six) Branch hours as needed for Pain (scale 7-10). ondansetron 2019-0 Yes [id number] 4mg Take 1 Univers (ZOFRAN) 4 8-07 tablet by ity of mg tablet 00:00: mouth [place] 00 every 8 Medical (eight) Branch hours as needed for Nausea and Vomiting (N/V). phenazopyri 2019-0 Yes [id number] 200mg Take 1 Univers dine 200 mg 8-07 tablet by ity of tablet 00:00: mouth 3 [place] 00 (three) Medical times Branch daily. traMADol 2019-0 Yes [id number] 50mg Take 1 Un kylee (ULTRAM) 50 8-07 tablet by ity of mg tablet 00:00: mouth [place] 00 every 6 Medical (six) Branch hours as needed for Pain (scale 7-10). ondansetron 2019-0 Yes [id number] 4mg Take 1 Univers (ZOFRAN) 4 8-07 tablet by ity of mg tablet 00:00: mouth [place] 00 every 8 Medical (eight) Branch hours as needed for Nausea and Vomiting (N/V). phenazopyri 2019-0 Yes [id number] 200mg Take 1 Univers dine 200 mg [...] Immunizations Ordered Filled Immunization Date Status Comments [facility] e Immunization Name Name SARS-COV-2 COVID-19 2021-07-19 Completed Unive rsity of PFIZER VACCINE 00:00:00 [facility] SARS-COV-2 COVID-19 2021-07-19 Completed Unive rsity of PFIZER VACCINE 00:00:00 [facility] SARS-COV-2 COVID-19 2021-07-19 Completed Unive rsity of PFIZER VACCINE 00:00:00 [facility] SARS-COV-2 COVID-19 2021-07-19 Completed Unive rsity of PFIZER VACCINE 00:00:00 [facility] SARS-COV-2 COVID-19 2021-07-19 Completed Unive rsity of PFIZER VACCINE 00:00:00 [facility] SARS-COV-2 COVID-19 2021-07-19 Completed Unive rsity of PFIZER VACCINE 00:00:00 [facility] SARS-COV-2 COVID-19 2021-07-19 Completed Unive rsity of PFIZER VACCINE 00:00:00 [facility] SARS-COV-2 COVID-19 2021-07-19 Completed Unive rsity of PFIZER VACCINE 00:00:00 [facility] SARS-COV-2 COVID-19 2021-07-19 Completed Unive rsity of PFIZER VACCINE 00:00:00 [facility] SARS-COV-2 COVID-19 2020-12-14 Completed Unive rsity of PFIZER VACCINE 00:00:00 [facility] SARS-COV-2 COVID-19 2020-12-14 Completed Unive rsity of PFIZER VACCINE 00:00:00 [facility] SARS-COV-2 COVID-19 2020-12-14 Completed Unive rsity of PFIZER VACCINE 00:00:00 [facility] SARS-COV-2 COVID-19 2020-12-14 Completed Unive rsity of PFIZER VACCINE 00:00:00 [facility] SARS-COV-2 COVID-19 2020-12-14 Completed Unive rsity of PFIZER VACCINE 00:00:00 [facility] SARS-COV-2 COVID-19 2020-12-14 Completed Unive rsity of PFIZER VACCINE 00:00:00 [facility] SARS-COV-2 COVID-19 2020-12-14 Completed Unive rsity of PFIZER VACCINE 00:00:00 [facility] SARS-COV-2 COVID-19 2020-12-14 Completed Unive rsity of PFIZER VACCINE 00:00:00 [facility] SARS-COV-2 COVID-19 2020-12-14 Completed Unive rsity of PFIZER VACCINE 00:00:00 [facility] SARS-COV-2 COVID-19 2020-11-23 Completed Unive rsity of PFIZER VACCINE 00:00:00 [facility] SARS-COV-2 COVID-19 2020-11-23 Completed Unive rsity of PFIZER VACCINE 00:00:00 [facility] SARS-COV-2 COVID-19 2020-11-23 Completed Unive rsity of PFIZER VACCINE 00:00:00 [facility] SARS-COV-2 COVID-19 2020-11-23 Completed Unive rsity of PFIZER VACCINE 00:00:00 [facility] SARS-COV-2 COVID-19 2020-11-23 Completed Unive rsity of PFIZER VACCINE 00:00:00 [facility] SARS-COV-2 COVID-19 2020-11-23 Completed Unive rsity of PFIZER VACCINE 00:00:00 [facility] SARS-COV-2 COVID-19 2020-11-23 Completed Unive rsity of PFIZER VACCINE 00:00:00 [facility] SARS-COV-2 COVID-19 2020-11-23 Completed Unive rsity of PFIZER VACCINE 00:00:00 [facility] SARS-COV-2 COVID-19 2020-11-23 Completed Unive rsity of PFIZER VACCINE 00:00:00 [facility] TDAP 2017-12-03 Completed University of 00:00:00 [facility] TDAP 2017-12-03 Completed University of 00:00:00 [place] [facility] TDAP 2017-12-03 Completed University of 00:00:00 [place] [facility] TDAP 2017-12-03 Completed University of 00:00:00 [place] [facility] TDAP 2017-12-03 Completed University of 00:00:00 [place] [facility] TDAP 2017-12-03 Completed University of 00:00:00 [place] [facility] TDAP 2017-12-03 Completed University of 00:00:00 [place] [facility] TDAP 2017-12-03 Completed University of 00:00:00 [place] [facility] TDAP 2017-12-03 Completed University of 00:00:00 [place] [facility] Vital Signs Vital Name Observation Time Observation Value Comments Source Systolic blood 2022-06-14 21:14:00 135 mm[Hg] Univer sity of pressure [place] [facility] Diastolic blood 2022-06-14 21:14:00 83 mm[Hg] Unive rsity of pressure [facility] Body temperature 2022-06-14 21:14:00 36.44 Fariba Univ ersity of [facility] Branch Respiratory rate 2022-06-14 21:14:00 18 /min Univ ersity of [facility] Branch Body height 2022-06-14 21:14:00 160 cm Universi ty of [place] [facility] Body weight 2022-06-14 21:14:00 121.11 kg Universi ty [facility] [place] BMI 2022-06-14 21:14:00 47.30 kg/m2 Universi ty [facility] Medical Branch Systolic blood 2022-04-29 20:00:00 147 mm[Hg] Univer sity of pressure [place] [facility] Diastolic blood 2022-04-29 20:00:00 74 mm[Hg] Unive rsity of pressure [place] [facility] Heart rate 2022-04-29 20:00:00 86 /min Universi ty [facility] Medical Branch Body temperature 2022-04-29 20:00:00 36.61 Fariba Univ ersity of [place] [facility] Respiratory rate 2022-04-29 20:00:00 18 /min Univ ersity of [place] [facility] Body height 2022-04-29 20:00:00 160 cm Universi ty of [place] [facility] Body weight 2022-04-29 20:00:00 123.832 kg Universi ty [facility] BMI 2022-04-29 20:00:00 48.36 kg/m2 Universi ty [facility] Procedures Procedure Date / Time Performed Performing Clinician Sourc e EXTERNAL PROVIDER 2022-05-14 05:01:00 Doctor Unassigned, No Univ [facility] RECORDS Name Medical Branch POCT URINALYSIS W/O 2022-04-29 20:12:00 Jaki Rivera [facility] SPECIFIC GRAVITY [facility] Encounters Start End Encounter Admission Attending Care Care Encounter Source Date/Time Date/Time Type Type Clinicians Facility Department ID 2022-08-09 2022-08-09 Telemedici [facility] 1.2.840.114 [id number] Univers 16:45:00 17:00:00 ne Visit Jaki MOORE [id number] ity of [facility] [place] [id number] [address] 2022-08-09 2022-08-09 Outpatient [facility] [id number] Univers 16:45:00 16:45:[address] [facility] 2022-06-14 2022-06-14 Outpatient R [facility] [id number] Univers 16:00:00 16:44:30 JAKI [facility] 2022-06-14 2022-06-14 Office [facility] 1.2.840.114 [id number] Univers 16:00:00 16:44:30 Visit Jaki MOORE [id number] i ty [place] [id number] [address] 2022-05-31 2022-05-31 Office [facility] 1.2.840.114 [id number] Univers 16:30:00 17:00:00 Visit Jaki MOORE [id number] i ty of [facility] [id number] [id number] [address] 2022-05-31 2022-05-31 Outpatient R [facility] [id number] Univers 16:30:00 16:30:00 JAKI wiggins [facility] 2022-05-14 2022-05-14 Orders Doctor DANIKA 1.2.840.114 [id number] Univers 00:00:00 00:00:00 Only Unassigned, MEGHA 350.1.13.10 ity of [place] [facility] 4.2.7.2.686 [place] [phone] [facility] 009 [place] 2022-04-29 2022-04-29 [facility] [id number] Univers 15:00:00 15:41:03 JAKI wiggins [facility] 2022-04-29 2022-04-29 Office [facility] 1.2.840.114 [id number] Univers 15:00:00 15:41:03 Visit Jaki MOORE 350.1.13.10 i ty [place] [phone] [place] dicid NAL 098 [facility] 2022-04-25 2022-04-25 Emergency X Charlette JONES [facility] ERT [id number] Univers 14:06:00 18:20:00 ity of [facility] 2022-04-25 2022-04-25 Emergency Charlette Jones [facility] 1.2.840.114 [id number] Univers 14:06:00 18:20:00 Angelica MOORE 350.1.13.10 i ty [place] [id number] [facility] 084 [place] 2022-04-10 2022-04-10 Telephone [facility] 1.2.840.114 [id number] Univers 00:00:00 00:00:00 Moriah MOORE 350.1.13.10 i ty [place] [id number] N[place] dical NAL 134 [facility] 2022-04-10 2022-04-10 Telephone [facility] 1.2.840.114 [id number] Univers 00:00:00 00:00:00 Moriah MOORE [id number] i ty of [facility] [id number] [id number] [address] 2022-04-09 2022-04-09 Office José Luis [facility] [id number] Univers 15:00:00 16:06:35 Visit Moriah MOORE 350.1.13.10 i ty [place] 4[place] [id number] [address] 2022-04-09 2022-04-09 Outpatient R JOSÉ LUIS [facility] [id number] Univers 15:00:00 16:06:35 MORIAH wiggins [facility] 2022-04-09 2022-04-09 Outpatient R JOSÉ LUIS [facility] [id number] Univers 15:00:00 15:00:00 [facility] 2022-04-09 2022-04-09 Orders Doctor DANIAK 1.2.840.114 [id number] Univers 00:00:00 00:00:00 Only Unassigned, MEGHA 350.1.13.10 ity of [place] [facility] 4.2.7.2.686 [place] [id number] [facility] 009 [place] 2022-04-02 2022-04-02 Pre Visit MAURA Gaspar 1.2.822.840 [id number] Univers 00:00:00 00:00:00 Outreach Carole IQBALY 350.1.13.10 ity [place].2.[place] [phone] [facility] [address]86 [place] 2022-02-13 2022-02-13 [facility]patient [facility] [id number] Univers 10:30:00 10:30:00 MORIAH feliciano [facility] 2021-08-23 2021-08-23 Emergency X [facility] ERT [id number] Univers 14:27:00 15:48:00 MARTHA feliciano [facility] 2021-08-23 2021-08-23 Emergency [facility] [id number] Univers 14:27:00 15:48:00 Martha MOORE 350.1.13.10 i ty [place]2.[place] [id number] [facility] 084 [place] 2021-07-19 2021-07-19 Outpatient Enrike HERNANDEZ [facility] [id number] Univers 16:20:00 16:14:22 WILY itjerrica of [facility] 2021-07-19 2021-07-19 Imm/Inj Nurse, Adc Pob Immunization [facility] 1.2.840.114 [id number] Univers 16:13:43 16:14:22 Visit Wily Hernandez 350.1.13 .10 ity of [place] [id number] [place] dical NAL 421 [facility] 2021-04-13 2021-04-13 Outpatient Shannen PRETTY [facility] [id number] [place] 06:00:00 06:00:00 [facility] 2021-03-07 2021-03-07 Orders Doctor DANIKA 1.2.840.114 [id number] Univers 00:00:00 00:00:00 Only Unassigned, MEGHA 350.1.13.10 ity of [place] [facility] 4.2.7.2.686 [place] [phone] [facility] 009 [place] 2021-02-28 2021-02-28 Telephone [facility] 1.2.840.114 [id number] Univers 00:00:00 00:00:00 Moriah Moore 350.1.13.10 i ty [place] [phone] N[place] dical nal 134 [facility] 2021-02-12 2021-02-12 Orders Doctor DANIKA 1.2.840.114 [id number] Univers 00:00:00 00:00:00 Only Unassigned, MEGHA 350.1.13.10 ity of [place] [facility] 4.2.7.2.686 [place] as [id number] [facility] 009 [place] 2021-02-09 2021-02-09 Telephone [facility] 1.2.840.114 [id number] Univers 00:00:00 00:00:00 Moriah Moore 350.1.13.10 i [place] [phone] N[place] dical nal [address] [place] [address] 2021-01-17 2021-01-17 Outpatient R JOSÉ LUIS [facility] [id number] Univers 00:00:00 00:00:00 MORIAH jerrica [facility] 2021-01-12 2021-01-12 Outpatient R JOSÉ LUIS [facility] [id number] Univers 00:00:00 00:00:00 MORIAH [facility] 2021-01-08 2021-01-08 Office [facility] 1.2.236.850 [id number] Univers 14:50:11 16:24:09 Visit Moriah Moore 350.1.13.10 i ty [place] [id number] [address] 2021-01-08 2021-01-08 Outpatient R JOSÉ LUIS [facility] [id number] Univers 15:30:00 15:30:00 M[facility]HFormerly [facility] 2021-01-03 2021-01-03 Outpatient Enrike ORDONEZ [facility] [id number] Univers 09:00:00 09:00:00 [facility]HFormerly [facility] 2020-12-14 2020-12-14 Outpatient Enrike HUANG [facility] [id number] Univers 15:00:00 15:00:00 NISSA [facility] 2020-11-23 2020-11-23 Outpatient Enrike HUANG [facility] [id number] Univers 15:00:00 15:00:00 NISSA [facility] 2020-02-29 2020-02-29 [facility] Faiza [facility] 1.2.840.114 [id number] Univers 08:13:00 23:59:00 Encounter Caden Moore 350.1.13.10 ity [place] [id number] [address] 2020-02-29 2020-02-29 [facility] Thierry Kendall [facility] 1.2.840.114 [id number] 08:13:00 23:59:00 Encounter Cam Sherrill 350.1.13.10 [place] 4.2.7.2.[address] [place] [id number] [facility] 2020-02-29 2020-02-29 Outpatient R THIERRY KENDALL [facility] [id number] Univers 00:00:00 00:00:00 ity of [facility] 2020-01-04 2020-01-04 Office Thierry Kendall [facility] [id number] Univers 14:54:30 15:46:34 Visit Cam Sherrill 350.1.13.10 i ty [place] [facility] [phone] N[place] dical [address] 2020-01-04 2020-01-04 Office Thierry Kendall [facility] [id number] 14:54:30 15:46:34 Visit Caden [place] 350.1.13.10 [place] 4.2.7.2.686 [facility] [id number] [address] 2020-01-04 2020-01-04 Outpatient R FAIZA [facility] [id number] Univers 15:00:00 15:00:00 ity of [facility] 2020-01-04 2020-01-04 Orders Doctor DANIKA 1.2.840.114 [id number] Univers 00:00:00 00:00:00 Only Unassigned, MEGHA 350.1.13.10 ity of [place] [facility] 4.2.7.2.686 [place] [phone] [facility] 009 [place] 2019-04-07 2019-04-07 Emergency Charlette Jones [facility] 1.2.840. 114 [id number] [employer] 20:58:55 23:47:00 Kavon Jin S Sherrill [id number] ity of [place] [id number] [place] [phone] [facility] [address] 2019-04-07 2019-04-07 Orders Doctor GARNICA [id number] [employer] 00:00:00 00:00:00 Only Unassigned, MEHGA [id number] ity of [place] [facility] [id number] [place] [phone] [address] Results Test Description Test Time Test [...] 7 ml. Results reported to provider. ? [facility]O SPECIFIC [id number] 20:12:00 Test Item Value Reference Range Interpretation [...] 7 ml. Results reported to provider. ? [facility]
[2022-10-12] MEDS ORDERED: MORPHINE 4 MG/ML SYR ONE (11:54)
[2022-10-12] MEDS ORDERED: KETOROLAC 30 MG/ML INJ ONE (11:54)
[2022-10-12] MEDS ORDERED: ONDANSETRON 4 MG/2 ML VIAL ONE (11:54)
[2022-10-12 12:13] LABS: Absolute Lymphocytes (CBC) 2.4 K/uL (0.7-4.9); Hematocrit 39.5 % (36.0-45.0); Lymphocytes % 26.8 % (15.3-44.8); MCV 89.2 fL (80-100); MPV 9.4 fL (7.6-11.3); RBC Red Blood Cell Count 4.43 M/uL (3.86-4.86)
[2022-10-12 12:33] LABS: Albumin 3.6 g/dL (3.4-5.0); Bilirubin Total 0.3 mg/dL (0.2-1.0); Potassium 3.3 mmol/L (3.5-5.1); Protein, Total 7.8 g/dL (6.4-8.2)
--- NOTE | 2022-10-12 13:00 | RAD REPORT ---
EXAM DESCRIPTION: CTAbdomen Pelvis W Contrast - 10/12/2022 12:49 pm CLINICAL HISTORY: right sided abdominal pain COMPARISON: Abdomen Pelvis W Contrast dated 03/12/2016 TECHNIQUE: CT of the abdomen and pelvis was performed with IV contrast. All CT scans are performed using dose optimization technique as appropriate and may include automated exposure control or mA/KV adjustment according to patient size. FINDINGS: Lower chest: Mitral annular calcifications. Liver: No acute abnormality or suspicious lesions. Biliary: No biliary ductal dilatation. Stomach: No significant focal abnormality. Duodenum: No significant focal abnormality. Pancreas: No significant abnormality. Spleen: No significant abnormality. Adrenal: Right adrenal nodules unchanged since 2016 and benign. Kidney/ureter: No hydronephrosis. No renal calculi. Retroperitoneum: No retroperitoneal adenopathy. Vascular: No aneurysm. Bowel:Diverticulosis. No evidence of acute diverticulitis. No appendicitis Peritoneum: No ascites or free air. Bladder: Grossly unremarkable. Reproductive: No adnexal masses. Bones: No acute fracture. Multilevel degenerative changes are present in the spine. Varying degrees o f neural foraminal narrowing noted. Grade 1 anterolisthesis of L4 on L5. Other: n/a IMPRESSION: No acute intra-abdominal or pelvic finding. No appendicitis. Diverticulosis without dive rticulitis. No renal or ureteral calculi.
--- NOTE | 2022-10-12 14:17 | EDPHYS ---
Physician Documentation [facility] Name: Neva Maharaj Age: 52 yrs Sex: Female : 1970 Arrival Date: 10/12/2022 Time: 10:08 Bed 16 Private MD: Lawrence Benitez HPI: 10/12 10:47 This 52 yrs old Female presents to ER via Wheelchair with complaints of Back jmm Pain. 10:47 The patient presents with abdominal pain right flank. Is a 52-year-old female with jmm history of hyperlipidemia, hypertension the presents emerged part with complaints of right sided flank pain which initially begins around the right upper quadrant and radiates down the right leg. Denies any vomiting, diarrhea, fever.. 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 - Social history:: Smoking status: Patient denies any tobacco usage or history of. ROS: 10:47 Constitutional: Negative for fever, chills, and weight loss, Cardiovascular: Negative jmm for chest pain, palpitations, and edema, Respiratory: Negative for shortness of breath, cough, wheezing, and pleuritic chest pain. 10:47 Abdomen/GI: Positive for abdominal pain. 10:47 Back: Positive for flank pain, on the right. 10:47 All other systems are negative. Exam: 10:47 Constitutional: This is a well developed, well nourished patient who is awake, alert, jmm and in no acute distress. Head/Face: atraumatic. Eyes: EOMI, no conjunctival erythema appreciated ENT: Moist Mucus Membranes Neck: Trachea midline, Supple Chest/axilla: Normal chest wall appearance and motion. Cardiovascular: Regular rate and rhythm. No edema appreciated Respiratory: Normal respirations, no respiratory distress appreciated 10:47 Skin: General appearance color normal MS/ Extremity: Moves all extremities, no obvious deformities appreciated, no edema noted to the lower extremities Neuro: Awake and alert Psych: Behavior is normal, Mood is normal, Patient is cooperative and pleasant 10:47 Abdomen/GI: Inspection: abdomen appears normal, Bowel sounds: normal, Palpation: soft, mild abdominal tenderness, in the right upper quadrant and right lower quadrant. 10:47 Back: CVA tenderness, that is mild, is noted on the right. Vital Signs: 10:30 BP 144 / 65; Pulse 80; Resp 16; Temp 98.1(TE); Pulse Ox 100% on R/A; Weight 120.2 kg; ss Height 5 ft. 2 in. (157.48 cm); Pain 8/10; 11:43 BP 130 / 66; Pulse 75; Resp 16; Pulse Ox 100% on R/A; Pain 7/10; db 12:30 BP 112 / 60; Pulse 72; Resp 16; Pulse Ox 96% on R/A; db 13:36 BP 126 / 79; Pulse 71; Resp 16; Pulse Ox 99% on R/A; db 14:00 BP 130 / 62; Pulse 78; Resp 18; Pulse Ox 99% on R/A; db 10:30 Body Mass Index 48.47 (120.20 kg, 157.48 cm) ss MDM: 10:47 Patient medically screened. [facility] 14:15 Data reviewed: vital signs, nurses notes. I considered the following discharge [facility] prescriptions or medication management in the emergency department Medications were administered in the Emergency Department. See MAR. Counseling: I had a detailed discussion with the patient and/or guardian regarding: the historical points, exam findings, and any diagnostic results supporting the discharge/admit diagnosis, radiology results, the need for outpatient follow up, to return to the emergency department if symptoms worsen or persist or if there are any questions or concerns that arise at home. ED course: Imaging studies negative. Patient does states she feels better. Patient vies follow-up PCP and otherwise given strict return precautions. Patient understands agrees plan of care.. 10/12 10:52 Order name: CBC with Diff; Complete Time: 12:21 [facility] 10/12 10:52 Order name: CMP; Complete Time: 12:35 [facility] 10/12 10:52 Order name: Lipase; Complete Time: 12:35 [facility] 10/12 10:52 Order name: CT Abd/Pelvis - IV Contrast Only; Complete Time: 13:02 [facility] 10/12 10:52 Order name: IV Saline Lock; Complete Time: 12:11 [facility] 10/12 10:52 Order name: Labs collected and sent; Complete Time: 12: [facility] 10/12 13:36 Order name: Urine Dipstick-Ancillary (obtain specimen); Complete Time: 14:53 [facility] Administered Medications: 11:57 Drug: TORadol - (ketorolac) 15 mg Route: IVP; Site: left antecubital; db 14:52 Follow up: Response: No adverse reaction db 11:57 Drug: Zofran (Ondansetron) 4 mg Route: IVP; Site: left antecubital; db 14:52 Follow up: Response: No adverse reaction db 11:57 Drug: morphine 4 mg Route: IVP; Infused Over: 4 mins; Site: left antecubital; db 14:53 Follow up: Response: No adverse reaction db Disposition Summary: 10/12/22 14:17 Discharge Ordered Location: [facility] Condition: Stable [facility] Diagnosis - Right Flank Pain [facility] Followup: [facility] - With: Private Physician - When: 2 - 3 days - Reason: Recheck today's complaints, Continuance of care, Re-evaluation by your physician Discharge Instructions: - Discharge Summary Sheet [facility] - Acute Back Pain, Adult jm - Flank Pain, Adult [facility] Forms: - Medication Reconciliation Form [facility] - Thank You Letter [facility] - Antibiotic Education [facility] - Prescription Opioid Use [facility] - Work release form db Prescriptions: - Diclofenac Sodium 75 mg Oral Tablet Sustained Release - take 1 tablet by ORAL route 2 times per day; 30 tablet; Refills: 0, Product [facility] Selection Permitted - orphenadrine citrate 100 mg Oral Tablet Sustained Release - take 1 tablet by ORAL route 2 times per day As needed; 20 tablet; Refills: 0, [facility] Product Selection Permitted Signatures: Dispatcher [employer] Jordy Valle PA PA Denita Wetzel RN RN Luh Paris RN RN db
--- NOTE | 2022-10-12 14:17 | ER ---
Nurse's Notes [facility] Name: Neva Maharaj Age: 52 yrs Sex: Female : 1970 Arrival Date: 10/12/2022 Time: 10:08 Bed 16 Private MD: Diagnosis: Right Flank Pain Presentation: 10/12 10:30 Chief complaint: Patient states: R low back pain that radiates down R leg x 3 days ago. ss Coronavirus screen: Client denies travel out of the [place] in the last 14 days. Ebola Screen: Patient denies exposure to infectious person. Patient denies travel to an Ebola-affected area in the 21 days before illness onset. Initial Sepsis Screen: Does the patient meet any 2 criteria? No. Patient's initial sepsis screen is negative. Does the patient have a suspected source of infection? No. Patient's initial sepsis screen is negative. Risk Assessment: Do you want to hurt yourself or someone else? Patient reports no desire to harm self or others. Onset of symptoms was October 09, 2022. 10:30 Method Of Arrival: Wheelchair ss 10:30 Acuity: MAURICIO 3 ss Triage Assessment: 12:38 General: Appears in no apparent distress. 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 - Social history:: Smoking status: Patient denies any tobacco usage or history of. Screenin:12 [facility] ED Fall Risk Assessment (Adult) History of falling in the last 3 months, db including since admission No falls in past 3 months (0 pts) Confusion or Disorientation No (0 pts) Intoxicated or Sedated No (0 pts) Impaired Gait No (0 pts) Mobility Assist Device Used No (0 pt) Altered Elimination No (0 pt) Score/Fall Risk Level 0 - 2 = Low Risk Oriented to surroundings, Maintained a safe environment. Abuse screen: Denies threats or abuse. Denies injuries from another. Nutritional screening: No deficits noted. Tuberculosis screening: No symptoms or risk factors identified. Assessment: 11:50 Reassessment: Patient appears in no apparent distress at this time. Patient and/or db family updated on plan of care and expected duration. Pain level reassessed. Patient is alert, oriented x 3, equal unlabored respirations, skin warm/dry/pink. states has right side abdominal pain x 3 days. General: Appears in no apparent distress. comfortable, Behavior is calm, cooperative. Pain: Complains of pain in abdomen. Neuro: Level of Consciousness is awake, alert, obeys commands, Oriented to person, place, time, situation. GI: Bowel sounds present X 4 quads. Abd is soft Abdomen is tender to palpation in right upper quadrant and right lower quadrant. 12:39 Reassessment: Patient appears in no apparent distress at this time. Patient and/or db family updated on plan of care and expected duration. Pain level reassessed. Patient is alert, oriented x 3, equal unlabored respirations, skin warm/dry/pink. patient to CT. 13:30 Reassessment: No changes from previously documented assessment. Patient and/or family db updated on plan of care and expected duration. Pain level reassessed. Patient is alert, oriented x 3, equal unlabored respirations, skin warm/dry/pink. 14:51 Reassessment: Patient appears in no apparent distress at this time. Patient and/or db family updated on plan of care and expected duration. Pain level reassessed. Patient is alert, oriented x 3, equal unlabored respirations, skin warm/dry/pink. Vital Signs: 10:30 BP 144 / 65; Pulse 80; Resp 16; Temp 98.1(TE); Pulse Ox 100% on R/A; Weight 120.2 kg; ss Height 5 ft. 2 in. (157.48 cm); Pain 8/10; 11:43 BP 130 / 66; Pulse 75; Resp 16; Pulse Ox 100% on R/A; Pain 7/10; db 12:30 BP 112 / 60; Pulse 72; Resp 16; Pulse Ox 96% on R/A; db 13:36 BP 126 / 79; Pulse 71; Resp 16; Pulse Ox 99% on R/A; db 14:00 BP 130 / 62; Pulse 78; Resp 18; Pulse Ox 99% on R/A; db 10:30 Body Mass Index 48.47 (120.20 kg, 157.48 cm) ED Course: 10:08 Patient arrived in ED. mr 10:11 Jordy Larsen PA is PHCP. m 10:11 Lawrence Simmons MD is Attending Physician. m 10:31 Triage completed. ss 10:31 Arm band placed on right wrist. ss 11:41 Luh Ramsey, RN is Primary Nurse. db 11:56 Inserted saline lock: 20 gauge in left antecubital area, using aseptic technique. Blood db collected. 12:51 CT Abd/Pelvis - IV Contrast Only In Process Unspecified. EDMS 14:50 No provider procedures requiring assistance completed. IV discontinued, intact, db bleeding controlled, No redness/swelling at site. 14:52 Patient has correct armband on for positive identification. Bed in low position. Call db light in reach. Side rails up X 1. Pulse ox on. NIBP on. Warm blanket given. Administered Medications: 11:57 Drug: TORadol - (ketorolac) 15 mg Route: IVP; Site: left antecubital; db 14:52 Follow up: Response: No adverse reaction db 11:57 Drug: Zofran (Ondansetron) 4 mg Route: IVP; Site: left antecubital; db 14:52 Follow up: Response: No adverse reaction db 11:57 Drug: morphine 4 mg Route: IVP; Infused Over: 4 mins; Site: left antecubital; db 14:53 Follow up: Response: No adverse reaction db Medication: 14:52 VIS not applicable for this client. db Outcome: 14:17 Discharge ordered by . m 14:51 Discharged to home ambulatory, with family. db 14:51 Condition: stable 14:51 Discharge instructions given to patient, Instructed on discharge instructions, follow up and referral plans. Prescriptions given X 2. 14:58 Patient left the ED. mm9 Signatures: Dispatcher [employer] EDMS Jordy Larsen PA PA jmm Rivera, Mary Denita Paulson, JENNIFER RN Luh Ramsey, RN RN Anat Butler mm9 Corrections: (The following items were deleted from the chart) 12:15 11:43 BP 130 / 66; Pulse 75bpm; Resp 16bpm; Pulse Ox 100% RA; db db
[2022-10-12 14:59] LABS: Urine Blood Negative (Negative); Urine Glucose Negative (Negative); Urine Protein Negative (Negative); Urine Specific Gravity >=1.030 (1.005-1.030); Urine pH 5.5 (5.0-7.0)
[2022-10-12 15:15] VITALS: TEMP 98.1
[2022-10-12 15:18] VITALS: O2SAT 99
[2022-10-12 15:20] VITALS: BP 130/62
== END 2022-10-12 14:58 | disposition home or self-care (01) ==
LOC: ER 10:06
DX: R10.9 Unspecified abdominal pain (principal); I10 Essential (primary) hypertension; E78.5 Hyperlipidemia, unspecified
CPT/HCPCS: 85025; 36415; 81003; 83690; 80053; 74177; 96375; 96374; 99284; Q9967; J2405

== ENCOUNTER 2022-11-02 06:33 | Emergency (ER) | payer OTHER ==
--- OUTSIDE RECORDS SUMMARY | 2022-11-02 06:37 | XMS REPORT | Continuity of Care Document ---
:[address] [facility] t Address [address] [facility] [address] [place] [address] Care Team Providers Name Role Phone Asked, No Pcp Primary Care Physician Unavailable MORIAH ORDONEZ Attending Clinician Unavailable Jaki Rivera MD Attending Clinician Doctor Unassigned, [place] Attending Clinician Unavailable Charlette JONES Attending Clinician [...] Type Policy Number Effective Date Expiration Date [facility] [id number] 2019 PREFERRED GENERIC 00:00:00 Problems Condition Condition Condition Status Onset Resolution Last Treating Co mments Source Name Details Category Date Date Treatment Clinician Date Breast Breast Disease Active [facility] cancer cancer 5-05 ity of screening screening [...] Active Univers ALLERGIE Class ity of S [facility] Social History Social Habit Start Date Stop Date Quantity Comments Source History SDOH University o f Alcohol Comment [place] [facility] History SDOH University o f Alcohol Std [place] [facility] Drinks [facility] History SDUT University o f Alcohol Binge [place] [facility] Exposure to 2022-06-04 2022-06-14 Not sure University SARS-CoV-2 00:00:00 15:46:00 [facility] (event) Branch Alcohol intake 2022-06-14 2022-06-14 Ex-drinker University 00:00:00 00:00:00 (finding) [facility] Tobacco use and 2022-04-09 2022-04-09 Smokeless tobacco Un iversity of exposure 00:00:00 00:00:00 non-user [facility] History SDOH 2020-01-04 2020-01-04 2 University o f Alcohol Frequency 00:00:00 00:00:00 [facility] Sex Assigned At [birth year] Protestant 00:00:00 00:00:00 Hospital Smoking Status Start Date Stop Date Source Tobacco smoking consumption Meth [facility] unknown Never smoked tobacco [facility] Medications Ordered Filled Start Stop Current Ordering Indication Dosage Frequency Signature Comments Components Source Medication Medication Date Date Medication? Clinician (SIG) Name Name polyethylen 2021-09 Yes [id number] 17g Take 17 g Univers e glycol 0-14 by mouth ity of 3350 00:00: in the [place] (MIRALAX) 00 morning. Medica l 17 Branch gram/dose powder polyethylen 2021-09 Yes [id number] 17g Take 17 g Univers e glycol 0-14 by mouth ity of 3350 00:00: in the [place] (MIRALAX) 00 morning. Medica l 17 Branch gram/dose powder polyethylen 2021-1 Yes [id number] 17g Take 17 g Univers e glycol 0-14 by mouth ity of 3350 00:00: in the [place] (MIRALAX) 00 morning. Medica l 17 Branch gram/dose powder polyethylen 2-0 Yes [id number] 17g Take 17 g Univers e glycol 9-30 by mouth ity of 3350 00:00: in the [place] (MIRALAX) 00 morning. Medica l 17 Branch gram/dose powder polyethylen 2-0 Yes [id number] 17g Take 17 g Univers e glycol 9-30 by mouth ity of 3350 00:00: in the [place] (MIRALAX) 00 morning. Medica l 17 Branch gram/dose powder polyethylen 2-0 Yes [id number] 17g Take 17 g Univers e glycol 9-30 by mouth ity of 3350 00:00: in the [place] [facility] morning. Medica l 17 Branch gram/dose powder polyethylen 2-0 Yes [id number] 17g Take 17 g Univers e glycol 9-30 by mouth ity of 3350 00:00: in the [place] (MIRALAX) 00 morning. Medica l 17 Branch gram/dose powder Yes Take by Univer s no122/iron/ 8-09 mouth. ity of folic acid 15:22: [place] ( 20 Medical MULTI ORAL) Branch Yes Take by Univer s no122/iron/ 8-09 mouth. ity of folic acid 15:22: [place] ( 20 Medical MULTI ORAL) Branch 0 Yes Take by Univer s no122/iron/ 8-09 mouth. ity of folic acid 15:22: [place] ( 20 Medical MULTI ORAL) Branch 0 Yes Take by Univer s no122/iron/ 8-09 mouth. ity of folic acid 15:22: [place] ( 20 Medical MULTI ORAL) Branch Yes Take by Univer s no122/iron/ 8-09 mouth. ity of folic acid 15:22: [place] ( 20 Medical MULTI ORAL) Branch 2022-0 Yes Take by Univer s no122/iron/ 8 mouth. ity of folic acid 15:22: [place] ( 20 Medical MULTI ORAL) Branch 0 Yes Take by Univer s no122/iron/ 8 mouth. ity of folic acid 15:22: [place] ( 20 Medical MULTI ORAL) Branch 0 Yes Take by Univer s no122/iron/ 8 mouth. ity of folic acid 15:22: [place] ( 20 Medical MULTI ORAL) Branch 0 Yes Take by Univer s no122/iron/ 8 mouth. ity of folic acid 15:22: [place] ( 20 Medical MULTI ORAL) Branch gabapentin [...] Medical times Branch daily. traMADol 2019-0 Yes [id number] 50mg Take 1 Un kylee (ULTRAM) 50 8-07 tablet by ity of mg tablet 00:00: mouth [place] 00 every 6 Medical (six) Branch hours as needed for Pain (scale 7-10). ondansetron 2019-0 Yes [id number] 4mg Take 1 Univers (ZOFRAN) 4 8-07 tablet by ity of mg tablet 00:00: mouth [place] 00 every 8 Medical (eight) Branch hours as needed for Nausea and Vomiting (N/V). phenazopyri 2019-0 Yes [id number] 200mg Take 1 Univers dine 200 mg 8-07 tablet by ity of tablet 00:00: mouth 3 00 (three) Medical times Branch daily. traMADol 2019-0 Yes [id number] 50mg Take 1 Un kylee (ULTRAM) 50 8-07 tablet by ity of mg tablet 00:00: mouth [place] 00 every 6 Medical (six) Branch hours as needed for Pain (scale 7-10). ondansetron 2019-0 Yes [id number] 4mg Take 1 Univers (ZOFRAN) 4 8-07 tablet by ity of mg tablet 00:00: mouth [place] 00 every 8 Medical (eight) Branch hours as needed for Nausea and Vomiting (N/V). phenazopyri 2019-0 Yes [id number] 200mg Take 1 Univers dine 200 mg 8-07 tablet by ity of tablet 00:00: mouth 3 00 (three) Medical times Branch daily. traMADol 2019-0 Yes [id number] 50mg Take 1 Un kylee (ULTRAM) 50 8-07 tablet by ity of mg tablet 00:00: mouth [place] 00 every 6 Medical (six) Branch hours as needed for Pain (scale 7-10). ondansetron 2019-0 Yes [id number] 4mg Take 1 Univers (ZOFRAN) 4 8-07 tablet by ity of mg tablet 00:00: mouth [place] 00 every 8 Medical (eight) Branch hours as needed for Nausea and Vomiting (N/V). phenazopyri 2019-0 Yes [id number] 200mg Take 1 Univers dine 200 mg 8-07 tablet by ity of tablet 00:00: mouth 3 00 (three) Medical times Branch daily. traMADol 2019-0 Yes [id number] 50mg Take 1 Un kylee (ULTRAM) 50 8-07 tablet by ity of mg tablet 00:00: mouth [place] 00 every 6 Medical (six) Branch hours as needed for Pain (scale 7-10). ondansetron 2019-0 Yes [id number] 4mg Take 1 Univers (ZOFRAN) 4 8-07 tablet by ity of mg tablet 00:00: mouth [place] 00 every 8 Medical (eight) Branch hours as needed for Nausea and Vomiting (N/V). phenazopyri 2019-0 Yes [id number] 200mg Take 1 Univers dine 200 mg 8-07 tablet by ity of tablet 00:00: mouth 3 [place] 00 (three) Medical times Branch daily. traMADol 2019-0 Yes [id number] 50mg Take 1 Un kylee (ULTRAM) 50 8-07 tablet by ity of mg tablet 00:00: mouth [place] 00 every 6 Medical (six) Branch hours as needed for Pain (scale 7-10). ondansetron 2019-0 Yes [id number] 4mg Take 1 Univers (ZOFRAN) 4 8-07 tablet by ity of mg tablet 00:00: mouth [place] 00 every 8 Medical (eight) Branch hours as needed for Nausea and Vomiting (N/V). phenazopyri 2019-0 Yes [id number] 200mg Take 1 Univers dine 200 mg 8-07 tablet by ity of tablet 00:00: mouth 3 [place] 00 (three) Medical times Branch daily. traMADol 2019-0 Yes [id number] 50mg Take 1 Un kylee (ULTRAM) 50 8-07 tablet by ity of mg tablet 00:00: mouth [place] 00 every 6 Medical (six) Branch hours as needed for Pain (scale 7-10). ondansetron 2019-0 Yes [id number] 4mg Take 1 Univers (ZOFRAN) 4 8-07 tablet by ity of mg tablet 00:00: mouth [place] 00 every 8 Medical (eight) Branch hours as needed for Nausea and Vomiting (N/V). phenazopyri 2019-0 Yes [id number] 200mg Take 1 Univers dine 200 mg 8-07 tablet by ity of tablet 00:00: mouth 3 [place] 00 (three) Medical times Branch daily. traMADol 2019-0 Yes [id number] 50mg Take 1 Un kylee (ULTRAM) 50 8-07 tablet by ity of mg tablet 00:00: mouth [place] 00 every 6 Medical (six) Branch hours as needed for Pain (scale 7-10). ondansetron 2019-0 Yes [id number] 4mg Take 1 Univers (ZOFRAN) 4 8-07 tablet by ity of mg tablet 00:00: mouth [place] 00 every 8 Medical (eight) Branch hours as needed for Nausea and Vomiting (N/V). phenazopyri 2019-0 Yes [id number] 200mg Take 1 Univers dine 200 mg 8-07 tablet by ity of tablet 00:00: mouth 3 [place] 00 (three) Medical times Branch daily. traMADol 2019-0 Yes [id number] 50mg Take 1 Un kylee (ULTRAM) 50 8-07 tablet by ity of mg tablet 00:00: mouth [place] 00 every 6 Medical (six) Branch hours as needed for Pain (scale 7-10). ondansetron 2019-0 Yes [id number] 4mg Take 1 Univers (ZOFRAN) 4 8-07 tablet by ity of mg tablet 00:00: mouth [place] 00 every 8 Medical (eight) Branch hours as needed for Nausea and Vomiting (N/V). phenazopyri 2019-0 Yes [id number] 200mg Take 1 Univers dine 200 mg 8-07 tablet by ity of tablet 00:00: mouth 3 [place] 00 (three) Medical times Branch daily. traMADol 2019-0 Yes [id number] 50mg Take 1 Un kylee (ULTRAM) 50 8-07 tablet by ity of mg tablet 00:00: mouth [place] 00 every 6 Medical (six) Branch hours as needed for Pain (scale 7-10). ondansetron 2019-0 Yes [id number] 4mg Take 1 Univers (ZOFRAN) 4 8-07 tablet by ity of mg tablet 00:00: mouth [place] 00 every 8 Medical (eight) Branch hours as needed for Nausea and Vomiting (N/V). phenazopyri 2019-0 Yes [id number] 200mg Take 1 Univers dine 200 mg [...] Immunizations Ordered Filled Immunization Date Status Comments [facility] e Immunization Name Name SARS-COV-2 COVID-19 2021-07-19 Completed Unive rsity of PFIZER VACCINE 00:00:00 [facility] SARS-COV-2 COVID-19 2021-07-19 Completed Unive rsity of PFIZER VACCINE 00:00:00 [facility] SARS-COV-2 COVID-19 2021-07-19 Completed Unive rsity of PFIZER VACCINE 00:00:00 [facility] SARS-COV-2 COVID-19 2021-07-19 Completed Unive rsity of PFIZER VACCINE 00:00:00 [facility] SARS-COV-2 COVID-19 2021-07-19 Completed Unive rsity of PFIZER VACCINE 00:00:00 [facility] SARS-COV-2 COVID-19 2021-07-19 Completed Unive rsity of PFIZER VACCINE 00:00:00 [facility] SARS-COV-2 COVID-19 2021-07-19 Completed Unive rsity of PFIZER VACCINE 00:00:00 [facility] SARS-COV-2 COVID-19 2021-07-19 Completed Unive rsity of PFIZER VACCINE 00:00:00 [facility] SARS-COV-2 COVID-19 2021-07-19 Completed Unive rsity of PFIZER VACCINE 00:00:00 [facility] SARS-COV-2 COVID-19 2020-12-14 Completed Unive rsity of PFIZER VACCINE 00:00:00 [facility] SARS-COV-2 COVID-19 2020-12-14 Completed Unive rsity of PFIZER VACCINE 00:00:00 [facility] SARS-COV-2 COVID-19 2020-12-14 Completed Unive rsity of PFIZER VACCINE 00:00:00 [facility] SARS-COV-2 COVID-19 2020-12-14 Completed Unive rsity of PFIZER VACCINE 00:00:00 [facility] SARS-COV-2 COVID-19 2020-12-14 Completed Unive rsity of PFIZER VACCINE 00:00:00 [facility] SARS-COV-2 COVID-19 2020-12-14 Completed Unive rsity of PFIZER VACCINE 00:00:00 [facility] SARS-COV-2 COVID-19 2020-12-14 Completed Unive rsity of PFIZER VACCINE 00:00:00 [facility] SARS-COV-2 COVID-19 2020-12-14 Completed Unive rsity of PFIZER VACCINE 00:00:00 [facility] SARS-COV-2 COVID-19 2020-12-14 Completed Unive rsity of PFIZER VACCINE 00:00:00 [facility] SARS-COV-2 COVID-19 2020-11-23 Completed Unive rsity of PFIZER VACCINE 00:00:00 [facility] SARS-COV-2 COVID-19 2020-11-23 Completed Unive rsity of PFIZER VACCINE 00:00:00 [facility] SARS-COV-2 COVID-19 2020-11-23 Completed Unive rsity of PFIZER VACCINE 00:00:00 [facility] SARS-COV-2 COVID-19 2020-11-23 Completed Unive rsity of PFIZER VACCINE 00:00:00 [facility] SARS-COV-2 COVID-19 2020-11-23 Completed Unive rsity of PFIZER VACCINE 00:00:00 [facility] SARS-COV-2 COVID-19 2020-11-23 Completed Unive rsity of PFIZER VACCINE 00:00:00 [facility] SARS-COV-2 COVID-19 2020-11-23 Completed Unive rsity of PFIZER VACCINE 00:00:00 [facility] SARS-COV-2 COVID-19 2020-11-23 Completed Unive rsity of PFIZER VACCINE 00:00:00 [facility] SARS-COV-2 COVID-19 2020-11-23 Completed Unive rsity of PFIZER VACCINE 00:00:00 [facility] TDAP 2017-12-03 Completed University of 00:00:00 [facility] TDAP 2017-12-03 Completed University of 00:00:00 [place] [facility] TDAP 2017-12-03 Completed University of 00:00:00 [place] [facility] TDAP 2017-12-03 Completed University of 00:00:00 [place] [facility] TDAP 2017-12-03 Completed University of 00:00:00 [place] [facility] TDAP 2017-12-03 Completed University of 00:00:00 [place] [facility] TDAP 2017-12-03 Completed University of 00:00:00 [place] [facility] TDAP 2017-12-03 Completed University of 00:00:00 [place] [facility] TDAP 2017-12-03 Completed University of 00:00:00 [place] [facility] Vital Signs Vital Name Observation Time Observation Value Comments Source Systolic blood 2022-06-14 21:14:00 135 mm[Hg] Univer sity of pressure [place] [facility] Diastolic blood 2022-06-14 21:14:00 83 mm[Hg] Unive rsity of pressure [facility] Body temperature 2022-06-14 21:14:00 36.44 Fariba Univ ersity of [facility] Branch Respiratory rate 2022-06-14 21:14:00 18 /min Univ ersity of [facility] Body height 2022-06-14 21:14:00 160 cm Universi ty of [place] [facility] Body weight 2022-06-14 21:14:[address] [facility] BMI 2022-06-14 21:14:00 47.30 kg/m2 Universi ty [facility] Medical Branch Systolic blood 2022-04-29 20:00:00 147 mm[Hg] Univer sity of pressure [place] [facility] Diastolic blood 2022-04-29 20:00:00 74 mm[Hg] Unive rsity of pressure [place] [facility] Heart rate 2022-04-29 20:00:00 86 /min Universi ty [facility] Medical Branch Body temperature 2022-04-29 20:00:00 36.61 Fariba Univ ersity of [place] [facility] Respiratory rate 2022-04-29 20:00:00 18 /min Univ ersity of [place] [facility] Body height 2022-04-29 20:00:00 160 cm Universi ty of [place] [facility] Body weight 2022-04-29 20:00:00 123.832 kg Universi ty [facility] BMI 2022-04-29 20:00:00 48.36 kg/m2 Universi ty [facility] Procedures Procedure Date / Time Performed Performing Clinician Sourc e EXTERNAL PROVIDER 2022-05-14 05:01:00 Doctor Unassigned, No Univ [facility] RECORDS Name Medical Branch POCT URINALYSIS W/O 2022-04-29 20:12:00 Jaki Rivera [facility] SPECIFIC GRAVITY [facility] Encounters Start End Encounter Admission Attending Care Care Encounter Source Date/Time Date/Time Type Type Clinicians Facility Department ID 2022-08-09 2022-08-09 Telemedici [facility] 1.2.840.114 [id number] Univers 16:45:00 17:00:00 ne Visit Jaki MOORE 350.1.13.10 ity of [facility] [place] [phone] [address] 2022-08-09 2022-08-09 Outpatient R [facility] [id number] Univers 16:45:00 16:45:[facility] 2022-06-14 Outpatient R [facility] [id number] Univers 16:00:00 16:44:30 JAKI [facility] 2022-06-14 2022-06-14 Office [facility] 1.2.840.114 [id number] Univers 16:00:00 16:44:30 Visit Jaki MOORE [id number] i [place] [id number] [address] 2022-05-31 2022-05-31 Office [facility] 1.2.840.114 [id number] Univers 16:30:00 17:00:00 Visit Jaki MOORE [id number] i ty of [facility] [place] [id number] [address] 2022-05-31 2022-05-31 Outpatient R [facility] [id number] Univers 16:30:00 16:30:00 JAKI wiggins [facility] 2022-05-14 2022-05-14 Orders Doctor DANIKA 1.2.840.114 [id number] Univers 00:00:00 00:00:00 Only Unassigned, MEGHA 350.1.13.10 ity of [place] [facility] 4.2.7.2.686 [place] [phone] [facility] [address] [facility] 2022-04-29 2022-04-29 Outpatient [facility] [id number] Univers 15:00:00 15:41:03 JAKI wiggins [facility] 2022-04-29 2022-04-[address] [facility] 1.2.840.114 [id number] Univers 15:00:00 15:41:03 Visit Jaki MOORE [id number] [place] [id number] Mo dictn NAL 098 [facility] 2022-04-25 2022-04-25 Emergency X Charlette JONES [facility] ERT [id number] Univers 14:06:00 18:20:00 ity of [facility] 2022-04-25 2022-04-25 Emergency Charlette Jones [facility] 1.2.840.114 [id number] Univers 14:06:00 18:20:00 Angelica MOORE [id number] i [place] [id number] [facility] [address] [facility] 2022-04-10 2022-04-10 Telephone [facility] 1.2.840.114 [id number] Univers 00:00:00 00:00:00 Moriah MOORE [id number] [place] [id number] Mo dical NAL 134 [facility] 2022-04-10 2022-04-10 Telephone [facility] 1.2.840.114 [id number] Univers 00:00:00 00:00:00 Moriah MOORE [id number] i ty of [facility] 4[place] [id number] [address] 2022-04-09 2022-04-09 Office José Luis [facility] [id number] Univers 15:00:00 16:06:35 Visit Moriah MOORE 350.1.13.10 [place] [id number] [address] 2022-04-09 2022-04-09 Outpatient R JOSÉ LUIS [facility] [id number] Univers 15:00:00 16:06:35 MORIAH wiggins [facility] 2022-04-09 2022-04-09 Outpatient R JOSÉ LUIS [facility] [id number] Univers 15:00:00 15:00:00 [facility] 2022-04-09 2022-04-09 Orders Doctor DANIKA 1.2.840.114 [id number] Univers 00:00:00 00:00:00 Only Unassigned, MEGHA 350.1.13.10 ity of [place] [facility] 4.2.7.2.686 [place] [id number] [facility] [address] [facility] 2022-04-02 2022-04-02 Pre Visit MAURA Gaspar [id number] Univers 00:00:00 00:00:00 Outreach Carole IQBALY 350.1.13.10 ity of [place]2.[place] [id number] [facility] [address] [facility] 2022-02-13 2022-02-13 Outpatient R [facility] [id number] Univers 10:30:00 10:30:00 MORIAH feliciano [facility] 2021-08-23 2021-08-[address] [facility] ERT [id number] Univers 14:27:00 15:48:00 MARTHA feliciano [facility] 2021-08-23 2021-08-[address] [facility] [id number] Univers 14:27:00 15:48:00 Martha MOORE 350.1.13.10 [place] [id number] [facility] [address] [facility] 2021-07-19 2021-07-19 Outpatient Enrike HERNANDEZ [facility] [id number] Univers 16:20:00 16:14:22 WILY itjerrica of [facility] 2021-07-19 2021-07-19 Imm/Inj Nurse, Adc Pob Immunization [facility] 1.2.840.114 [id number] Univers 16:13:43 16:14:22 Visit Wily Hernandez 350.1.13 .10 [place] [id number] Mo dical NAL 421 [facility] 2021-04-13 2021-04-13 Outpatient Shannen PRE[facility]Y [facility] [id number] [place] 06:00:00 06:00:00 [facility] 2021-03-07 2021-03-07 Orders Doctor DANIKA 1.2.840.114 [id number] Univers 00:00:00 00:00:00 Only Unassigned, MEGHA 350.1.13.10 ity of [place] [facility] 4.2.7.2.686 [place] [id number] [facility] [address] [facility] 2021-02-28 2021-02-28 Telephone [facility] 1.2.840.114 [id number] Univers 00:00:00 00:00:00 Moriah Moore 350.1.13.10 i ty [place] [id number] Mo dical nal 134 [facility] 2021-02-12 2021-02-12 Orders Doctor DANIKA 1.2.840.114 [id number] Univers 00:00:00 00:00:00 Only Unassigned, MEGHA 350.1.13.10 ity of [place] [facility] 4.2.7.2.686 [place] [id number] [facility] [address] [facility] 2021-02-09 2021-02-09 Telephone [facility] 1.2.840.114 [id number] Univers 00:00:00 00:00:00 Moriah Moore 350.1.13.10 i [place] [id number] Mo dical nal [address] [place] [address] 2021-01-17 2021-01-17 Outpatient R JOSÉ LUIS [facility] [id number] Univers 00:00:00 00:00:00 MORIAH jerrica [facility] 2021-01-12 2021-01-12 Outpatient R JOSÉ LUIS [facility] [id number] Univers 00:00:00 00:00:00 MORIAH [facility] 2021-01-08 2021-01-[address] [facility] [id number] Univers 14:50:11 16:24:09 Visit Moriah Moore 350.1.13.10 i [place] [id number] [address] 2021-01-08 2021-01-08 Outpatient R JOSÉ LUIS [facility] [id number] Univers 15:30:00 15:30:00 [facility] 2021-01-03 2021-01-03 Outpatient Enrike ORDONEZ [facility] [id number] Univers 09:00:00 09:00:00 [facility] 2020-12-14 2020-12-14 Outpatient Enrike HUANG [facility] [id number] Univers 15:00:00 15:00:00 NISSA [facility] 2020-11-23 2020-11-23 Outpatient Enrike HUANG [facility] [id number] Univers 15:00:00 15:00:00 NISSA [facility] 2020-02-29 2020-02-29 [facility] Faiza [facility] 1.2.840.114 [id number] Univers 08:13:00 23:59:00 Encounter Caden Moore 350.1.13.10 [place] [id number] [address] 2020-02-29 2020-02-29 [facility] Thierry Kendall [facility] 1.2.840.114 [id number] 08:13:00 23:59:00 Encounter Cam [facility] 350.1.13.10 [place] 4.2.7.2.686 [place] [id number] [facility] 2020-02-29 2020-02-29 Outpatient R THIERRY KENDALL [facility] [id number] Univers 00:00:00 00:00:00 ity of [facility] 2020-01-04 2020-01-04 Office Thierry Kendall [facility] [id number] Univers 14:54:30 15:46:34 Visit Cam Jbph[facility] 350.1.13.10 i ty [place] [facility] [phone] Mo dical [address] 2020-01-04 2020-01-04 Office Thierry Kendall [facility] [id number] 14:54:30 15:46:34 Visit Caden [place] 350.1.13.10 [place] 4.2.7.2.686 [facility] [id number] [address] 2020-01-04 2020-01-04 Outpatient R FAIZA [facility] [id number] Univers 15:00:00 15:00:00 ity of [facility] 2020-01-04 2020-01-04 Orders Doctor DANIKA 1.2.840.114 [id number] Univers 00:00:00 00:00:00 Only Unassigned, MEGHA 350.1.13.10 ity of [place] [facility] 4.2.7.2.686 [place] [phone] [facility] [address] 2019-04-07 2019-04-07 Emergency Charlette Jones [facility] 1.2.840. 114 [id number] Univers 20:58:55 23:47:00 Kavon Jin S Jb[facility] 350.1.13.10 [place] [id number] [facility] [address] [facility] 2019-04-07 2019-04-07 Orders Doctor GARNICA 1.2.840.114 [id number] Univers 00:00:00 00:00:00 Only Unassigned, MEGHA 350.1.13.10 ity of [place] [facility] [id number] [place] [phone] [address] Results Test Description Test Time Test [...] 7 ml. Results reported to provider. ? [facility] [id number] 20:12:00 Test Item Value Reference Range Interpretation [...] 7 ml. Results reported to provider. ? [facility]
--- NOTE | 2022-11-02 08:05 | RAD REPORT ---
EXAM DESCRIPTION: RAD - Shoulder Left 2 View - 11/02/2022 7:57 am CLINICAL HISTORY: PAIN COMPARISON: No comparisons FINDINGS/IMPRESSION: No acute fracture. High-riding left humeral head. 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
--- NOTE | 2022-11-02 08:15 | EDPHYS ---
Physician Documentation [facility] Name: Neva Maharaj Age: 52 yrs Sex: Female : 1970 Arrival Date: 11/02/2022 Time: 06:36 Bed IW1 Private MD: ED Physician Sallie Jacobson HPI: 11/02 08:18 This 52 yrs old Female presents to ER via Wheelchair with complaints of Fall snw Injury. 08:18 Details of fall: The patient fell from an upright position, while walking. Onset: The snw symptoms/episode began/occurred suddenly, last night. Associated injuries: The patient sustained left shoulder, contusion to left knee as well but pt states it no longer hurts. Severity of symptoms: At their worst the symptoms were moderate, severe. The patient has not experienced similar symptoms in the past. It is unknown whether or not the patient has recently seen a physician. 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 - Social history:: Smoking status: Patient denies any tobacco usage or history of. ROS: 08:18 Constitutional: Negative for fever, chills, and weight loss, Eyes: Negative for injury, snw pain, redness, and discharge, ENT: Negative for injury, pain, and discharge, Neck: Negative for injury, pain, and swelling, Cardiovascular: Negative for chest pain, palpitations, and edema, Respiratory: Negative for shortness of breath, cough, wheezing, and pleuritic chest pain, Abdomen/GI: Negative for abdominal pain, nausea, vomiting, diarrhea, and constipation, Back: Negative for injury and pain, : Negative for injury, bleeding, discharge, and swelling, Skin: Negative for injury, rash, and discoloration, Neuro: Negative for headache, weakness, numbness, tingling, and seizure, Psych: Negative for depression, anxiety, suicide ideation, homicidal ideation, and hallucinations. 08:18 MS/extremity: Positive for injury or acute deformity, decreased range of motion, pain, tenderness, of the left shoulder. Exam: 08:16 Constitutional: This is a well developed, well nourished patient who is awake, alert, snw and in no acute distress. Head/Face: Normocephalic, atraumatic. Eyes: Pupils equal round and reactive to light, extra-ocular motions intact. Lids and lashes normal. Conjunctiva and sclera are non-icteric and not injected. Cornea within normal limits. Periorbital areas with no swelling, redness, or edema. ENT: Nares patent. No nasal discharge, no septal abnormalities noted. Tympanic membranes are normal and external auditory canals are clear. Oropharynx with no redness, swelling, or masses, exudates, or evidence of obstruction, uvula midline. Mucous membranes moist. Neck: Trachea midline, no thyromegaly or masses palpated, and no cervical lymphadenopathy. Supple, full range of motion without nuchal rigidity, or vertebral point tenderness. No Meningismus. Chest/axilla: Normal chest wall appearance and motion. Nontender with no deformity. No lesions are appreciated. Cardiovascular: Regular rate and rhythm with a normal S1 and S2. No gallops, murmurs, or rubs. Normal PMI, no JVD. No pulse deficits. Respiratory: Lungs have equal breath sounds bilaterally, clear to auscultation and percussion. No rales, rhonchi or wheezes noted. No increased work of breathing, no retractions or nasal flaring. Abdomen/GI: Soft, non-tender, with normal bowel sounds. No distension or tympany. No guarding or rebound. No evidence of tenderness throughout. Back: No spinal tenderness. No costovertebral tenderness. Full range of motion. Skin: Warm, dry with normal turgor. Normal color with no rashes, no lesions, and no evidence of cellulitis. Neuro: Awake and alert, GCS 15, oriented to person, place, time, and situation. Cranial nerves II-XII grossly intact. Motor strength 5/5 in all extremities. Sensory grossly intact. Cerebellar exam normal. Normal gait. Psych: Awake, alert, with orientation to person, place and time. Behavior, mood, and affect are within normal limits. 08:16 Musculoskeletal/extremity: Extremities: grossly normal except: noted in the left shoulder: decreased ROM, tenderness, ROM: limited active range of motion due to pain, limited passive range of motion due to pain, in the left shoulder, Circulation is intact in all extremities. Sensation intact. Vital Signs: 07:29 BP 118 / 65; Pulse 77; Resp 17; Temp 98.1; Pulse Ox 100% ; Weight 118.39 kg; Height 5 7 ft. 3 in. (160.02 cm); Pain 810; 07:29 Body Mass Index 46.23 (118.39 kg, 160.02 cm) 7 MDM: 08:03 Patient medically screened. snw 08:17 Differential diagnosis: abrasion, contusion, fracture, sprain, strain. Data reviewed: snw vital signs, nurses notes, radiologic studies, plain films. Counseling: I had a detailed discussion with the patient and/or guardian regarding: the historical points, exam findings, and any diagnostic results supporting the discharge/admit diagnosis, radiology results, the need for outpatient follow up, to return to the emergency department if symptoms worsen or persist or if there are any questions or concerns that arise at home. Special discussion: Based on the history and exam findings, there is no indication for further emergent testing or inpatient evaluation. I discussed with the patient/guardian the need to see the orthopedic surgeon for further evaluation of the symptoms. I discussed with the patient/guardian the need to see the primary care provider for further evaluation of the symptoms. 11/02 07:31 Order name: XRAY Shoulder LEFT 2 view [facility] 11/02 08:05 Order name: RAD; Complete Time: 08:06 EDNY 11/02 08:14 Order name: Sling; Complete Time: 08:48 snw Administered Medications: 08:48 Drug: [place] (HYDROcodone-acetaminophen) (7.5 mg-325 mg) 1 tabs Route: PO; [facility] 08:48 Follow up: Response: Medication administered at discharge. jl7 Disposition Summary: 11/02/22 08:15 Discharge Ordered Location: Home snw Condition: Stable snw Diagnosis - Fall on same level from slipping, tripping and stumbling with subsequent striking snw against object - Contusion of left shoulder snw - Pain in left shoulder snw - Strain of muscle(s) and tendon(s) of the rotator cuff of left shoulder snw Followup: snw - With: Emergency Department - When: As needed - Reason: Worsening of condition Followup: snw - With: Private Physician - When: 2 - 3 days - Reason: Recheck today's complaints, Continuance of care, Re-evaluation by your physician Discharge Instructions: - Discharge Summary Sheet snw - Fall Prevention in the Home, Adult snw - Musculoskeletal Pain snw - Shoulder Pain snw - Shoulder Range of Motion Exercises snw - How to Use Cold Therapy snw - Heat Therapy snw - How to Use a Sling snw Forms: - Medication Reconciliation Form snw - Thank You Letter snw - Antibiotic Education snw - Prescription Opioid Use snw Prescriptions: - orphenadrine citrate 100 mg Oral Tablet Sustained Release - take 1 tablet by ORAL route 2 times per day As needed; 20 tablet; Refills: 0, snw Product Selection Permitted Signatures: Dispatcher [employer] Germaine Anton, LOBSTER MAN-C LOBSTER MAN-Csnw Stewart Mackenzie, RN RN jl7
--- NOTE | 2022-11-02 08:15 | ER ---
Nurse's Notes [facility] Name: Neva Maharaj Age: 52 yrs Sex: Female : 1970 Arrival Date: 11/02/2022 Time: 06:36 Bed IW1 Private MD: Diagnosis: Fall on same level from slipping, tripping and stumbling with subsequent striking against object;Contusion of left shoulder;Pain in left shoulder;Strain of muscle(s) and tendon(s) of the rotator cuff of left shoulder Presentation: 11/02 07:29 Chief complaint: Patient states: Tripped and fell last night at midnight, c/o left jl7 shoulder pain. Coronavirus screen: At this time, the client does not indicate any symptoms associated with coronavirus-19. Ebola Screen: No symptoms or risks identified at this time. Initial Sepsis Screen: Does the patient meet any 2 criteria? No. Patient's initial sepsis screen is negative. Does the patient have a suspected source of infection? No. Patient's initial sepsis screen is negative. Risk Assessment: Do you want to hurt yourself or someone else? Patient reports no desire to harm self or others. Onset of symptoms was November 02, 2022 at 00:00. 07:29 Method Of Arrival: Wheelchair jl7 07:29 Acuity: MAURICIO 4 jl7 Triage Assessment: 07:30 General: Appears in no apparent distress. uncomfortable, Behavior is calm, cooperative, jl7 appropriate for age. Pain: Complains of pain in anterior aspect of left shoulder and posterior aspect of left shoulder Pain currently is 8 out of 10 on a pain scale. Musculoskeletal: Range of motion: limited in left shoulder. 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 - Social history:: Smoking status: Patient denies any tobacco usage or history of. Vital Signs: 07:29 BP 118 / 65; Pulse 77; Resp 17; Temp 98.1; Pulse Ox 100% ; Weight 118.39 kg; Height 5 jl7 ft. 3 in. (160.02 cm); Pain 8/10; 07:29 Body Mass Index 46.23 (118.39 kg, 160.02 cm) jl7 ED Course: 06:36 Patient arrived in ED. jj6 07:30 Triage completed. jl7 07:30 Arm band placed on right wrist. jl7 08:02 Germaine Kraus FNP-C is PHCP. snw 08:02 Sallie Jacobson MD is Attending Physician. snw 08:04 Germaine Kraus FNP-C is PHCP. snw 08:35 Stewart Mackenzie, JENNIFER is Primary Nurse. jl7 08:40 Sling applied to left arm. jl7 08:49 No provider procedures requiring assistance completed. Patient did not have IV access jl7 during this emergency room visit. Administered Medications: 08:48 Drug: [place] (HYDROcodone-acetaminophen) (7.5 mg-325 mg) 1 tabs Route: PO; jl7 08:48 Follow up: Response: Medication administered at discharge. jl7 Outcome: 08:15 Discharge ordered by . snw 08:40 Discharged to home ambulatory, with family. jl7 08:40 Condition: stable 08:40 Discharge instructions given to patient, family, Instructed on discharge instructions, follow up and referral plans. medication usage, Demonstrated understanding of instructions, follow-up care, medications, Prescriptions given X 1. 08:49 Patient left the ED. jl7 Signatures: Germaine Kraus FNP-C CHROME PLATER-Csnw Stewart Mackenzie, RN RN jl7 Bev Hurtado jj6
[2022-11-02] MEDS ORDERED: HYDROCODONE/APAP 7.5/325 MG TAB ONE (08:43)
[2022-11-02 08:58] VITALS: BP 118/65; TEMP 98.1; O2SAT 100
== END 2022-11-02 08:49 | disposition home or self-care (01) ==
LOC: ER 06:33
DX: S46.012A Strain of muscle(s) and tendon(s) of the rotator cuff of left shoulder, initial encounter (principal); S40.012A Contusion of left shoulder, initial encounter; W01.10XA Fall on same level from slipping, tripping and stumbling with subsequent striking against unspecified object, initial encounter
CPT/HCPCS: 99283

== ENCOUNTER 2023-12-26 08:31 | Emergency (ER) | payer OTHER ==
[2023-12-26] MEDS ORDERED: HYDROCODONE/APAP 10/325 TAB ONE (09:48)
--- NOTE | 2023-12-26 09:56 | RAD REPORT ---
EXAM DESCRIPTION: RAD - Knee Right 3 View - 12/26/2023 9:50 am CLINICAL HISTORY: PAIN COMPARISON: Knee Right 3 View dated 06/25/2019; Knee Right 3 View dated 02/17/2013 FINDINGS: Advanced tricompartmental osteoarthritis is seen, most notable in the medial compartment w here there is [id number]. Patellofemoral joint involvement is also present. No acute fracture or di slocation suspected. Small joint effusion.
--- NOTE | 2023-12-26 10:37 | ER ---
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 hb Coronavirus screen: At this time, the client does not indicate any symptoms associated with coronavirus-19. Ebola Screen: No symptoms or risks identified at this time. Initial Sepsis Screen: Does the patient meet any 2 criteria? No. Patient's initial sepsis screen is negative. Does the patient have a suspected source of infection? No. Patient's initial sepsis screen is negative. Risk Assessment: Do you want to hurt yourself or someone else? Patient reports no desire to harm self or others. Onset of symptoms was December 26, 2023. 08:49 Method Of Arrival: Wheelchair hb 08:49 Acuity: MAURICIO 4 hb Triage Assessment: 08:50 General: Appears in no apparent distress. Behavior is calm, cooperative. Pain: Pain hb currently is 10 out of 10 on a pain scale. Neuro: Level of Consciousness is awake, alert, obeys commands, Oriented to person, place, time, situation. Cardiovascular: Patient's skin is warm and dry. Respiratory: Respiratory effort is even, unlabored, Respiratory pattern is regular, symmetrical. Musculoskeletal: Reports right knee pain 10/10. 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 - Infectious Disease History:: Denies. - Social history:: Smoking status: Patient denies any tobacco usage or history of. Screenin:00 [facility] ED Fall Risk Assessment (Adult) History of falling in the last 3 months, kc6 including since admission Yes- single mechanical fall (1 pt) Confusion or Disorientation No (0 pts) Intoxicated or Sedated No (0 pts) Impaired Gait Yes (1 pt) Mobility Assist Device Used No (0 pt) Altered Elimination No (0 pt) Score/Fall Risk Level 0 - 2 = Low Risk. Abuse screen: Denies threats or abuse. Denies injuries from another. Nutritional screening: No deficits noted. Tuberculosis screening: No symptoms or risk factors identified. Assessment: 09:00 General: Appears in no apparent distress. uncomfortable, obese, well groomed, well kc6 developed, Behavior is calm, cooperative, appropriate for age. Pain: Complains of pain in right knee Pain currently is 7 out of 10 on a pain scale. Neuro: Level of Consciousness is awake, alert, obeys commands, Oriented to person, place, time, situation, Appropriate for age. Cardiovascular: Capillary refill < 3 seconds. Respiratory: Airway is patent Trachea midline Respiratory effort is even, unlabored, Respiratory pattern is regular, symmetrical. GI: No signs and/or symptoms were reported involving the gastrointestinal system. : No signs and/or symptoms were reported regarding the genitourinary system. EENT: No signs and/or symptoms were reported regarding the EENT system. Derm: No signs and/or symptoms reported regarding the dermatologic system. Skin is intact, is healthy with good turgor, Skin is pink, warm \T\ dry. Musculoskeletal: No signs and/or symptoms reported regarding the musculoskeletal system. Circulation, motion, and sensation intact. Capillary refill < 3 seconds, Range of motion: intact in all extremities. 09:52 Reassessment: Patient appears in no apparent distress at this time. No changes from kc6 previously documented assessment. Patient and/or family updated on plan of care and expected duration. Pain level reassessed. Patient is alert, oriented x 3, equal unlabored respirations, skin warm/dry/pink. Vital Signs: 08:49 BP 122 / 68; Pulse 75; Resp 16; Temp 98.2; Pulse Ox 100% on R/A; Weight 107.5 kg; hb Height 5 ft. 4 in. ; Pain 10/10; 08:49 Body Mass Index 40.68 (107.50 kg, 162.56 cm) hb 08:49 Pain Scale: Adult hb ED Course: 08:34 Patient arrived in ED. im 08:50 Triage completed. hb 08:50 Arm band placed on. hb 09:00 Patient has correct armband on for positive identification. Bed in low position. Call kc6 light in reach. Side rails up X 1. Client placed on continuous cardiac and pulse oximetry monitoring. NIBP monitoring applied. Warm blanket given. 09:01 Denis Sherwood MD is Attending Physician. rt 09:50 Sariah Galeano RN is Primary Nurse. kc6 09:51 Knee Right 3 View XRAY In Process Unspecified. EDMS 10:21 Report given to JENNIFER Geiger. kc6 10:34 Primary Nurse role handed off by Sariah Galeano RN cp4 10:34 Danita Monroe is Primary Nurse. cp4 10:36 Wally Neil MD is Referral Physician. rt 10:53 Provided Education on: arthritis and knee pain. cp4 10:53 No provider procedures requiring assistance completed. Patient did not have IV access cp4 during this emergency room visit. Administered Medications: 09:50 Drug: [place] PO 10 mg-325 mg 1 tabs PO once Route: PO; kc6 10:29 Follow up: Response: No adverse reaction; Pain is decreased; RASS: Alert and Calm (0) kc6 Medication: 10:55 VIS not applicable for this client. cp4 Outcome: 10:36 Discharge ordered by . rt 10:53 Discharged to home ambulatory, cp4 10:53 Condition: stable 10:53 Discharge instructions given to patient, Instructed on discharge instructions, follow up and referral plans. medication usage, Demonstrated understanding of instructions, follow-up care, medications, Prescriptions given X 1, 10:55 Patient left the ED. cp4 Signatures: Dispatcher [employer] EDMN Mirian Mg RN RN Sariah Galeano RN RN kc6 Denis Sherwood MD MD rt Jeannie Prabhakar Danita Monroe cp4
--- NOTE | 2023-12-26 10:37 | EDPHYS ---
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 - Infectious Disease History:: Denies. - Social history:: Smoking status: Patient denies any tobacco usage or history of. Vital Signs: 08:49 BP 122 / 68; Pulse 75; Resp 16; Temp 98.2; Pulse Ox 100% on R/A; Weight 107.5 kg; hb Height 5 ft. 4 in. ; Pain 10/10; 08:49 Body Mass Index 40.68 (107.50 kg, 162.56 cm) hb 08:49 Pain Scale: Adult hb MDM: 09:02 Patient medically screened. rt 12/25 09:11 Order name: Knee Right 3 View XRAY; Complete Time: 10:13 rt Administered Medications: 09:50 Drug: [place] PO 10 mg-325 mg 1 tabs PO once Route: PO; kc6 10:29 Follow up: Response: No adverse reaction; Pain is decreased; RASS: Alert and Calm (0) kc6 Disposition Summary: 12/26/23 10:36 Discharge Ordered Notes: Location: Home rt Problem: new rt Symptoms: have improved rt Condition: Stable rt Diagnosis - Pain in right knee rt Followup: rt - With: Wally Neil MD - When: 5 - 6 days - Reason: Discharge Instructions: - Discharge Summary Sheet rt - Arthritis rt - Acute Knee Pain, Adult rt Forms: - Medication Reconciliation Form rt - Antibiotic Education rt - Prescription Opioid Use rt - Patient Portal Instructions rt - Leadership Thank You Letter rt Prescriptions: - Tramadol 50 mg Oral Tablet - take 1 tablet ORAL route every 8 hours as needed; 12 tablet; Refills: 0, rt Product Selection Permitted Signatures: Dispatcher [employer] Mirian Baum RN RN Sariah Isaacs RN RN kc6 Denis Sherwood MD MD rt
[2023-12-26 11:21] VITALS: BP 122/68; TEMP 98.2; O2SAT 100
== END 2023-12-26 10:55 | disposition home or self-care (01) ==
LOC: ER 08:31
DX: M25.561 Pain in right knee (principal)